=== PATIENT | male | born 1955 | race Caucasian/White ===

== ENCOUNTER 2023-10-13 20:56 | Emergency (ER) | payer OTHER, SELFPAY ==
[2023-10-13 21:06] VITALS: BP 158/94
[2023-10-13 21:29] LABS: % Basophils 0.2 % (0-2); % Eosinophils 0.3 % (0-6); % Immature Granulocytes 0.4 % (0-0.5); % Lymphocytes 12.4 % (20.5-51.1); % Monocytes 5.6 % (1.7-9.3); % Neutrophils 81.1 % (42.2-75.2); Absolute Immature Granulocytes 0.1 10^3/uL (0-0.05); Absolute Lymphocytes 1.8 10^3/uL (1.2-3.4); Absolute Monocytes 0.8 10^3/uL (0.1-0.6); Absolute Neutrophils 11.7 10^3/uL (1.4-6.5); Hematocrit 40.2 % (39.0-52.0); Hemoglobin 13.8 g/dL (13.0-18.0); Mean Corp Hgb Conc. 34.3 g/dL (33.0-37.0); Mean Corpuscular Hgb 29.6 pg (27.0-31.0); Mean Corpuscular Volume 86.3 fL (80.0-94.0); Mean Platelet Volume 9.8 fL (7.4-10.4); Nucleated Red Blood Cells % 0 % (-); Platelet Count 342 10^3/uL (130-400); Red Blood Cell Count 4.66 10^6/uL (4.70-6.10); Red Cell Dist. Width 14.2 % (11.5-14.5); White Blood Cell Count 14.4 10^3/uL (4.8-10.8)
[2023-10-13 21:39] LABS: ALT (SGPT) 17 U/L (0-50); AST (SGOT) 22 U/L (17-59); Albumin 3.8 g/dl (3.5-5.0); Alkaline Phosphatase 81 U/L (38-126); Blood Urea Nitrogen 16 mg/dl (9-20); Calcium 9.7 mg/dl (8.4-10.2); Carbon Dioxide 26 mmol/L (22-30); Chloride 100 mmol/L (98-107); Glucose 129 mg/dl (70-99); Potassium 4.2 mmol/L (3.5-5.1); Sodium 137 mmol/L (135-145); Total Bilirubin 0.7 mg/dl (0.2-1.3); Total Protein 6.5 g/dl (6.3-8.2); eGFR > 60.00
[2023-10-13 21:44] VITALS: BP 124/82
[2023-10-13 21:49] LABS: Troponin I < 0.012 ng/ml
[2023-10-13 22:00] VITALS: BP 144/94
--- NOTE | 2023-10-13 22:24 | ED.GENMED ---
History of Present Illness
<STEPHEN Whitman - Last Filed: 10/14/23 06:15>
General
Chief Complaint: Chest Pain
Source: patient
Exam Limitations: none
Time Seen by Provider: 10/13/23 21:58
Nursing documentation reviewed up to this point in time: agreed with
Travel History
Have you had any contact with someone who has COVID-19?: No
Do you have any symptoms of coronavirus? Fever > 100 degrees, chills, cough, shortness of breath, sore throat, loss of taste or smell, muscle aches, or headache?: No
History of Present Illness
History of Present Illness:
This is a 68 YOM with PMHx of CAD, HTN, HLD, Diverticulitis, asthma presenting with dizziness x 1 wk and BUSCH x 1 wk that have been worsening, L arm pain since 1000 today, and L shoulder pain since 1900 today. Pt noted moderate/severe dizziness that
has been bothering him with positional changes. Pt denied feelings of near syncope or episodes of syncope. Pt noted moderate BUSCH while walking his dog this week and an episode today while brushing snow off his vehicle. The pt noted it took 30 mins
of rest to alleviate the SOB today. He took his BP with a home cuff and noted it to be 'high 100s over 110.' Pt denied any SOB at rest. Denied using albuterol inhaler for SOB. Then pt then took a nap and woke up with 3/10 aching L arm pain which
has bothered him intermittently today. Around 1900 today, pt began with 4/10 aching L shoulder pain radiating to L pectoralis area. Pt noted decreased oral intake x 3 weeks related to GI upset with 15 lbs weight loss and consistent loose
stools/diarrhea. Pt had abd CT completed last week via GI. Pt was called by GI and told he had generalized bowel inflammation and gallstones, following up with GI on 10/15/23. NKDA.
Past History
<STEPHEN Whitman - Last Filed: 10/14/23 06:15>
Past History
ED Past Medical History: HTN, Hypercholesterolemia, Other (Crohn's) and Other (Diverticulitis)
ED Past Surgical History: Appendectomy, Orthopedic (Neck surgery with fusion) and Other (hernia)
Social History
Tobacco: Non-smoker
Drug: Marijuana
Personal:
Living: with family
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
Review of Systems
<STEPHEN Whitman - Last Filed: 10/14/23 06:15>
Review of Systems
Allergies reviewed?: Yes
Other source history: family
All Other Systems: ROS reviewed and negative except as documented in HPI and ROS
Constitutional: Reports no symptoms
EENT: Reports no symptoms
Respiratory: Reports trouble breathing (BUSCH)
Cardiac: Reports chest pain (Radiating from L shoulder to L pectoralis area)
ABD/GI: Reports diarrhea
: Reports no symptoms
Musculoskeletal: Reports joint pain (L shoulder) and muscle pain (L forearm)
Skin: Reports no symptoms
Neurological: Reports dizzy
Hematologic/Lymphatic: Reports no symptoms
Psychiatric: Reports no symptoms
Phy Exam
<STEPHEN Whitman - Last Filed: 10/14/23 06:15>
General Physical Exam
General Presentation: well appearing
General age: appears stated age
General Skin: warm and dry
General Habitus: normal
General Mental: alert
General Hydration: appears well hydrated
ENT Exam
ENT Exam: EOMI and neck supple
Eye Exam
Eye Exam: PERRL and EOMI
Cardiovascular Exam
Cardiovascular Exam: regular rate/rhythm
Pulmonary Exam
Pulmonary Exam: lungs clear, no respiratory distress, no rales, chest non tender, no crackles, no rhonchi, no stridor, no wheezing and no cough
Gastrointestinal Exam
Gastrointestinal Exam: normal bowel sounds, soft, no pulsatile mass, non distended, cva tenderness, no masses and tender (generalized mild tenderness)
Neurological Exam
Neurological Exam: alert, oriented x3, no motor deficits, no sensory deficits and speech normal
Musculoskeletal Exam
Musculoskeletal Exam: full ROM (shoulders B/L) and neck pain (Hx of neck pain with cervical spine fusion)
Skin Exam
Skin Exam: normal color and warm/dry
Psychiatric Exam
Psychiatric Exam: normal mood/affect
Scores
<STEPHEN Whitman - Last Filed: 10/14/23 06:15>
Heart Score for Chest Pain Patients
STEMI patient?: No
History: Moderately Suspicious
ECG: Normal
Age: >/= 65 years
Risk Factors: >/= 3 Risk Factors or History of CAD
Troponin: </= Normal Limit
Heart Score for Chest Pain Patients: 5
Heart Score Risk: 20.3% MACE over next 6 weeks
Course
<Nani Jovel [facility] - Last Filed: 10/14/23 06:15>
Orders/Labs/Results
Orders:
Orders
10/13/23 20:59
EKG [Electrocardiogram (*1)] Urgent
Reason for Study: Chest Pain
EKG- Treatment ONCE
10/13/23 21:17
Complete Blood Count/With Diff Urgent
Comprehensive Metabolic Panel Urgent
NT-proBNP Urgent
Comment: ADDED
Troponin I Urgent
10/13/23 22:32
CR Chest - 2 Views Urgent
Comment:
Reason For Exam: chest pain
10/13/23 22:38
EKG- Treatment ONCE
10/13/23 22:50
Orthostatic VS- Treatment ONCE
10/13/23 22:55
Add On- LAB Urgent
Tests Added?: pro bnp
10/13/23 23:00
0.9% Sodium Chloride 1000 ml [Nss] 1,000 ml IV 500 mls/hr
10/14/23 00:28
Troponin I Urgent
10/14/23 00:30
0.9% Sodium Chloride 500 ml [Nss] 500 ml IV BOLUS
10/14/23 01:00
Electrocardiogram (*1) Urgent
Reason for Study: Chest Pain
10/14/23 01:13
Urinalysis Reflex To Culture Urgent
Date Specimen was Collected: 10/14/23
Time Specimen was Collected: 01:09
Abnormal Lab Results
10/13/23 10/14/23
21:17 01:13
WBC 14.4 H 10^3/uL
(4.8-10.8)
RBC 4.66 L 10^6/uL
(4.70-6.10)
Abs Immat Gran (auto) 0.1 H 10^3/uL
(0-0.05)
Absolute Neuts (auto) 11.7 H 10^3/uL
(1.4-6.5)
Absolute Monos (auto) 0.8 H 10^3/uL
(0.1-0.6)
Neutrophils % 81.1 H %
(42.2-75.2)
Lymphocytes % 12.4 L %
(20.5-51.1)
Glucose 129 H mg/dl
(70-99)
Urine Ketones 1+ A
(Negative)
10/13/23 21:17
10/13/23 21:17
Vital Signs
Initial and Last Documented VS:
Initial Vital Signs
Temp Pulse Resp BP Pulse Ox
98.6 F 94 18 158/94 99
10/13/23 21:06 10/13/23 21:06 10/13/23 21:06 10/13/23 21:06 10/13/23 21:06
Last Documented Vital Signs
Temp Pulse Resp BP Pulse Ox
98.6 F 67 15 119/79 99
10/13/23 21:06 10/14/23 02:15 10/14/23 02:15 10/14/23 02:00 10/14/23 02:15
<Tawanda Lemos, DO - Last Filed: 10/14/23 02:25>
Orders/Labs/Results
Orders:
Orders
10/13/23 20:59
EKG [Electrocardiogram (*1)] Urgent
Reason for Study: Chest Pain
EKG- Treatment ONCE
10/13/23 21:17
Complete Blood Count/With Diff Urgent
Comprehensive Metabolic Panel Urgent
NT-proBNP Urgent
Comment: ADDED
Troponin I Urgent
10/13/23 22:32
CR Chest - 2 Views Urgent
Comment:
Reason For Exam: chest pain
10/13/23 22:38
EKG- Treatment ONCE
10/13/23 22:50
Orthostatic VS- Treatment ONCE
10/13/23 22:55
Add On- LAB Urgent
Tests Added?: pro bnp
10/13/23 23:00
0.9% Sodium Chloride 1000 ml [Nss] 1,000 ml IV 500 mls/hr
10/14/23 00:28
Troponin I Urgent
10/14/23 00:30
0.9% Sodium Chloride 500 ml [Nss] 500 ml IV BOLUS
10/14/23 01:00
Electrocardiogram (*1) Urgent
Reason for Study: Chest Pain
10/14/23 01:13
Urinalysis Reflex To Culture Urgent
Date Specimen was Collected: 10/14/23
Time Specimen was Collected: 01:09
Abnormal Lab Results
10/13/23 10/14/23
21 01:13
WBC 14.4 H 10^3/uL
(4.8-10.8)
RBC 4.66 L 10^6/uL
(4.70-6.10)
Abs Immat Gran (auto) 0.1 H 10^3/uL
(0-0.05)
Absolute Neuts (auto) 11.7 H 10^3/uL
(1.4-6.5)
Absolute Monos (auto) 0.8 H 10^3/uL
(0.1-0.6)
Neutrophils % 81.1 H %
(42.2-75.2)
Lymphocytes % 12.4 L %
(20.5-51.1)
Glucose 129 H mg/dl
(70-99)
Urine Ketones 1+ A
(Negative)
10/13/23 21:17
10/13/23 21:17
Vital Signs
Initial and Last Documented VS:
Initial Vital Signs
Temp Pulse Resp BP Pulse Ox
98.6 F 94 18 158/94 99
10/13/23 21:06 10/13/23 21:06 10/13/23 21:06 10/13/23 21:06 10/13/23 21:06
Last Documented Vital Signs
Temp Pulse Resp BP Pulse Ox
98.6 F 67 15 119/79 99
10/13/23 21:06 10/14/23 02:15 10/14/23 02:15 10/14/23 02:00 10/14/23 02:15
Alexilt;STEPHEN Whitman - Last Filed: 10/14/23 06:15>
MDM/Problems Addressed
Differential Diagnosis Includes:
[place], PE, CHF, orthostatic HTN, dehydration, vertigo, MSK pain
MDM/Problems Addressed:
68 YOM with BUSCH and L shoulder/arm pain
Chronic conditions affecting care: HTN, CAD and Asthma
<Tawanda Lemos DO - Last Filed: 10/14/23 02:25>
MDM/Problems Addressed
Chronic conditions affecting care: HTN, CAD and Asthma
Acute Exacerbation and/or Progression of Chronic Illness: Asthma
<STEPHEN Whitman - Last Filed: 10/14/23 06:15>
*Radiology
Radiology exam reviewed: radiology read reviewed
*Pulse Oximetry
Patient hypoxic: no
*EKG
Interpreted by ED Provider?: Yes
EKG Intrepretation Date: 10/13/23
EKG Intrepretation Time: 22:45
Interpretation: abnormal
Comparison EKG: no changes
Heart Rate: 82
Rate: normal
Rhythm: sinus
[place]: left axis deviation
Interval: normal interval, normal QT interval and normal [place] interval
QRS Pattern: normal QRS
Ischemia: no ischemia
*Grounds Maintenance Manager Interpretation
Rate: normal
Interpretation: normal
Heart Rate: 94
Rhythm: sinus
*Critical Care Note
Total Time (30-74mins, 75-104mins- exclusive of procedures): Not Applicable
<Tawanda Lemos DO - Last Filed: 10/14/23 02:25>
*Pulse Oximetry
Patient hypoxic: no
ED Attending Note
<STEPHEN Whitman - Last Filed: 10/14/23 06:15>
-
Portions of this chart may have been created with voice recognition software.� Occasional wrong word or��sound alike� substitutions may have occurred due to the inherent limitations of voice recognition software.
<Tawanda Lemos DO - Last Filed: 10/14/23 02:25>
ED Attending Note
Patient seen and examined by attending physician: Yes
ED Attending Note:
Pleasant 68-year-old male presents with dyspnea on exertion and dizziness for the last week. Patient had left arm pain this morning. He states that that was intermittent throughout the day. This evening he developed left shoulder pain. Patient
reports dizziness when sitting or standing. He denies syncope or true lightheadedness. Patient concerned because his blood pressure was elevated this evening when he took it at home. Patient is under the care of GI for diverticulitis. He states
that for the last 3 weeks he has had decreased oral intake with weight loss. He had a CAT scan completed last week. He does have a follow-up with GI this week. Patient also has an appointment with Dr. Frye, cardiology, scheduled for Thursday.
Patient was seen in conjunction with the PA student. I have reviewed and agree with the history and treatment plan presented. On my independent physical exam, patient is awake, alert, and oriented x3, minimal acute distress. Heart is regular rate
and rhythm without murmurs rubs or gallops appreciated. Lungs are clear to auscultation bilaterally without wheezes rales or rhonchi. Abdomen is soft and nondistended. Skin is warm and dry. Moves all 4 extremities.
Discharge Plan
Departure
Patient Disposition: Home (Routine Discharge)
Date of Disposition: 10/14/23
Time of Disposition: 02:23
Patient with high blood pressure during this ER visit?: Yes
Condition: Good
Discharge Problem:
Chest pain
Instructions: Chest Pain PCP Follow Up, BLOOD PRESSURE
Prescriptions:
No Action
metoprolol succinate 50 MG tablet extended release 24 hr
50 mg PO QPM
omeprazole [Prilosec] 40 MG capsule,delayed release(DR/EC)
40 mg PO BID
aspirin 325 MG tablet
325 mg PO DAILY
alprazolam 0.25 MG tablet
0.0625 mg PO HSPRN PRN (Reason: insomnia)
Patient Comments:
pt says he takes 1/4 tablet
docosahexaenoic acid-epa 1 CAP capsule
2 cap PO DAILY
coenzyme Q10 [Co Q-10] 200 MG capsule
200 mg PO DAILY
Crestor
1 tab PO DAILY
prednisone 10 MG tablet
10 mg PO DAILY 11 Days 0RF
Rx Instructions:
take 50mg x 5 days, then 20mg x3 days, then 10mg x 3 days
albuterol sulfate [Proventil HFA] 90 MCG/PUFF HFA aerosol inhaler
2 puff inhalation Q4HPRN PRN (Reason: shortness of breath) Qty: 0 0RF
amoxicillin-pot clavulanate 1 TABLET tablet
1 tab PO Q12 Qty: 14 0RF
Referrals:
Khoi Frye MD [Active] - Keep scheduled appt
Activity Restrictions/Additional Instructions:
Please keep your appointment for cardiology on Thursday, gastroenterology on , and urology on Thursday. Return to the ER with any changing or worsening of symptoms.
It was a pleasure meeting you and taking part in your care. We hope for your continued healing and wellness.
Please read discharge instructions in their entirety. However, they are for general education and may not describe your exact diagnosis at discharge. Information on your ER visit and medical conditions were discussed with you along with appropriate
follow up information...
If indicated, please take your medications as instructed and indicated on discharge paperwork.
Please schedule a follow up appointment as directed. Call to schedule an appointment
Please return to the emergency department with ANY change in, persisting, or worsening of symptoms. If any of your symptoms do not improve, or persist, or become more severe within 6-12 hours, please return to the emergency department for further
care.
Please return to the emergency department if you develop a headache, neck pain/stiffness, fever greater than 100.4F, chest pain, shortness of breath, persistent nausea, vomiting, slurred speech, difficulty walking, numbness/tingling, weakness, signs
of infection or any other symptoms that are worrisome to you.
If you have any questions or concerns please do not hesitate to call the Hospital at or E-mail me directly at [email or web address]
Interventions
Interventions:
*Risk Screen - Suicide Last Done: 10/13/23 21:06
*General Assessment Last Done: 10/13/23 21:06
*Neglect/Abuse Screening Last Done: 10/13/23 21:06
ED- Fall Risk Assessment Last Done: 10/13/23 21:53
*ED COVID-19 Vaccine History Last Done: 10/13/23 21:53
*Nursing Disposition Last Done: 10/14/23 02:25
ED- Cardiac Assessment Last Done: 10/14/23 00:05
Discharge Date and Time
Discharge Date/Time: 10/14/23 02:25
[2023-10-14 00:01] LABS: NT-proBNP 99.7 pg/ml
[2023-10-14 00:06] VITALS: BP 128/76
[2023-10-14 00:07] VITALS: BP 128/76; BP 129/92; BP 136/93; PULSE 68; PULSE 79; PULSE 91
[2023-10-14 00:08] VITALS: BP 136/93
[2023-10-14] MEDS: NSS 1000 IV (00:25)
[2023-10-14 01:00] VITALS: BP 128/81
[2023-10-14 01:21] LABS: Urine Albumin Negative (Neg - Trace); Urine Bilirubin Negative (Negative); Urine Character Clear (Clear); Urine Color Yellow; Urine Glucose Negative (Negative); Urine Ketone 1+ (Negative); Urine Leukocyte Negative (Negative); Urine Nitrite Negative (Negative); Urine Occult Blood Negative (Negative); Urine Specific Gravity 1.015 (<1.030); Urine Urobilinogen Negative (Neg - 1+)
[2023-10-14 01:25] LABS: Troponin I < 0.012 ng/ml
[2023-10-14] MEDS: NSS 500 IV (01:57)
[2023-10-14 02:00] VITALS: BP 119/79
== END 2023-10-14 02:25 | disposition home or self-care (01) ==
LOC: EMR 20:56
PROVIDERS: Emergency Medicine; EMERGENCY PHYSICIAN Student in an Organized Health Care Education/Training Program; FAMILY PHYSICIAN Family Medicine
DX: R07.89 Other chest pain (principal); R06.09 Other forms of dyspnea; M25.512 Pain in left shoulder; M79.602 Pain in left arm; R42 Dizziness and giddiness; R19.7 Diarrhea, unspecified; M79.18 Myalgia, other site; K80.20 Calculus of gallbladder without cholecystitis without obstruction; I10 Essential (primary) hypertension; I25.10 Atherosclerotic heart disease of native coronary artery without angina pectoris; E78.00 Pure hypercholesterolemia, unspecified; K50.90 Crohn's disease, unspecified, without complications; K57.92 Diverticulitis of intestine, part unspecified, without perforation or abscess without bleeding; J45.909 Unspecified asthma, uncomplicated; I25.2 Old myocardial infarction; M43.22 Fusion of spine, cervical region; Z79.82 Long term (current) use of aspirin
CPT/HCPCS: 99284; 96360; 71046; 80053; 81003; 83880; 84484; 85025; 93005

== ENCOUNTER 2023-11-03 14:21 | Inpatient (IN) | payer OTHER, MEDICARE, SELFPAY ==
[2023-11-03] VITALS (11 sets, daily range): BP systolic 101–144; BP diastolic 67–93; BMI 22.1
[2023-11-03] MEDS: DILAUDID 1 MG IV ×2 (09:23→23:54)
[2023-11-03] MEDS: ZOFRAN 4 MG IV (09:23)
[2023-11-03] MEDS: NSS 1000 IV ×3 (09:24→16:58)
--- NOTE | 2023-11-03 09:30 | ED.GENMED ---
History of Present Illness
General
Chief Complaint: Abdominal Pain
Source: patient and spouse
Exam Limitations: none
Time Seen by Provider: 11/03/23 09:12
Nursing documentation reviewed up to this point in time: agreed with
Travel History
Have you had any contact with someone who has COVID-19?: No
Do you have any symptoms of coronavirus? Fever > 100 degrees, chills, cough, shortness of breath, sore throat, loss of taste or smell, muscle aches, or headache?: No
History of Present Illness
History of Present Illness:
68-year-old male with history of CAD, HTN, HLD, Crohn's, diverticulitis presents stating 8 days ago he had an outpatient CAT scan ordered 10/[address] Nichols at [place] due to abdominal pain that he has had off and on for past 'couple of
months.' He was then started on Augmentin 875 mg twice daily 8 days ago and has been taking it with worsening of symptoms. His pain has become significantly worse over the past couple of days and this morning it was 10/10, his took his
temperature on his forehead it was 105, she rechecked it and it was the same. Gave Tylenol and this a.m. his temperature was 102. Has taken nothing today for fever.
This a.m. his pain was 10/10, took a now it is 5/10. He took MiraLAX yesterday and had a couple small loose stools during the night but they were painful and he was doubled over. He had a small episode of diarrhea this morning. His hemorrhoids
are aggravated so he did note some blood in his stool 2 days ago but none since.
Denies n/v. Denies CP or SOB.
Past History
Past History
ED Past Medical History: HTN, Hypercholesterolemia, Other (Crohn's) and Other (Diverticulitis)
ED Past Surgical History: Appendectomy, Orthopedic (Neck surgery with fusion) and Other (hernia)
Social History
Tobacco: Non-smoker
Drug: Marijuana
Personal:
Living: with family
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
Review of Systems
Review of Systems
Allergies reviewed?: Yes
All Other Systems: ROS reviewed and negative except as documented in HPI and ROS
Constitutional: Reports fever
Respiratory: Denies trouble breathing
Cardiac: Denies chest pain
ABD/GI: Reports abdominal pain, diarrhea, constipated and bloody stools (noted blood in stool 2 days ago none since, hemorrhoids are aggravated); Denies nausea, vomiting or black stools
: Denies dysuria, flank pain, difficulty voiding or urgency
Musculoskeletal: Reports no symptoms
Skin: Reports no symptoms
Neurological: Reports no symptoms
Phy Exam
Physical Exam
Physical Exam:
GENERAL: No acute distress. A&Ox3.
CONSTITUTIONAL: Afebrile.
EYES: Clear, conjunctivae normal
Neck: Supple
ENMT: moist mucus membranes, Pharynx nl
RESPIRATORY: Regular respirations, nonlabored, lungs clear.
CARDIOVASCULAR: Regular rate and rhythm, no murmurs, no rubs.
GI: Soft, moderately tender all across abdomen below the umbilicus, normal BS
MUSCULOSKELETAL: Moves with ease. Well perfused.
SKIN: Warm, dry, pink
PSYCH: Normal mood and affect. Well kept, interactive and appropriate
NEUROLOGIC: Awake, alert and oriented. No focal neurological deficits
Course
Orders/Labs/Results
Orders:
Orders
11/03/23 08:52
Electrocardiogram (*1) Urgent
Reason for Study: Tachycardia
EKG- Treatment ONCE
11/03/23 09:18
Complete Blood Count/With Diff Urgent
Comprehensive Metabolic Panel Urgent
Lipase Urgent
11/03/23 09:22
HYDROmorphone [Dilaudid] 1 mg .ROUTE .STK-MED ONE
HYDROmorphone [Dilaudid] 1 mg IV NOW STA
Ondansetron Injectable [Zofran] 4 mg .ROUTE .STK-MED ONE
11/03/23 09:23
Ondansetron Injectable [Zofran] 4 mg IV NOW STA
11/03/23 09:24
0.9% Sodium Chloride 1000 ml [Nss] 1,000 ml IV BOLUS
11/03/23 09:29
CT Abd/Pel (IV only)-DH only Urgent
Comment:
Reason For Exam: worsening abd pain. Had CT 10/26 also
11/03/23 09:41
Piperacillin/Tazo 3.375 Gram [Zosyn] 3.375 gram in 50 ml IV NOW
11/03/23 09:42
0.9% Sodium Chloride 1000 ml [Nss] 1,800 ml IV NOW STA
11/03/23 09:55
Lactic Acid Q4H
Comment: CANCEL 2nd LACTIC ACID IF 1st LACTIC ACID IS LESS THAN 2
Blood Culture Q30M
ALEKSANDR Source: Blood/Venous
Specimen Description:
Blood Culture Q30M
ALEKSANDR Source: Blood/Venous
Specimen Description:
11/03/23 Lunch
NPO
Allow oral meds: Yes
Allow clear liquids: Sips of Clears
NPO with Ice Chips: Yes
11/03/23 10:44
0.9% Sodium Chloride 1000 ml [Nss] 1,000 ml IV BOLUS
11/03/23 11:15
HYDROmorphone [Dilaudid] 0.5 mg IV NOW STA
11/03/23 11:54
ColoRectal Surgery Consult Urgent
Consulting Provider: Joaquín Bell
Was physician already notified: Yes
Reason for consult: colon abscess, sigmoid diverticulitis
11/03/23 13:57
Admit/Transfer Patient As Directed
Co-Sign Provider:
Level of Care: Inpatient admission
Assign to:: Medical/Surgical
Physician / Group: Vaibhav
Diagnosis: Diverticular abscess
Reason for Hospitalization: Above
Expected length of stay greater than two midnights?: Yes
ELOS- Estimated Length of Stay in days: 2
I certify the patient meets the requirements for IP care: Yes
11/03/23 14:03
Code Status As Directed
Resuscitation Status: Full Code
11/03/23 15:56
0.9% Sodium Chloride 1000 ml [Nss] 1,000 ml IV 100 mls/hr
Acetaminophen [Tylenol] 500 mg PO TIDPRN PRN
Acetaminophen [Tylenol] 650 mg PO Q4HPRN PRN
Metoprolol Xl [Toprol Xl] 50 mg PO DAILY
Morphine Sulfate 2 mg IV Q4HPRN PRN
11/03/23 15:56
DX Deep Vein Thrombosis Video Routine
11/03/23 16:00
Piperacillin/Tazo 3.375 Gram [Zosyn] 3.375 gram in 50 ml IV Q6H
11/03/23 20:00
Heparin 5,000 units SC Q12
omeprazole 40 mg PO BID
11/03/23 22:00
Aspirin Low Dose EC [Aspir Low (Enteric Coated)] 81 mg PO HS
Rosuvastatin Calcium [Crestor] 20 mg PO HS
coQ10 (ubiquinol) 200 mg PO HS
11/04/23 06:00
BMP [Basic Metabolic Panel] IN AM
CBC/With Diff [Complete Blood Count/With Diff] IN AM
Abnormal Lab Results
11/03/23
09:18
WBC 30.6 H 10^3/uL
(4.8-10.8)
RDW 14.7 H %
(11.5-14.5)
Abs Immat Gran (auto) 0.3 H 10^3/uL
(0-0.05)
Absolute Neuts (auto) 27.0 H 10^3/uL
(1.4-6.5)
Absolute Lymphs (auto) 0.7 L 10^3/uL
(1.2-3.4)
Absolute Monos (auto) 2.6 H 10^3/uL
(0.1-0.6)
Immature Gran % 1.0 H %
(0-0.5)
Neutrophils % 88.1 H %
(42.2-75.2)
Lymphocytes % 2.2 L %
(20.5-51.1)
Sodium 133 L mmol/L
(135-145)
Glucose 142 H mg/dl
(70-99)
Total Bilirubin 1.8 H mg/dl
(0.2-1.3)
Lipase 12 L U/L
(23-300)
11/03/23 09:18
11/03/23 09:18
Vital Signs
Initial and Last Documented VS:
Initial Vital Signs
Temp Pulse Resp BP Pulse Ox
98.1 F 130 17 116/93 97
11/03/23 08:46 11/03/23 08:46 11/03/23 08:46 11/03/23 08:46 11/03/23 08:46
Last Documented Vital Signs
Temp Pulse Resp BP Pulse Ox
98.3 F 104 16 144/81 96
11/03/23 16:02 11/03/23 16:02 11/03/23 16:02 11/03/23 16:02 11/03/23 16:02
MDM/Problems Addressed
Differential Diagnosis Includes:
Diverticulitis, abscess, perforation
MDM/Problems Addressed:
68-year-old male with history of CAD, HTN, HLD, Crohn's, diverticulitis presents stating 8 days ago he had an outpatient CAT scan ordered 10/[address] Nichols at [facility] due to abdominal pain that he has had off and on for past 'couple of
months.' He was then started on Augmentin 875 mg twice daily 8 days ago and has been taking it with worsening of symptoms. His pain has become significantly worse over the past couple of days and this morning it was 10/10, his took his
temperature on his forehead it was 105, she rechecked it and it was the same. Gave Tylenol and this a.m. his temperature was 102. Has taken nothing today for fever.
This a.m. his pain was 10/10, took a now it is 5/10. He took MiraLAX yesterday and had a couple small loose stools during the night but they were painful and he was doubled over. He had a small episode of diarrhea this morning. His hemorrhoids
are aggravated so he did note some blood in his stool 2 days ago but none since.
Denies n/v. Denies CP or SOB.
Afebrile, NAD
Appears calm, NAD but is tachycardic, in pain
EKG: Sinus tachycardia
11/03/2023 0925 AM
WBC 30.6
Sepsis protocol initiated
VS HR 96 BP 120/80
Good pain relief after medication
11/03/2023 1045 AM
CMP with no clinically significant abnormality
Lipase 12
Lactic within normal limits
CT abdomen pelvis with IV only contrast: Radiology report read: IMPRESSION:
Worsening appearance of the sigmoid diverticulitis, with persistent bowel wall thickening and inflammatory stranding and with a developing 2.7 cm abscess adjacent to the sigmoid colon and urinary bladder. No free air.
Hospitalist notified of admission, colorectal consult in
*Critical Care Note
Total Time (30-74mins, 75-104mins- exclusive of procedures): Not Applicable
ED Attending Note
-
Portions of this chart may have been created with voice recognition software.� Occasional wrong word or��sound alike� substitutions may have occurred due to the inherent limitations of voice recognition software.
Discharge Plan
Departure
Patient Disposition: Admit
Date of Disposition: 11/03/23
Time of Disposition: 11:08
Presentation/result/management discussed w/ accepting MD/DO: Hospitalist
Patient with high blood pressure during this ER visit?: No
Condition: Fair
Discharge Problem:
Abscess of sigmoid colon due to diverticulitis
Interventions
Interventions:
*Risk Screen - Suicide Last Done: 11/03/23 09:19
*General Assessment Last Done: 11/03/23 08:51
*Neglect/Abuse Screening Last Done: 11/03/23 09:19
ED- Fall Risk Assessment Last Done: 11/03/23 15:52
*ED COVID-19 Vaccine History Last Done: 11/03/23 08:50
*Nursing Disposition Last Done: 11/03/23 15:52
[facility] Assessment Last Done: 11/03/23 09:19
Discharge Date and Time
Discharge Date/Time: 11/03/23 15:52
[2023-11-03 09:33] LABS: % Basophils 0.3 % (0-2); % Lymphocytes 2.2 % (20.5-51.1); % Monocytes 8.4 % (1.7-9.3); % Neutrophils 88.1 % (42.2-75.2); Absolute Basophils 0.1 10^3/uL (0-0.2); Absolute Immature Granulocytes 0.3 10^3/uL (0-0.05); Absolute Lymphocytes 0.7 10^3/uL (1.2-3.4); Absolute Monocytes 2.6 10^3/uL (0.1-0.6); Hematocrit 41.5 % (39.0-52.0); Hemoglobin 14.1 g/dL (13.0-18.0); Mean Corpuscular Hgb 29.3 pg (27.0-31.0); Mean Corpuscular Volume 86.3 fL (80.0-94.0); Mean Platelet Volume 10.2 fL (7.4-10.4); Nucleated Red Blood Cells % 0 % (-); Platelet Count 283 10^3/uL (130-400); Red Blood Cell Count 4.81 10^6/uL (4.70-6.10); Red Cell Dist. Width 14.7 % (11.5-14.5); White Blood Cell Count 30.6 10^3/uL (4.8-10.8)
[2023-11-03 09:45] LABS: ALT (SGPT) 13 U/L (0-50); AST (SGOT) 18 U/L (17-59); Albumin 4.1 g/dl (3.5-5.0); Alkaline Phosphatase 94 U/L (38-126); Blood Urea Nitrogen 12 mg/dl (9-20); Calcium 9.3 mg/dl (8.4-10.2); Carbon Dioxide 22 mmol/L (22-30); Chloride 102 mmol/L (98-107); Glucose 142 mg/dl (70-99); Lipase 12 U/L (23-300); Potassium 3.8 mmol/L (3.5-5.1); Sodium 133 mmol/L (135-145); Total Bilirubin 1.8 mg/dl (0.2-1.3); Total Protein 6.8 g/dl (6.3-8.2); eGFR > 60.00
[2023-11-03 10:15] LABS: Lactic Acid 1.5 mmol/L (0.7-2.0)
[2023-11-03] MEDS: ZOSYN 50 IV ×3 (10:28→23:54)
[2023-11-03] MEDS: DILAUDID 0.5 MG IV ×2 (11:17→19:47)
--- NOTE | 2023-11-03 12:30 | CON.CRS ---
Addendum entered and electronically signed by Joaquín Bell MD 11/03/23 17:35:
I saw and examined the patient.
The PA's note was reviewed and I agree with the note.
Comment:
Patient seen earlier in the ER.
History, vitals, labs, imaging reviewed. Patient seen and examined.
68-year-old male with a strong family history of Crohn's but no yves rosalie history of Crohn's himself with sigmoid diverticulitis complicated by a 2.7 cm abscess between the sigmoid and the bladder. Has associated leukocytosis of 30,000 and
borderline tachycardia. Per patient report he had a temperature of 105? At home. He is afebrile in the ER. On exam he is moderately tender in both lower quadrants. Upper quadrants less tender. Interestingly it sounds like he failed outpatient
Augmentin and had a prior CT which showed diverticulitis without abscess last week. His last colonoscopy was by Dr. Purcell on 10/16/2022 confirming diverticulosis of the sigmoid, descending, and transverse colon as well as a small benign polyp in
the distal sigmoid colon. Random biopsies of colon showed no evidence for microscopic colitis or inflammation. In regards to prior attacks of diverticulitis, the patient vaguely relates that he has had multiple attacks in the distant past. I
discussed the situation with the patient and his family at the bedside. I do not believe the abscess will be approachable via IR guidance. Will get their opinion however. In the meantime agree with admission for IV fluids, diet restriction, and
IV antibiotics. I discussed options of surgery which would likely include a colostomy versus maximum medical measures. The patient currently opts for medical measures. I told him surgery would be necessary if he decompensates. He understands
this. All questions answered.
Thanks.
Original Note:
Consultation
-
Date/Time Consultation Requested: 11/03/2023, 1154
Date/Time Consultation Performed: 11/03/2023, 1300
Requesting Provider: LISA Lucero
Performing Provider: Joaquín Bell MD
Reason for Consultation: Sigmoid diverticulitis
Medical History
-
Chief Complaint: abdominal pain
History of Present Illness:
68-year-old male with a strong family history of Crohn's presents to the emergency department complaining of abdominal pain. He had an outpatient CT ordered by his primary care physician due to abdominal pain for the past several months. The CT
showed a sigmoid segment of moderate acute diverticulitis with no perforation or abscess. Also noted was diffuse pancreatic parenchymal atrophy. In the mid pancreatic body there is an ovoid homogeneous soft tissue component measuring 1.6 cm which
may represent a residual island of pancreatic tissue but the possibility of pancreatic mass/neoplasm cannot entirely be excluded. He had multiple attacks of diverticulitis in the past, the last attack was several years ago.
He was started on Augmentin twice a day and has been taking it for the past 8 days. Despite this his symptoms have been worsening to the point where his abdominal pain has been a 10 out of 10. His temperature at home from a thermometer was 105.0
and he took Tylenol. His temperature was 102.0 after this. This morning his pain was a 10 out of 10. He had a small episode of diarrhea in the morning. He noted blood in his stool 2 days ago which he attributes to hemorrhoids. His bowel
movements are usually soft and in the morning.
He underwent a colonoscopy by Dr. Purcell on 10/16/2022 which revealed diverticulosis in the sigmoid colon, the descending colon, and in the transverse colon. There was one 5 mm polyp in the distal sigmoid colon.
CT of the abdomen and pelvis today shows worsening appearance of sigmoid diverticulitis with persistent bowel wall thickening and inflammatory stranding with developing 2.7 cm abscess adjacent to the sigmoid colon and urinary bladder. No free air.
We have been consulted for further surgical opinion.
Past Medical History
Past Medical History: HTN, Hypercholesterolemia and Other (Crohn's disease, diverticulosis)
Past Surgical History: Appendectomy, Hernia Repair and Orthopedic (History of cervical fusion)
Social History
Tobacco: Non-Smoker
Drug: Marijuana
Personal:
Living: With Family
Family History
Family History: Reviewed & Not Pertinent
Allergies / Home Medications
Allergy/AdvReac Type Severity Reaction Status Date / Time
NKA - No Known Allergies Allergy - Uncoded 06/29/21 23:53
Medication Instructions Recorded Confirmed Type
Fish Oil 1 cap PO DAILY 11/03/23 11/03/23 History
acetaminophen 500 mg tablet 1,000 mg PO TIDPRN PRN severe 11/03/23 11/03/23 History
(Tylenol Extra Strength) pain/fever
acetaminophen 500 mg tablet 500 mg PO TIDPRN PRN mild 11/03/23 11/03/23 History
(Tylenol Extra Strength) pain/fever
amoxicillin 875 mg-potassium 1 tab PO Q12H 11/03/23 11/03/23 History
clavulanate 125 mg tablet
aspirin 81 mg tablet,delayed 81 mg PO HS 11/03/23 11/03/23 History
release
coQ10 (ubiquinol) 200 mg capsule 200 mg PO HS 11/03/23 11/03/23 History
dicyclomine 20 mg tablet 20 mg PO TID PRN stomach discomfort 11/03/23 11/03/23 History
gqwzbbfd-uhjvgx-ceosg extract 5 6 cap PO DAILY 11/03/23 11/03/23 History
mg-6 mg-150 mg capsule (Fruit and
Vegetable Daily)
metoprolol succinate 50 mg 50 mg PO DAILY 11/03/23 11/03/23 History
tablet,extended release 24 hr
omeprazole 40 mg capsule,delayed 40 mg PO BID 11/03/23 11/03/23 History
release
polyethylene glycol 3350 17 gram 17 g PO HS 11/03/23 11/03/23 History
oral powder packet (Miralax)
rosuvastatin 20 mg tablet 20 mg PO HS 11/03/23 11/03/23 History
Review of Systems
-
History Source: Patient
All other systems: Negative unless noted
Abdomen/GI: Abdominal Pain, Diarrhea, Constipated and Bloody Stools
A 10 point review of systems was completed, and was negative except as per HPI.
Physical Exam
Vital Signs
Temp 98.1 F 11/03/23 08:46
Pulse 98 11/03/23 10:00
Resp Rate 21 11/03/23 10:00
Blood pressure 125/78 11/03/23 10:00
SaO2 95 11/03/23 10:00
11/02/23 11/03/23 11/04/23
06:59 06:59 06:59
Actual Weight 61 kg
Lab Results / Allergies
11/03/23 09:18
11/03/23 09:18
WBC 30.6 10^3/uL (4.8-10.8) H 11/03/23 09:18
Hgb 14.1 g/dL (13.0-18.0) 11/03/23 09:18
Hct 41.5 % (39.0-52.0) 11/03/23 09:18
Plt Count 283 10^3/uL (130-400) 11/03/23 09:18
Abs Immat Gran (auto) 0.3 10^3/uL (0-0.05) H 11/03/23 09:18
Neutrophils % 88.1 % (42.2-75.2) H 11/03/23 09:18
Allergy/AdvReac Type Severity Reaction Status Date / Time
NKA - No Known Allergies Allergy - Uncoded 06/29/21 23:53
Physical Exam
General: Well Developed and Well Nourished
GI: Soft and Tender (moderate, suprapubic)
Skin: Warm and Dry
Neuro: AO x 3
Psych: Calm
Data Reviewed
-
CT Scan: Image Personally Visualized and interpreted, Report Reviewed by me and Discussed with Patient
Labs: Labs Reviewed by me, Discussed with Physician and Discussed with Patient
Old Records: Reviewed
Assessment / Plan
-
Assessment: 68-year-old male with a history of Crohn's and recent CT with finding of sigmoid diverticulitis started on an outpatient course of antibiotics, now presents with abdominal pain and diarrhea with loose bloody stools with a WBC of 30.[address] of the abdomen and pelvis showing worsening sigmoid diverticulitis with a 2.7 cm abscess adjacent to the sigmoid and urinary bladder
Plan:
No surgery at this time. Discussed with patient that if he were to worsen he might require a colectomy with colostomy creation. For now he will remain n.p.o. and continue antibiotics. Trend WBC. IR has been consulted to assess if the abscess is
drainable.
--- NOTE | 2023-11-03 14:50 | HPS.HSE ---
Family Physician
-
Family Physician: Bucky Nichols
Chief Complaint
-
Abdominal pain and fever.
History of Present Illness
Patient is a 68-year-old male with history of coronary artery disease and hypertension, Crohn's disease currently not on any treatment, diverticulitis who presents to the emergency room with worsening abdominal pain and fever. Patient developed
abdominal pain mostly in the left lower quadrant weeks ago when he underwent evaluation with CT scan of the abdomen pelvis ordered by primary physician. Findings were consistent with sigmoid diverticulitis, 1 patient was initiated on Augmentin
therapy about 8 days prior to current visit. Being compliant with diabetic administration patient developed worsening of abdominal pain intensity 10 out of 10-day of presentation as well as fever reported at 105 at home.
Upon presentation to the emergency room patient is afebrile hemodynamically stable.
Repeated CT scan of the abdomen and pelvis today in the emergency room showed worsening of appearance of his sigmoid diverticulitis with persistent bowel wall thickening and inflammatory stranding with developing 2.7 cm abscess adjacent to the
sigmoid colon and urinary bladder. No free air.
Medical History
Past Medical History
Past Medical History: Reports CAD, HTN and Other (Chron's disease by history)
Past Surgical History: Reports Appendectomy, Orthopedic and Other (Hernia repair)
Social History
Tobacco: Non-smoker
Alcohol: Occasional
Drug: Marijuana
Personal:
Living: With Family
Employment: Employed
Family History
Family History: Not pertinent
Allergies / Home Medications
Allergies reflects when Allergies were last updated in [employer].
Home Medications with original date entered in [employer]
Allergy/Medication List:
Allergies
Allergy/AdvReac Type Severity Reaction Status Date / Time
NKA - No Known Allergies Allergy - Uncoded 06/29/21 23:53
Home Medications
Fish Oil 1 cap PO DAILY 11/03/23
acetaminophen 500 mg tablet (Tylenol Extra Strength) 1,000 mg PO TIDPRN PRN severe pain/fever 11/03/23
acetaminophen 500 mg tablet (Tylenol Extra Strength) 500 mg PO TIDPRN PRN mild pain/fever 11/03/23
amoxicillin 875 mg-potassium clavulanate 125 mg tablet 1 tab PO Q12H 11/03/23
aspirin 81 mg tablet,delayed release 81 mg PO HS 11/03/23
coQ10 (ubiquinol) 200 mg capsule 200 mg PO HS 11/03/23
dicyclomine 20 mg tablet 20 mg PO TID PRN stomach discomfort 11/03/23
ujtngfuy-wengor-qufac extract 5 mg-6 mg-150 mg capsule (Fruit and Vegetable Daily) 6 cap PO DAILY 11/03/23
metoprolol succinate 50 mg tablet,extended release 24 hr 50 mg PO DAILY 11/03/23
omeprazole 40 mg capsule,delayed release 40 mg PO BID 11/03/23
polyethylene glycol 3350 17 gram oral powder packet (Miralax) 17 g PO HS 11/03/23
rosuvastatin 20 mg tablet 20 mg PO HS 11/03/23
Review of Systems
-
A 12 point ROS was completed and negative except as noted: Yes
Respiratory: Reports No Symptoms
Cardiac: Reports No Symptoms
Abdomen/GI: Reports See HPI
: Reports No Symptoms
Physical Exam
Vital Signs
Vital Signs
Temp Pulse Resp BP Pulse Ox
99 F 104 20 129/75 96
11/03/23 13:45 11/03/23 14:30 11/03/23 14:30 11/03/23 14:00 11/03/23 14:30
Physical Exam
General: Well Developed, Well Nourished and No Apparent Distress
HEENT: NormoCephalic, Moist mucous membranes and Atraumatic
Respiratory: Clear
Cardiac: S1/S2 and Regular Rhythm; No Murmur or Rub
GI: Soft, Non Distended, Normal Bowel Sounds and Tender (Diffuse abdominal tenderness mostly in the left lower quadrant); No Organomegaly
Rectal: Deferred by Provider
Musculoskeletal: No Clubbing, No Cyanosis and No Edema
Skin: No Rash
Neuro: Awake, Alert, Oriented, AO x 3 and Nonfocal/grossly intact
Laboratory Results
-
11/03/23 09:18
11/03/23 09:18
Laboratory Results
Lactic Acid Cancelled 11/03/23 13:45
Total Bilirubin 1.8 mg/dl (0.2-1.3) H 11/03/23 09:18
AST 18 U/L (17-59) 11/03/23 09:18
ALT 13 U/L (0-50) 11/03/23 09:18
Alkaline Phosphatase 94 U/L (38-126) 11/03/23 09:18
Lipase 12 U/L (23-300) L 11/03/23 09:18
Impression/Plan
-
IMPRESSION:
Acute sigmoid diverticulitis with abscess.
Persistent loose stools.
Conditions prior to admission:
Nonobstructive CAD.
Essential hypertension
PLAN:
Acute sigmoid diverticulitis with abscess.
No evidence of sepsis on admission.
Presented with fever and elevated white count.
CT scan consistent with acute sigmoid diverticulitis and new 2.7 cm abscess
Discussed with colorectal surgery and interventional radiology
Collection is too small for percutaneous drain.
Initiated IV antibiotics: Zosyn.
Bowel rest/sips of clears
IV fluids
Follow CBC.
Serial physical exams. Monitor closely with colorectal surgery on board.
May required surgical intervention if fails medical treatment.
Crohn's disease by history
Currently not on any medications
Most recent colonoscopy close 2 years ago with diverticulosis and polyp removed.
Reports chronic loose stools.
Will check for C. difficile and cultures.
Check stool calprotectin.
Nonobstructive CAD.
Echo 10/21
Normal left ventricular size, wall thickness and systolic function.
�LV ejection fraction is 55-60% �
�Can not exclude mid lateral hypokinesis
�Trace mitral regurgitation.
�Trace AR.
Continue aspirin, metoprolol, statin.
If surgical intervention required we will need cardiac preoperative clearance.
DVT prophylaxis heparin
Full code.
[2023-11-03] MEDS: MORPHINE SULFATE 2 MG IV (17:00)
[2023-11-03] MEDS: ASPIR LOW (ENTERIC COATED) 81 MG PO (21:37)
[2023-11-03] MEDS: CRESTOR 20 MG PO (21:37)
[2023-11-03] MEDS: HEPARIN 5000 UNITS SC (21:37)
[2023-11-03] MEDS: PROTONIX 40 MG PO (21:37)
[2023-11-04] MEDS: NSS 1000 IV ×3 (04:04→22:49)
[2023-11-04] MEDS: DILAUDID 0.5 MG IV ×3 (04:06→13:39)
[2023-11-04] MEDS: ZOSYN 50 IV ×3 (06:16→17:04)
[2023-11-04 06:30] LABS: % Basophils 0.2 % (0-2); % Immature Granulocytes 0.6 % (0-0.5); % Monocytes 7.3 % (1.7-9.3); % Neutrophils 87.9 % (42.2-75.2); Absolute Immature Granulocytes 0.1 10^3/uL (0-0.05); Absolute Lymphocytes 0.9 10^3/uL (1.2-3.4); Absolute Monocytes 1.7 10^3/uL (0.1-0.6); Absolute Neutrophils 20.6 10^3/uL (1.4-6.5); Hematocrit 41.3 % (39.0-52.0); Hemoglobin 13.5 g/dL (13.0-18.0); Mean Corp Hgb Conc. 32.7 g/dL (33.0-37.0); Mean Corpuscular Hgb 29.7 pg (27.0-31.0); Mean Corpuscular Volume 90.8 fL (80.0-94.0); Mean Platelet Volume 10.7 fL (7.4-10.4); Nucleated Red Blood Cells % 0 % (-); Platelet Count 251 10^3/uL (130-400); Red Blood Cell Count 4.55 10^6/uL (4.70-6.10); Red Cell Dist. Width 15.1 % (11.5-14.5); White Blood Cell Count 23.4 10^3/uL (4.8-10.8)
[2023-11-04 06:52] LABS: Blood Urea Nitrogen 12 mg/dl (9-20); Carbon Dioxide 25 mmol/L (22-30); Chloride 99 mmol/L (98-107); Estimated Creatinine Clearance 64 ml/min; Glucose 113 mg/dl (70-99); Potassium 3.8 mmol/L (3.5-5.1); Sodium 138 mmol/L (135-145); eGFR > 60.00
[2023-11-04 07:30] VITALS: BP 137/82
[2023-11-04] MEDS: PROTONIX 40 MG PO ×2 (08:11→22:35)
[2023-11-04] MEDS: TOPROL XL 50 MG PO (08:11)
[2023-11-04] MEDS: HEPARIN 5000 UNITS SC ×2 (08:11→22:36)
--- NOTE | 2023-11-04 10:34 | CM ---
Patient seen at bedside. Patient stated that he lives with his in a 2 story home with no DME, no O2. Patient PCP is Dr. Jones and he uses the [facility] on [address] Per patient he is for possible surgery. CM will continue to follow for discharge
planning needs.
Plan; home with ; watch for VN needs.
--- NOTE | 2023-11-04 11:00 | W.PN.CRS1 ---
Today's Communication / Plan
-
holding on OR
Remain n.p.o.
Trend WBC
Vancomycin for C. difficile
ID consult
Assessment/Plan
-
Assessment: 68-year-old male with a history of Crohn's and recent CT with finding of sigmoid diverticulitis started on an outpatient course of antibiotics, now presents with abdominal pain and diarrhea with loose bloody stools with a WBC of 30.[address] of the abdomen and pelvis showing worsening sigmoid diverticulitis with a 2.7 cm abscess adjacent to the sigmoid and urinary bladder
Plan:
1. No surgery at this time.� Discussed with patient that if he were to worsen he might require a colectomy with colostomy creation.�
2. Remain NPO.
3. C. difficile culture is positive. Started on vancomycin by hospitalist, ID has been consulted.
4. Continue to trend WBC, down to 23.4 from 30.6 yesterday. Still remains tachycardic. Afebrile.
5. IR is unable to place a drain in the abscess due to its size and location near the bladder.
6. Someone from the team will check back this afternoon to reexamine the patient.
7. Discussed plan via phone with his son and patient in the room.
Subjective Data
Subjective Data
Date of Service: November 04, 2023
Patient states he feels about the same. He states that every time he received Dilaudid IV medication that he had an episode of diarrhea. He states that he was a 10 out of 10 yesterday and now feels a 5 out of 10 if he does not move. He denies
nausea or vomiting.
Objective Data
-
Vital Signs
Temp Pulse Resp BP Pulse Ox
98.6 F 112 16 136/81 96
11/04/23 07:30 11/04/23 08:11 11/04/23 07:30 11/04/23 08:11 11/04/23 07:30
Intake & Output
11/03/23 11/04/23 11/05/23
06:59 06:59 06:59
Intake Total 720 / 720
Balance 720 / 720
Intake:
Oral fluids 720 / 720
Other:
Number of approximated MODERATE 2
amounts of urine
Lab Results
11/04/23 05:47
11/04/23 05:47
Physical Exam
-
General: No Acute Distress and AOx3
Abdomen: Soft, Non Distended and Tender (Diffuse suprapubic, moderate, unchanged per patient)
Skin: Warm and Dry
[2023-11-04] MEDS: FIRVANQ 125 MG PO ×2 (11:27→17:04)
--- NOTE | 2023-11-04 14:18 | W.PN.HOSP.TC ---
Addendum entered and electronically signed by Joe Epsosito MD 11/04/23 16:57:
Patient seen and examined
Discussed with resident
Descending colon abscess.
C. difficile positive.
? Diverticular abscess versus C. difficile with colon microperforation.
Abdominal exam with significant tenderness although without peritoneal symptoms
Afebrile with now trending down white count.
Continue Zosyn
Initiated on oral vancomycin
Close monitoring with serial abdominal examination
Follow CBC.
Original Note:
Today's Communication/Plan
-
.
Assessment / Plan
Assessment / Plan
Impression:
Acute sigmoid diverticulitis with abscess
Diarrhea
Nonobstructive CAD
Essential hypertension
Plan:
#Acute sigmoid diverticulitis
CT abdomen on 11/03/2023 report: Worsening appearance of the sigmoid diverticulitis, with persistent bowel wall thickening and inflammatory stranding and with a developing 2.7 cm abscess adjacent to the sigmoid colon and urinary bladder. No free air.
WBC count trending down from 30.6-23.4 today.
Afebrile, normotensive
Patient was started on Augmentin 9 days ago when he was diagnosed with diverticulitis from an outpatient CAT scan ordered by his PCP
As per IR�collection is too small for percutaneous drain and close proximity to the bladder
Continue IV Zosyn, day 2
Bowel rest/N.p.o./sips of clears
IV fluids
Trend WBC
If condition worsens, may need an operative management with colectomy, colostomy creation
# Diarrhea
History of Crohn's, not on any medications
Colonoscopy 2 years ago with diverticulosis and polyps removed
C. difficile positive
Started on vancomycin, day 1
Fecal calprotectin pending
Stool Salmonella/Shigella culture pending
Campylobacter culture pending
Shiga toxin pending
# Nonobstructive CAD.
Echo 10/21 report: Normal left ventricular size, wall thickness and systolic function.
�LV ejection fraction is 55-60% �
�Can not exclude mid lateral hypokinesis
�Trace mitral regurgitation.
�Trace AR.
Continue aspirin, metoprolol, statin.
Cardiac preoperative clearance, in case if plan for surgery
#DVT prophylaxis
heparin
Anticipated Discharge: > 48 hours
Subjective/Interval History
-
Date of Service: November 04, 2023
Patient mentioned his pain has not improved since yesterday. He is having episodes of diarrhea today, no blood in the stools.
No nausea/vomiting.
Objective Data
-
Labs:
Laboratory Results
11/04/23
05:47
WBC 23.4 H
Hgb 13.5
Hct 41.3
Plt Count 251
Sodium 138
Potassium 3.8
Chloride 99
Carbon Dioxide 25
BUN 12
Creatinine 1.0
Glucose 113 H
Calcium 9.0
Vital Signs:
Vital Signs
Temp Pulse Resp BP Pulse Ox
98.6 F 112 16 136/81 96
11/04/23 07:30 11/04/23 08:11 11/04/23 07:30 11/04/23 08:11 11/04/23 07:30
I&O
11/03/23 11/04/23 11/05/23
06:59 06:59 06:59
Intake Total 720 / 720
Balance 720 / 720
Review of Systems
-
All other systems: Reviewed and negative (As per history)
Physical Exam
-
General: No Apparent Distress
HEENT: Normocephalic and Atraumatic
Respiratory: Clear to Auscultation
Cardiac: Regular Rhythm and S1/S2
GI: Soft, Nondistended and Tender
Musculoskeletal: No Clubbing, No Cyanosis and No Edema
Skin: Warm and Dry
Neuro: Awake, Alert, Oriented and AO x 3
Psych: Calm
--- NOTE | 2023-11-04 14:49 | CON.ID ---
Consultation
-
Date/Time Consultation Requested: 11/04/23 9:38
Date/Time Consultation Performed: 11/04/23 14:49
Requesting Provider: Dr Esposito
Performing Provider: Dr العراقي
Reason for Consultation: diverticular abscess h/o c diff
Chief Complaint / Past History
Chief Complaint
Abdominal pain and fever.
History of Present Illness
Mr Boone is a 68 year old male with history of Crohns disease not on treatment, diverticulitis who presented here today for abdominal pain and fever. Pain present for several weeks, had outpatient CT scan with PCP and found to have sigmoid
diverticulitis - started augmentin which he took, then on the day of presentation reports pain became much more severe 07/07 and he developed fever to 105 at home.
Since arrival here patient has been afebrile, bp stable, wbc initially 30 now 23, L shift is noted, cr 1.0, CT 11/03 worsening diverticulitis - 2.7 cm abscess adjacent to colon and urinary bladder - no free air. No UA thus far. stool calprotectin
sent. Stool found to be antigen and toxin both positive. Has been started on zosyn and oral vancomycin. blood cultures are no growth at 24 hours. qtc 470. Seen by CT surgery - medical management planned for now with serial evaluations. ID is
consulted for assistance with management.
Past History
Additional Past Medical History:
CAD, HTN and Other (Chron's disease by history)
Additional Past Surgical History:
�Appendectomy, Orthopedic and Other (Hernia repair)
Allergy History:
NKA - No Known Allergies Allergy (Uncoded 06/29/21 23:53)
-
Medications Reviewed: Yes
Social History
Tobacco: Non-Smoker
Alcohol: Occasional
Drug: Marijuana
Family History
Family History: Not Pertinent
Review of Systems
Review of Systems
General: Negative Fever
All systems: All other systems were reviewed and were negative
Vital Signs
Temp Pulse Resp BP Pulse Ox
98.6 F 112 16 136/81 96
11/04/23 07:30 11/04/23 08:11 11/04/23 07:30 11/04/23 08:11 11/04/23 07:30
Physical Exam
Physical Exam
Constitutional: No Acute Distress and Chronically Ill
Cardiovascular: Regular Rate and S1/S2; Negative Murmur or Rub
Pulmonary: Clear and Symmetric; Negative Wheezes, Rales or Rhonchi
Gastrointestinal: Soft, Tender (with deep palpation, no tenderness with mild/moderate touch), Non Distended and Normal Bowel Sounds
Skin: Warm and Dry; Negative Rash or Jaundice
Lab / Diagnostic Study Results
11/04/23 05:47
11/04/23 05:47
Abs Immat Gran (auto) 0.1 10^3/uL (0-0.05) H 11/04/23 05:47
Absolute Neuts (auto) 20.6 10^3/uL (1.4-6.5) H 11/04/23 05:47
Absolute Lymphs (auto) 0.9 10^3/uL (1.2-3.4) L 11/04/23 05:47
Absolute Monos (auto) 1.7 10^3/uL (0.1-0.6) H 11/04/23 05:47
Absolute Basos (auto) 0.0 10^3/uL (0-0.2) 11/04/23 05:47
Immature Gran % 0.6 % (0-0.5) H 11/04/23 05:47
Neutrophils % 87.9 % (42.2-75.2) H 11/04/23 05:47
Lymphocytes % 4.0 % (20.5-51.1) L 11/04/23 05:47
Monocytes % 7.3 % (1.7-9.3) 11/04/23 05:47
Eosinophils % 0.0 % (0-6) 11/04/23 05:47
Basophils % 0.2 % (0-2) 11/04/23 05:47
Lactic Acid Cancelled 11/03/23 13:45
Microbiology Results
Micro:
11/03/23 09:55 Blood Culture - Preliminary
Blood/Venous No Growth in 24 hours- Final report to follow
11/03/23 09:55 Blood Culture - Preliminary
Blood/Venous No Growth in 24 hours- Final report to follow
11/04/23 00:04 Stool Leukocytes - Final
Feces/Stool
11/04/23 00:00 C. difficile GDH Antigen & Toxins - Final
Feces/Stool Toxigenic C.difficile Positive
11/04/23 00:00 Salmonella/Shigella Culture - Pending
Feces/Stool Campylobacter Culture - Pending
Shiga Toxin Test - Pending
Assessment / Plan
C difficile
Probable Abdominal perforation with 2.7 cm abscess
Reported Crohn's disease
Leukocytosis
- blood cultures x2 no growth to date
- seems to be stable and improving with current management, fine to continue medical therapy if continues to improve
- calprotectin sent
- agree with zosyn
- agree with oral vancomycin
- follow clinically
[2023-11-04 16:00] VITALS: BP 138/79
[2023-11-04] MEDS: DILAUDID 1 MG IV ×2 (17:04→22:44)
[2023-11-04] MEDS: ASPIR LOW (ENTERIC COATED) 81 MG PO (22:35)
[2023-11-04] MEDS: CRESTOR 20 MG PO (22:42)
[2023-11-04 23:32] VITALS: BP 144/80
[2023-11-05] MEDS: FIRVANQ 125 MG PO ×4 (00:47→17:24)
[2023-11-05] MEDS: ZOSYN 50 IV ×2 (00:48→06:38)
[2023-11-05] MEDS: DILAUDID 0.5 MG IV (06:35)
[2023-11-05] MEDS: FLUSH (NSS) 1 FLUSH IV (06:37)
[2023-11-05 06:38] LABS: % Basophils 0.2 % (0-2); % Eosinophils 0.2 % (0-6); % Immature Granulocytes 0.4 % (0-0.5); % Lymphocytes 7.6 % (20.5-51.1); % Monocytes 10.3 % (1.7-9.3); % Neutrophils 81.3 % (42.2-75.2); Absolute Immature Granulocytes 0.1 10^3/uL (0-0.05); Absolute Lymphocytes 0.9 10^3/uL (1.2-3.4); Absolute Monocytes 1.2 10^3/uL (0.1-0.6); Absolute Neutrophils 9.8 10^3/uL (1.4-6.5); Hematocrit 35.3 % (39.0-52.0); Hemoglobin 11.6 g/dL (13.0-18.0); Mean Corp Hgb Conc. 32.9 g/dL (33.0-37.0); Mean Corpuscular Hgb 29.4 pg (27.0-31.0); Mean Corpuscular Volume 89.4 fL (80.0-94.0); Mean Platelet Volume 10.3 fL (7.4-10.4); Nucleated Red Blood Cells % 0 % (-); Platelet Count 190 10^3/uL (130-400); Red Blood Cell Count 3.95 10^6/uL (4.70-6.10); Red Cell Dist. Width 14.6 % (11.5-14.5); White Blood Cell Count 12.1 10^3/uL (4.8-10.8)
[2023-11-05 07:19] LABS: Blood Urea Nitrogen 11 mg/dl (9-20); Calcium 8.5 mg/dl (8.4-10.2); Carbon Dioxide 25 mmol/L (22-30); Chloride 101 mmol/L (98-107); Estimated Creatinine Clearance 91 ml/min; Glucose 92 mg/dl (70-99); Potassium 3.3 mmol/L (3.5-5.1); Sodium 136 mmol/L (135-145); eGFR > 60.00
[2023-11-05 07:30] VITALS: BP 136/74
[2023-11-05] MEDS: HEPARIN 5000 UNITS SC ×2 (07:50→20:20)
[2023-11-05] MEDS: PROTONIX 40 MG PO ×2 (07:50→20:20)
[2023-11-05] MEDS: TOPROL XL 50 MG PO (07:50)
[2023-11-05 08:38] LABS: Urine Albumin Trace (Neg - Trace); Urine Bilirubin Negative (Negative); Urine Character Clear (Clear); Urine Color Yellow; Urine Glucose Negative (Negative); Urine Ketone 3+ (Negative); Urine Leukocyte Negative (Negative); Urine Nitrite Negative (Negative); Urine Occult Blood 2+ (Negative); Urine Specific Gravity 1.025 (<1.030); Urine Urobilinogen Negative (Neg - 1+)
[2023-11-05 09:13] LABS: Urine Hyaline Cast 0-2 /LPF (0-2); Urine Red Blood Cell 0-2 /HPF (0-2)
--- NOTE | 2023-11-05 09:50 | W.PN.ID1 ---
Date of Service
Date of Service: November 05, 2023
Today's Communication
cipro/metro/oral vanc
qtc in the am
anemia per IM service
Assessment / Plan
C difficile
Diverticulitis with secondary perforation
Probable Abdominal perforation with 2.7 cm abscess
Reported Crohn's disease - two negative colon biopsies 10/20 and 03/14 on file
Leukocytosis
- blood cultures x2 no growth to date
- seems to be stable and improving with current management, fine to continue medical therapy if continues to improve. Emphasized that this situation is typically a 'marathon' not a sprint. Cannot predict if medical therapy will be effective on its
own but worth a try in my opinion
- calprotectin sent - pending
- routine stool culture low yield within the [place] for nontravelers/non-expats
- switch to cipro/metro and follow clinically - 2 week total course
- reassess CBC and QTc in the AM
- disulfram rxn reviewed with patient - not an issue
- agree with oral vancomycin - will continue at QID dosing while on systemic antibiotics and likely for 5 days afterwards
- follow clinically
anemia
- management per IM service
Chief Complaint
-: Other (intraabdominal abscess)
Subjective / Review of Systems
afebrile
bp stable
leukocyotsis nearly resolved
hgb 2 point decline
L shift nearly resolved
cr further improved
stool calprotectin pending
collection was assessed by IR by report ' too small for percutaneous drain and close proximity to the bladder'
ua negative
reviewed with patient and his by phone
Vital Signs / Physical Exam
Vital Signs
Vital Signs
Temp Pulse Resp BP Pulse Ox
98.0 F 89 16 136/79 98
11/05/23 07:30 11/05/23 07:50 11/05/23 07:30 11/05/23 07:50 11/05/23 07:30
Physical Exam
Constitutional: No Acute Distress
Cardiovascular: Regular Rate and S1/S2; Negative Murmur or Rub
Pulmonary: Clear and Symmetric; Negative Wheezes or Rales
Gastrointestinal: Soft, Tender (tender with moderate touch in the LLQ), Non Distended and Normal Bowel Sounds
Skin: Warm and Dry; Negative Rash or Jaundice
Objective Data
Lab Data
Lab Results
11/05/23 06:22
11/05/23 06:22
Estimated Creat Clear 91 ml/min 11/05/23 06:22
Lactic Acid Cancelled 11/03/23 13:45
Total Bilirubin 1.8 mg/dl (0.2-1.3) H 11/03/23 09:18
AST 18 U/L (17-59) 11/03/23 09:18
ALT 13 U/L (0-50) 11/03/23 09:18
Alkaline Phosphatase 94 U/L (38-126) 11/03/23 09:18
Most recent labs reviewed.
Micro Results:
11/04/23 00:00 Salmonella/Shigella Culture - Pending
Feces/Stool Campylobacter Culture - Pending
Shiga Toxin Test - Final
No E. coli Shiga Toxin 1 or 2 detected.
11/03/23 09:55 Blood Culture - Preliminary
Blood/Venous No Growth in 24 hours- Final report to follow
11/03/23 09:55 Blood Culture - Preliminary
Blood/Venous No Growth in 24 hours- Final report to follow
11/04/23 00:04 Stool Leukocytes - Final
Feces/Stool
11/04/23 00:00 C. difficile GDH Antigen & Toxins - Final
Feces/Stool Toxigenic C.difficile Positive
[2023-11-05] MEDS: NSS 1000 IV (10:36)
[2023-11-05] MEDS: DILAUDID 1 MG IV ×4 (10:37→22:40)
--- NOTE | 2023-11-05 11:00 | W.PN.CRS1 ---
Today's Communication / Plan
-
Remain n.p.o. another day
Continue antibiotics
Assessment/Plan
-
Plan:
1. No surgery at this time.� Discussed with patient that if he were to worsen he might require a colectomy with colostomy creation.�
2.� Remain NPO for another day. Possible clears tomorrow if continues to improve.
3.� Antibiotics per infectious disease.
4.� Continue to trend WBC, down to 12.1 today. No longer tachycardic and remains afebrile. Trend.
5.� IR is unable to place a drain in the abscess due to its size and location near the bladder.
6.� Discussed plan with patient, present in the room, and son via phone.
Subjective Data
Subjective Data
Date of Service: November 05, 2023
The patient states he still has some loose stools. He has flatus. Overall his pain is better.
Objective Data
-
Vital Signs
Temp Pulse Resp BP Pulse Ox
98.0 F 89 16 136/79 98
11/05/23 07:30 11/05/23 07:50 11/05/23 07:30 11/05/23 07:50 11/05/23 07:30
Intake & Output
11/04/23 11/05/23 11/06/23
06:59 06:59 06:59
Intake Total 720 / 720 2500 / 2500
Output Total 6 / 6
Balance 720 / 720 2494 / 2494
Intake:
Oral fluids 720 / 720
IV fluids (Total) 2300 / 2300
IV piggybacks 200 / 200
Output:
Liquid stool amount / 6
Rectum 6 / 6
Other:
Number of approximated MODERATE 2 1
amounts of urine
Number of unmeasured liquid
stools
Rectum 6
Lab Results
11/05/23 06:22
11/05/23 06:22
Physical Exam
-
General: No Acute Distress and AOx3
Abdomen: Soft, Non Distended and Tender (Left lower quadrant, improving)
Skin: Warm and Dry
[2023-11-05] MEDS: KCL 40 MEQ PO (11:33)
[2023-11-05] MEDS: CIPRO 500 MG PO ×2 (11:33→22:40)
--- NOTE | 2023-11-05 11:50 | CM ---
Patient seen at bedside with also present. Per patient he is hoping for a hot shower and the water is only lukewarm, nursing aware. Patient states he is feeling better. Patient plan is to go home with no needs. CM will continue to follow for
discharge planning needs.
Plan; home with no needs anticipated
[2023-11-05 15:30] VITALS: BP 128/76
--- NOTE | 2023-11-05 15:54 | W.PN.HOSP.TC ---
Today's Communication/Plan
-
Transition to oral antibiotic regimen with Cipro/Flagyl/vancomycin.
With addition of quinolone follow ECG/QTc.
N.p.o. given the significant abdominal tenderness.
Monitor closely with serial exams.
Follow CBC.
Change IV fluids to D5 with potassium.
Follow BMP
Assessment / Plan
Assessment / Plan
Impression:
Acute sigmoid diverticulitis with abscess
Diarrhea
Nonobstructive CAD
Essential hypertension
Plan:
#Acute sigmoid diverticulitis
CT abdomen on 11/03/2023 report: Worsening appearance of the sigmoid diverticulitis, with persistent bowel wall thickening and inflammatory stranding and with a developing 2.7 cm abscess adjacent to the sigmoid colon and urinary bladder. No free air.
WBC count trending down from 30.6-23.4 today.
Afebrile, normotensive
Patient was started on Augmentin 9 days ago when he was diagnosed with diverticulitis from an outpatient CAT scan ordered by his PCP
As per IR�collection is too small for percutaneous drain and close proximity to the bladder
Continue IV Zosyn, day 2
Bowel rest/N.p.o./sips of clears
IV fluids
Trend WBC
If condition worsens, may need an operative management with colectomy, colostomy creation
# Diarrhea
History of Crohn's, not on any medications
Colonoscopy 2 years ago with diverticulosis and polyps removed
C. difficile positive
Fecal calprotectin pending
# Nonobstructive CAD.
Echo 10/21 report: Normal left ventricular size, wall thickness and systolic function.
�LV ejection fraction is 55-60% �
�Can not exclude mid lateral hypokinesis
�Trace mitral regurgitation.
�Trace AR.
Continue aspirin, metoprolol, statin.
Cardiac preoperative clearance, in case if plan for surgery
#DVT prophylaxis
heparin
Anticipated Discharge: > 48 hours
Subjective/Interval History
-
Date of Service: November 05, 2023
Objective Data
-
Labs:
Laboratory Results
11/05/23
06:22
WBC 12.1 H
Hgb 11.6 L
Hct 35.3 L
Plt Count 190 D
Sodium 136
Potassium 3.3 L
Chloride 101
Carbon Dioxide 25
BUN 11
Creatinine 0.7
Glucose 92
Calcium 8.5
Vital Signs:
Vital Signs
Temp Pulse Resp BP Pulse Ox
98.0 F 89 16 136/79 98
11/05/23 07:30 11/05/23 07:50 11/05/23 07:30 11/05/23 07:50 11/05/23 07:30
I&O
11/04/23 11/05/23 11/06/23
06:59 06:59 06:59
Intake Total 720 / 720 2500 / 2500
Output Total 6
Balance 720 / 720 2494 / 2494
Physical Exam
-
General: Well Developed and No Apparent Distress
HEENT: Normocephalic, Atraumatic and Moist Mucous Membranes
Respiratory: Clear to Auscultation
Cardiac: Regular Rhythm and S1/S2; Negative Murmur, Rub or Gallop
GI: Soft, Nondistended, Normal Bowel Sounds and Tender (Left lower quadrant tenderness without rebound.); Negative Organomegaly
Rectal: Deferred by Provider
Musculoskeletal: No Clubbing, No Cyanosis and No Edema
Skin: Negative Rash
Neuro: Nonfocal/Grossly Intact
[2023-11-05] MEDS: FLAGYL 500 MG PO (16:09)
[2023-11-05] MEDS: D5/0.45%NSS with KCL 20 MEQ 1000 IV (16:09)
[2023-11-05 20:11] LABS: Hepatitis C Antibody Negative (Negative)
[2023-11-05] MEDS: CRESTOR 20 MG PO (22:40)
[2023-11-05] MEDS: ASPIR LOW (ENTERIC COATED) 81 MG PO (22:40)
[2023-11-05 23:45] VITALS: BP 137/81
[2023-11-06] MEDS: FLAGYL 500 MG PO ×4 (00:02→23:04)
[2023-11-06] MEDS: FIRVANQ 125 MG PO ×5 (00:02→23:03)
[2023-11-06] MEDS: D5/0.45%NSS with KCL 20 MEQ 1000 IV ×2 (02:28→13:23)
[2023-11-06] MEDS: DILAUDID 1 MG IV ×2 (03:40→08:45)
[2023-11-06 06:12] LABS: % Basophils 0.2 % (0-2); % Eosinophils 0.4 % (0-6); % Immature Granulocytes 0.4 % (0-0.5); % Monocytes 10.4 % (1.7-9.3); % Neutrophils 77.6 % (42.2-75.2); Absolute Neutrophils 7.2 10^3/uL (1.4-6.5); Hematocrit 31.7 % (39.0-52.0); Hemoglobin 10.6 g/dL (13.0-18.0); Mean Corp Hgb Conc. 33.4 g/dL (33.0-37.0); Mean Corpuscular Hgb 29.4 pg (27.0-31.0); Mean Corpuscular Volume 88.1 fL (80.0-94.0); Mean Platelet Volume 10.4 fL (7.4-10.4); Nucleated Red Blood Cells % 0 % (-); Platelet Count 194 10^3/uL (130-400); Red Cell Dist. Width 14.2 % (11.5-14.5); White Blood Cell Count 9.3 10^3/uL (4.8-10.8)
[2023-11-06 06:37] LABS: Blood Urea Nitrogen 5 mg/dl (9-20); Carbon Dioxide 28 mmol/L (22-30); Chloride 103 mmol/L (98-107); Estimated Creatinine Clearance 91 ml/min; Glucose 116 mg/dl (70-99); Potassium 3.1 mmol/L (3.5-5.1); Sodium 133 mmol/L (135-145); eGFR > 60.00
[2023-11-06 07:00] VITALS: BP 130/64
[2023-11-06] MEDS: TOPROL XL 50 MG PO (08:35)
[2023-11-06] MEDS: PROTONIX 40 MG PO ×2 (08:35→20:55)
[2023-11-06] MEDS: CIPRO 500 MG PO ×2 (08:35→20:55)
[2023-11-06] MEDS: HEPARIN 5000 UNITS SC ×2 (08:36→20:55)
--- NOTE | 2023-11-06 09:39 | W.PN.ID1 ---
Date of Service
Date of Service: November 06, 2023
Today's Communication
- continue cipro/metro and follow clinically - 2 week total course through 11/16
- agree with oral vancomycin - will continue at QID dosing while on systemic antibiotics and likely for 5 days afterwards - through 11/21
- after oral vancomycin then patient can start a polymicrobial probiotic x 2 weeks
Assessment / Plan
C difficile
Diverticulitis with secondary perforation
Probable Abdominal perforation with 2.7 cm abscess
Reported Crohn's disease - two negative colon biopsies 10/20 and 03/14 on file
Leukocytosis
- blood cultures x2 no growth to date
- seems to be stable and improving with current management, fine to continue medical therapy if continues to improve. Emphasized that this situation is typically a 'marathon' not a sprint. Cannot predict if medical therapy will be effective on its
own but worth a try in my opinion
- routine stool culture low yield within the [place] for nontravelers/non-expats - no growth to date
- continue cipro/metro and follow clinically - 2 week total course through 11/16
- await am EKG
- disulfram rxn reviewed with patient - not an issue
- agree with oral vancomycin - will continue at QID dosing while on systemic antibiotics and likely for 5 days afterwards - through 11/21
- after oral vancomycin then patient can start a polymicrobial probiotic x 2 weeks
- follow up with colorectal, follow up with ID in 3-4 weeks
Chief Complaint
-: Other (intraabdominal abscess)
Subjective / Review of Systems
afebrile
bp stable
without leukocytosis today, no left shift
cr 0.7
stool culture in progress
still with stools too numerous to count
abdominal tenderness now mild
Vital Signs / Physical Exam
Vital Signs
Vital Signs
Temp Pulse Resp BP Pulse Ox
98.0 F 70 16 130/64 98
11/06/23 07:00 11/06/23 08:35 11/06/23 07:00 11/06/23 08:35 11/06/23 07:00
Physical Exam
Constitutional: No Acute Distress
Cardiovascular: Regular Rate and S1/S2; Negative Murmur or Rub
Pulmonary: Clear and Symmetric; Negative Wheezes or Rales
Gastrointestinal: Soft, Tender (mild), Non Distended and Other (hyperactive BS)
Skin: Warm and Dry; Negative Rash or Jaundice
Objective Data
Lab Data
Lab Results
11/06/23 05:33
11/06/23 05:33
Estimated Creat Clear 91 ml/min 11/06/23 05:33
Lactic Acid Cancelled 11/03/23 13:45
Total Bilirubin 1.8 mg/dl (0.2-1.3) H 11/03/23 09:18
AST 18 U/L (17-59) 11/03/23 09:18
ALT 13 U/L (0-50) 11/03/23 09:18
Alkaline Phosphatase 94 U/L (38-126) 11/03/23 09:18
Most recent labs reviewed.
Micro Results:
11/04/23 00:00 Salmonella/Shigella Culture - Preliminary
Feces/Stool Culture in Progress
Campylobacter Culture - Preliminary
Culture in Progress
Shiga Toxin Test - Final
No E. coli Shiga Toxin 1 or 2 detected.
11/03/23 09:55 Blood Culture - Preliminary
Blood/Venous No Growth in 48 hours- Final report to follow
11/03/23 09:55 Blood Culture - Preliminary
Blood/Venous No Growth in 48 hours- Final report to follow
11/04/23 00:04 Stool Leukocytes - Final
Feces/Stool
11/04/23 00:00 C. difficile GDH Antigen & Toxins - Final
Feces/Stool Toxigenic C.difficile Positive
--- NOTE | 2023-11-06 10:07 | W.PN.CRS1 ---
Addendum entered and electronically signed by Joaquín Bell MD 11/06/23 14:28:
I saw and examined the patient.
The PA's note was reviewed and I agree with the note.
Comment:
6 seen with PA in AM.
Still loose stools. Less abdominal pain.
Vitals reasonable. No tachycardia. Afebrile. White count normal at 9.3.
Abdomen mildly distended. Mild suprapubic tenderness. Much improved from before.
Trial clears.
Continue antibiotics.
Eventual follow-up with me in the office as an outpatient.
Original Note:
Today's Communication / Plan
-
clears
Assessment/Plan
-
62-year-old male with PMH of CAD, HTN and family history of Crohn's who presents with acute abdominal pain, CT showing sigmoid diverticulitis associated with 2.7 cm abscess; on IV antibiotics, IR unable to drain abscess
Plan:
1. No surgery at this time.� Discussed with patient that if he were to worsen he might require a colectomy with colostomy creation.�
2.� Advance to a clear liquid diet today.
3.� Antibiotics per infectious disease.
4.� Continue to trend WBC, down to 9.3 today.� No longer tachycardic and remains afebrile.� Trend.
5.� IR is unable to place a drain in the abscess due to its size and location near the bladder.
6.� Discussed plan with patient, present in the room, and son via phone.
7. Eventual follow up in the office with Dr. Bell post d/c to discuss elective robotic sigmoidectomy.
Subjective Data
Subjective Data
Date of Service: November 06, 2023
Patient states he is feeling overall better. He still has loose stools. His pain is improving. He denies nausea or vomiting.
Objective Data
-
Vital Signs
Temp Pulse Resp BP Pulse Ox
98.0 F 70 16 130/64 98
11/06/23 07:00 11/06/23 08:35 11/06/23 07:00 11/06/23 08:35 11/06/23 07:00
Intake & Output
11/05/23 11/06/23 11/07/23
06:59 06:59 06:59
Intake Total 2500 / 2500 1300 / 1300
Output Total
Balance 2494 / 2494 1290 / 1290
Intake:
Oral fluids 0 / 0
IV fluids (Total) 2300 / 2300 1200 / 1200
IV piggybacks 200 / 200 100 / 100
Output:
Liquid stool amount
Rectum
Other:
Number of approximated MODERATE 1 10
amounts of urine
How many times incontinent 4
MODERATE amount urine
Number of unmeasured liquid
stools
Rectum 6 10
Lab Results
11/06/23 05:33
11/06/23 05:33
Physical Exam
-
General: No Acute Distress and AOx3
Abdomen: Soft, Non Distended and Tender (LLQ- mild (improving))
Skin: Warm and Dry
--- NOTE | 2023-11-06 11:21 | PN.CDI ---
CDI
- -
CDI:
Physician Documentation Request
Admit Date: 11/03/23 14:21
Dear Doctor Vaibhav,
Patient admitted with diverticulitis.
11/05 Potassium level: 3.3
11/05 Potassium chloride 40 meq PO administered
11/05 Hospitalist PN: 'Change IV fluids to D5 with potassium.'
11/06 Potassium level: 3.1
Based on the above, could you clarify in the progress notes, the appropriate diagnosis, if significant, that supports the above abnormalities and additional evaluation, monitoring and/or treatment rendered:
Hypokalemia
Abnormal lab value insignificant
Other
Use of terms such as suspected, likely, concern for, or probable (associated with a specific diagnosis that is being evaluated, monitored, or treated as if it exists) are acceptable and can be coded in the inpatient setting, when documented at the
time of discharge.
Thank you,
Umm Ayala RN, BSN
CDI Specialist
Available via [place] text
Please use your independent medical judgment in providing your response.
--- NOTE | 2023-11-06 14:21 | W.PN.HOSP.TC ---
Addendum entered and electronically signed by Joe Esposito MD 11/12/23 18:22:
Hypokalemia being repleted.
Original Note:
Today's Communication/Plan
-
Clear liquid diet
Wean off IV narcotics
Continue oral antibiotic
Assessment / Plan
Assessment / Plan
Impression:
Acute sigmoid diverticulitis with abscess
Diarrhea
Nonobstructive CAD
Essential hypertension
Plan:
#Acute sigmoid diverticulitis
CT abdomen on 11/03/2023 report: Worsening appearance of the sigmoid diverticulitis, with persistent bowel wall thickening and inflammatory stranding and with a developing 2.7 cm abscess adjacent to the sigmoid colon and urinary bladder. No free air.
WBC count trending down from 30.6-23.4 today.
Afebrile, normotensive
Patient was started on Augmentin 9 days ago when he was diagnosed with diverticulitis from an outpatient CAT scan ordered by his PCP
As per IR�collection is too small for percutaneous drain and close proximity to the bladder
Initially on exertion, antibiotics transition to oral regimen with Cipro/metronidazole/oral vancomycin
Pain/left lower quadrant tenderness improved
Clear liquid diet
Wean off IV hydromorphone. Continue Tylenol/oxycodone.
# Diarrhea
History of Crohn's, not on any medications
Colonoscopy 2 years ago with diverticulosis and polyps removed
C. difficile positive
Fecal calprotectin pending
# Nonobstructive CAD.
Echo 10/21 report: Normal left ventricular size, wall thickness and systolic function.
�LV ejection fraction is 55-60% �
�Can not exclude mid lateral hypokinesis
�Trace mitral regurgitation.
�Trace AR.
Continue aspirin, metoprolol, statin.
Cardiac preoperative clearance, in case if plan for surgery
#DVT prophylaxis
heparin
Anticipated Discharge: 24 - 48 hours
Subjective/Interval History
-
Date of Service: November 06, 2023
Objective Data
-
Labs:
Laboratory Results
11/06/23
05:33
WBC 9.3
Hgb 10.6 L
Hct 31.7 L
Plt Count 194
Sodium 133 L
Potassium 3.1 L
Chloride 103
Carbon Dioxide 28
BUN 5 L
Creatinine 0.7
Glucose 116 H
Calcium 8.0 L
Vital Signs:
Vital Signs
Temp Pulse Resp BP Pulse Ox
98.0 F 70 16 130/64 98
11/06/23 07:00 11/06/23 08:35 11/06/23 07:00 11/06/23 08:35 11/06/23 07:00
I&O
11/05/23 11/06/23 11/07/23
06:59 06:59 06:59
Intake Total 2500 / 2500 1300 / 1300
Output Total
Balance 2494 / 2494 1290 / 1290
Physical Exam
-
General: Well Developed and No Apparent Distress
HEENT: Normocephalic, Atraumatic and Moist Mucous Membranes
Respiratory: Clear to Auscultation
Cardiac: Regular Rhythm and S1/S2; Negative Murmur, Rub or Gallop
GI: Soft, Nondistended, Normal Bowel Sounds and Tender (Mild/improved tenderness to the left lower quadrant.); Negative Organomegaly
Rectal: Deferred by Provider
Musculoskeletal: No Clubbing, No Cyanosis and No Edema
Skin: Negative Rash
Neuro: Nonfocal/Grossly Intact
--- NOTE | 2023-11-06 14:56 | W.PN.HOSP.TC ---
Today's Communication/Plan
-
.
Assessment / Plan
Assessment / Plan
Impression:
Acute sigmoid diverticulitis with abscess
Diarrhea
Nonobstructive CAD
Essential hypertension
Plan:
#Acute sigmoid diverticulitis
CT abdomen on 11/03/2023 report: Worsening appearance of the sigmoid diverticulitis, with persistent bowel wall thickening and inflammatory stranding and with a developing 2.7 cm abscess adjacent to the sigmoid colon and urinary bladder. No free air.
WBC count trending down from 30.6 to 9.3 today.
Afebrile, normotensive
Patient was started on Augmentin when he was diagnosed with diverticulitis from an outpatient CAT scan ordered by his PCP
As per IR�collection is too small for percutaneous drain and close proximity to the bladder
Antibiotics switched to oral regimen with Cipro/metronidazole/oral vancomycin
Clear liquid diet
Wean off IV hydromorphone.
Continue Tylenol/oxycodone.
# Diarrhea
History of Crohn's, not on any medications
Colonoscopy 2 years ago with diverticulosis and polyps removed
C. difficile positive
Continue oral vancomycin
Fecal calprotectin pending
Stool leukocytes, Salmonella/Shigella/Campylobacter/Shiga toxin all negative
# Nonobstructive CAD.
Echo 10/21 report: Normal left ventricular size, wall thickness and systolic function.
�LV ejection fraction is 55-60% �
�Can not exclude mid lateral hypokinesis
�Trace mitral regurgitation.
�Trace AR.
Continue aspirin, metoprolol, statin.
Cardiac preoperative clearance, in case if plan for surgery
#DVT prophylaxis
heparin
Anticipated Discharge: 24 - 48 hours
Subjective/Interval History
-
Date of Service: November 06, 2023
Patient reports improvement in abdominal pain. No nausea/vomiting. Has ongoing diarrhea, but the number of episodes have reduced than before.
No fever/chills.
Objective Data
-
Labs:
Laboratory Results
11/06/23
05:33
WBC 9.3
Hgb 10.6 L
Hct 31.7 L
Plt Count 194
Sodium 133 L
Potassium 3.1 L
Chloride 103
Carbon Dioxide 28
BUN 5 L
Creatinine 0.7
Glucose 116 H
Calcium 8.0 L
Vital Signs:
Vital Signs
Temp Pulse Resp BP Pulse Ox
98.0 F 70 16 130/64 98
11/06/23 07:00 11/06/23 08:35 11/06/23 07:00 11/06/23 08:35 11/06/23 07:00
I&O
11/05/23 11/06/23 11/07/23
06:59 06:59 06:59
Intake Total 2500 / 2500 1300 / 1300
Output Total
Balance 2494 / 2494 1290 / 1290
Review of Systems
-
All other systems: Reviewed and negative (As per history)
Physical Exam
-
General: Well Developed, Well Nourished and No Apparent Distress
HEENT: Normocephalic and Atraumatic
Respiratory: Clear to Auscultation
Cardiac: Regular Rhythm and S1/S2
GI: Soft, Nondistended, Normal Bowel Sounds and Tender
Musculoskeletal: No Clubbing, No Cyanosis and No Edema
Skin: Warm and Dry
Neuro: Awake, Alert, Oriented and AO x 3
Psych: Calm
[2023-11-06 15:15] VITALS: BP 133/66
[2023-11-06 15:38] VITALS: BMI 22.1
[2023-11-06] MEDS: ASPIR LOW (ENTERIC COATED) 81 MG PO (20:55)
[2023-11-06] MEDS: CRESTOR 20 MG PO (20:57)
[2023-11-06 23:00] VITALS: BP 142/74
[2023-11-06] MEDS: KCL 40 MEQ PO (23:04)
[2023-11-06] MEDS: D5/0.45%NSS with KCL 20 MEQ IV (23:10)
[2023-11-07 02:30] LABS: Calprotectin, Fecal 865 ug/g (<=49)
[2023-11-07] MEDS: FIRVANQ 125 MG PO ×4 (05:33→23:00)
[2023-11-07 07:00] VITALS: BP 131/79
[2023-11-07 07:48] LABS: Blood Urea Nitrogen < 2 mg/dl (9-20); Calcium 8.8 mg/dl (8.4-10.2); Carbon Dioxide 30 mmol/L (22-30); Chloride 105 mmol/L (98-107); Estimated Creatinine Clearance 80 ml/min; Glucose 125 mg/dl (70-99); Potassium 4.1 mmol/L (3.5-5.1); Sodium 138 mmol/L (135-145); eGFR > 60.00
[2023-11-07] MEDS: CIPRO 500 MG PO ×2 (08:08→19:53)
[2023-11-07] MEDS: FLAGYL 500 MG PO ×3 (08:08→23:00)
[2023-11-07] MEDS: PROTONIX 40 MG PO ×2 (08:08→19:52)
[2023-11-07] MEDS: HEPARIN 5000 UNITS SC ×2 (08:08→19:52)
[2023-11-07] MEDS: TOPROL XL 50 MG PO (08:08)
--- NOTE | 2023-11-07 09:03 | W.PN.HOSP.TC ---
Today's Communication/Plan
-
Continue to advance diet today
Monitor electrolytes with continued diarrhea
Reviewed antibiotic plan as per ID
Presumptive discharge in a.m.
Assessment / Plan
Assessment / Plan
Impression:
Acute sigmoid diverticulitis with abscess
Diarrhea
Nonobstructive CAD
Essential hypertension
Plan:
#Acute sigmoid diverticulitis
CT abdomen on 11/03/2023 report: Worsening appearance of the sigmoid diverticulitis, with persistent bowel wall thickening and inflammatory stranding and with a developing 2.7 cm abscess adjacent to the sigmoid colon and urinary bladder. No free air.
WBC count trending down from 30.6 to 9.3
Afebrile, normotensive
Patient was started on Augmentin when he was diagnosed with diverticulitis from an outpatient CAT scan ordered by his PCP
As per IR�collection is too small for percutaneous drain and close proximity to the bladder
Antibiotics switched to oral regimen with Cipro/metronidazole through November 16/oral vancomycin to
Clear liquid diet advance to full liquids today
Wean off IV hydromorphone.
Continue Tylenol/oxycodone.
# Diarrhea
History of Crohn's, not on any medications
Colonoscopy 2 years ago with diverticulosis and polyps removed
C. difficile positive
Continue oral vancomycin till 01/20
Fecal calprotectin pending
Stool leukocytes, Salmonella/Shigella/Campylobacter/Shiga toxin all negative
# Nonobstructive CAD.
Echo 10/21 report: Normal left ventricular size, wall thickness and systolic function.
�LV ejection fraction is 55-60% �
�Can not exclude mid lateral hypokinesis
�Trace mitral regurgitation.
�Trace AR.
Continue aspirin, metoprolol, statin.
Cardiac preoperative clearance, in case if plan for surgery
#DVT prophylaxis
heparin
Anticipated Discharge: Within 24 hours
Subjective/Interval History
-
Date of Service: November 07, 2023
Patient here with several day and already several this morning denies much abdominal pain anymore
Objective Data
-
Labs:
Laboratory Results
11/07/23
06:52
Sodium 138
Potassium 4.1 D
Chloride 105
Carbon Dioxide 30
BUN < 2 L
Creatinine 0.8
Glucose 125 H
Calcium 8.8
Vital Signs:
Vital Signs
Temp Pulse Resp BP Pulse Ox
97.8 F 68 16 142/74 100
11/06/23 23:00 11/06/23 23:00 11/06/23 23:00 11/06/23 23:00 11/06/23 23:00
I&O
11/06/23 11/07/23 11/08/23
06:59 06:59 06:59
Intake Total 1300 / 1300 840 / 840
Output Total
Balance 1290 / 1290 840 / 840
Review of Systems
-
History Source: Patient
Constitutional: Reports Weakness
EENT: Reports No Symptoms Reported
Respiratory: Reports No Symptoms
Cardiac: Reports No Symptoms
Abdomen/GI: Reports Diarrhea
Physical Exam
-
General: Well Developed
HEENT: Normocephalic
Respiratory: Clear to Auscultation
Cardiac: Regular Rhythm
GI: Soft, Nondistended and Tender
Genito-urinary: No Costovertebral Tender
Psych: Calm
Data Reviewed
-
Total Time Spent with Patient (in minutes): 56
Labs: Labs Reviewed by me (Chemistry stable)
--- NOTE | 2023-11-07 11:33 | CM ---
Patient seen at bedside, per physician plan to advance diet and pending patient tolerance possible for discharge. Patient plan is home with family and no needs anticipated for [facility] at this time. CM will continue to follow for discharge planning needs.
Plan; home with no needs.
--- NOTE | 2023-11-07 11:48 | W.PN.CRS1 ---
Addendum entered and electronically signed by James Banegas MD 11/07/23 12:02:
I saw and examined the patient.
The Vehicle Maintenance Supervisor's note was reviewed and I agree with the note.
Comment: Improving. Exam with mild ttp to BLQ. PLan to ADAT and cont abx as per ID recs. No plans for surgical intervention this admission, pls call with ?s
Original Note:
Today's Communication / Plan
-
Advance diet
Assessment/Plan
-
62-year-old male with PMH of CAD, HTN and family history of Crohn's who presents with acute abdominal pain, CT showing sigmoid diverticulitis associated with 2.7 cm abscess; on IV antibiotics, IR unable to drain abscess due to its size and location
near the bladder.
+C-diff this admission, ID following
AFVSS
Tolerating FLD
WBC returned to normal on 11/06
Plan:
--No surgery at this time
--Advanced to LRD today
--Antibiotics per infectious disease.
--Trend labs/vitals
--Eventual follow up in the office with Dr. Bell post d/c to discuss elective robotic sigmoidectomy.
--Progressing well, may be ready for d/c tomorrow if continues to improve
Subjective Data
Subjective Data
Date of Service: November 07, 2023
Patient seen and examined at bedside with Dr. Banegas. OOB ambulating. Denies n/v. Still with loose BM's. Some residual pain but notes it is '100% better'
Objective Data
-
Vital Signs
Temp Pulse Resp BP Pulse Ox
98.1 F 76 18 131/79 98
11/07/23 07:00 11/07/23 07:00 11/07/23 07:00 11/07/23 07:00 11/07/23 07:00
Intake & Output
11/06/23 11/07/23 11/08/23
06:59 06:59 06:59
Intake Total 1300 / 1300 840 / 840
Output Total
Balance 1290 / 1290 840 / 840
Intake:
Oral fluids 0 / 0 840 / 840
IV fluids (Total) 1200 / 1200
IV piggybacks 100 / 100
Output:
Liquid stool amount
Rectum 10
Other:
Number of approximated MODERATE 10
amounts of urine
Number of approximated LARGE 2
amounts of urine
How many times incontinent 4
MODERATE amount urine
Number of unmeasured liquid
stools
Rectum 10 10
Lab Results
11/06/23 05:33
11/07/23 06:52
Physical Exam
-
General: No Acute Distress and AOx3
Abdomen: Soft, Non Distended and Tender (LLQ- mild (improving), RLQ very minimal)
Skin: Warm and Dry
[2023-11-07 15:00] VITALS: BP 146/75
--- NOTE | 2023-11-07 16:14 | W.PN.ID1 ---
Date of Service
Date of Service: November 07, 2023
Today's Communication
- continue cipro/metro and follow clinically - 2 week total course through 11/16
- qtc acceptable
- disulfram rxn reviewed with patient - not an issue
- agree with oral vancomycin - will continue at QID dosing while on systemic antibiotics and likely for 5 days afterwards - through 11/21
- after oral vancomycin then patient can start a polymicrobial probiotic x 2 weeks
- follow up with colorectal, follow up with ID in 3-4 weeks
Assessment / Plan
C difficile
Diverticulitis with secondary perforation
Probable Abdominal perforation with 2.7 cm abscess
Reported Crohn's disease - two negative colon biopsies 10/20 and 03/14 on file
Leukocytosis
- blood cultures x2 no growth to date
- seems to be stable and improving with current management, fine to continue medical therapy if continues to improve. Emphasized that this situation is typically a 'marathon' not a sprint. Cannot predict if medical therapy will be effective on its
own but worth a try in my opinion
- routine stool culture negative
- continue cipro/metro and follow clinically - 2 week total course through 11/16
- qtc acceptable
- disulfram rxn reviewed with patient - not an issue
- agree with oral vancomycin - will continue at QID dosing while on systemic antibiotics and likely for 5 days afterwards - through 11/21
- after oral vancomycin then patient can start a polymicrobial probiotic x 2 weeks
- follow up with colorectal, follow up with ID in 3-4 weeks
Chief Complaint
-: Other (intraabdominal abscess)
Subjective / Review of Systems
afebrile
bp stable
patient reports stools not yet formed but abdominal pain resolved
tolerating current therapies
Vital Signs / Physical Exam
Vital Signs
Vital Signs
Temp Pulse Resp BP Pulse Ox
98.1 F 76 18 131/79 98
11/07/23 07:00 11/07/23 07:00 11/07/23 07:00 11/07/23 07:00 11/07/23 07:00
Physical Exam
Constitutional: No Acute Distress
Cardiovascular: Regular Rate and S1/S2; Negative Murmur or Rub
Pulmonary: Clear and Symmetric; Negative Wheezes or Rales
Gastrointestinal: Soft, Non Tender, Non Distended and Normal Bowel Sounds
Skin: Warm and Dry; Negative Rash or Jaundice
Objective Data
Lab Data
Lab Results
11/06/23 05:33
11/07/23 06:52
Estimated Creat Clear 80 ml/min 11/07/23 06:52
Lactic Acid Cancelled 11/03/23 13:45
Total Bilirubin 1.8 mg/dl (0.2-1.3) H 11/03/23 09:18
AST 18 U/L (17-59) 11/03/23 09:18
ALT 13 U/L (0-50) 11/03/23 09:18
Alkaline Phosphatase 94 U/L (38-126) 11/03/23 09:18
Most recent labs reviewed.
Micro Results:
11/03/23 09:55 Blood Culture - Preliminary
Blood/Venous No Growth in 4 days- Final report to follow
11/03/23 09:55 Blood Culture - Preliminary
Blood/Venous No Growth in 4 days- Final report to follow
11/04/23 00:00 Salmonella/Shigella Culture - Final
Feces/Stool No Salmonella, Shigella, Aeromonas or Plesiomonas species
isolated.
Campylobacter Culture - Final
No Campylobacter species isolated.
Shiga Toxin Test - Final
No E. coli Shiga Toxin 1 or 2 detected.
11/04/23 00:04 Stool Leukocytes - Final
Feces/Stool
11/04/23 00:00 C. difficile GDH Antigen & Toxins - Final
Feces/Stool Toxigenic C.difficile Positive
[2023-11-07 23:00] VITALS: BP 137/81
[2023-11-07] MEDS: ASPIR LOW (ENTERIC COATED) 81 MG PO (23:00)
[2023-11-07] MEDS: CRESTOR 20 MG PO (23:02)
[2023-11-07] MEDS: TYLENOL 650 MG PO (23:58)
[2023-11-08] MEDS: FIRVANQ 125 MG PO ×2 (05:53→11:00)
[2023-11-08 06:26] LABS: Hematocrit 33.7 % (39.0-52.0); Hemoglobin 11.5 g/dL (13.0-18.0); Mean Corp Hgb Conc. 34.1 g/dL (33.0-37.0); Mean Corpuscular Hgb 29.5 pg (27.0-31.0); Mean Corpuscular Volume 86.4 fL (80.0-94.0); Mean Platelet Volume 10.4 fL (7.4-10.4); Platelet Count 232 10^3/uL (130-400); Red Cell Dist. Width 14.1 % (11.5-14.5); White Blood Cell Count 7.4 10^3/uL (4.8-10.8)
[2023-11-08 06:39] LABS: Blood Urea Nitrogen 5 mg/dl (9-20); Calcium 8.7 mg/dl (8.4-10.2); Carbon Dioxide 30 mmol/L (22-30); Chloride 101 mmol/L (98-107); Estimated Creatinine Clearance 80 ml/min; Glucose 109 mg/dl (70-99); Potassium 3.2 mmol/L (3.5-5.1); Sodium 138 mmol/L (135-145); eGFR > 60.00
[2023-11-08 07:00] VITALS: BP 141/77
[2023-11-08] MEDS: CIPRO 500 MG PO (08:36)
[2023-11-08] MEDS: FLAGYL 500 MG PO (08:36)
[2023-11-08] MEDS: PROTONIX 40 MG PO (08:36)
[2023-11-08] MEDS: TOPROL XL 50 MG PO (08:37)
[2023-11-08] MEDS: HEPARIN 5000 UNITS SC (08:39)
--- NOTE | 2023-11-08 08:59 | W.DS.TRANS ---
DC Summary - [place]
-
Discharge Instructions:
Discharge Diagnosis/Procedures Diverticulitis with secondary perforation
C. difficile
Probable abdominal perforation with 2.7 cm
abscess
History of Crohn's disease
Nonobstructive coronary artery disease by
history
Diet Low Residue
Activity As tolerated
Driving Restrictions As prior to admission
Instructions:
Stand-Alone Forms:
Changes to Home Medications: Yes
Discharge Medications:
DC Medications w/original date entered in [email or web address]
Fish Oil 1 cap PO DAILY Supplement 11/03/23
acetaminophen 500 mg tablet (Tylenol Extra Strength) 1,000 mg PO TIDPRN PRN severe pain/fever 11/03/23
acetaminophen 500 mg tablet (Tylenol Extra Strength) 500 mg PO TIDPRN PRN mild pain/fever 11/03/23
aspirin 81 mg tablet,delayed release 81 mg PO HS Blood Clot Prevention/Tx 11/03/23
coQ10 (ubiquinol) 200 mg capsule 200 mg PO HS Supplement 11/03/23
dicyclomine 20 mg tablet 20 mg PO TID PRN stomach discomfort 11/03/23
totubimi-dvncnw-pavcd extract 5 mg-6 mg-150 mg capsule (Fruit and Vegetable Daily) 6 cap PO DAILY Supplement 11/03/23
metoprolol succinate 50 mg tablet,extended release 24 hr 50 mg PO DAILY Blood Pressure 11/03/23
omeprazole 40 mg capsule,delayed release 40 mg PO BID Gastrointestinal Issue 11/03/23
polyethylene glycol 3350 17 gram oral powder packet (Miralax) 17 g PO HS Constipation 11/03/23
rosuvastatin 20 mg tablet 20 mg PO HS High Cholesterol 11/03/23
ciprofloxacin HCl 500 mg tablet 500 mg PO BID #16 tabs 11/08/23
metronidazole 500 mg tablet 500 mg PO Q8 #21 tabs 11/08/23
oxycodone 5 mg tablet 5 mg PO Q4HPRN PRN severe pain #20 tabs 11/08/23
vancomycin 125 mg capsule 125 mg PO QID Infection #64 caps 11/08/23
Home Medication Changes
ciprofloxacin HCl 500 mg tablet 500 mg PO BID #16 tabs 11/08/23
metronidazole 500 mg tablet 500 mg PO Q8 #21 tabs 11/08/23
oxycodone 5 mg tablet 5 mg PO Q4HPRN PRN severe pain #20 tabs 11/08/23
vancomycin 125 mg capsule 125 mg PO QID Infection #64 caps 11/08/23
Pending Results: No
Total time spent discharging patient (in min): 38
[2023-11-08] MEDS: KCL 20 MEQ PO (09:28)
--- NOTE | 2023-11-08 10:05 | CM ---
Patient seen at bedside. IMM completed and signed form placed on chart. Patient states that he has no needs at home and that he does not need a ride home. CM will continue to follow for discharge planning needs.
Plan; home with no needs anticipated
--- NOTE | 2023-11-08 13:11 | W.DCSUMMARY ---
Discharge Summary
Discharge Data
Date of Admission: 11/03/23
Date of Discharge: 11/08/23
Total time spent discharging patient (in min): 45
-
Pending Results: No
Hospital Course
68-year-old male with a known history of Crohn's disease currently not on treatment also history of coronary artery disease and hypertension presented to the emergency room with worsening abdominal pain and fever with CT imaging of the abdomen
showing worsening appearance of a sigmoid diverticulitis had previously been prescribed with persistent bowel wall thickening and inflammatory stranding with developing 2.7 cm abscess adjacent to the sigmoid colon and urinary bladder there was no
free air at the time of presentation. He was admitted to the medical floor and he was placed on wide spectrum antibiotic coverage and he was consulted with the colorectal service. Empiric antibiotic coverage included Zosyn and he was initiated on
oral vancomycin given tested positive for toxin C. difficile he never presented with any significant peritoneal signs. No indication for surgical intervention patient was seen by the infectious disease service with agreement with the continuation
of need for p.o. vancomycin along with changed to ciprofloxacin twice a day and metronidazole 3 times a day through a period of time date of November 16 his diet was advanced to low residue day prior to his discharge he started developing formed
stools although still having some crampy abdominal discomfort electrolyte deficits were replaced he also knows to continue taking oral vancomycin for 5 days post stopping his systemic antibiotics till 22 November and then thereafter take probiotic
will have further follow-up with the colorectal service and with the ID service in 3-4 with
Discharge Plan
-
Patient Disposition: Home (Routine Discharge)
Discharge Diagnosis/Procedures: Diverticulitis with secondary perforation
C. difficile
Probable abdominal perforation with 2.7 cm abscess
History of Crohn's disease
Nonobstructive coronary artery disease by history
Diet: Low Residue
Activity: As tolerated
Driving Restrictions: As prior to admission
Referrals:
Joaquín Bell MD [Active] - in three to four weeks
Bucky Nichols DO [Family Provider] -
Aurora العراقي MD [Active] - in two to four weeks
Prescriptions:
New
vancomycin 125 mg capsule
125 mg PO QID Qty: 64 0RF
metronidazole 500 mg Tablet
500 mg PO Q8 Qty: 21 0RF
ciprofloxacin HCl 500 mg Tablet
500 mg PO BID Qty: 16 0RF
oxycodone 5 mg Tablet
5 mg PO Q4HPRN PRN (Reason: severe pain) Qty: 20 0RF
Continued
polyethylene glycol 3350 [Miralax] 17 gram Powder In Packet
17 g PO HS
metoprolol succinate 50 mg Tablet Extended Release 24 Hr
50 mg PO DAILY
omeprazole 40 mg Capsule,Delayed Release(Dr/Ec)
40 mg PO BID
aspirin 81 mg Tablet,Delayed Release (Dr/Ec)
81 mg PO HS
acetaminophen [Tylenol Extra Strength] 500 mg Tablet
500 mg PO TIDPRN PRN (Reason: mild pain/fever)
acetaminophen [Tylenol Extra Strength] 500 mg Tablet
1,000 mg PO TIDPRN PRN (Reason: severe pain/fever)
dicyclomine 20 mg Tablet
20 mg PO TID PRN (Reason: stomach discomfort)
rosuvastatin 20 mg Tablet
20 mg PO HS
Fruit and Vegetable Daily 5-6-150 mg Capsule
6 cap PO DAILY
coQ10 (ubiquinol) 200 mg Capsule
200 mg PO HS
Fish Oil
1 cap PO DAILY
Discontinued
amoxicillin-pot clavulanate 875-125 mg Tablet
1 tab PO Q12H
Patient Comments:
11/03/2023, pt. filled this med. on 10/29/2023 and is instructed to take one tablet Q12H for 14 days. Pt. started this antibiotic late afternoon (10/29/2023).
Discharge Orders:
Discharge Patient (As Directed); Ordered 11/08/23
Ordered By: Ubaldo Ware
Discharge Date and Time
Discharge Date/Time: 11/08/23 11:50
== END 2023-11-08 11:50 | disposition home or self-care (01) | DRG 378 ==
LOC: 3 WEST ACU 14:21
PROVIDERS: Nurse Practitioner Gerontology; Registered Nurse; ADMITTING PHYSICIAN Internal Medicine; ATTENDING PHYSICIAN Internal Medicine; CONSULT PHYSICIAN Student in an Organized Health Care Education/Training Program; CONSULT PHYSICIAN Surgery; EMERGENCY PHYSICIAN Emergency Medicine; FAMILY PHYSICIAN Family Medicine
DX: K57.21 Diverticulitis of large intestine with perforation and abscess with bleeding (principal); K50.911 Crohn's disease, unspecified, with rectal bleeding; I25.10 Atherosclerotic heart disease of native coronary artery without angina pectoris; I10 Essential (primary) hypertension; D64.9 Anemia, unspecified; E87.6 Hypokalemia
CPT/HCPCS: 74177; 80048; 80053; 81003; 81015; 83605; 83690; 83993; 85025; 85027; 86803; 87040; 87045; 87046; 87324; 87427; 87449; 89055; 93005; 96361; 96365; 96375; 96376; 99285; Q9967

== ENCOUNTER 2023-11-19 18:07 | Inpatient (IN) | payer OTHER, SELFPAY ==
[2023-11-19] VITALS (9 sets, daily range): BP systolic 112–142; BP diastolic 74–85; BMI 21.4
--- NOTE | 2023-11-19 13:14 | ED.GENMED ---
History of Present Illness
General
Chief Complaint: Bowel Problem
Time Seen by Provider: 11/19/23 12:57
Travel History
Have you had any contact with someone who has COVID-19?: No
Do you have any symptoms of coronavirus? Fever > 100 degrees, chills, cough, shortness of breath, sore throat, loss of taste or smell, muscle aches, or headache?: No
History of Present Illness
History of Present Illness:
68-year-old male presents emergency department for evaluation of increasing left lower quadrant abdominal pain and fever to 100 Fahrenheit this morning. Patient was admitted earlier this month for a exacerbation of diverticulitis with sigmoid
abscess, was treated with ciprofloxacin metronidazole, also was noted to be positive for C. difficile during that time, still taking oral vancomycin for another 2 days. Symptoms are comparable to his recent admission. No vomiting or bowel movement
changes.
Past History
Past History
ED Past Medical History: HTN, Hypercholesterolemia, Other (Crohn's) and Other (Diverticulitis)
ED Past Surgical History: Appendectomy, Orthopedic (Neck surgery with fusion) and Other (hernia)
Social History
Tobacco: Non-smoker
Drug: Marijuana
Personal:
Living: with family
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
Review of Systems
Review of Systems
Allergies reviewed?: Yes
All Other Systems: ROS reviewed and negative except as documented in HPI and ROS
Phy Exam
Physical Exam
Physical Exam:
GEN: Well appearing, NAD, WDWN
Eyes: PERRLA, EOMs intact, no scleral icterus
HENT: NCAT, oral mucosa moist
Lungs: CTAB, no wheezes, rales, rhonchi, normal chest wall excursion
Cardiac: RRR, no M/R/G, no peripheral edema. Radial pulses 2+ bilat
Abdomen: Soft, significant tenderness to the suprapubic and left lower quadrant, no rigidity or peritoneal signs
Neuro: AO x 3, no focal deficits to BUE/BLE, normal sensation throughout
MSK: No gross deformity or ecchymosis. No edema. No digital clubbing
Skin: No rashes, petechiae. Normal color, no pallor or jaundice.
Psych: Calm, cooperative, proper hygiene
Course
Orders/Labs/Results
Orders:
Orders
11/19/23 13:12
CT Abd/pel W Iv And Oral Contr Urgent
Comment:
Reason For Exam: LLQ pain
0.9% Sodium Chloride 1000 ml [Nss] 1,000 ml IV BOLUS
Iohexol [Omnipaque] See Protocol PO NOW STA
11/19/23 13:14
Morphine Sulfate 4 mg IV NOW STA
11/19/23 13:17
Complete Blood Count/With Diff Urgent
Comprehensive Metabolic Panel Urgent
11/19/23 13:20
HYDROmorphone [Dilaudid] 0.5 mg IV NOW STA
11/19/23 17:05
Zosyn 3.375 grams IVPB NOW Piperacillin/Tazo 3.375 Gram [Zosyn] 3.375 gram in 50 ml IV NOW
Abnormal Lab Results
11/19/23
13:17
WBC 11.1 H 10^3/uL
(4.8-10.8)
RBC 4.24 L 10^6/uL
(4.70-6.10)
Hgb 12.5 L g/dL
(13.0-18.0)
Hct 37.3 L %
(39.0-52.0)
RDW 15.7 H %
(11.5-14.5)
Absolute Neuts (auto) 9.5 H 10^3/uL
(1.4-6.5)
Absolute Lymphs (auto) 0.6 L 10^3/uL
(1.2-3.4)
Absolute Monos (auto) 0.9 H 10^3/uL
(0.1-0.6)
Neutrophils % 85.5 H %
(42.2-75.2)
Lymphocytes % 5.6 L %
(20.5-51.1)
Sodium 134 L mmol/L
(135-145)
BUN 7 L mg/dl
(9-20)
Glucose 150 H mg/dl
(70-99)
Total Protein 6.1 L g/dl
(6.3-8.2)
11/19/23 13:17
11/19/23 13:17
Vital Signs
Initial and Last Documented VS:
Initial Vital Signs
Temp Pulse Resp BP Pulse Ox
99.4 F 103 16 125/85 98
11/19/23 12:52 11/19/23 12:52 11/19/23 12:52 11/19/23 12:52 11/19/23 12:52
Last Documented Vital Signs
Temp Pulse Resp BP Pulse Ox
99.4 F 95 16 142/78 97
11/19/23 12:52 11/19/23 16:38 11/19/23 12:52 11/19/23 16:38 11/19/23 16:38
MDM/Problems Addressed
MDM/Problems Addressed:
Imaging reveals unfortunately an enlarged abscess compared to prior imaging. His symptoms are congruent with worsening disease. Will switch his antibiotic therapy to IV Zosyn, continue p.o. vancomycin, will admit to the hospitalist service for
colorectal consultation and further management
*Critical Care Note
Total Time (30-74mins, 75-104mins- exclusive of procedures): Not Applicable
ED Attending Note
-
Portions of this chart may have been created with voice recognition software.� Occasional wrong word or��sound alike� substitutions may have occurred due to the inherent limitations of voice recognition software.
Discharge Plan
Departure
Patient Disposition: Admit
Date of Disposition: 11/19/23
Time of Disposition: 17:07
Admit to: Med/Surg
Presentation/result/management discussed w/ accepting /: Hospitalist
Discharge Problem:
Diverticulitis of large intestine with abscess
Prescriptions:
No Action
polyethylene glycol 3350 [Miralax] 17 gram Powder In Packet
17 g PO HS
metoprolol succinate 50 mg Tablet Extended Release 24 Hr
50 mg PO DAILY
omeprazole 40 mg Capsule,Delayed Release(Dr/Ec)
40 mg PO BID
aspirin 81 mg Tablet,Delayed Release (Dr/Ec)
81 mg PO HS
acetaminophen [Tylenol Extra Strength] 500 mg Tablet
500 mg PO TIDPRN PRN (Reason: mild pain/fever)
acetaminophen [Tylenol Extra Strength] 500 mg Tablet
1,000 mg PO TIDPRN PRN (Reason: severe pain/fever)
dicyclomine 20 mg Tablet
20 mg PO TID PRN (Reason: stomach discomfort)
rosuvastatin 20 mg Tablet
20 mg PO HS
Fruit and Vegetable Daily 5-6-150 mg Capsule
6 cap PO DAILY
coQ10 (ubiquinol) 200 mg Capsule
200 mg PO HS
Fish Oil
1 cap PO DAILY
vancomycin 125 mg capsule
125 mg PO QID Qty: 64 0RF
metronidazole 500 mg Tablet
500 mg PO Q8 Qty: 21 0RF
ciprofloxacin HCl 500 mg Tablet
500 mg PO BID Qty: 16 0RF
oxycodone 5 mg Tablet
5 mg PO Q4HPRN PRN (Reason: severe pain) Qty: 20 0RF
Referrals:
Bucky Nichols DO [Family Provider] -
Interventions
Interventions:
*Risk Screen - Suicide Last Done: 11/19/23 12:52
*General Assessment Last Done: 11/19/23 12:52
*Neglect/Abuse Screening Last Done: 11/19/23 12:52
*ED COVID-19 Vaccine History Last Done: 11/19/23 12:52
[facility] Assessment Last Done: 11/19/23 13:05
[2023-11-19 13:30] LABS: % Basophils 0.3 % (0-2); % Eosinophils 0.2 % (0-6); % Immature Granulocytes 0.3 % (0-0.5); % Lymphocytes 5.6 % (20.5-51.1); % Monocytes 8.1 % (1.7-9.3); % Neutrophils 85.5 % (42.2-75.2); Absolute Lymphocytes 0.6 10^3/uL (1.2-3.4); Absolute Monocytes 0.9 10^3/uL (0.1-0.6); Absolute Neutrophils 9.5 10^3/uL (1.4-6.5); Hematocrit 37.3 % (39.0-52.0); Hemoglobin 12.5 g/dL (13.0-18.0); Mean Corp Hgb Conc. 33.5 g/dL (33.0-37.0); Mean Corpuscular Hgb 29.5 pg (27.0-31.0); Mean Platelet Volume 9.9 fL (7.4-10.4); Nucleated Red Blood Cells % 0 % (-); Platelet Count 334 10^3/uL (130-400); Red Blood Cell Count 4.24 10^6/uL (4.70-6.10); Red Cell Dist. Width 15.7 % (11.5-14.5); White Blood Cell Count 11.1 10^3/uL (4.8-10.8)
[2023-11-19] MEDS: NSS 1000 IV ×2 (13:31→20:15)
[2023-11-19] MEDS: DILAUDID 0.5 MG IV ×4 (13:32→23:41)
[2023-11-19] MEDS: OMNIPAQUE 50 ML PO (13:32)
[2023-11-19 13:43] LABS: ALT (SGPT) 11 U/L (0-50); AST (SGOT) 20 U/L (17-59); Albumin 3.5 g/dl (3.5-5.0); Alkaline Phosphatase 44 U/L (38-126); Blood Urea Nitrogen 7 mg/dl (9-20); Calcium 9.1 mg/dl (8.4-10.2); Carbon Dioxide 26 mmol/L (22-30); Chloride 99 mmol/L (98-107); Glucose 150 mg/dl (70-99); Potassium 4.2 mmol/L (3.5-5.1); Sodium 134 mmol/L (135-145); Total Bilirubin 1.2 mg/dl (0.2-1.3); Total Protein 6.1 g/dl (6.3-8.2); eGFR > 60.00
[2023-11-19] MEDS: ZOSYN 50 IV ×2 (17:21→23:41)
--- NOTE | 2023-11-19 17:40 | HPS.HSE ---
Family Physician
-
Family Physician: Bucky Nichols
Chief Complaint
-
abdominal pain, fever
History of Present Illness
68-year-old male past medical history of Crohn's disease, diverticulitis, coronary artery disease, hypertension, hypercholesteremia, presenting with increasing left lower quadrant abdominal pain radiating across the belly and fever of 100 degrees
since yesterday. He also had a large diarrhea episode today that was watery worsening compared to previously. Denies any nausea or vomiting.
Patient was recently admitted from 11/03 to 11/08 for sigmoid diverticulitis associated with abscess patient to sigmoid colon and urinary bladder. He was treated with IV antibiotics. He was also having diarrhea and found to be positive for C.
difficile and treated with oral vancomycin. Upon discharge his abdominal pain had improved and diarrhea had improved to only few times per day.
Medical History
Past Medical History
Past Medical History: Reports Other (Crohn's disease, diverticulitis, coronary artery disease, hypertension, hypercholesteremia)
Past Surgical History: Reports Other (Appendectomy, Orthopedic (Neck surgery with fusion) and Other (hernia))
Social History
Tobacco: Non-smoker
Alcohol: None
Drug: None
Family History
Family History: Not pertinent
Allergies / Home Medications
Allergies reflects when Allergies were last updated in [facility].
Home Medications with original date entered in [facility]
Allergy/Medication List:
Allergies
Allergy/AdvReac Type Severity Reaction Status Date / Time
No Known Allergies Allergy Verified 11/19/23 12:54
Home Medications
acetaminophen 500 mg tablet (Tylenol Extra Strength) 1,000 mg PO TIDPRN PRN severe pain/fever 11/03/23
aspirin 81 mg tablet,delayed release 81 mg PO HS Blood Clot Prevention/Tx 11/03/23
coQ10 (ubiquinol) 200 mg capsule 200 mg PO HS Supplement 11/03/23
dicyclomine 20 mg tablet 20 mg PO TID PRN stomach discomfort 11/03/23
gkqhlkts-ibavjr-zcurj extract 5 mg-6 mg-150 mg capsule (Fruit and Vegetable Daily) 6 cap PO DAILY Supplement 11/03/23
metoprolol succinate 50 mg tablet,extended release 24 hr 50 mg PO DAILY Blood Pressure 11/03/23
omega 5-dvf-hak-fish oil 1,000 mg (120 mg-180 mg) capsule (Fish Oil) 1 cap PO DAILY Supplement ##0 11/03/23
omeprazole 40 mg capsule,delayed release 40 mg PO BID Gastrointestinal Issue 11/03/23
rosuvastatin 20 mg tablet 20 mg PO HS High Cholesterol 11/03/23
oxycodone 5 mg tablet 5 mg PO Q4HPRN PRN severe pain #20 tabs 11/08/23
vancomycin 125 mg capsule 125 mg PO QID Infection #64 caps 11/08/23
Review of Systems
-
History Source: Patient
A 12 point ROS was completed and negative except as noted: Yes
Constitutional: Reports No Symptoms
EENT: Reports No Symptoms
Respiratory: Reports No Symptoms
Cardiac: Reports No Symptoms
Abdomen/GI: Reports See HPI
: Reports No Symptoms
Musculoskeletal: Reports No Symptoms
Skin: Reports No Symptoms
Neurological: Reports No Symptoms
Endocrine: Reports No Symptoms
Hematologic/Lymphatic: Reports No Symptoms
Psych: Reports No Symptoms
Physical Exam
Vital Signs
Vital Signs
Temp Pulse Resp BP Pulse Ox
99.4 F 95 16 112/77 94
11/19/23 12:52 11/19/23 16:38 11/19/23 12:52 11/19/23 17:00 11/19/23 17:15
Physical Exam
General: Well Developed, Well Nourished and No Apparent Distress
HEENT: NormoCephalic, Moist mucous membranes and Atraumatic
Respiratory: Clear
Cardiac: S1/S2 and Regular Rhythm; No Murmur or Rub
GI: Soft, Non Distended, Normal Bowel Sounds and Tender (tender accorss belly ); No Organomegaly
Rectal: Deferred by Provider
Musculoskeletal: No Clubbing, No Cyanosis and No Edema
Skin: No Rash
Neuro: Nonfocal/grossly intact
Laboratory Results
-
11/19/23 13:17
11/19/23 13:17
Laboratory Results
Total Bilirubin 1.2 mg/dl (0.2-1.3) 11/19/23 13:17
AST 20 U/L (17-59) 11/19/23 13:17
ALT 11 U/L (0-50) 11/19/23 13:17
Alkaline Phosphatase 44 U/L (38-126) 11/19/23 13:17
Data Reviewed
-
Lab Data: Labs Reviewed by me
Old Records: Reviewed
Impression/Plan
-
IMPRESSION:
PLAN:
# Persistent sigmoid diverticulitis with enlarging associated abscess
-As per CT scan, abscess adjacent to sigmoid colon and bladder
-N.p.o.
-Check blood cultures
-IV fluids
-Zosyn
-Colorectal surgery consulted
-Dilaudid for pain
-Continue dicyclomine
# C. difficile infection currently on treatment
-Worsening diarrhea
-Currently on p.o. vancomycin to be continued until 11/21 as per ID
-ID consulted
History of Crohn's disease
-Not on treatment
Coronary artery disease
-Continue aspirin, metoprolol
Essential hypertension
Hypercholesterolemia
-Continue statin
GERD
-Continue omeprazole
Full code
DVT prophylaxis�heparin
NPO
[2023-11-19] MEDS: FIRVANQ 125 MG PO ×2 (18:21→23:57)
--- NOTE | 2023-11-19 20:00 | PTCARENOTE ---
Pt arrived to room 421-01 during change of shift. Pt AAOx3, VSS. Pt c/o 03/07 abdominal pain. Pt oriented to room, call norris placed within reach.
[2023-11-19] MEDS: HEPARIN 5000 UNITS SC (21:20)
[2023-11-19] MEDS: CRESTOR 20 MG PO (21:21)
[2023-11-19] MEDS: ASPIR LOW (ENTERIC COATED) 81 MG PO (21:21)
[2023-11-19] MEDS: PROTONIX 40 MG PO (21:21)
[2023-11-20] MEDS: DILAUDID 0.5 MG IV ×5 (04:51→21:28)
[2023-11-20] MEDS: FIRVANQ 125 MG PO ×3 (05:09→17:12)
[2023-11-20] MEDS: NSS 1000 IV ×2 (05:09→17:00)
[2023-11-20] MEDS: ZOSYN 50 IV ×2 (05:09→11:36)
[2023-11-20 08:13] LABS: % Basophils 0.4 % (0-2); % Eosinophils 0.6 % (0-6); % Immature Granulocytes 0.4 % (0-0.5); % Lymphocytes 11.4 % (20.5-51.1); % Neutrophils 73.2 % (42.2-75.2); Absolute Eosinophils 0.1 10^3/uL (0-0.7); Absolute Monocytes 1.2 10^3/uL (0.1-0.6); Absolute Neutrophils 6.1 10^3/uL (1.4-6.5); Hematocrit 34.5 % (39.0-52.0); Hemoglobin 11.4 g/dL (13.0-18.0); Mean Corpuscular Hgb 29.2 pg (27.0-31.0); Mean Corpuscular Volume 88.5 fL (80.0-94.0); Nucleated Red Blood Cells % 0 % (-); Platelet Count 284 10^3/uL (130-400); Red Cell Dist. Width 15.9 % (11.5-14.5); White Blood Cell Count 8.4 10^3/uL (4.8-10.8)
[2023-11-20 08:24] VITALS: BP 124/78
[2023-11-20 08:55] LABS: ALT (SGPT) < 10 U/L (0-50); AST (SGOT) 20 U/L (17-59); Albumin 3.2 g/dl (3.5-5.0); Alkaline Phosphatase 61 U/L (38-126); Blood Urea Nitrogen 6 mg/dl (9-20); Calcium 8.4 mg/dl (8.4-10.2); Carbon Dioxide 27 mmol/L (22-30); Chloride 100 mmol/L (98-107); Estimated Creatinine Clearance 69 ml/min; Glucose 98 mg/dl (70-99); Potassium 4.2 mmol/L (3.5-5.1); Sodium 131 mmol/L (135-145); Total Bilirubin 1.4 mg/dl (0.2-1.3); Total Protein 5.7 g/dl (6.3-8.2); eGFR > 60.00
[2023-11-20] MEDS: PROTONIX 40 MG PO ×2 (09:05→20:30)
[2023-11-20] MEDS: TOPROL XL 50 MG PO (09:05)
[2023-11-20] MEDS: HEPARIN 5000 UNITS SC ×2 (09:05→20:30)
--- NOTE | 2023-11-20 10:31 | W.PN.HOSP.TC ---
Today's Communication/Plan
-
Continue present course of Zosyn
Await input from colorectal surgery but appears to be looking at a eventual hemicolectomy/position of abscess not amenable to drainage?
Await ID input in regards to C. difficile prophylaxis
Keep n.p.o. for now
Monitor electrolytes and CBC
Assessment / Plan
Assessment / Plan
68-year-old male past medical history of Crohn's disease, diverticulitis, coronary artery disease, hypertension, hypercholesteremia,� presenting with increasing left lower quadrant abdominal pain radiating across the belly and fever of 100 degrees
since yesterday.� He also had a large diarrhea episode today that was watery worsening compared to previously.� Denies any nausea or vomiting.
Patient was recently admitted from 11/03 to 11/08 for sigmoid diverticulitis associated with abscess patient to sigmoid colon and urinary bladder.� He was treated with IV antibiotics.� He was also having diarrhea and found to be positive for C.
difficile and treated with oral vancomycin.� Upon discharge his abdominal pain had improved and diarrhea had improved to only few times per day.
Redeveloped diarrhea here after being placed back on antibiotics last night
# Persistent sigmoid diverticulitis with enlarging associated abscess
-As per CT scan, abscess adjacent to sigmoid colon and bladder
-N.p.o.
-Check blood cultures
-IV fluids
-Zosyn
-Colorectal surgery consulted
-Dilaudid for pain
-Continue dicyclomine
# C. difficile infection currently on treatment
-Diarrhea had been fairly stable during course of antibiotics(ciprofloxacin and metronidazole) that he finished at home but redeveloped overnight
-Currently on p.o. vancomycin to be continued until 11/21 as per ID
-Leukocytosis seems to be responding
-ID consulted
History of Crohn's disease
-Not on treatment
Coronary artery disease
-Continue aspirin, metoprolol
Essential hypertension
Hypercholesterolemia
-Continue statin
GERD
-Continue omeprazole
Full code
DVT prophylaxis�heparin
NPO
Anticipated Discharge: 24 - 48 hours
Subjective/Interval History
-
Date of Service: November 20, 2023
Did okay overnight but did develop diarrhea that had been rather quiescent when he was home he relates the abdominal pain more on the right side than he did on its prior presentation. He started feeling better since he finished his course of
antibiotics that was prescribed. Patient stayed on his vancomycin p.o.
Objective Data
-
Labs:
Laboratory Results
11/20/23
07:07
WBC 8.4
Hgb 11.4 L
Hct 34.5 L
Plt Count 284
Sodium 131 L
Potassium 4.2
Chloride 100
Carbon Dioxide 27
BUN 6 L
Creatinine 0.9
Glucose 98
Calcium 8.4
Total Bilirubin 1.4 H
AST 20
ALT < 10
Alkaline Phosphatase 61
Vital Signs:
Vital Signs
Temp Pulse Resp BP Pulse Ox
97.7 F 82 16 124/78 97
11/20/23 08:24 11/20/23 08:24 11/20/23 08:24 11/20/23 08:24 11/20/23 08:24
Review of Systems
-
History Source: Patient
Constitutional: Reports Fatigue and Weakness
EENT: Reports No Symptoms Reported
Respiratory: Reports No Symptoms
Abdomen/GI: Reports Abdominal Pain (Seems to be more localized to the right than the left) and Diarrhea
Physical Exam
-
General: Well Developed
HEENT: Normocephalic
Respiratory: Clear to Auscultation
Cardiac: Regular Rhythm
GI: Soft and Nontender
Genito-urinary: No Costovertebral Tender
Musculoskeletal: No Clubbing
Skin: Warm
Neuro: Awake, Alert and Oriented
Psych: Calm
Data Reviewed
-
Total Time Spent with Patient (in minutes): 56
CT Scan: Report Reviewed by me (a collection with fluid and air and an enhancing wall compatible with an abscess. This abscess is slightly larger than on examination of November 03, 2023. No evidence for communication of the bladder.)
--- NOTE | 2023-11-20 13:11 | CON.CRS ---
Consultation
-
Date/Time Consultation Requested: 11/19/2023, 22:41
Date/Time Consultation Performed: 11/20/2023, 08:45
Requesting Provider: Roxanne Yen MD
Performing Provider: Tawanda Elliott MD
Reason for Consultation: diverticulitis
Medical History
-
Chief Complaint: Abdominal pain
History of Present Illness:
68-year-old male with a history of recent hospitalization due to diverticulitis and C. difficile, presents to the ER yesterday complaining of worsening abdominal pain. The patient had been recently admitted from 11/03/2023 to 11/08/2023 due to sigmoid
diverticulitis with an associated abscess that was not drainable by IR and due to the above and was discharged on Cipro and metronidazole and oral Vanco per ID. The patient states he had been feeling well at home up until his antibiotics were
completed. Over the last 2 days of no antibiotics he had increasing abdominal pain. His thought he looked pale. The pain he describes as a cramping feeling. He also had 1 bout of diarrhea the other day which increased to 3 or 4 times
overnight and now is up to 10 times per night since yesterday. CT of the abdomen pelvis showed diverticulitis in the sigmoid colon and central pelvis. Inferior to the sigmoid colon at the superior margin of the bladder there is a collection of
fluid and air and an enhancing wall compatible with an abscess that was slightly larger than previous on November 03, 2023. There is no evidence of communication to the bladder. On admission his WBC was 11.1 down to 8.4 today. His vital signs have
been normal. We have been consulted for further surgical opinion.
Past Medical History
Past Medical History: CAD, HTN and Other (Crohn's disease, diverticulitis, coronary artery disease, hypertension, hypercholesteremia, diverticulosis)
Past Surgical History: Appendectomy, Orthopedic (cervical fusion)) and Other (hernia)
Social History
Tobacco: Non-Smoker
Alcohol: None
Drug: Marijuana
Family History
Family History: Reviewed & Not Pertinent
Allergies / Home Medications
Allergy/AdvReac Type Severity Reaction Status Date / Time
No Known Allergies Allergy Verified 11/19/23 12:54
Medication Instructions Recorded Confirmed Type
acetaminophen 500 mg tablet 1,000 mg PO TIDPRN PRN severe 11/03/23 11/19/23 History
(Tylenol Extra Strength) pain/fever
aspirin 81 mg tablet,delayed 81 mg PO HS Blood Clot 11/03/23 11/19/23 History
release Prevention/Tx
coQ10 (ubiquinol) 200 mg capsule 200 mg PO HS Supplement 11/03/23 11/19/23 History
dicyclomine 20 mg tablet 20 mg PO TID PRN stomach discomfort 11/03/23 11/19/23 History
vitbxmbo-spuzbz-hymdj extract 5 6 cap PO DAILY Supplement 11/03/23 11/19/23 History
mg-6 mg-150 mg capsule (Fruit and
Vegetable Daily)
metoprolol succinate 50 mg 50 mg PO DAILY Blood Pressure 11/03/23 11/19/23 History
tablet,extended release 24 hr
omega 0-ctj-fgf-fish oil 1,000 mg 1 cap PO DAILY Supplement ##0 11/03/23 11/19/23 History
(120 mg-180 mg) capsule (Fish Oil)
omeprazole 40 mg capsule,delayed 40 mg PO BID Gastrointestinal Issue 11/03/23 11/19/23 History
release
rosuvastatin 20 mg tablet 20 mg PO HS High Cholesterol 11/03/23 11/19/23 History
oxycodone 5 mg tablet 5 mg PO Q4HPRN PRN severe pain #20 11/08/23 11/19/23 Rx
tabs
vancomycin 125 mg capsule 125 mg PO QID Infection #64 caps 11/08/23 11/19/23 Rx
Review of Systems
-
History Source: Patient
Abdomen/GI: Abdominal Pain and Diarrhea
A 10 point review of systems was completed, and was negative except as per HPI.
Physical Exam
Vital Signs
Temp 97.7 F 11/20/23 08:24
Pulse 82 11/20/23 08:24
Resp Rate 16 11/20/23 08:24
Blood pressure 124/78 11/20/23 08:24
SaO2 97 11/20/23 08:24
11/19/23 11/20/23 11/21/23
06:59 06:59 06:59
Actual Weight 60.044 kg
Body Mass Index (BMI) 21.4
Lab Results / Allergies
11/20/23 07:07
11/20/23 07:07
WBC 8.4 10^3/uL (4.8-10.8) 11/20/23 07:07
Hgb 11.4 g/dL (13.0-18.0) L 11/20/23 07:07
Hct 34.5 % (39.0-52.0) L 11/20/23 07:07
Plt Count 284 10^3/uL (130-400) 11/20/23 07:07
Abs Immat Gran (auto) 0.0 10^3/uL (0-0.05) 11/20/23 07:07
Neutrophils % 73.2 % (42.2-75.2) 11/20/23 07:07
Allergy/AdvReac Type Severity Reaction Status Date / Time
No Known Allergies Allergy Verified 11/19/23 12:54
Physical Exam
General: Well Developed and Well Nourished
GI: Soft and Tender (Mild LLQ/RLQ)
Neuro: AO x 3
Psych: Calm
Data Reviewed
-
CT Scan: Image Personally Visualized and interpreted, Report Reviewed by me, Discussed with Patient and Discussed with Family
Labs: Labs Reviewed by me and Discussed with Physician
Assessment / Plan
-
Assessment: 68-year-old male with a recent hospitalization of sigmoid diverticulitis and C. difficile discharged on antibiotics, presents to the ER with worsening abdominal cramping and diarrhea and found to have sigmoid diverticulitis with an
increased size of his known abscess
Plan: CT scan reviewed with patient and his family. His recent cramping is likely due to C. difficile. Recommend continue n.p.o. status. Blood cultures are pending. Continue IV fluids and antibiotics. ID consult. There is no surgery indicated
at this time. Goal is to get through this course of diverticulitis and can have surgery on an elective basis. Discussed plan with patient, , and son via phone. Will follow.
--- NOTE | 2023-11-20 14:28 | CON.ID ---
Consultation
-
Date/Time Consultation Requested: 11/19/23 22:31
Date/Time Consultation Performed: 11/20/23 14:28
Requesting Provider: Dr Yen
Performing Provider: Dr العراقي
Reason for Consultation: c diff
Chief Complaint / Past History
Chief Complaint
abdominal pain, fever
History of Present Illness
Mr Boone is a 68 year old male with history of reported crohns disease, diverticulitis who presented here yesterday for LL quadrant abdominal pain, elevated T to 100 decreass, diarrhea without nausea or vomiting. Of note with recent admission
11/03-11/08 for diverticulitis with colovesicle fistula course was complicated by C diff. He was treated with oral vancomycin, cipro/metro. Completed cipro/metro 11/16, was still on oral vancomycin outpatinet
Since arrival this visit he has been afebrile, bp stable, wbc intially 11.1 now resolved, L shift on arrival now resolved, hgb 11.4, plt 284, cr 0.9, t bili 1.4, ast 20, alt <10, alk phos 61, no UA done yet, 11/04/23 calprotectin 865, ct a/p with iv
and oral contrast: diverticulitis - abscess slightly larger than 11/03/23 - no evidence of fistula to bladder at this time, �'On today's exam, this abscess measures 2.8 cm transverse by 3.1 cm AP by 2.3 cm' avn L femoral head noted, currently on zosyn
and oral vancomycin ID is consulted for assistance with management.
Past History
Additional Past Medical History:
Crohn's disease, diverticulitis, coronary artery disease, hypertension, hypercholesteremia
Additional Past Surgical History:
Appendectomy, Orthopedic (Neck surgery with fusion) and Other (hernia)
Allergy History:
No Known Allergies Allergy (Verified 11/19/23 12:54)
Medications Reviewed: Yes
Social History
Tobacco: Non-Smoker
Alcohol: None
Drug: None
Family History
Family History: Not Pertinent
Review of Systems
Review of Systems
General: Fever and Chills
All systems: All other systems were reviewed and were negative
Vital Signs
Temp Pulse Resp BP Pulse Ox
97.7 F 82 16 124/78 97
11/20/23 08:24 11/20/23 08:24 11/20/23 08:24 11/20/23 08:24 11/20/23 08:24
Physical Exam
Physical Exam
Constitutional: No Acute Distress
Cardiovascular: Regular Rate and S1/S2; Negative Murmur or Rub
Pulmonary: Clear and Symmetric; Negative Wheezes, Rales or Rhonchi
Gastrointestinal: Soft, Non Tender (with moderate pressure - tender earlier today), Non Distended and Normal Bowel Sounds
Skin: Warm and Dry; Negative Rash or Jaundice
Lab / Diagnostic Study Results
11/20/23 07:07
11/20/23 07:07
Abs Immat Gran (auto) 0.0 10^3/uL (0-0.05) 11/20/23 07:07
Absolute Neuts (auto) 6.1 10^3/uL (1.4-6.5) 11/20/23 07:07
Absolute Lymphs (auto) 1.0 10^3/uL (1.2-3.4) L 11/20/23 07:07
Absolute Monos (auto) 1.2 10^3/uL (0.1-0.6) H 11/20/23 07:07
Absolute Basos (auto) 0.0 10^3/uL (0-0.2) 11/20/23 07:07
Immature Gran % 0.4 % (0-0.5) 11/20/23 07:07
Neutrophils % 73.2 % (42.2-75.2) 11/20/23 07:07
Lymphocytes % 11.4 % (20.5-51.1) L 11/20/23 07:07
Monocytes % 14.0 % (1.7-9.3) H 11/20/23 07:07
Eosinophils % 0.6 % (0-6) 11/20/23 07:07
Basophils % 0.4 % (0-2) 11/20/23 07:07
Microbiology Results
Micro:
11/19/23 20:00 Blood Culture - Pending
Blood/Venous
11/19/23 19:25 Blood Culture - Pending
Blood/Venous
Assessment / Plan
Diverticulitis with secondary perforation
Probable Abdominal perforation with abscess - slightly increased
C difficile
Reported Crohn's disease
Leukocytosis
- note elevated calprotectin - however this test is not specific and can be elevated in GI infection
- blood cultures x2 no growth to date
- will plan a course of IV/oral antibiotics outpatient - switch to ceftriaxone/metro and follow clinically
- agree with oral vancomycin at QID dosing - duration pending course
- agree with colorectal consult - will follow up note
--- NOTE | 2023-11-20 14:42 | CM ---
Patient seen bedside.
Dx diverticulitisl
IA completed.
patient lives with spouse in a 2 story home.
Independent prior to admission without assistive devices.
No hx VN.
Patient stated he may require home IV anbx.
Options reviewed, [facility] chosen. ID consult (P).
PCP: Dr Nichols
pharmacy: [facility]
Plan: home with possible infusion.
[2023-11-20 16:00] VITALS: BP 136/82
[2023-11-20] MEDS: ROCEPHIN 2000 MG IV (17:12)
[2023-11-20] MEDS: FLAGYL 500 MG PO (17:12)
[2023-11-20] MEDS: STERILE WATER FOR INJECTION 20 ML IV (17:12)
[2023-11-20 17:33] VITALS: BMI 21.4
[2023-11-20 18:13] LABS: Urine Albumin Negative (Neg - Trace); Urine Bilirubin Negative (Negative); Urine Character Clear (Clear); Urine Color Yellow; Urine Glucose Negative (Negative); Urine Ketone Trace (Negative); Urine Leukocyte Negative (Negative); Urine Nitrite Negative (Negative); Urine Occult Blood Negative (Negative); Urine Urobilinogen Negative (Neg - 1+)
[2023-11-20] MEDS: ASPIR LOW (ENTERIC COATED) 81 MG PO (21:28)
[2023-11-20] MEDS: CRESTOR 20 MG PO (21:28)
[2023-11-20 23:00] VITALS: BP 137/80
[2023-11-21] MEDS: FLAGYL 500 MG PO ×2 (00:22→10:02)
[2023-11-21] MEDS: FIRVANQ 125 MG PO ×4 (00:22→17:58)
[2023-11-21] MEDS: DILAUDID 0.5 MG IV ×6 (01:41→22:04)
[2023-11-21] MEDS: NSS 1000 IV ×2 (03:17→13:04)
[2023-11-21 07:30] LABS: Hematocrit 36.6 % (39.0-52.0); Hemoglobin 12.2 g/dL (13.0-18.0); Mean Corp Hgb Conc. 33.3 g/dL (33.0-37.0); Mean Corpuscular Hgb 29.7 pg (27.0-31.0); Mean Corpuscular Volume 89.1 fL (80.0-94.0); Mean Platelet Volume 10.2 fL (7.4-10.4); Platelet Count 273 10^3/uL (130-400); Red Blood Cell Count 4.11 10^6/uL (4.70-6.10); Red Cell Dist. Width 15.6 % (11.5-14.5); White Blood Cell Count 6.4 10^3/uL (4.8-10.8)
[2023-11-21 07:48] LABS: Blood Urea Nitrogen 6 mg/dl (9-20); Calcium 8.6 mg/dl (8.4-10.2); Carbon Dioxide 27 mmol/L (22-30); Chloride 100 mmol/L (98-107); Estimated Creatinine Clearance 77 ml/min; Glucose 84 mg/dl (70-99); Potassium 4.3 mmol/L (3.5-5.1); Sodium 133 mmol/L (135-145); eGFR > 60.00
[2023-11-21 08:00] VITALS: BP 122/79
[2023-11-21] MEDS: TOPROL XL 50 MG PO (10:02)
[2023-11-21] MEDS: PROTONIX 40 MG PO ×2 (10:02→20:59)
[2023-11-21] MEDS: BENTYL 20 MG PO ×2 (10:02→17:58)
[2023-11-21] MEDS: HEPARIN 5000 UNITS SC ×2 (10:03→20:58)
--- NOTE | 2023-11-21 10:16 | W.PN.HOSP.TC ---
Today's Communication/Plan
-
Continue present course as outlined by ID with ceftriaxone/metronidazole
P.o. vancomycin every 6 hours
Will defer it initiating diet and advancement to colorectal
Continue pain management
Continue present IV fluids
Continue to monitor chemistries and CBC
Assessment / Plan
Assessment / Plan
68-year-old male past medical history of Crohn's disease, diverticulitis, coronary artery disease, hypertension, hypercholesteremia,� presenting with increasing left lower quadrant abdominal pain radiating across the belly and fever of 100 degrees
since yesterday.� He also had a large diarrhea episode today that was watery worsening compared to previously.� Denies any nausea or vomiting.
Patient was recently admitted from 11/03 to 11/08 for sigmoid diverticulitis associated with abscess patient to sigmoid colon and urinary bladder.� He was treated with IV antibiotics.� He was also having diarrhea and found to be positive for C.
difficile and treated with oral vancomycin.� Upon discharge his abdominal pain had improved and diarrhea had improved to only few times per day.
Redeveloped diarrhea here after being placed back on antibiotics last night
# Persistent sigmoid diverticulitis with enlarging associated abscess
-As per CT scan, abscess adjacent to sigmoid colon and bladder
-N.p.o.
-Check blood cultures
-IV fluids
-ID changed antibiotic to ceftriaxone/metronidazole
-Colorectal surgery consulted
-Dilaudid for pain
-Continue dicyclomine
# C. difficile infection currently on treatment
-Diarrhea had been fairly stable during course of antibiotics(ciprofloxacin and metronidazole) that he finished at home but redeveloped overnight
-Currently on p.o. vancomycin to be continued until 11/21 as per ID
-Leukocytosis seems to be responding
-ID consulted
History of Crohn's disease
-Not on treatment
Coronary artery disease
-Continue aspirin, metoprolol
Essential hypertension
Hypercholesterolemia
-Continue statin
GERD
-Continue omeprazole
Full code
DVT prophylaxis�heparin
NPO
Anticipated Discharge: 24 - 48 hours
Subjective/Interval History
-
Date of Service: November 21, 2023
Still in some degree of discomfort especially on the right side no emesis some diarrhea
Objective Data
-
Labs:
Laboratory Results
11/21/23
06:00
WBC 6.4
Hgb 12.2 L
Hct 36.6 L
Plt Count 273
Sodium 133 L
Potassium 4.3
Chloride 100
Carbon Dioxide 27
BUN 6 L
Creatinine 0.8
Glucose 84
Calcium 8.6
Vital Signs:
Vital Signs
Temp Pulse Resp BP Pulse Ox
97.7 F 82 18 122/79 97
11/21/23 08:00 11/21/23 08:00 11/21/23 08:00 11/21/23 08:00 11/21/23 08:00
I&O
11/20/23 11/21/23 11/22/23
06:59 06:59 06:59
Intake Total 1250 / 1250
Balance 1250 / 1250
Review of Systems
-
History Source: Patient
All other systems: Reviewed and negative
Constitutional: Reports No Symptoms
EENT: Reports No Symptoms Reported
Respiratory: Reports No Symptoms
Cardiac: Reports No Symptoms
Abdomen/GI: Reports Abdominal Pain and Diarrhea
Physical Exam
-
General: Well Developed
HEENT: Normocephalic
GI: Soft and Tender
Neuro: Awake, Alert, Oriented and AO x 3
Psych: Anxious
Data Reviewed
-
Total Time Spent with Patient (in minutes): 56
Labs: Labs Reviewed by me (White count has normalized since admission hemoglobin stable 12.2/30 and improved to 133 rest of BMP within normal limits)
--- NOTE | 2023-11-21 11:13 | W.PN.ID1 ---
Date of Service
Date of Service: November 21, 2023
Today's Communication
- markedly more tender - switched to ertapenem
Assessment / Plan
Diverticulitis with secondary perforation
Probable Abdominal perforation with abscess - slightly increased
C difficile
Reported Crohn's disease
Leukocytosis
- blood cultures x2 no growth to date
- markedly more tender - switched to ertapenem
- agree with oral vancomycin at QID dosing - duration pending course
- if remains stable, could begin arrangements for outpatient IV thursday
- eventual resection/washout may be indicated
Chief Complaint
-: Other (diverticulitis, abscess)
Subjective / Review of Systems
remains afebrile
bp stable
without leukocytosis
cr stable
blood cultures no growth to date
increased cramping overnight
tolerating current therapies
Vital Signs / Physical Exam
Vital Signs
Vital Signs
Temp Pulse Resp BP Pulse Ox
97.7 F 82 18 122/79 97
11/21/23 08:00 11/21/23 08:00 11/21/23 08:00 11/21/23 08:00 11/21/23 08:00
Physical Exam
Constitutional: No Acute Distress
Cardiovascular: Regular Rate and S1/S2; Negative Murmur or Rub
Pulmonary: Clear and Symmetric; Negative Wheezes or Rales
Gastrointestinal: Soft, Tender (with light touch), Non Distended and Normal Bowel Sounds
Skin: Warm and Dry; Negative Rash or Jaundice
Objective Data
Lab Data
Lab Results
11/21/23 06:00
11/21/23 06:00
Estimated Creat Clear 77 ml/min 11/21/23 06:00
Total Bilirubin 1.4 mg/dl (0.2-1.3) H 11/20/23 07:07
AST 20 U/L (17-59) 11/20/23 07:07
ALT < 10 U/L (0-50) 11/20/23 07:07
Alkaline Phosphatase 61 U/L (38-126) 11/20/23 07:07
Most recent labs reviewed.
Micro Results:
11/19/23 20:00 Blood Culture - Preliminary
Blood/Venous No Growth in 24 hours- Final report to follow
11/19/23 19:25 Blood Culture - Preliminary
Blood/Venous No Growth in 24 hours- Final report to follow
[2023-11-21] MEDS: INVANZ 60 MG IV (13:01)
--- NOTE | 2023-11-21 13:27 | W.PN.CRS1 ---
Addendum entered and electronically signed by Joaquín Bell MD 11/21/23 13:45:
I saw and examined the patient.
The [employer]'s note was reviewed and I agree with the note.
Comment:
Seen earlier with [employer].
Still with some abdominal cramping and diarrhea.
Vitals fine. WBC normal.
Abdomen with mild lower abdominal tenderness.
Antibiotics per ID.
Trial clears.
Original Note:
Today's Communication / Plan
-
Clear liquid diet
Assessment/Plan
-
68-year-old male with PMH of CAD, HTN, HLD, recent admission for diverticulitis with abscess and C. difficile, discharged on 11/08, presents again to the hospital for low-grade fever, crampy abdominal pain and worsening diarrhea. Leukocytosis on
presentation. CT�persistent acute diverticulitis associated with abscess, slight increase of abscess to 3.1 cm from 2.8 cm. Location of abscess not amenable to IR drainage.
No further leukocytosis
AFVSS
Exam somewhat improved
Diarrhea present
� Continue to follow non-operatively for improvement with bowel rest/antibiotics/supportive care
- Will start clear liquids
� Continue pain control with Tylenol/Toradol, IV for breakthrough
� Continue abx/po vanc as per ID
- Ok for dvt ppx
� Appreciate hospitalist
Subjective Data
Subjective Data
Date of Service: November 21, 2023
Patient seen and examined at bedside with Dr. Bell. Denies n/v. Passing loose stools every time he voids but not large volumes. Cramping pain present but mildly improving.
Objective Data
-
Vital Signs
Temp Pulse Resp BP Pulse Ox
97.7 F 82 18 122/79 97
11/21/23 08:00 11/21/23 08:00 11/21/23 08:00 11/21/23 08:00 11/21/23 08:00
Intake & Output
11/20/23 11/21/23 11/22/23
06:59 06:59 06:59
Intake Total 1250 / 1250
Balance 1250 / 1250
Intake:
IV fluids (Total) 1200 / 1200
IV piggybacks 50 / 50
Other:
Number of approximated MODERATE 3 1
amounts of urine
Number of unmeasured liquid
stools
Rectum 9
Lab Results
11/21/23 06:00
11/21/23 06:00
Physical Exam
-
General: No Acute Distress and AOx3
Abdomen: Soft, Non Distended and Tender (LLQ- minimal, RLQ very minimal)
Skin: Warm and Dry
[2023-11-21 15:00] VITALS: BP 153/89
[2023-11-21] MEDS: CRESTOR 20 MG PO (20:59)
[2023-11-21] MEDS: ASPIR LOW (ENTERIC COATED) 81 MG PO (20:59)
[2023-11-21 23:00] VITALS: BP 140/73
[2023-11-22] MEDS: FIRVANQ 125 MG PO ×5 (00:45→23:14)
[2023-11-22] MEDS: NSS 1000 IV (00:45)
[2023-11-22] MEDS: DILAUDID 0.5 MG IV ×2 (06:18→22:50)
[2023-11-22 07:00] VITALS: BP 138/78
[2023-11-22] MEDS: HEPARIN 5000 UNITS SC ×2 (08:50→20:36)
[2023-11-22] MEDS: TOPROL XL 50 MG PO (08:50)
[2023-11-22] MEDS: PROTONIX 40 MG PO ×2 (08:50→20:38)
--- NOTE | 2023-11-22 10:40 | W.PN.HOSP.TC ---
Addendum entered and electronically signed by Ubaldo Ware MD 11/30/23 13:11:
Hyponatremia lab value clinical insignificant
Original Note:
Today's Communication/Plan
-
Advance diet as tolerated as per CRS
Will reduce IV fluids
Recheck chemistries and CBC in a.m.
Plan will be for eventual PICC line for long-term antibiotic coverage at home as bridge to eventual elective hemicolectomy by CRS
Assessment / Plan
Assessment / Plan
68-year-old male past medical history of Crohn's disease, diverticulitis, coronary artery disease, hypertension, hypercholesteremia,� presenting with increasing left lower quadrant abdominal pain radiating across the belly and fever of 100 degrees
since yesterday.� He also had a large diarrhea episode today that was watery worsening compared to previously.� Denies any nausea or vomiting.
Patient was recently admitted from 11/03 to 11/08 for sigmoid diverticulitis associated with abscess patient to sigmoid colon and urinary bladder.� He was treated with IV antibiotics.� He was also having diarrhea and found to be positive for C.
difficile and treated with oral vancomycin.� Upon discharge his abdominal pain had improved and diarrhea had improved to only few times per day.
Redeveloped diarrhea here after being placed back on antibiotics last night
# Persistent sigmoid diverticulitis with enlarging associated abscess
-As per CT scan, abscess adjacent to sigmoid colon and bladder
-N.p.o.>> transition to clear liquids yesterday advance diet as tolerated as per CRS
-Check blood cultures no growth to date
-IV fluids can be reduced
-ID changed antibiotic to ceftriaxone/metronidazole
-Colorectal surgery consulted
-Dilaudid for pain/patient aware trying to reduce dosing and frequency
-Continue dicyclomine
# C. difficile infection currently on treatment
-Diarrhea had been fairly stable during course of antibiotics(ciprofloxacin and metronidazole) that he finished at home but redeveloped overnight
-Currently on p.o. vancomycin to be continued until 11/21 as per ID
-Leukocytosis seems to be responding
-ID consulted
History of Crohn's disease
-Not on treatment
Coronary artery disease
-Continue aspirin, metoprolol
Essential hypertension
Hypercholesterolemia
-Continue statin
GERD
-Continue omeprazole
Full code
DVT prophylaxis�heparin
NPO
Anticipated Discharge: 24 - 48 hours
Subjective/Interval History
-
Date of Service: November 22, 2023
Seems to have tolerated clear liquids fine/no further diarrhea and having some small pellet sized soft formed stool less abdominal pain
Objective Data
-
Vital Signs:
Vital Signs
Temp Pulse Resp BP Pulse Ox
97.6 F 66 18 140/73 100
11/22/23 07:00 11/22/23 08:50 11/22/23 07:00 11/22/23 08:50 11/22/23 07:00
I&O
11/21/23 11/22/23 11/23/23
06:59 06:59 06:59
Intake Total 1250 / 1250 1919
Balance 1250 / 1250 1919
Review of Systems
-
All other systems: Not reviewed unless documented
Constitutional: Reports No Symptoms
EENT: Reports No Symptoms Reported
Respiratory: Reports No Symptoms
Cardiac: Reports No Symptoms
Abdomen/GI: Reports Abdominal Pain (Improved)
Physical Exam
-
General: Well Developed
HEENT: Normocephalic
Respiratory: Clear to Auscultation
Cardiac: Regular Rhythm
GI: Soft and Tender (Abdomen remains soft less tender especially on right side)
Musculoskeletal: No Edema
Skin: Warm
Neuro: Awake
Data Reviewed
-
Total Time Spent with Patient (in minutes): 45
Labs: Labs Reviewed by me
--- NOTE | 2023-11-22 11:09 | W.PN.CRS1 ---
Addendum entered and electronically signed by Tawanda Elliott MD 11/22/23 18:37:
I saw and examined the patient.
The GLUE REEL OPERATOR's note was reviewed and I agree with the note.
Comment:
68-year-old male with PMH of CAD, HTN, HLD, recent admission for diverticulitis with abscess and C. difficile, discharged on 11/08, presents again to the hospital for low-grade fever, crampy abdominal pain and worsening diarrhea, up to 10 episodes a
day; WBC 11.1, CT�persistent acute diverticulitis associated with abscess, slight increase of abscess to 3.1 cm from 2.8 cm; improving with nonoperative management
AFVSS, abdomen S/ND/minimally to mildly tender in bilateral lower quadrants, no R/G
�Okay for low residue, but instructed patient to go slow
� Continue pain control with Tylenol/Toradol, IV for breakthrough
� Continue IV ertapenem and p.o. vanc, discussed with Dr. العراقي, will repeat C. difficile testing
�Likely will require outpatient IV antibiotics for prolonged course as abscess did not respond with initial course
- Ok for dvt ppx
� Appreciate hospitalist
Original Note:
Today's Communication / Plan
-
Advance diet
Assessment/Plan
-
68-year-old male with PMH of CAD, HTN, HLD, recent admission for diverticulitis with abscess and C. difficile, discharged on 11/08, presents again to the hospital for low-grade fever, crampy abdominal pain and worsening diarrhea. Leukocytosis on
presentation. CT�persistent acute diverticulitis associated with abscess, slight increase of abscess to 3.1 cm from 2.8 cm. Location of abscess not amenable to IR drainage.
No further leukocytosis
AFVSS
Exam continues to improve
Diarrhea improved
� Continue to follow non-operatively for improvement with bowel rest/antibiotics/supportive care
- Advance to LRD
� Continue pain control with Tylenol/Toradol, IV narcotic for breakthrough
� Continue abx/po vanc as per ID
- Ok for dvt ppx
� Appreciate hospitalist
Subjective Data
Subjective Data
Date of Service: November 22, 2023
Patient seen and examined at bedside. Denies n/v. Tolerating clears. Pain continues to improve. Has passed some formed, hard pieces of stool. Passing flatus.
Objective Data
-
Vital Signs
Temp Pulse Resp BP Pulse Ox
97.6 F 66 18 140/73 100
11/22/23 07:00 11/22/23 08:50 11/22/23 07:00 11/22/23 08:50 11/22/23 07:00
Intake & Output
11/21/23 11/22/23 11/23/23
06:59 06:59 06:59
Intake Total 1250 / 1250 0 / 1920
Balance 1250 / 1250 1919 / 1920
Intake:
Oral fluids 660 / 660
IV fluids (Total) 1200 / 1200 1200 / 1200
IV piggybacks 50 / 50 60 / 60
Other:
Number of approximated MODERATE 1 3
amounts of urine
Number of unmeasured liquid
stools
Rectum 3
Lab Results
11/21/23 06:00
11/21/23 06:00
Physical Exam
-
General: No Acute Distress and AOx3
HEENT: Grossly Normal
Abdomen: Soft, Non Distended and Tender (mild to the RLQ toward midline)
Skin: Warm and Dry
[2023-11-22] MEDS: INVANZ 60 MG IV (12:02)
--- NOTE | 2023-11-22 13:28 | VATNOTE ---
Upon routine assessment, redness and tenderness noted to R arm IV site. New IV establish and old IV removed. Heat applied.
[2023-11-22 15:34] VITALS: BP 147/81
--- NOTE | 2023-11-22 16:16 | W.PN.UPDATE ---
Update Note
Progress Note Update
Showering during rounds
Chart reviewed - plan unchanged
Diverticulitis with secondary perforation
Probable Abdominal perforation with abscess - slightly increased
C difficile
Reported Crohn's disease
Leukocytosis
- will recheck stool for c diff - would help with determining duration of antibiotics
- blood cultures x2 no growth to date
- c/w ertapenem
- agree with oral vancomycin at QID dosing - duration pending course
- if remains stable, could begin arrangements for outpatient IV thursday
- eventual resection/washout may be indicated
[2023-11-22] MEDS: ASPIR LOW (ENTERIC COATED) 81 MG PO (22:46)
[2023-11-22] MEDS: CRESTOR 20 MG PO (22:46)
[2023-11-22 23:05] VITALS: BP 133/81
[2023-11-23] MEDS: DILAUDID 0.5 MG IV ×2 (03:42→22:47)
[2023-11-23] MEDS: BENTYL 20 MG PO ×2 (03:43→22:47)
[2023-11-23] MEDS: FIRVANQ 125 MG PO ×4 (06:11→22:47)
[2023-11-23 07:00] VITALS: BP 131/80
[2023-11-23 08:33] LABS: Blood Urea Nitrogen 6 mg/dl (9-20); Carbon Dioxide 30 mmol/L (22-30); Chloride 98 mmol/L (98-107); Estimated Creatinine Clearance 88 ml/min; Glucose 107 mg/dl (70-99); Potassium 3.9 mmol/L (3.5-5.1); Sodium 135 mmol/L (135-145); eGFR > 60.00
[2023-11-23] MEDS: PROTONIX 40 MG PO ×2 (08:36→20:04)
[2023-11-23] MEDS: TOPROL XL 50 MG PO (08:36)
[2023-11-23] MEDS: HEPARIN 5000 UNITS SC ×2 (08:37→20:03)
--- NOTE | 2023-11-23 08:46 | PN.CDI ---
CDI
- -
CDI:
Physician Documentation Request
Admit Date: 11/19/23 18:07
Dear Doctor Chaz,
Patient admitted with diverticulitis.
Laboratory Tests
11/19/23 11/20/23 11/21/23
13:17 07:07 06:00
Sodium 134 L 131 L 133 L
Based on the above, could you clarify in the progress notes, the appropriate diagnosis, if significant, that supports the above abnormalities and additional evaluation, monitoring and/or treatment rendered:
Hyponatremia
Abnormal lab value insignificant
Other
Use of terms such as suspected, likely, concern for, or probable (associated with a specific diagnosis that is being evaluated, monitored, or treated as if it exists) are acceptable and can be coded in the inpatient setting, when documented at the
time of discharge.
Thank you,
Umm Ayala RN, BSN
CDI Specialist
Available via [place] text
Please use your independent medical judgment in providing your response.
--- NOTE | 2023-11-23 08:49 | W.PN.HOSP.TC ---
Today's Communication/Plan
-
Continue IV and oral antibiotics. Discharge planning once cleared by ID.
Assessment / Plan
Assessment / Plan
Physical exam:
General: Well Developed, Well Nourished and No Apparent Distress
HEENT: Normocephalic, Atraumatic and Moist Mucous Membranes
Respiratory: Clear to Auscultation; Negative Wheezes, Rales or Rhonchi
Cardiac: Regular Rhythm and S1/S2
GI: Soft, Nontender and Nondistended
Musculoskeletal: No Clubbing, No Cyanosis and No Edema
Neuro: Awake, Alert and Oriented
Psych: Calm
A/P:
# Persistent sigmoid diverticulitis with enlarging associated abscess
-As per CT scan, abscess adjacent to sigmoid colon and bladder
-On LRD as per CRS
-Check blood cultures no growth to date
-IV fluids can be reduced
-ID changed antibiotic to ertapenem. PICC placement today.
-Colorectal surgery consulted
-Dilaudid for pain/patient aware trying to reduce dosing and frequency
-Continue dicyclomine
# C. difficile infection currently on treatment
-Diarrhea had been fairly stable during course of antibiotics(ciprofloxacin and metronidazole) that he finished at home but redeveloped overnight
-Currently on p.o. vancomycin to be continued until 11/21 as per ID
-Leukocytosis seems to be responding still having significant diarrhea. Nevertheless, C Diff antigen and toxins are negative today.
-ID consulted--> plan is discharge patient once cleared by ID.
History of Crohn's disease
-Not on treatment
Coronary artery disease
-Continue aspirin, metoprolol
Essential hypertension
Hypercholesterolemia
-Continue statin
GERD
-Continue omeprazole
Full code
DVT prophylaxis�heparin
NPO
Anticipated Discharge: 24 - 48 hours
Subjective/Interval History
-
Date of Service: November 23, 2023
Still having significant diarrhea. He went to the bathroom 10 times last evening and today he is going to the bathroom at least 8 times. No nausea or vomiting. Afebrile
Objective Data
-
Labs:
Laboratory Results
11/23/23
07:44
Sodium 135
Potassium 3.9
Chloride 98
Carbon Dioxide 30
BUN 6 L
Creatinine 0.7
Glucose 107 H
Calcium 9.0
Vital Signs:
Vital Signs
Temp Pulse Resp BP Pulse Ox
98.4 F 63 18 131/80 97
11/23/23 07:00 11/23/23 07:00 11/23/23 07:00 11/23/23 07:00 11/23/23 07:00
I&O
11/22/23 11/23/23 11/24/23
06:59 06:59 06:59
Intake Total 1919 1440 / 1440
Output Total
Balance 1919 1430 / 1430
Review of Systems
-
All other systems: Reviewed and negative
--- NOTE | 2023-11-23 11:09 | W.PN.CRS1 ---
Addendum entered and electronically signed by Joaquín Bell MD 11/23/23 17:30:
I saw and examined the patient.
The PA's note was reviewed and I agree with the note.
Comment:
Patient seen in a.m. with PA.
Occasional cramps and still some diarrhea. On low residue diet. Tolerating it.
Vitals reasonable.
Abdomen with mild right lower quadrant tenderness.
Continue antibiotics per ID and low residue diet.
Later in the day I was asked by ID whether I was okay with low-dose Imodium for the diarrhea as the C. difficile ultimately came back positive. I related that I was okay with this.
Original Note:
Today's Communication / Plan
-
continue abx
continue low residue
no surgical intervention at this time
Assessment/Plan
-
68-year-old male with PMH of CAD, HTN, HLD, recent admission for diverticulitis with abscess and C. difficile, discharged on 11/08, presents again to the hospital for low-grade fever, crampy abdominal pain and worsening diarrhea. Leukocytosis on
presentation. CT�persistent acute diverticulitis associated with abscess, slight increase of abscess to 3.1 cm from 2.8 cm. Location of abscess not amenable to IR drainage.
AFVSS
Exam continues to improve
� Continue to follow non-operatively for improvement with bowel rest/antibiotics/supportive care
-� Continue LRD
� Continue pain control with Tylenol/Toradol, IV narcotic for breakthrough
� Continue abx/po vanc as per ID
- Ok for dvt ppx
� C.diff culture pending
Subjective Data
Subjective Data
Date of Service: November 23, 2023
Patient states he did not have a good night. He still has crampy abdominal pain and diarrhea.
Objective Data
-
Vital Signs
Temp Pulse Resp BP Pulse Ox
98.4 F 63 18 131/80 97
11/23/23 07:00 11/23/23 07:00 11/23/23 07:00 11/23/23 07:00 11/23/23 07:00
Intake & Output
11/22/23 11/23/23 11/24/23
06:59 06:59 06:59
Intake Total 1919 1440 / 1440
Output Total
Balance 1919 1430 / 1430
Intake:
Oral fluids 660 / 660 1440 / 1440
IV fluids (Total) 1200 / 1200
IV piggybacks 60 / 60
Output:
Liquid stool amount 10
Rectum 10 / 10
Other:
Number of approximated SMALL 10
amounts of urine
Number of approximated MODERATE 3 4
amounts of urine
Number of unmeasured liquid
stools
Rectum 3
Lab Results
11/21/23 06:00
11/23/23 07:44
Physical Exam
-
General: No Acute Distress and AOx3
Abdomen: Soft, Non Distended and Tender (Mild to the right lower quadrant towards midline)
Skin: Warm
[2023-11-23] MEDS: INVANZ 60 MG IV (12:18)
--- NOTE | 2023-11-23 13:17 | CM ---
Addendum entered by Kirstie Mack 11/23/23 15:55:
Referral sent to [facility], await costs.
Original Note:
Per patient plan is home with IV anbx.
Chart reviewed.
[employer] primary, medicare secondary
Options reviewed with patient, [facility] chosen.
Will fax script when available.
PICC line in.
[employer] vitamin manager called to offer assistance with d/c planning, Melinda [phone].
--- NOTE | 2023-11-23 14:32 | PTCARENOTE ---
Patient with Right arm PICC line, xray done. On low residue diet, did say he has some mild abdominal cramping after meals. A--
[2023-11-23 15:00] VITALS: BP 131/85
--- NOTE | 2023-11-23 16:36 | W.PN.ID1 ---
Date of Service
Date of Service: November 23, 2023
Today's Communication
- C diff negative - likely still colonized, unlikely to be driving clinical symptoms at this time
- blood cultures x2 no growth to date
- c/w ertapenem through 12/03 - two week course
- agree with oral vancomycin at QID dosing
continue QID trhough 12/10 then
TID x1 week then
BID x1 week then
Qday x1 week then
Stop oral vancomycin - start polymicrobial probiotic (such a hansel)
- PICC in place
- follow up with colorectal surgery
Assessment / Plan
Diverticulitis with secondary perforation
Probable Abdominal perforation with abscess - slightly increased
C difficile
Reported Crohn's disease
Leukocytosis
- C diff negative - likely still colonized, unlikely to be driving clinical symptoms at this time
- blood cultures x2 no growth to date
- c/w ertapenem through 12/03 - two week course
- agree with oral vancomycin at QID dosing
continue QID trhough 12/10 then
TID x1 week then
BID x1 week then
Qday x1 week then
Stop oral vancomycin - start polymicrobial probiotic (such a hansel)
- PICC in place
- follow up with colorectal surgery
Chief Complaint
-: Other (diverticulitis, abscess)
Subjective / Review of Systems
afebrile
bp stable
cr stable
c diff negative at this time
less tender
blood cultures remain no growth
Vital Signs / Physical Exam
Vital Signs
Vital Signs
Temp Pulse Resp BP Pulse Ox
98.0 F 78 18 131/85 97
11/23/23 15:00 11/23/23 15:00 11/23/23 15:00 11/23/23 15:00 11/23/23 15:00
Physical Exam
Constitutional: No Acute Distress
Cardiovascular: Regular Rate and S1/S2; Negative Murmur or Rub
Pulmonary: Clear and Symmetric; Negative Wheezes or Rales
Gastrointestinal: Soft, Tender (mildly tender with moderate pressure in the LLQ - overall improved), Non Distended and Normal Bowel Sounds
Skin: Warm and Dry; Negative Rash or Jaundice
Objective Data
Lab Data
Lab Results
11/21/23 06:00
11/23/23 07:44
Estimated Creat Clear 88 ml/min 11/23/23 07:44
Total Bilirubin 1.4 mg/dl (0.2-1.3) H 11/20/23 07:07
AST 20 U/L (17-59) 11/20/23 07:07
ALT < 10 U/L (0-50) 11/20/23 07:07
Alkaline Phosphatase 61 U/L (38-126) 11/20/23 07:07
Most recent labs reviewed.
Micro Results:
11/22/23 22:37 C. difficile GDH Antigen & Toxins - Final
Feces/Stool Negative for toxigenic C.difficile
11/19/23 20:00 Blood Culture - Preliminary
Blood/Venous No Growth in 72 hours- Final report to follow
11/19/23 19:25 Blood Culture - Preliminary
Blood/Venous No Growth in 72 hours- Final report to follow
[2023-11-23] MEDS: ASPIR LOW (ENTERIC COATED) 81 MG PO (22:47)
[2023-11-23] MEDS: CRESTOR 20 MG PO (22:47)
[2023-11-23 23:00] VITALS: BP 130/76
[2023-11-23 23:44] VITALS: BP 130/76
[2023-11-24 05:31] LABS: % Basophils 0.4 % (0-2); % Eosinophils 1.5 % (0-6); % Immature Granulocytes 0.2 % (0-0.5); % Lymphocytes 33.7 % (20.5-51.1); % Monocytes 8.5 % (1.7-9.3); % Neutrophils 55.7 % (42.2-75.2); Absolute Eosinophils 0.1 10^3/uL (0-0.7); Absolute Lymphocytes 1.7 10^3/uL (1.2-3.4); Absolute Monocytes 0.4 10^3/uL (0.1-0.6); Absolute Neutrophils 2.9 10^3/uL (1.4-6.5); Hemoglobin 12.1 g/dL (13.0-18.0); Mean Corp Hgb Conc. 32.7 g/dL (33.0-37.0); Mean Corpuscular Hgb 29.1 pg (27.0-31.0); Mean Corpuscular Volume 88.9 fL (80.0-94.0); Mean Platelet Volume 9.9 fL (7.4-10.4); Nucleated Red Blood Cells % 0 % (-); Platelet Count 276 10^3/uL (130-400); Red Blood Cell Count 4.16 10^6/uL (4.70-6.10); Red Cell Dist. Width 14.8 % (11.5-14.5); White Blood Cell Count 5.2 10^3/uL (4.8-10.8)
[2023-11-24] MEDS: FIRVANQ 125 MG PO ×3 (05:35→17:35)
[2023-11-24 05:51] LABS: Blood Urea Nitrogen 7 mg/dl (9-20); Carbon Dioxide 29 mmol/L (22-30); Chloride 99 mmol/L (98-107); Estimated Creatinine Clearance 88 ml/min; Glucose 103 mg/dl (70-99); Potassium 3.9 mmol/L (3.5-5.1); Sodium 136 mmol/L (135-145); eGFR > 60.00
[2023-11-24 07:00] VITALS: BP 138/62
--- NOTE | 2023-11-24 08:23 | W.PN.HOSP.TC ---
Today's Communication/Plan
-
Continue current management. Pain control. Discharge planning in progress
Assessment / Plan
Assessment / Plan
Physical exam:
General: Well Developed, Well Nourished and No Apparent Distress
HEENT: Normocephalic, Atraumatic and Moist Mucous Membranes
Respiratory: Clear to Auscultation; Negative Wheezes, Rales or Rhonchi
Cardiac: Regular Rhythm and S1/S2
GI: Soft, BS present, Tender and Nondistended
Musculoskeletal: No Clubbing, No Cyanosis and No Edema
Neuro: Awake, Alert and Oriented
Psych: Calm
A/P:
# Persistent sigmoid diverticulitis with enlarging associated abscess
-As per CT scan, abscess adjacent to sigmoid colon and bladder
-On LRD as per CRS
-Check blood cultures no growth to date
-IV fluids can be reduced
-ID changed antibiotic to ertapenem. Status post PICC placement yesterday.
-Colorectal surgery consulted
-Dilaudid for pain/patient aware trying to reduce dosing and frequency
-Continue dicyclomine and added simethicone by surgery
-We discussed about discharge disposition today but patient is not comfortable going home today, so we will await for ID recommendations and reevaluate clinically over the next 24 hours.
# C. difficile infection currently on treatment
-Diarrhea had been fairly stable during course of antibiotics(ciprofloxacin and metronidazole) that he finished at home but redeveloped overnight
-Currently on p.o. vancomycin to be continued until 12/03 as per ID
-Leukocytosis seems to be responding still having significant diarrhea. Nevertheless, C Diff antigen and toxins are negative today.
-ID consulted--> plan is discharge patient once cleared by ID.
History of Crohn's disease
-Not on treatment
Coronary artery disease
-Continue aspirin, metoprolol
Essential hypertension
Hypercholesterolemia
-Continue statin
GERD
-Continue omeprazole
Full code
DVT prophylaxis�heparin
NPO
Anticipated Discharge: Within 24 hours
Subjective/Interval History
-
Date of Service: November 24, 2023
Patient complains of abdominal pain on and off. He states his pain is similar to what he came in and he is concerned when he goes home if his pain continues. No nausea or vomiting. Diarrhea improving today
Objective Data
-
Labs:
Laboratory Results
11/24/23
05:04
WBC 5.2
Hgb 12.1 L
Hct 37.0 L
Plt Count 276
Sodium 136
Potassium 3.9
Chloride 99
Carbon Dioxide 29
BUN 7 L
Creatinine 0.7
Glucose 103 H
Calcium 9.0
Vital Signs:
Vital Signs
Temp Pulse Resp BP Pulse Ox
97.9 F 75 16 130/76 98
11/23/23 23:00 11/23/23 23:00 11/23/23 23:00 11/23/23 23:00 11/23/23 23:00
I&O
11/23/23 11/24/23 11/25/23
06:59 06:59 06:59
Intake Total 1440 / 1440 840 / 840
Output Total
Balance 1430 / 1430 840 / 840
[2023-11-24] MEDS: DILAUDID 0.5 MG IV ×4 (09:04→22:35)
[2023-11-24] MEDS: PROTONIX 40 MG PO ×2 (09:04→19:56)
[2023-11-24] MEDS: HEPARIN 5000 UNITS SC ×2 (09:04→19:56)
[2023-11-24] MEDS: TOPROL XL 50 MG PO (09:05)
[2023-11-24] MEDS: IMODIUM 2 MG PO (09:35)
--- NOTE | 2023-11-24 10:08 | PTCARENOTE ---
Patient c/o abdominal pain this am, requested and received dilaudid as ordered. Hospitalist is aware. Appetite fair, has had some loose stools after meals. Received Immodium as ordered this am. Call norris in reach.
[2023-11-24] MEDS: INVANZ 60 MG IV (11:13)
--- NOTE | 2023-11-24 11:20 | W.PN.CRS1 ---
Today's Communication / Plan
-
abx per ID
continue diet
watch clinically
Assessment/Plan
-
68-year-old male with PMH of CAD, HTN, HLD, recent admission for diverticulitis with abscess and C. difficile, discharged on 11/08, presents again to the hospital for low-grade fever, crampy abdominal pain and worsening diarrhea. Leukocytosis on
presentation. CT�persistent acute diverticulitis associated with abscess, slight increase of abscess to 3.1 cm from 2.8 cm. Location of abscess not amenable to IR drainage.
AFVSS
Exam continues to improve
� Continue to follow non-operatively for improvement with bowel rest/antibiotics/supportive care
-� Continue LRD
� Continue pain control with Tylenol/Toradol, IV narcotic for breakthrough
� Continue abx/po vanc as per ID. Plan is for Invanz two week course.
- Add simethicone for gas pain.
Subjective Data
Subjective Data
Date of Service: November 24, 2023
Patient state he is crampy after he eats dinner. He still has diarrhea. He believes food it making it worse. He has no nausea or vomiting. He has flatus. Overall he is better but still has some cramps.
Objective Data
-
Vital Signs
Temp Pulse Resp BP Pulse Ox
97.4 F 78 18 138/62 98
11/24/23 07:00 11/24/23 07:00 11/24/23 07:00 11/24/23 07:00 11/24/23 07:00
Intake & Output
11/23/23 11/24/23 11/25/23
06:59 06:59 06:59
Intake Total 1440 / 1440 840 / 840
Output Total
Balance 1430 / 1430 840 / 840
Intake:
Oral fluids 1440 / 1440 840 / 840
Output:
Liquid stool amount
Rectum
Other:
Number of approximated SMALL 10
amounts of urine
Number of approximated MODERATE 4 3
amounts of urine
Lab Results
11/24/23 05:04
11/24/23 05:04
Physical Exam
-
General: No Acute Distress
Abdomen: Soft, Non Distended and Tender (mild suprapubic)
Skin: Warm and Dry
--- NOTE | 2023-11-24 12:59 | CM ---
Addendum entered by Kirstie Mack 11/24/23 15:25:
Please update [facility] re d/c date.
Original Note:
IV antibiotics continued.
[facility] following.
Sweta to be out to do teaching this afternoon.
Per patient probable d/c home tomorrow.
Plan:home with IV anbx when stable and supplies delivered.
--- NOTE | 2023-11-24 13:32 | W.PN.ID1 ---
Date of Service
Date of Service: November 24, 2023
Today's Communication
Would observe overnight given increased abdominal tenderness
Assessment / Plan
Diverticulitis with secondary perforation
Probable Abdominal perforation with abscess - slightly increased
C difficile
Reported Crohn's disease
Leukocytosis
- C diff negative - likely still colonized, unlikely to be driving clinical symptoms at this time
- blood cultures x2 no growth to date
- c/w ertapenem through 12/03 - two week course
- agree with oral vancomycin at QID dosing
continue QID trhough 12/10 then
TID x1 week then
BID x1 week then
Qday x1 week then
Stop oral vancomycin - start polymicrobial probiotic (such a hansel)
- judicious dose of Imodium (disucssed with colorectal 11/23)
- PICC in place
- follow up with colorectal surgery
Would observe overnight given increased abdominal tenderness
Chief Complaint
-: Other (diverticulitis, abscess)
Subjective / Review of Systems
afebrile
bp stable
without leukocytosis
cr stable
blood cultures no growth to date
increased abdominal tenderness - began before Imodium
Vital Signs / Physical Exam
Vital Signs
Vital Signs
Temp Pulse Resp BP Pulse Ox
97.4 F 78 18 138/62 98
11/24/23 07:00 11/24/23 07:00 11/24/23 07:00 11/24/23 07:00 11/24/23 07:00
Physical Exam
Constitutional: No Acute Distress
Cardiovascular: Regular Rate and S1/S2; Negative Murmur or Rub
Pulmonary: Clear and Symmetric; Negative Wheezes or Rales
Gastrointestinal: Soft, Tender (increased today), Non Distended and Normal Bowel Sounds
Skin: Warm and Dry; Negative Rash or Jaundice
Objective Data
Lab Data
Lab Results
11/24/23 05:04
11/24/23 05:04
Estimated Creat Clear 88 ml/min 11/24/23 05:04
Total Bilirubin 1.4 mg/dl (0.2-1.3) H 11/20/23 07:07
AST 20 U/L (17-59) 11/20/23 07:07
ALT < 10 U/L (0-50) 11/20/23 07:07
Alkaline Phosphatase 61 U/L (38-126) 11/20/23 07:07
Most recent labs reviewed.
Micro Results:
11/19/23 20:00 Blood Culture - Preliminary
Blood/Venous No Growth in 4 days- Final report to follow
11/19/23 19:25 Blood Culture - Preliminary
Blood/Venous No Growth in 4 days- Final report to follow
11/22/23 22:37 C. difficile [facility]DH Antigen & Toxins - Final
Feces/Stool Negative for toxigenic C.difficile
[2023-11-24] MEDS: ASPIR LOW (ENTERIC COATED) 81 MG PO (19:57)
[2023-11-24] MEDS: CRESTOR 20 MG PO (19:57)
[2023-11-24 23:09] VITALS: BP 140/85
[2023-11-25] MEDS: FIRVANQ 125 MG PO ×4 (01:43→17:18)
[2023-11-25 03:30] VITALS: BP 119/71
[2023-11-25 04:45] LABS: % Basophils 0.3 % (0-2); % Eosinophils 1.8 % (0-6); % Immature Granulocytes 0.4 % (0-0.5); % Lymphocytes 27.6 % (20.5-51.1); % Monocytes 8.1 % (1.7-9.3); % Neutrophils 61.8 % (42.2-75.2); Absolute Eosinophils 0.1 10^3/uL (0-0.7); Absolute Lymphocytes 1.9 10^3/uL (1.2-3.4); Absolute Monocytes 0.6 10^3/uL (0.1-0.6); Absolute Neutrophils 4.2 10^3/uL (1.4-6.5); Hematocrit 35.1 % (39.0-52.0); Mean Corp Hgb Conc. 34.2 g/dL (33.0-37.0); Mean Corpuscular Hgb 29.6 pg (27.0-31.0); Mean Corpuscular Volume 86.7 fL (80.0-94.0); Mean Platelet Volume 9.8 fL (7.4-10.4); Nucleated Red Blood Cells % 0 % (-); Platelet Count 273 10^3/uL (130-400); Red Blood Cell Count 4.05 10^6/uL (4.70-6.10); Red Cell Dist. Width 14.7 % (11.5-14.5); White Blood Cell Count 6.8 10^3/uL (4.8-10.8)
[2023-11-25 05:18] LABS: Blood Urea Nitrogen 8 mg/dl (9-20); Calcium 9.1 mg/dl (8.4-10.2); Carbon Dioxide 31 mmol/L (22-30); Chloride 98 mmol/L (98-107); Estimated Creatinine Clearance 88 ml/min; Glucose 98 mg/dl (70-99); Potassium 3.8 mmol/L (3.5-5.1); Sodium 137 mmol/L (135-145); eGFR > 60.00
[2023-11-25] MEDS: DILAUDID 0.5 MG IV ×4 (05:30→22:04)
[2023-11-25 07:30] VITALS: BP 125/81
--- NOTE | 2023-11-25 08:06 | W.PN.HOSP.TC ---
Today's Communication/Plan
-
Plan for CT of the abdomen today.
Assessment / Plan
Assessment / Plan
Physical exam:
General: Well Developed, Well Nourished and No Apparent Distress
HEENT: Normocephalic, Atraumatic and Moist Mucous Membranes
Respiratory: Clear to Auscultation; Negative Wheezes, Rales or Rhonchi
Cardiac: Regular Rhythm and S1/S2
GI: Soft, BS present, Tender and Nondistended
Musculoskeletal: No Clubbing, No Cyanosis and No Edema
Neuro: Awake, Alert and Oriented
Psych: Calm
A/P:
# Persistent sigmoid diverticulitis with enlarging associated abscess
-As per CT scan, abscess adjacent to sigmoid colon and bladder
-On LRD as per CRS
-Check blood cultures no growth to date
-IV fluids can be reduced
-ID changed antibiotic to ertapenem. Status post PICC placement 11/23.
-Colorectal surgery consulted
-Dilaudid for pain/patient aware trying to reduce dosing and frequency
-Continue dicyclomine and added simethicone by surgery
-Surgery evaluated patient and plan to repeat CT of the abdomen and pelvis today and if abnormal might require surgery sooner than later versus continue current mgmt.
# C. difficile infection currently on treatment
-Diarrhea had been fairly stable during course of antibiotics(ciprofloxacin and metronidazole) that he finished at home but redeveloped overnight
-Currently on p.o. vancomycin to be continued until 12/03 as per ID
-Leukocytosis seems to be responding still having significant diarrhea. Nevertheless, C Diff antigen and toxins are negative today.
-ID consulted--> plan is discharge patient once cleared by ID.
History of Crohn's disease
-Not on treatment
Coronary artery disease
-Continue aspirin, metoprolol
Essential hypertension
Hypercholesterolemia
-Continue statin
GERD
-Continue omeprazole
Full code
DVT prophylaxis�heparin
Total time spent on today's encounter was 52 minutes which included time spent in counseling the patient/family regarding diagnosis and treatment plan as listed above, goals of care, and symptom management. Case was discussed with nursing staff,
specialists, and care coordinators/case management. All labs and imaging personally reviewed by me. Remainder the time spent in detailed review of previous records, lab data, imaging, and other medical provider documentation.
Anticipated Discharge: 24 - 48 hours
Subjective/Interval History
-
Date of Service: November 25, 2023
Patient continues to have abdominal pain. Diarrhea up and down. Afebrile
Objective Data
-
Labs:
Laboratory Results
11/25/23
04:20
WBC 6.8
Hgb 12.0 L
Hct 35.1 L
Plt Count 273
Sodium 137
Potassium 3.8
Chloride 98
Carbon Dioxide 31 H
BUN 8 L
Creatinine 0.7
Glucose 98
Calcium 9.1
Vital Signs:
Vital Signs
Temp Pulse Resp BP Pulse Ox
97.8 F 74 18 140/85 99
11/24/23 23:09 11/24/23 23:09 11/24/23 23:09 11/24/23 23:09 11/24/23 23:09
I&O
11/24/23 11/25/23 11/26/23
06:59 06:59 06:59
Intake Total 840 / 840 480 / 480
Balance 840 / 840 480 / 480
[2023-11-25] MEDS: TOPROL XL 50 MG PO (08:34)
[2023-11-25] MEDS: PROTONIX 40 MG PO ×2 (08:34→20:13)
[2023-11-25] MEDS: HEPARIN 5000 UNITS SC ×2 (08:36→20:14)
[2023-11-25] MEDS: MYLICON 80 MG PO (08:53)
[2023-11-25] MEDS: OMNIPAQUE 50 ML PO (09:59)
[2023-11-25] MEDS: INVANZ 60 MG IV (11:16)
--- NOTE | 2023-11-25 12:16 | W.PN.CRS1 ---
Today's Communication / Plan
-
CT abdomen and pelvis
Assessment/Plan
-
68-year-old male with PMH of CAD, HTN, HLD, recent admission for diverticulitis with abscess and C. difficile, discharged on 11/08, presents again to the hospital for low-grade fever, crampy abdominal pain and worsening diarrhea. Leukocytosis on
presentation. CT�persistent acute diverticulitis associated with abscess, slight increase of abscess to 3.1 cm from 2.8 cm. Location of abscess not amenable to IR drainage.
Plan:
1. Given ongoing cramping and abdominal pain, will order a CT abdomen and pelvis today.
2. Continue antibiotics per ID.
3. Simethicone for gas pain.
4. Plans to follow after CT completed.
Subjective Data
Subjective Data
Date of Service: November 25, 2023
Patient states he had a 'terrible' night. He describes abdominal cramping. He has had many loose stools. He feels like he is overall not improved much.
Objective Data
-
Vital Signs
Temp Pulse Resp BP Pulse Ox
97.4 F 60 18 125/81 99
11/25/23 07:30 11/25/23 07:30 11/25/23 07:30 11/25/23 07:30 11/25/23 07:30
Intake & Output
11/24/23 11/25/23 11/26/23
06:59 06:59 06:59
Intake Total 840 / 840 480 / 480
Balance 840 / 840 480 / 480
Intake:
Oral fluids 840 / 840 480 / 480
Other:
Number of approximated MODERATE 3 2
amounts of urine
Lab Results
11/25/23 04:20
11/25/23 04:20
Physical Exam
-
General: No Acute Distress and AOx3
Abdomen: Soft, Non Distended and Tender (Mild suprapubic)
--- NOTE | 2023-11-25 13:56 | W.PN.ID1 ---
Date of Service
Date of Service: November 25, 2023
Today's Communication
- c/w ertapenem
- add fluconazole 800 mg PO today, then 400 mg moving forward
- son (DVM) requesting NSAIDs, no objection from my perspective - added prn ibuprogen
Assessment / Plan
Diverticulitis with secondary perforation
Probable Abdominal perforation with abscess - slightly increased
C difficile
Reported Crohn's disease
Leukocytosis
- C diff negative - likely still colonized, unlikely to be driving clinical symptoms at this time
- blood cultures x2 no growth to date
- c/w ertapenem
- add fluconazole 800 mg PO today, then 400 mg moving forward
- agree with oral vancomycin at QID
- judicious dose of Imodium (discussed with colorectal 11/23)
- son (DVM) requesting NSAIDs, no objection from my perspective - added prn ibuprogen
- PICC in place
- follow clinically
Not yet stable for discharge
Chief Complaint
-: Other (diverticulitis, abscess)
Subjective / Review of Systems
afebrile
bp stable
increased abdominal pain - CT with persistent diverticulitis, no new abscess, no progression
without leukocytosis
cr stable
no imodium yet thus far today
hyperactive BS - he will request imodium
Vital Signs / Physical Exam
Vital Signs
Vital Signs
Temp Pulse Resp BP Pulse Ox
97.4 F 60 18 125/81 99
11/25/23 07:30 11/25/23 07:30 11/25/23 07:30 11/25/23 07:30 11/25/23 07:30
Physical Exam
Constitutional: No Acute Distress
Cardiovascular: Regular Rate and S1/S2; Negative Murmur or Rub
Pulmonary: Clear and Symmetric; Negative Wheezes or Rales
Gastrointestinal: Soft, Tender (with mild touch), Non Distended and Other (hyperactive bowel sounds)
Extremities: Other (mild tenting)
Skin: Warm and Dry; Negative Rash or Jaundice
Objective Data
Lab Data
Lab Results
11/25/23 04:20
11/25/23 04:20
Estimated Creat Clear 88 ml/min 11/25/23 04:20
Total Bilirubin 1.4 mg/dl (0.2-1.3) H 11/20/23 07:07
AST 20 U/L (17-59) 11/20/23 07:07
ALT < 10 U/L (0-50) 11/20/23 07:07
Alkaline Phosphatase 61 U/L (38-126) 11/20/23 07:07
Most recent labs reviewed.
Micro Results:
11/19/23 20:00 Blood Culture - Final
Blood/Venous No Growth - Final Report
11/19/23 19:25 Blood Culture - Final
Blood/Venous No Growth - Final Report
11/22/23 22:37 C. difficile GDH Antigen & Toxins - Final
Feces/Stool Negative for toxigenic C.difficile
[2023-11-25 15:32] LABS: Erythrocyte Sed Rate 21 mm/hour (0-20)
[2023-11-25] MEDS: DIFLUCAN 800 MG PO (15:44)
[2023-11-25] MEDS: IMODIUM 2 MG PO (15:45)
--- NOTE | 2023-11-25 19:37 | W.PN.UPDATE ---
Update Note
Progress Note Update
I reviewed the current findings of the CT scan from today. I personally reviewed the images and there is persistent inflammation of the sigmoid colon consistent with diverticulitis. The degree of inflammation may be slightly worse than prior and
it is certainly not better. There continues to be a 2 cm abscess that is not accessible percutaneously. The abscess is contiguous with the bladder but there is no evidence of a fistula. I reviewed the findings with the patient and his son, a
manager agency in [place], I discussed the treatment options again in detail. The patient states he does not feel well and would like to consider surgery but wants to think about it overnight. His son asked about nonsteroidal anti-inflammatories and
explained that the central processes is the abscess which is causing the inflammation and he also asked about steroids which I feel are contraindicated. I reviewed the different surgical options again including drainage alone, resection with end
colostomy, resection with an anastomosis with or without a diverting ileostomy. I suspect it will be very difficult to get a drain in the abscess due to the surrounding bowel. The anastomotic leak rate is higher with an anastomosis performed in
this setting. Without surgery there is a risk of persistent infection with worsening malnutrition, and possibly a colovesical fistula. I tentatively add him onto the OR schedule for tomorrow and make him n.p.o. All questions answered.
[2023-11-25] MEDS: ASPIR LOW (ENTERIC COATED) 81 MG PO (22:03)
[2023-11-25] MEDS: CRESTOR 20 MG PO (22:04)
[2023-11-25 23:00] VITALS: BP 139/79
[2023-11-25 23:32] VITALS: BP 139/79
[2023-11-26] VITALS (10 sets, daily range): BP systolic 35–151; BP diastolic 78–91
[2023-11-26] MEDS: FIRVANQ 125 MG PO ×3 (00:11→23:06)
[2023-11-26] MEDS: DILAUDID 0.5 MG IV ×4 (02:04→23:06)
[2023-11-26 06:11] LABS: % Basophils 0.3 % (0-2); % Eosinophils 1.9 % (0-6); % Immature Granulocytes 0.3 % (0-0.5); % Lymphocytes 28.4 % (20.5-51.1); % Monocytes 9.8 % (1.7-9.3); % Neutrophils 59.3 % (42.2-75.2); Absolute Eosinophils 0.1 10^3/uL (0-0.7); Absolute Lymphocytes 1.8 10^3/uL (1.2-3.4); Absolute Monocytes 0.6 10^3/uL (0.1-0.6); Absolute Neutrophils 3.8 10^3/uL (1.4-6.5); Hematocrit 36.2 % (39.0-52.0); Hemoglobin 12.1 g/dL (13.0-18.0); Mean Corp Hgb Conc. 33.4 g/dL (33.0-37.0); Mean Corpuscular Hgb 29.4 pg (27.0-31.0); Mean Corpuscular Volume 88.1 fL (80.0-94.0); Mean Platelet Volume 9.9 fL (7.4-10.4); Nucleated Red Blood Cells % 0 % (-); Platelet Count 271 10^3/uL (130-400); Red Blood Cell Count 4.11 10^6/uL (4.70-6.10); Red Cell Dist. Width 14.6 % (11.5-14.5); White Blood Cell Count 6.3 10^3/uL (4.8-10.8)
[2023-11-26 06:35] LABS: Blood Urea Nitrogen 6 mg/dl (9-20); Calcium 9.2 mg/dl (8.4-10.2); Carbon Dioxide 30 mmol/L (22-30); Chloride 99 mmol/L (98-107); Estimated Creatinine Clearance 77 ml/min; Glucose 98 mg/dl (70-99); Potassium 3.7 mmol/L (3.5-5.1); Sodium 136 mmol/L (135-145); eGFR > 60.00
--- NOTE | 2023-11-26 07:47 | W.PN.HOSP.TC ---
Today's Communication/Plan
-
Continue IV antibiotics. Plan for colorectal surgery today.
Assessment / Plan
Assessment / Plan
Physical exam:
General: Acutely ill
HEENT: Normocephalic, Atraumatic and Moist Mucous Membranes
Respiratory: Clear to Auscultation; Negative Wheezes, Rales or Rhonchi
Cardiac: Regular Rhythm and S1/S2
GI: Soft, BS present, Tender and Nondistended
Musculoskeletal: No Clubbing, No Cyanosis and No Edema
Neuro: Awake, Alert and Oriented
Psych: Calm
A/P:
# Persistent sigmoid diverticulitis with enlarging associated abscess
-Keep n.p.o.
-Antibiotics, IV fluids, pain control.
-Repeated CT of the abdomen shows persistent diverticulitis and persistent abscess and apparently progression on 11/25. Colorectal surgery discussed with patient findings on CT scan and recommending surgery (patient decided to do surgery).
-Cardiology consulted for preop evaluation
-Discussed with colorectal surgery today on and plan for surgery later this afternoon
# C. difficile infection currently on treatment
-Currently C. difficile is not so active and with negative test of the toxin most likely colonization and symptoms related to diverticulitis.
-Continue oral vancomycin or per ID recommendation
-ID on consult
History of Crohn's disease
-Not on treatment
Coronary artery disease
-Continue aspirin, metoprolol
-Cardiology preop evaluation
Essential hypertension
Hypercholesterolemia
-Continue statin
GERD
-Continue omeprazole
Full code
DVT prophylaxis�heparin
Total time spent on today's encounter was 52 minutes which included time spent in counseling the patient/family regarding diagnosis and treatment plan as listed above, goals of care, and symptom management. Case was discussed with nursing staff,
specialists, and care coordinators/case management. All labs and imaging personally reviewed by me. Remainder the time spent in detailed review of previous records, lab data, imaging, and other medical provider documentation.
Anticipated Discharge: > 48 hours
Subjective/Interval History
-
Date of Service: November 26, 2023
Patient still continues to have abdominal pain and diarrhea. No chest pain or shortness of breath.
Objective Data
-
Labs:
Laboratory Results
11/26/23
05:43
WBC 6.3
Hgb 12.1 L
Hct 36.2 L
Plt Count 271
Sodium 136
Potassium 3.7
Chloride 99
Carbon Dioxide 30
BUN 6 L
Creatinine 0.8
Glucose 98
Calcium 9.2
Vital Signs:
Vital Signs
Temp Pulse Resp BP Pulse Ox
98.0 F 71 14 139/79 98
11/25/23 23:00 11/25/23 23:00 11/25/23 23:00 11/25/23 23:00 11/25/23 23:00
I&O
11/25/23 11/26/23 11/27/23
06:59 06:59 06:59
Intake Total 480 / 480 880 / 880
Balance 480 / 480 880 / 880
[2023-11-26] MEDS: DIFLUCAN 400 MG PO (08:31)
[2023-11-26] MEDS: TOPROL XL 50 MG PO (08:31)
[2023-11-26] MEDS: PROTONIX 40 MG PO ×2 (08:32→20:10)
[2023-11-26] MEDS: HEPARIN SC (10:43)
--- NOTE | 2023-11-26 10:44 | CON.CAR ---
Consultation
Consultation Request
Date/Time Consultation Requested: Nov 26, 2023 10 am
Date/Time Consultation Performed: Nov 26, 2023 1045
Requesting Provider: hospitalist
Performing Provider: kiesha michael
Reason for Consultation: preop risk assessment
Medical History
-
Chief Complaint: abdominal pain
History of Present Illness:
68-year-old male with past medical history of CAD, hypertension, hyperlipidemia, and Crohn's disease who is here for abdominal pain and fever. He was found to have diverticulitis and associated abscess. He is accompanied in his room by his
and brother. He was found to have diverticulitis with associated abscess that is unable to be percutaneously drained. He continues to have ongoing pain and imaging has not shown any interval improvement, and possibly worsened inflammation, and CRS
would like to operate. We have been asked to see for perioperative risk assessment. He was initially admitted on Nov 19, 2023, however, interval studies have shown that he continues to have inflammation and CRS is now needing to operate. He
currently has no symptoms of ischemia, HF, or arrhythmia. He has had some decreased exercise tolerance over the last few months, however, he says this is due to being ill since July. He otherwise tells me he is able to do at least 4 METs
without ischemic symptoms. His most recent echo is below. I discussed with him and his family that he has a moderate risk candidate for this upcoming colorectal surgery, however, given his lack of symptoms and need for surgery he needs no further
testing.
TTE: �CONCLUSIONS
�Normal left ventricular size, wall thickness and systolic function.
�LV ejection fraction is 55-60% �
�Can not exclude mid lateral hypokinesis
�Trace mitral regurgitation.
�Trace AR
Past Medical History
Past Medical History: Other ( CAD, hypertension, hyperlipidemia, and Crohn's disease)
Past Surgical History: Appendectomy, Orthopedic and Other (hernia )
Social History
Tobacco: Non-Smoker
Alcohol: None
Drug: None
Personal:
Living: With Family
Family History
Family History: Reviewed & Not Pertinent
Allergies / Home Medications
Allergy/AdvReac Type Severity Reaction Status Date / Time
No Known Allergies Allergy Verified 11/19/23 12:54
Medication Instructions Recorded Confirmed Type
acetaminophen 500 mg tablet 1,000 mg PO TIDPRN PRN severe 11/03/23 11/19/23 History
(Tylenol Extra Strength) pain/fever
aspirin 81 mg tablet,delayed 81 mg PO HS Blood Clot 11/03/23 11/19/23 History
release Prevention/Tx
coQ10 (ubiquinol) 200 mg capsule 200 mg PO HS Supplement 11/03/23 11/19/23 History
dicyclomine 20 mg tablet 20 mg PO TID PRN stomach discomfort 11/03/23 11/19/23 History
cbdoanjt-vuqner-qreql extract 5 6 cap PO DAILY Supplement 11/03/23 11/19/23 History
mg-6 mg-150 mg capsule (Fruit and
Vegetable Daily)
metoprolol succinate 50 mg 50 mg PO DAILY Blood Pressure 11/03/23 11/19/23 History
tablet,extended release 24 hr
omega 7-zfp-iva-fish oil 1,000 mg 1 cap PO DAILY Supplement ##0 11/03/23 11/19/23 History
(120 mg-180 mg) capsule (Fish Oil)
omeprazole 40 mg capsule,delayed 40 mg PO BID Gastrointestinal Issue 11/03/23 11/19/23 History
release
rosuvastatin 20 mg tablet 20 mg PO HS High Cholesterol 11/03/23 11/19/23 History
oxycodone 5 mg tablet 5 mg PO Q4HPRN PRN severe pain #20 11/08/23 11/19/23 Rx
tabs
vancomycin 125 mg capsule 125 mg PO QID Infection #64 caps 11/08/23 11/19/23 Rx
Review of Systems
-
All other systems: Negative unless noted
Physical Exam
Vital Signs
Temp Pulse Resp BP Pulse Ox
97.5 F 71 18 139/79 96
11/26/23 07:30 11/26/23 08:31 11/26/23 07:30 11/26/23 08:31 11/26/23 07:30
Lab Results
11/26/23 05:43
11/26/23 05:43
Physical Exam
General: No Apparent Distress
HEENT: Normocephalic
Respiratory: Clear and Non Labored Respirations
Cardiac: S1/S2 and Regular Rhythm
GI: Soft
Musculoskeletal: No Cyanosis and No Edema
Skin: Warm and Dry
Neuro: AO x 3
Psych: Calm
Impression / Plan
-
68-year-old male with past medical history of CAD, hypertension, hyperlipidemia, and Crohn's disease who is here for abdominal pain and fever. He was found to have diverticulitis and associated abscess. We are asked to see for perioperative risk
assessment. He is likely a moderate risk candidate for this upcoming procedure, however, given no symptoms and need for surgery he needs no further testing prior.
Perioperative risk assessment
-He has no significant symptoms of ischemia, heart failure, or arrhythmia. According to the NSQIP risk calculator he is at ~1% risk of cardiac complication and approximately 15 to 20% risk of any other complication. He needs no further testing
prior to his surgery. He is likely a moderate risk candidate for this upcoming procedure, however, given no symptoms and need for surgery he needs no further testing prior.
We will sign off, please call back with questions/concerns.
Data Reviewed
-
EKG: Tracing Personally Visualized and interpreted
Medical Tests (Nuc Med, Echo etc): Report Reviewed by me, Discussed with Patient and Discussed with Family
Labs: Labs Reviewed by me
[2023-11-26] MEDS: INVANZ 60 MG IV (10:49)
--- NOTE | 2023-11-26 11:07 | W.PN.CRS1 ---
Today's Communication / Plan
-
OR this afternoon
Assessment/Plan
-
68-year-old male with PMH of CAD, HTN, HLD, recent admission for diverticulitis with abscess and C. difficile, discharged on 11/08, presents again to the hospital for low-grade fever, crampy abdominal pain and worsening diarrhea. Leukocytosis on
presentation. CT�persistent acute diverticulitis associated with abscess, slight increase of abscess to 3.1 cm from 2.8 cm. Location of abscess not amenable to IR drainage.
Plan:
Given CT scan yesterday and not improving exam, will plan for the OR this afternoon for colectomy with possible colostomy creation. Discussed at bedside with and patient at length. We will have wound nurse jin him for possible stoma.
Discussed with hospitalist. Appreciate cardiac consult. Hold the Invanz at noon dose and send back to OR to give perioperatively. Discussed with nursing. Remain NPO.
Subjective Data
Subjective Data
Date of Service: November 26, 2023
Patient states he had a bad night due to anxiety. No appetite. He had diarrhea and still feels tender on exam. He has abdominal pain but it is not worse. He still has cramping.
Objective Data
-
Vital Signs
Temp Pulse Resp BP Pulse Ox
97.5 F 71 18 139/79 96
11/26/23 07:30 11/26/23 08:31 11/26/23 07:30 11/26/23 08:31 11/26/23 07:30
Intake & Output
11/25/23 11/26/23 11/27/23
06:59 06:59 06:59
Intake Total 480 / 480 880 / 880
Balance 480 / 480 880 / 880
Intake:
Oral fluids 480 / 480 880 / 880
Other:
Number of approximated MODERATE 2 2
amounts of urine
Lab Results
11/26/23 05:43
11/26/23 05:43
Physical Exam
-
General: No Acute Distress and AOx3
Abdomen: Soft, Non Distended and Tender (Suprapubic)
Skin: Warm and Dry
--- NOTE | 2023-11-26 11:13 | WOUNDNOTE ---
[facility] RN note: Patient stoma marked bilaterally as requested by leia Robles. Stoma marked over the rectus muscle avoiding skin creases. RUQ stoma jin 6.6cm to R of midline and 3.4cm above umbilical line; LLQ stoma jin 6.1cm to L of
midline and 1.7cm distal to umbilical line; LUQ marked as '1st Choice' 5.5cm to L of midline and 4.4cm above the umbilical line. RLQ not marked d/t surgical scar/crease. Patient stoma marked in lying, sitting and standing positions. Patient lives
with his who works during the day. Instructed patient surgeon makes the final decision with stoma placement. Updated CECY Robles via tiger text. Patient's sacral and heel skin intact.
[2023-11-26] MEDS: NORMOSOL-R 1000 IV ×2 (11:32→20:11)
--- NOTE | 2023-11-26 11:37 | CM ---
Patient seen bedside.
Patient for OR today.
CM will follow post op for d/c plan.
[facility] updated.
Plan: TBD post op
[2023-11-26 11:53] LABS: INR 1.05; PT 13.8 Sec (11.4-14.6)
[2023-11-26 11:54] LABS: APTT 29.9 Sec (23.4-35.0)
[2023-11-26] MEDS: FIRVANQ PO ×2 (12:26→20:22)
--- NOTE | 2023-11-26 13:06 | W.PN.ID1 ---
Date of Service
Date of Service: November 26, 2023
Today's Communication
- c/w ertapenem, fluconazole
- qtc acceptable
Assessment / Plan
Diverticulitis with secondary perforation
Probable Abdominal perforation with abscess - slightly increased
C difficile
Reported Crohn's disease
Leukocytosis
- C diff negative - likely still colonized, unlikely to be driving clinical symptoms at this time
- blood cultures x2 no growth to date
- c/w ertapenem, fluconazole
- qtc acceptable
- agree with oral vancomycin at QID
- PICC in place - remove before dc
- will follow up post op note
- follow clinically; will have outpatient follow up with me as well when the time comes
Chief Complaint
-: Other (diverticulitis, abscess)
Subjective / Review of Systems
afebrile
bp stable
no leukocytosis or L shift
cr stable
QTc remains acceptable
still with abdominal pain - for the OR
Vital Signs / Physical Exam
Vital Signs
Vital Signs
Temp Pulse Resp BP Pulse Ox
97.5 F 71 18 139/79 96
11/26/23 07:30 11/26/23 08:31 11/26/23 07:30 11/26/23 08:31 11/26/23 07:30
Physical Exam
Constitutional: No Acute Distress
Cardiovascular: Regular Rate and S1/S2; Negative Murmur or Rub
Pulmonary: Clear and Symmetric; Negative Wheezes or Rales
Gastrointestinal: Soft, Tender, Non Distended and Other (hyperactive bowel sounds)
Skin: Warm and Dry; Negative Rash or Jaundice
Objective Data
Lab Data
Lab Results
11/26/23 05:43
11/26/23 05:43
ESR 21 mm/hour (0-20) H 11/25/23 14:52
PT 13.8 Sec (11.4-14.6) 11/26/23 11:28
INR 1.05 11/26/23 11:28
APTT 29.9 Sec (23.4-35.0) 11/26/23 11:28
Estimated Creat Clear 77 ml/min 11/26/23 05:43
Total Bilirubin 1.4 mg/dl (0.2-1.3) H 11/20/23 07:07
AST 20 U/L (17-59) 11/20/23 07:07
ALT < 10 U/L (0-50) 11/20/23 07:07
Alkaline Phosphatase 61 U/L (38-126) 11/20/23 07:07
C-Reactive Protein 12.40 mg/L (0.0-10.00) H 11/25/23 14:51
Most recent labs reviewed.
Micro Results:
11/19/23 20:00 Blood Culture - Final
Blood/Venous No Growth - Final Report
11/19/23 19:25 Blood Culture - Final
Blood/Venous No Growth - Final Report
11/22/23 22:37 C. difficile GDH Antigen & Toxins - Final
Feces/Stool Negative for toxigenic C.difficile
--- NOTE | 2023-11-26 18:13 | W.IMMPOSTOP ---
Addendum entered and electronically signed by Joaquín Bell MD 11/26/23 18:30:
Updated patient's , Arleen, in waiting area.
Original Note:
Surgical Immed Post Op Note
-
Primary Surgeon: Alden Bell MD
Assisting Surgeon: CHANTELLE Henderson
Pre-op Diagnosis: sigmoid diverticulitis
Post-op Diagnosis: same
Procedure Performed: 1) sigmoidectomy 2) flexible sigmoidoscopy
Anesthesia Type: general plus local
Specimen / Cultures: sigmoid colon
Estimated Blood Loss: 50 cc
Complications: no immediate
Operative Findings: inflamed midsigmoid colon densely adherent to bladder; abscess not obvious
#19 Raheel in pelvis.
Leon in bladder.
Will send to med surg.
[2023-11-26] MEDS: DILAUDID 0.25 MG IV ×2 (18:51→19:17)
[2023-11-26] MEDS: TORADOL 15 MG IV (20:08)
[2023-11-26] MEDS: TYLENOL 650 MG PO ×2 (20:08→23:22)
--- NOTE | 2023-11-26 20:30 | PTCARENOTE ---
Received patient from PACU. AAOx3, stable vitals. c/o moderate pain at the surgical site. Abdominal Dressing Aquacel CDI, right VANESSA drain draining serosang drainage. POC reviewed with patient and family.
[2023-11-26] MEDS: CRESTOR 20 MG PO (21:03)
[2023-11-26] MEDS: ASPIR LOW (ENTERIC COATED) 81 MG PO (21:03)
[2023-11-27] MEDS: TORADOL 15 MG IV ×4 (02:55→21:05)
[2023-11-27] MEDS: TYLENOL 650 MG PO ×6 (02:59→23:29)
[2023-11-27 03:52] VITALS: BP 138/83
[2023-11-27] MEDS: FIRVANQ 125 MG PO ×4 (06:02→23:29)
[2023-11-27] MEDS: DILAUDID 0.5 MG IV ×4 (06:03→23:30)
[2023-11-27 06:43] LABS: % Basophils 0.2 % (0-2); % Immature Granulocytes 1.7 % (0-0.5); % Lymphocytes 9.6 % (20.5-51.1); % Monocytes 2.9 % (1.7-9.3); % Neutrophils 85.6 % (42.2-75.2); Absolute Immature Granulocytes 0.1 10^3/uL (0-0.05); Absolute Lymphocytes 0.6 10^3/uL (1.2-3.4); Absolute Monocytes 0.2 10^3/uL (0.1-0.6); Absolute Neutrophils 5.1 10^3/uL (1.4-6.5); Hematocrit 36.6 % (39.0-52.0); Hemoglobin 12.5 g/dL (13.0-18.0); Mean Corp Hgb Conc. 34.2 g/dL (33.0-37.0); Mean Corpuscular Hgb 29.4 pg (27.0-31.0); Mean Corpuscular Volume 86.1 fL (80.0-94.0); Mean Platelet Volume 9.7 fL (7.4-10.4); Nucleated Red Blood Cells % 0 % (-); Platelet Count 296 10^3/uL (130-400); Red Blood Cell Count 4.25 10^6/uL (4.70-6.10); Red Cell Dist. Width 14.4 % (11.5-14.5); White Blood Cell Count 5.9 10^3/uL (4.8-10.8)
[2023-11-27 07:17] VITALS: BMI 20.7
[2023-11-27 07:28] LABS: Blood Urea Nitrogen 11 mg/dl (9-20); Calcium 8.9 mg/dl (8.4-10.2); Carbon Dioxide 30 mmol/L (22-30); Chloride 96 mmol/L (98-107); Estimated Creatinine Clearance 85 ml/min; Glucose 138 mg/dl (70-99); Magnesium 2.2 mg/dl (1.6-2.3); Potassium 4.4 mmol/L (3.5-5.1); Sodium 133 mmol/L (135-145); eGFR > 60.00
[2023-11-27] MEDS: PROTONIX 40 MG PO ×2 (07:41→21:04)
[2023-11-27] MEDS: DIFLUCAN 400 MG PO (07:42)
[2023-11-27] MEDS: TOPROL XL 50 MG PO (07:45)
--- NOTE | 2023-11-27 08:07 | W.PN.HOSP.TC ---
Today's Communication/Plan
-
IV fluids, pain control, postop care.
Assessment / Plan
Assessment / Plan
Physical exam:
General: Acutely ill
HEENT: Normocephalic, Atraumatic and Moist Mucous Membranes
Respiratory: Clear to Auscultation; Negative Wheezes, Rales or Rhonchi
Cardiac: Regular Rhythm and S1/S2
GI: Soft, BS present, Tender and Nondistended
Musculoskeletal: No Clubbing, No Cyanosis and No Edema
Neuro: Awake, Alert and Oriented
Psych: Calm
A/P:
# Persistent sigmoid diverticulitis with enlarging associated abscess
-Postop sigmoidectomy on
-Continue n.p.o., IV fluids, IV antibiotic
-Await for return of bowel function.
-VANESSA drain until discharge, Leon catheter until tomorrow. OR pathology pending.
-Defer nutrition if TPN needed to surgery.
-Updated at bedside
Prior to today:
-Keep n.p.o.
-Antibiotics, IV fluids, pain control.
-Repeated CT of the abdomen shows persistent diverticulitis and persistent abscess and apparently progression on 11/25. Colorectal surgery discussed with patient findings on CT scan and recommending surgery (patient decided to do surgery).
-Cardiology consulted for preop evaluation
-Discussed with colorectal surgery today on and plan for surgery today on
# C. difficile infection currently on treatment
-Currently C. difficile is not so active and with negative test of the toxin most likely colonization and symptoms related to diverticulitis.
-Continue oral vancomycin per ID recommendation
-ID on consult
History of Crohn's disease
-Not on treatment
Coronary artery disease
-Continue aspirin, metoprolol
-Cardiology preop evaluation appreciated
Essential hypertension
Hypercholesterolemia
-Continue statin
GERD
-Continue omeprazole
Full code
DVT prophylaxis�heparin okay to restart by CRS
Total time spent on today's encounter was 52 minutes which included time spent in counseling the patient/family regarding diagnosis and treatment plan as listed above, goals of care, and symptom management. Case was discussed with nursing staff,
specialists, and care coordinators/case management. All labs and imaging personally reviewed by me. Remainder the time spent in detailed review of previous records, lab data, imaging, and other medical provider documentation.
Anticipated Discharge: > 48 hours
Subjective/Interval History
-
Date of Service: November 27, 2023
Patient complains of abdominal discomfort postop, denies nausea or vomiting. No bowel movement.
Objective Data
-
Labs:
Laboratory Results
11/27/23
06:20
WBC 5.9
Hgb 12.5 L
Hct 36.6 L
Plt Count 296
Sodium 133 L
Potassium 4.4
Chloride 96 L
Carbon Dioxide 30
BUN 11
Creatinine 0.7
Glucose 138 H
Calcium 8.9
Vital Signs:
Vital Signs
Temp Pulse Resp BP Pulse Ox
97.6 F 72 14 144/81 95
11/27/23 03:52 11/27/23 07:45 11/27/23 03:52 11/27/23 07:45 11/27/23 03:52
I&O
11/26/23 11/27/23 11/28/23
06:59 06:59 06:59
Intake Total 880 / 880 960 / 960
Output Total 835 / 835
Balance 880 / 880 125 / 125
Review of Systems
-
All other systems: Reviewed and negative
[2023-11-27] MEDS: NORMOSOL-R 1000 IV ×2 (09:30→23:30)
--- NOTE | 2023-11-27 09:39 | W.PN.ID1 ---
Date of Service
Date of Service: November 27, 2023
Today's Communication
- c/w ertapenem, fluconazole x 5 days from the OR through thursday
- qtc acceptable
- continue with oral vancomycin QID x 14 days beyond the broad spectrum therapy 12/13
Assessment / Plan
Diverticulitis with secondary perforation
Probable Abdominal perforation with abscess - slightly increased
C difficile
Reported Crohn's disease
Leukocytosis
- C diff negative - likely still colonized, unlikely to be driving clinical symptoms at this time
- blood cultures x2 no growth to date
- c/w ertapenem, fluconazole x 5 days from the OR through thursday
- qtc acceptable
- continue with oral vancomycin QID x 14 days beyond the broad spectrum therapy 12/13
- PICC in place - remove before dc
- follow clinically; follow up with me the week after next
Chief Complaint
-: Other (diverticulitis, abscess)
Subjective / Review of Systems
afebrile
bp stable
without leukocytosis
cr stable
OR summary note reviewed
extended discussion with patient and
Vital Signs / Physical Exam
Vital Signs
Vital Signs
Temp Pulse Resp BP Pulse Ox
97.6 F 72 14 144/81 95
11/27/23 03:52 11/27/23 07:45 11/27/23 03:52 11/27/23 07:45 11/27/23 03:52
Physical Exam
Constitutional: No Acute Distress
Cardiovascular: Regular Rate and S1/S2; Negative Murmur or Rub
Pulmonary: Clear and Symmetric; Negative Wheezes or Rales
Gastrointestinal: Soft, Non Tender, Non Distended and Normal Bowel Sounds
Skin: Warm and Dry; Negative Rash or Jaundice
Wound: Other (post op dressing minimal strike through, abd lead oxide mill tender)
Objective Data
Lab Data
Lab Results
11/27/23 06:20
11/27/23 06:20
ESR 21 mm/hour (0-20) H 11/25/23 14:52
PT 13.8 Sec (11.4-14.6) 11/26/23 11:28
INR 1.05 11/26/23 11:28
APTT 29.9 Sec (23.4-35.0) 11/26/23 11:28
Estimated Creat Clear 85 ml/min 11/27/23 06:20
Total Bilirubin 1.4 mg/dl (0.2-1.3) H 11/20/23 07:07
AST 20 U/L (17-59) 11/20/23 07:07
ALT < 10 U/L (0-50) 11/20/23 07:07
Alkaline Phosphatase 61 U/L (38-126) 11/20/23 07:07
C-Reactive Protein 12.40 mg/L (0.0-10.00) H 11/25/23 14:51
Most recent labs reviewed.
Micro Results:
11/19/23 20:00 Blood Culture - Final
Blood/Venous No Growth - Final Report
11/19/23 19:25 Blood Culture - Final
Blood/Venous No Growth - Final Report
11/22/23 22:37 C. difficile [facility] Antigen & Toxins - Final
Feces/Stool Negative for toxigenic C.difficile
--- NOTE | 2023-11-27 09:51 | W.PN.CRS1 ---
Addendum entered and electronically signed by Joaquín Bell MD 11/27/23 16:58:
I saw and examined the patient.
The PA's note was reviewed and I agree with the note.
Comment:
Seen in a.m. with PA.
Admits to incisional tenderness. Denies nausea.
Vitals and blood work reasonable.
Abdominal dressing dry. VANESSA with serosanguineous output.
Out of bed.
Resume subcu heparin for DVT prophylaxis.
Sips and chips okay for now. He may develop an ileus.
Original Note:
Today's Communication / Plan
-
N.p.o.
Restart heparin subcu
Out of bed
Assessment/Plan
-
POD# 1) sigmoidectomy 2) flexible sigmoidoscopy
1. Vitals normal. WBC 5.9. Labs normal.
2. Remain n.p.o. given his bowel was a little edematous and surgery. Await bowel function. Will consider TPN if he does not have bowel function next week given his lack of nutrition prior to surgery.
3. Out of bed with physical therapy.
4. Continue VANESSA drain until discharge.
5. Continue Leon until a.m.
6. Okay to restart heparin subcu DVT prophylaxis. Teds and SCDs in place.
7. OR pathology pending.
8. Pain control: Tylenol and Toradol standing, Dilaudid IV as needed.
9. Antibiotics per infectious disease: Diflucan, vancomycin p.o., Invanz IV.
10. Discussed plan with patient and at bedside.
Subjective Data
Procedure
11/26/2023- 1) sigmoidectomy 2) flexible sigmoidoscopy
Subjective Data
Date of Service: November 27, 2023
Patient states he is in a lot of pain. He denies nausea or vomiting. He has not had bowel function yet.
Objective Data
-
Vital Signs
Temp Pulse Resp BP Pulse Ox
97.6 F 72 14 144/81 95
11/27/23 03:52 11/27/23 07:45 11/27/23 03:52 11/27/23 07:45 11/27/23 09:41
Intake & Output
11/26/23 11/27/23 11/28/23
06:59 06:59 06:59
Intake Total 880 / 880 960 / 960
Output Total 835 / 835
Balance 880 / 880 125 / 125
Intake:
Oral fluids 880 / 880 0 / 0
IV fluids (Total) 960 / 960
Output:
Drain Output (Total) 135 / 135
Right Roger-Rey 135 / 135
Urine, Leon 700 / 700
Other:
Number of approximated MODERATE 2
amounts of urine
Lab Results
11/27/23 06:20
11/27/23 06:20
Physical Exam
-
General: No Acute Distress and AOx3
Abdomen: Soft, Non Distended and Non Tender
Skin: Warm and Dry
Wound: Dressing in Place
[2023-11-27 11:20] VITALS: BP 143/81
--- NOTE | 2023-11-27 11:32 | CM ---
Reviewed the chart notes. The patient is s/p sigmoidectomy. Per notes, if bowel function does not improve will need to be started on TPN. VANESSA drain in place. CM continues to be available to patient/family and is monitoring medical plan for needs
at discharge.
Plan: Discharge plans will depend on the patient's progress.
[2023-11-27] MEDS: INVANZ 60 MG IV (11:33)
[2023-11-27 15:45] VITALS: BP 128/65
[2023-11-27] MEDS: COMPAZINE 10 MG IV (18:47)
[2023-11-27 19:15] VITALS: BP 150/82
[2023-11-27] MEDS: HEPARIN 5000 UNITS SC (21:04)
[2023-11-27] MEDS: ASPIR LOW (ENTERIC COATED) 81 MG PO (21:05)
[2023-11-27] MEDS: CRESTOR 20 MG PO (21:05)
[2023-11-27 23:30] VITALS: BP 131/71
[2023-11-28] MEDS: TYLENOL 650 MG PO ×6 (03:07→23:47)
[2023-11-28] MEDS: TORADOL 15 MG IV ×4 (03:07→19:48)
[2023-11-28] MEDS: DILAUDID 0.5 MG IV ×5 (03:43→21:22)
[2023-11-28] MEDS: FIRVANQ 125 MG PO ×4 (06:04→23:48)
[2023-11-28 07:28] VITALS: BP 129/78
[2023-11-28 07:55] LABS: % Basophils 0.1 % (0-2); % Eosinophils 0.1 % (0-6); % Immature Granulocytes 0.6 % (0-0.5); % Lymphocytes 10.9 % (20.5-51.1); % Monocytes 6.8 % (1.7-9.3); % Neutrophils 81.5 % (42.2-75.2); Absolute Immature Granulocytes 0.1 10^3/uL (0-0.05); Absolute Monocytes 0.6 10^3/uL (0.1-0.6); Absolute Neutrophils 7.1 10^3/uL (1.4-6.5); Hematocrit 32.8 % (39.0-52.0); Mean Corp Hgb Conc. 33.5 g/dL (33.0-37.0); Mean Corpuscular Hgb 29.5 pg (27.0-31.0); Mean Corpuscular Volume 87.9 fL (80.0-94.0); Nucleated Red Blood Cells % 0 % (-); Platelet Count 278 10^3/uL (130-400); Red Blood Cell Count 3.73 10^6/uL (4.70-6.10); Red Cell Dist. Width 14.6 % (11.5-14.5); White Blood Cell Count 8.7 10^3/uL (4.8-10.8)
[2023-11-28] MEDS: PROTONIX 40 MG PO ×2 (08:22→19:47)
[2023-11-28] MEDS: HEPARIN 5000 UNITS SC ×2 (08:22→19:48)
[2023-11-28] MEDS: TOPROL XL 50 MG PO (08:22)
[2023-11-28 09:21] LABS: Blood Urea Nitrogen 17 mg/dl (9-20); Calcium 8.6 mg/dl (8.4-10.2); Carbon Dioxide 28 mmol/L (22-30); Chloride 102 mmol/L (98-107); Estimated Creatinine Clearance 75 ml/min; Glucose 97 mg/dl (70-99); Potassium 4.4 mmol/L (3.5-5.1); Sodium 133 mmol/L (135-145); eGFR > 60.00
--- NOTE | 2023-11-28 10:01 | W.PN.HOSP.TC ---
Today's Communication/Plan
-
IV fluids, IV antibiotics. Start clear liquid diet today
Assessment / Plan
Assessment / Plan
Physical exam:
General: Acutely ill
HEENT: Normocephalic, Atraumatic and Moist Mucous Membranes
Respiratory: Clear to Auscultation; Negative Wheezes, Rales or Rhonchi
Cardiac: Regular Rhythm and S1/S2
GI: Soft, BS present, Tender and Nondistended. Drain in place. Postop findings
Musculoskeletal: No Clubbing, No Cyanosis and No Edema
Neuro: Awake, Alert and Oriented
Psych: Calm
A/P:
# Persistent sigmoid diverticulitis with enlarging associated abscess/ Postop sigmoidectomy on :
-Start clear liquid diet today by CRS
-IV fluids. Later if tolerating oral intake
-Continue VANESSA drain
-Continue Ativan
-Remove Leon catheter
-Pain control
-Continue antibiotics per ID
-Continue postop care
# C. difficile infection currently on treatment:
-Currently C. difficile is not so active and with negative test of the toxin most likely colonization and symptoms related to diverticulitis.
-Continue oral vancomycin per ID recommendation
-ID on consult
Hyponatremia:
-Continue to monitor
Anemia:
-Small drift down but stable
-Hemoglobin 11 today
History of Crohn's disease
-Not on treatment
Coronary artery disease
-Continue aspirin, metoprolol
-Cardiology preop evaluation appreciated
Essential hypertension
Hypercholesterolemia
-Continue statin
GERD
-Continue omeprazole
Full code
DVT prophylaxis�heparin okay to restart by CRS
Anticipated Discharge: > 48 hours
Subjective/Interval History
-
Date of Service: November 28, 2023
Patient abdominal discomfort improved. No nausea or vomiting.
Objective Data
-
Labs:
Laboratory Results
11/28/23
07:45
WBC 8.7
Hgb 11.0 L
Hct 32.8 L
Plt Count 278
Sodium 133 L
Potassium 4.4
Chloride 102
Carbon Dioxide 28
BUN 17
Creatinine 0.8
Glucose 97
Calcium 8.6
Vital Signs:
Vital Signs
Temp Pulse Resp BP Pulse Ox
97.5 F 78 18 129/78 100
11/28/23 07:28 11/28/23 07:28 11/28/23 07:28 11/28/23 07:28 11/28/23 07:28
I&O
11/27/23 11/28/23 11/29/23
06:59 06:59 06:59
Intake Total 960 / 960 1835 / 1835
Output Total 835 / 835 2465 / 2465
Balance 125 / 125 -630 / -630
Review of Systems
-
All other systems: Reviewed and negative
[2023-11-28] MEDS: DIFLUCAN 400 MG PO (10:28)
--- NOTE | 2023-11-28 10:55 | W.PN.CRS1 ---
Today's Communication / Plan
-
Start clear liquids
Increase activity
Assessment/Plan
-
68 yo male with a h/o diverticulitis with abscess and C. difficile, discharged on 11/08 and presented again to the hospital for low-grade fever, crampy abdominal pain and worsening diarrhea. Leukocytosis on presentation. CT�persistent acute
diverticulitis associated with abscess, slight increase of abscess to 3.1 cm from 2.8 cm, location of abscess not amenable to IR drainage; due to persistent pain, repeat CT on 11/25 showing stable abscess with possibly worse inflammation in sigmoid.
Taken to the OR for management.
POD# 2) sigmoidectomy 2) flexible sigmoidoscopy
AFVSS
Labs stable post op
Bowel edema noted intraop; however, bowel function starting to return
1. Start clear liquid diet, IVF until good PO intake
2. Follow labs
3. Out of bed/PT following
4. Continue VANESSA drain until discharge.
5. Remove abrams for voiding trial
6. Heparin SQ/SCD's for VTE ppx
7. OR pathology pending.
8. Pain control: Tylenol and Toradol standing, Dilaudid IV as needed.
9. Antibiotics per infectious disease
Subjective Data
Procedure
11/26/2023- 1) sigmoidectomy 2) flexible sigmoidoscopy
Subjective Data
Date of Service: November 28, 2023
Patient seen and examined at bedside. Notes some tenderness on exam to abdomen. Intermittent cramping sensation. Passed flatus with a small loose stool this am. Denies n/v. Would like to try liquids.
Objective Data
-
Vital Signs
Temp Pulse Resp BP Pulse Ox
97.5 F 78 18 129/78 100
11/28/23 07:28 11/28/23 07:28 11/28/23 07:28 11/28/23 07:28 11/28/23 07:28
Intake & Output
11/27/23 11/28/23 11/29/23
06:59 06:59 06:59
Intake Total 960 / 960 1835 / 1835
Output Total 835 / 835 2465 / 2465
Balance 125 / 125 -630 / -630
Intake:
Oral fluids 0 / 0
IV fluids (Total) 960 / 960 1775 / 1775
IV piggybacks 60 / 60
Output:
Drain Output (Total) 135 / 135 40 / 40
Right Roger-Rey 135 / 135 40 / 40
Urine, Abrams 700 / 700 2425 / 2425
Lab Results
11/28/23 07:45
11/28/23 07:45
Physical Exam
-
General: No Acute Distress and AOx3
Abdomen: Soft, Non Distended and Non Tender
Skin: Warm and Dry
Wound: Dressing in Place and Other (VANESSA with SSF)
[2023-11-28] MEDS: INVANZ 60 MG IV (12:42)
[2023-11-28] MEDS: NORMOSOL-R 1000 IV (12:42)
[2023-11-28] MEDS: MYLICON 80 MG PO (15:55)
[2023-11-28 16:41] VITALS: BP 129/76
--- NOTE | 2023-11-28 18:30 | PTCARENOTE ---
PT RIGHT ARM PHLEBITIS AT PREVIOUS IV SITE APPEARS RESOLVED, NO TENDERNESS, REDNESS, PATIENT DENIES PAIN. PT RESTING, CALL MARTINEZ IN REACH
[2023-11-28] MEDS: ASPIR LOW (ENTERIC COATED) 81 MG PO (19:47)
[2023-11-28] MEDS: CRESTOR 20 MG PO (19:47)
[2023-11-28 23:40] VITALS: BP 154/78
[2023-11-29] MEDS: NORMOSOL-R 1000 IV (00:05)
[2023-11-29] MEDS: TORADOL 15 MG IV ×4 (01:33→19:55)
[2023-11-29] MEDS: DILAUDID 0.5 MG IV ×5 (01:34→20:05)
[2023-11-29] MEDS: TYLENOL PO (04:31)
[2023-11-29 05:32] LABS: % Basophils 0.1 % (0-2); % Immature Granulocytes 0.5 % (0-0.5); % Lymphocytes 21.5 % (20.5-51.1); % Neutrophils 68.9 % (42.2-75.2); Absolute Lymphocytes 1.6 10^3/uL (1.2-3.4); Absolute Monocytes 0.7 10^3/uL (0.1-0.6); Absolute Neutrophils 5.1 10^3/uL (1.4-6.5); Hemoglobin 10.9 g/dL (13.0-18.0); Mean Corp Hgb Conc. 34.1 g/dL (33.0-37.0); Mean Corpuscular Volume 88.2 fL (80.0-94.0); Mean Platelet Volume 10.3 fL (7.4-10.4); Nucleated Red Blood Cells % 0 % (-); Platelet Count 262 10^3/uL (130-400); Red Blood Cell Count 3.63 10^6/uL (4.70-6.10); Red Cell Dist. Width 14.6 % (11.5-14.5); White Blood Cell Count 7.4 10^3/uL (4.8-10.8)
[2023-11-29 05:38] VITALS: BMI 20.5
[2023-11-29] MEDS: FIRVANQ 125 MG PO ×3 (05:44→17:35)
[2023-11-29 05:52] LABS: Blood Urea Nitrogen 14 mg/dl (9-20); Calcium 8.5 mg/dl (8.4-10.2); Carbon Dioxide 30 mmol/L (22-30); Chloride 99 mmol/L (98-107); Estimated Creatinine Clearance 85 ml/min; Glucose 90 mg/dl (70-99); Sodium 135 mmol/L (135-145); eGFR > 60.00
[2023-11-29 07:00] VITALS: BP 134/73
[2023-11-29] MEDS: TYLENOL 650 MG PO ×4 (08:09→19:54)
[2023-11-29] MEDS: PROTONIX 40 MG PO ×2 (08:09→19:54)
[2023-11-29] MEDS: DIFLUCAN 400 MG PO (08:09)
[2023-11-29] MEDS: TOPROL XL 50 MG PO (08:09)
[2023-11-29] MEDS: HEPARIN 5000 UNITS SC ×2 (08:09→19:55)
--- NOTE | 2023-11-29 08:24 | W.PN.HOSP.TC ---
Today's Communication/Plan
-
Clear liquid diet. Antibiotics. Pain control.
Assessment / Plan
Assessment / Plan
Physical exam:
General: Acutely ill
HEENT: Normocephalic, Atraumatic and Moist Mucous Membranes
Respiratory: Clear to Auscultation; Negative Wheezes, Rales or Rhonchi
Cardiac: Regular Rhythm and S1/S2
GI: Soft, BS present, Tender and Nondistended. Drain in place. Postop findings
Musculoskeletal: No Clubbing, No Cyanosis and No Edema
Neuro: Awake, Alert and Oriented
Psych: Calm
A/P:
# Persistent sigmoid diverticulitis with enlarging associated abscess/ Postop sigmoidectomy on :
-Cont clear liquid diet today by CRS
-Stop IV fluids today but can renew if needed
-Continue VANESSA drain
-Pain control
-Continue antibiotics per ID
-Continue postop care
-Increase activity as tolerated
# C. difficile infection currently on treatment:
-Currently C. difficile is not so active and with negative test of the toxin most likely colonization and symptoms related to diverticulitis.
-Continue oral vancomycin per ID recommendation
-ID on consult
Hyponatremia:
-Continue to monitor
Anemia:
-Small drift down but stable
-Hemoglobin 10.9 today
History of Crohn's disease
-Not on treatment
Coronary artery disease
-Continue aspirin, metoprolol
-Cardiology preop evaluation appreciated
Essential hypertension
Hypercholesterolemia
-Continue statin
GERD
-Continue omeprazole
Full code
DVT prophylaxis�heparin okay to restart by CRS
Anticipated Discharge: 24 - 48 hours
Subjective/Interval History
-
Date of Service: November 29, 2023
Patient tells me pain is better although still sensitive, denies nausea or vomiting. He is passing gas and having bowel movement but very little per patient report.
Objective Data
-
Labs:
Laboratory Results
11/29/23
04:55
WBC 7.4
Hgb 10.9 L
Hct 32.0 L
Plt Count 262
Sodium 135
Potassium 4.0
Chloride 99
Carbon Dioxide 30
BUN 14
Creatinine 0.7
Glucose 90
Calcium 8.5
Vital Signs:
Vital Signs
Temp Pulse Resp BP Pulse Ox
98.3 F 64 14 134/73 98
11/29/23 07:00 11/29/23 07:00 11/29/23 07:00 11/29/23 07:00 11/29/23 07:00
I&O
11/28/23 11/29/23 11/30/23
06:59 06:59 06:59
Intake Total 1835 / 1835 1920 / 1920
Output Total 2465 / 2465 450 / 450
Balance -630 / -630 1470 / 1470
--- NOTE | 2023-11-29 08:52 | W.PN.GS2 ---
Today's Communication / Plan
-
Clear liquids
Out of bed and ambulate.
Continue antibiotics per ID.
Assessment / Plan
-
68-year-old male postoperative day 3 status post open sigmoidectomy with colorectal anastomosis for diverticulitis in the setting of an active C. difficile infection.
Passing flatus but still distended on exam concerning for ileus.
Will keep on clear liquids.
Follow labs.
Out of bed and ambulate PT following.
VANESSA to bulb suction.
Pain control.
Antibiotics per ID.
Time Spent
Total Time Spent with Patient (in minutes): 20
Subjective Data
-
Date of Service: November 29, 2023
Interval Events:
No acute events overnight. Slept well. Pain Controlled. Denies Nausea/Vomiting, +bowel function. Tolerating diet.
Objective Data
-
Intake and Output
11/28/23 11/29/23 11/30/23
06:59 06:59 06:59
Intake Total 1835 / 1835 1920 / 1920
Output Total 2465 / 2465 450 / 450
Balance -630 / -630 1470 / 1470
Intake:
Oral fluids 960 / 960
IV fluids (Total) 1775 / 1775 960 / 960
IV piggybacks 60 / 60
Output:
Drain Output (Total) 40 / 40 50 / 50
Right Roger-Rey 40 / 40 50 / 50
Urine, Leon 2425 / 2425
Urine, Voided 400 / 400
Other:
Number of approximated MODERATE 4
amounts of urine
Vital Signs
Temp Pulse Resp BP Pulse Ox
98.3 F 64 14 134/73 98
11/29/23 07:00 11/29/23 07:00 11/29/23 07:00 11/29/23 07:00 11/29/23 07:00
Lab Results
11/29/23 04:55
11/29/23 04:55
Calcium 8.5 mg/dl (8.4-10.2) 11/29/23 04:55
Magnesium 2.2 mg/dl (1.6-2.3) 11/27/23 06:20
Total Bilirubin 1.4 mg/dl (0.2-1.3) H 11/20/23 07:07
AST 20 U/L (17-59) 11/20/23 07:07
ALT < 10 U/L (0-50) 11/20/23 07:07
Alkaline Phosphatase 61 U/L (38-126) 11/20/23 07:07
Total Protein 5.7 g/dl (6.3-8.2) L 11/20/23 07:07
Albumin 3.2 g/dl (3.5-5.0) L 11/20/23 07:07
Physical Exam
-
GENERAL/NEURO: Awake, Alert, no distress
CHEST: Unlabored breathing on RA
ABDOMEN: Soft, distended, somewhat diffusely tender, incision clean dry and intact with manas in place. VANESSA is serous sang
[2023-11-29] MEDS: INVANZ 60 MG IV (11:13)
[2023-11-29 15:00] VITALS: BP 132/82
--- NOTE | 2023-11-29 20:46 | PTCARENOTE ---
Patient rate's 8/10 abdominal pain. Administered ordered Tylenol/ Toradol IV as per order. Patient is insisting to have Dilaudid IV at this time. Administered IV Dilaudid as per patient request. + BS/ abdomen slightly distended/ no nausea.
Encouraged patient to do more ambulation/ plan of weaning off from opioids. Patient verbalized understanding of POC. will continue to monitor.
[2023-11-29] MEDS: ASPIR LOW (ENTERIC COATED) 81 MG PO (21:41)
[2023-11-29] MEDS: CRESTOR 20 MG PO (21:41)
[2023-11-29 23:41] VITALS: BP 141/78
[2023-11-30] MEDS: FIRVANQ 125 MG PO ×5 (00:15→22:59)
[2023-11-30] MEDS: TYLENOL 650 MG PO ×6 (00:15→23:00)
[2023-11-30] MEDS: DILAUDID 0.5 MG IV ×5 (00:21→20:34)
[2023-11-30] MEDS: TORADOL 15 MG IV ×4 (01:01→20:29)
[2023-11-30] MEDS: TYLENOL PO (05:06)
[2023-11-30 06:16] VITALS: BMI 20.2
[2023-11-30 06:21] LABS: Hematocrit 37.9 % (39.0-52.0); Hemoglobin 12.6 g/dL (13.0-18.0); Mean Corp Hgb Conc. 33.2 g/dL (33.0-37.0); Mean Corpuscular Hgb 29.2 pg (27.0-31.0); Mean Corpuscular Volume 87.7 fL (80.0-94.0); Mean Platelet Volume 9.8 fL (7.4-10.4); Platelet Count 307 10^3/uL (130-400); Red Blood Cell Count 4.32 10^6/uL (4.70-6.10); White Blood Cell Count 8.5 10^3/uL (4.8-10.8)
[2023-11-30 06:42] LABS: Blood Urea Nitrogen 11 mg/dl (9-20); Calcium 8.9 mg/dl (8.4-10.2); Carbon Dioxide 30 mmol/L (22-30); Chloride 101 mmol/L (98-107); Estimated Creatinine Clearance 65 ml/min; Glucose 103 mg/dl (70-99); Magnesium 1.9 mg/dl (1.6-2.3); Phosphorus 4.9 mg/dl (2.5-4.5); Potassium 3.7 mmol/L (3.5-5.1); Sodium 134 mmol/L (135-145); eGFR > 60.00
[2023-11-30 06:48] LABS: Prealbumin (Transthyretin) 29.4 mg/dl (17.6-36.0)
--- NOTE | 2023-11-30 07:15 | W.PN.HOSP.TC ---
Addendum entered and electronically signed by Roderick Chaney MD 11/30/23 15:40:
Severe protein calorie malnutrition.
Original Note:
Today's Communication/Plan
-
Cont CLD. Cont antibiotics. Pain control
Assessment / Plan
Assessment / Plan
Physical exam:
General: Acutely ill
HEENT: Normocephalic, Atraumatic and Moist Mucous Membranes
Respiratory: Clear to Auscultation; Negative Wheezes, Rales or Rhonchi
Cardiac: Regular Rhythm and S1/S2
GI: Soft, BS present, Mild Tender and Mild Distended. Drain in place. Postop findings
Musculoskeletal: No Clubbing, No Cyanosis and No Edema
Neuro: Awake, Alert and Oriented, no neuro-deficits
Psych: Calm
A/P:
# Persistent sigmoid diverticulitis with enlarging associated abscess/ Postop sigmoidectomy on :
-Cont clear liquid diet today by CRS (no advancing diet yet) and they are considering TPN if unable to advance diet over the next 24-48 hrs.
-Off IV fluids
-Continue VANESSA drain
-Pain control
-Continue antibiotics per ID--> discussed with ID today and they will reevaluate need for antibiotics-->f/u their recommendations.
-Continue postop care
-Increase activity as tolerated-->PT on board.
-updated RN
# C. difficile infection currently on treatment:
-Currently C. difficile is not so active and with negative test of the toxin most likely colonization and symptoms related to diverticulitis.
-Continue oral vancomycin per ID recommendation
-ID on consult
Hyponatremia:
-Continue to monitor
Anemia:
-Stable
-Hemoglobin 12.6 today
History of Crohn's disease
-Not on treatment
Coronary artery disease
-Continue aspirin, metoprolol
-Cardiology preop evaluation appreciated
Essential hypertension
-BP stable
Hypercholesterolemia
-Continue statin
GERD
-Continue omeprazole
Code status
Full code
DVT prophylaxis
heparin
Anticipated Discharge: 24 - 48 hours
Subjective/Interval History
-
Date of Service: November 30, 2023
He still has some abdominal discomfort on and off. He had bowel movement last evening. No nausea or vomiting. He is tolerating diet well. No chest pain or shortness of breath
Objective Data
-
Labs:
Laboratory Results
11/30/23
06:09
WBC 8.5
Hgb 12.6 L
Hct 37.9 L
Plt Count 307
Sodium 134 L
Potassium 3.7
Chloride 101
Carbon Dioxide 30
BUN 11
Creatinine 0.9
Glucose 103 H
Calcium 8.9
Vital Signs:
Vital Signs
Temp Pulse Resp BP Pulse Ox
98.5 F 59 14 141/78 97
11/29/23 23:41 11/29/23 23:41 11/29/23 23:41 11/29/23 23:41 11/29/23 23:41
I&O
11/29/23 11/30/23 12/01/23
06:59 06:59 06:59
Intake Total 1920 / 1920 480 / 480
Output Total 450 / 450 1290 / 1290
Balance 1470 / 1470 -810 / -810
Review of Systems
-
All other systems: Reviewed and negative
[2023-11-30] MEDS: PROTONIX 40 MG PO ×2 (07:41→20:29)
[2023-11-30] MEDS: TOPROL XL 50 MG PO (07:41)
[2023-11-30] MEDS: DIFLUCAN 400 MG PO (07:41)
[2023-11-30] MEDS: HEPARIN 5000 UNITS SC ×2 (07:42→20:30)
[2023-11-30 08:00] VITALS: BP 151/83
--- NOTE | 2023-11-30 08:54 | W.PN.CRS1 ---
Today's Communication / Plan
-
Will continue on clear liquids until passing more flatus.
Continue OOB
Continue SCD's, ambulation and heparin for DVT prophylaxis.
Abx as per ID.
Path pending.
Consider TPN if no diet advancement tomorrow.
Assessment/Plan
-
POD#4 s/p open sigmoid colectomy for diverticulitis
No postoperative concerns. AVSS, WBC normal and Hgb stable.
Subjective Data
Procedure
11/26/2023- 1) sigmoidectomy 2) flexible sigmoidoscopy
Subjective Data
Date of Service: November 30, 2023
Still complaining of abdominal pain which sounds more incisional as it hurts when he moves and coughs. He is passing some liquid stool with blood and very little flatus. He is on clear liquids and denies nausea but he has no appetite.
Objective Data
-
Vital Signs
Temp Pulse Resp BP Pulse Ox
97.4 F 69 16 151/83 97
11/30/23 08:00 11/30/23 08:00 11/30/23 08:00 11/30/23 08:00 11/30/23 08:00
Intake & Output
11/29/23 11/30/23 12/01/23
06:59 06:59 06:59
Intake Total 1920 / 1920 480 / 480
Output Total 450 / 450 1290 / 1290 80 / 80
Balance 1470 / 1470 -810 / -810 -80 / -80
Intake:
Oral fluids 960 / 960 480 / 480
IV fluids (Total) 960 / 960
Output:
Drain Output (Total) 50 / 50 60 / 60 80 / 80
Right Roger-Rey 50 / 50 60 / 60 80 / 80
Gastrointestinal tube output ( 280 / 280
Total)
Jejunostomy 280 / 280
Urine, Voided 400 / 400 950 / 950
Other:
Number of approximated MODERATE 4
amounts of urine
Lab Results
11/30/23 06:09
11/30/23 06:09
Physical Exam
-
General: No Acute Distress
Abdomen: Soft, Distended (Mild), Tender (Incisional) and Other (No tympany in the drain output is serosanguineous)
Extremities: No Calf Tenderness
Wound: Dressing in Place
[2023-11-30] MEDS: INVANZ 60 MG IV (12:06)
--- NOTE | 2023-11-30 13:06 | CM ---
POD#4 s/p open sigmoid colectomy for diverticulitis. Clear liquids. Consider TPN if no a diet advancement by 12/01/23. IV/AB and Dilaudid. Discharge plan of care: TBD. ? if will need IV/AB at home. PT recommends outpatient PT.
[2023-11-30 15:00] VITALS: BP 133/60
--- NOTE | 2023-11-30 15:10 | PN.CDI ---
CDI
- -
CDI:
Physician Documentation Request
Admit Date: 11/19/23 18:07
Dear Doctor Shiv,
Patient admitted for sigmoid diverticulitis.
11/26 Glass [employer] Machine Operator Assistant Assessment: 'Due to weight loss as noted and poor PO intakes reported (<75% estimated energy requirements for > 1 month), pt meeting criteria for severe protein- calorie malnutrition ( ASPEN/AND guidelines, chronic illness).'
Based on the information, which of the following most accurately represents the patient's nutritional status?
Severe Protein Calorie Malnutrition
Other
[place] Criteria ([facility] Hospitalist 2017)
2 or more criteria must be present for either
non severe or severe malnutrition
Note that the criteria differs related to the
presence of an acute or chronic illness
Acute Illness Chronic Illness
Energy Intake Non Severe: <75% for >7 days Non Severe: <75% for >1 month
Severe: <50% for >5 days Severe: <75% for >1 month
Weight Loss Non Severe: 1-2% over 1 week Non Severe: 5% over 1 month
5% over 1 month 7.5% over 3 months
7.5% over 3 months 10% over 6 months
1 year N/A 20% over 1 year
Severe: >2% over 1 week Severe: >5% over 1 month
>5% over 1 month >7.5% over 3 months
>7.5% over 3 months >10% over 6 months
1 year N/A >20% over 1 year
Body Fat Non Severe: Mild Decrease Non Severe: Mild Loss
Severe: Moderate Decrease Severe: Severe Loss
Muscle Mass Non Severe: Mild Decrease Non Severe: Mild Loss
Severe: Moderate Decrease Severe: Severe Loss
Fluid Accumulation Non Severe: Mild Accumulation Non Severe: Mild Accumulation
Severe: Moderate to severe Severe: Moderate to severe
accumulation accumulation
Reduced Mower Sharpener Strength Non Severe: N/A Non Severe: N/A
Severe: Measurably reduced Severe: Measurably reduced
Use of terms such as suspected, likely, concern for, or probable (associated with a specific diagnosis that is being evaluated, monitored, or treated as if it exists) are acceptable and can be coded in the inpatient setting, when documented at the
time of discharge.
Thank you,
Umm Ayala RN, BSN
CDI Specialist
Available via [place] text
Please use your independent medical judgment in providing your response.
--- NOTE | 2023-11-30 16:22 | W.PN.ID1 ---
Date of Service
Date of Service: November 30, 2023
Today's Communication
- c/w ertapenem, fluconazole x 5 days from the OR through thursday - discussed this am with hospitalist
- continue oral vancomycin QID x 14 days beyond the broad spectrum therapy - through 12/13
remove PICC before dc unless needed for TPN, in that case would turn over PICC management to ordering MD
Assessment / Plan
Diverticulitis with secondary perforation S/p open sigmoidectomy with colorectal anastomosis
C difficile
Reported Crohn's disease
Leukocytosis
- c/w ertapenem, fluconazole x 5 days from the OR (through thursday) - discussed this am with hospitalist
- continue with oral vancomycin QID x 14 days beyond the broad spectrum therapy - through 12/13
- remove PICC before dc unless needed for TPN, in that case would turn over PICC management to ordering MD
- follow clinically; follow up with me the week after next
Chief Complaint
-: Other (diverticulitis, abscess)
Subjective / Review of Systems
afebrile
bp stable
without leukocytosis
cr stable
path pending
no flatus today
Vital Signs / Physical Exam
Vital Signs
Vital Signs
Temp Pulse Resp BP Pulse Ox
97.5 F 68 16 133/60 100
11/30/23 15:00 11/30/23 15:00 11/30/23 15:00 11/30/23 15:00 11/30/23 15:00
Physical Exam
Constitutional: No Acute Distress
Cardiovascular: Regular Rate and S1/S2; Negative Murmur or Rub
Pulmonary: Clear and Symmetric; Negative Wheezes or Rales
Gastrointestinal: Soft, Tender, Non Distended and Normal Bowel Sounds
Skin: Warm and Dry; Negative Rash or Jaundice
Wound: Other (dressing minimal strike through)
Objective Data
Lab Data
Lab Results
11/30/23 06:09
11/30/23 06:09
ESR 21 mm/hour (0-20) H 11/25/23 14:52
PT 13.8 Sec (11.4-14.6) 11/26/23 11:28
INR 1.05 11/26/23 11:28
APTT 29.9 Sec (23.4-35.0) 11/26/23 11:28
Estimated Creat Clear 65 ml/min 11/30/23 06:09
Total Bilirubin 1.4 mg/dl (0.2-1.3) H 11/20/23 07:07
AST 20 U/L (17-59) 11/20/23 07:07
ALT < 10 U/L (0-50) 11/20/23 07:07
Alkaline Phosphatase 61 U/L (38-126) 11/20/23 07:07
C-Reactive Protein 12.40 mg/L (0.0-10.00) H 11/25/23 14:51
Most recent labs reviewed.
Micro Results:
11/19/23 20:00 Blood Culture - Final
Blood/Venous No Growth - Final Report
11/19/23 19:25 Blood Culture - Final
Blood/Venous No Growth - Final Report
11/22/23 22:37 C. difficile GDH Antigen & Toxins - Final
Feces/Stool Negative for toxigenic C.difficile
[2023-11-30] MEDS: ASPIR LOW (ENTERIC COATED) 81 MG PO (22:56)
[2023-11-30] MEDS: CRESTOR 20 MG PO (22:56)
[2023-11-30 23:05] VITALS: BP 140/80
[2023-12-01] MEDS: DILAUDID 0.5 MG IV ×4 (01:22→20:39)
[2023-12-01] MEDS: TORADOL 15 MG IV ×3 (01:22→13:29)
[2023-12-01] MEDS: TYLENOL PO (05:18)
[2023-12-01] MEDS: FIRVANQ 125 MG PO ×4 (05:37→23:18)
[2023-12-01 05:40] LABS: Hematocrit 35.6 % (39.0-52.0); Hemoglobin 12.1 g/dL (13.0-18.0); Mean Corpuscular Hgb 29.4 pg (27.0-31.0); Mean Corpuscular Volume 86.4 fL (80.0-94.0); Mean Platelet Volume 9.8 fL (7.4-10.4); Platelet Count 277 10^3/uL (130-400); Red Blood Cell Count 4.12 10^6/uL (4.70-6.10); Red Cell Dist. Width 14.8 % (11.5-14.5); White Blood Cell Count 7.5 10^3/uL (4.8-10.8)
[2023-12-01 06:01] LABS: Blood Urea Nitrogen 10 mg/dl (9-20); Calcium 8.9 mg/dl (8.4-10.2); Carbon Dioxide 31 mmol/L (22-30); Chloride 99 mmol/L (98-107); Estimated Creatinine Clearance 72 ml/min; Glucose 104 mg/dl (70-99); Potassium 3.9 mmol/L (3.5-5.1); Sodium 134 mmol/L (135-145); eGFR > 60.00
[2023-12-01 07:29] VITALS: BP 132/76
--- NOTE | 2023-12-01 07:45 | W.PN.HOSP.TC ---
Today's Communication/Plan
-
Advance to full liquid diet today. Pain control. Increase activity.
Assessment / Plan
Assessment / Plan
Physical exam:
General: No acute distress
HEENT: Normocephalic, Atraumatic and Moist Mucous Membranes
Respiratory: Clear to Auscultation; Negative Wheezes, Rales or Rhonchi
Cardiac: Regular Rhythm and S1/S2
GI: Soft, BS present, Mild Tender and Mild Distended. Drain in place. Postop findings
Musculoskeletal: No Clubbing, No Cyanosis and No Edema
Neuro: Awake, Alert and Oriented, no neuro-deficits
Psych: Calm
A/P:
# Persistent sigmoid diverticulitis with enlarging associated abscess:
-S/P sigmoidectomy on
-Advance to full liquid diet today per CRS
-Off IV fluids
-Continue VANESSA drain
-Pain control--> on oral acetaminophen and IV ketorolac and IV narcotics as needed. May consider oral meds over the next 24 hours.
-Continue antibiotics per ID--> discussed with ID yesterday--> cont Ertepenem and fluconazole through today and cont oral vanco as established.
-Continue postop care
-Increase activity as tolerated-->PT on board.
-Remove PICC line
-Updated RN today at bedside
# C. difficile infection currently on treatment:
-Currently C. difficile is not so active and with negative test of the toxin most likely colonization and symptoms related to diverticulitis.
-Continue oral vancomycin per ID recommendation--> vanco orally QID for 14 days.
-ID on consult
Hyponatremia:
-Na 134 today
-Continue to monitor
Anemia:
-Stable
-Hemoglobin 12.1 today
History of Crohn's disease
-Not on treatment
Coronary artery disease
-Continue antiplatelet, beta-keshav, statin
-Cardiology preop evaluation appreciated
Essential hypertension
-BP stable
-On metoprolol succinate 50 mg p.o. daily
Hypercholesterolemia
-Continue statin, rosuvastatin 20 mg p.o. nightly
GERD
-Continue omeprazole
Code status
Full code
DVT prophylaxis
heparin
Anticipated Discharge: 24 - 48 hours
Subjective/Interval History
-
Date of Service: December 01, 2023
Patient still having intermittent abdominal pain but no nausea or vomiting and he still having good bowel movements. Remains afebrile. No chest pain or shortness of breath. He is tolerating diet well.
Objective Data
-
Labs:
Laboratory Results
12/01/23
05:24
WBC 7.5
Hgb 12.1 L
Hct 35.6 L
Plt Count 277
Sodium 134 L
Potassium 3.9
Chloride 99
Carbon Dioxide 31 H
BUN 10
Creatinine 0.8
Glucose 104 H
Calcium 8.9
Vital Signs:
Vital Signs
Temp Pulse Resp BP Pulse Ox
97.5 F 65 16 132/76 97
12/01/23 07:29 12/01/23 07:29 12/01/23 07:29 12/01/23 07:29 12/01/23 07:29
I&O
11/30/23 12/01/23 12/02/23
06:59 06:59 06:59
Intake Total 480 / 480 480 / 480
Output Total 1290 / 1290 360 / 360
Balance -810 / -810 120 / 120
[2023-12-01] MEDS: TYLENOL 650 MG PO ×5 (08:56→23:18)
[2023-12-01] MEDS: HEPARIN 5000 UNITS SC ×2 (08:57→20:38)
[2023-12-01] MEDS: PROTONIX 40 MG PO ×2 (08:57→20:38)
[2023-12-01] MEDS: TOPROL XL 50 MG PO (08:57)
[2023-12-01] MEDS: DIFLUCAN 400 MG PO (08:57)
[2023-12-01] MEDS: FLUSH (NSS) 2 FLUSH IV ×3 (09:02→13:30)
--- NOTE | 2023-12-01 09:40 | W.PN.CRS1 ---
Today's Communication / Plan
-
Fulls.
Assessment/Plan
-
POD 5.
1. Tolerating clears with bowel function. No nausea. Advance to fulls.
2. Vitals and blood work reasonable.
3. Antibiotics per ID.
Subjective Data
Procedure
11/26/2023- 1) sigmoidectomy 2) flexible sigmoidoscopy
Subjective Data
Date of Service: December 01, 2023
Tolerating clears. No nausea. Less discomfort. Some bowel function.
Objective Data
-
Vital Signs
Temp Pulse Resp BP Pulse Ox
97.5 F 65 16 132/76 97
12/01/23 07:29 12/01/23 07:29 12/01/23 07:29 12/01/23 07:29 12/01/23 07:29
Intake & Output
11/30/23 12/01/23 12/02/23
06:59 06:59 06:59
Intake Total 480 / 480 480 / 480
Output Total 1290 / 1290 360 / 360
Balance -810 / -810 120 / 120
Intake:
Oral fluids 480 / 480 480 / 480
Output:
Drain Output (Total) 60 / 60 360 / 360
Right Roger-Rey 60 / 60 360 / 360
Gastrointestinal tube output ( 280 / 280
Total)
Jejunostomy 280 / 280
Urine, Voided 950 / 950
Other:
Number of approximated MODERATE 2
amounts of urine
Number of approximated LARGE 2
amounts of urine
Lab Results
12/01/23 05:24
12/01/23 05:24
Physical Exam
-
General: No Acute Distress
Chest: Clear
Cardiovascular: Regular Rate & Rhythm
Abdomen: Soft, Distended (Mild) and Tender (Minimal)
Extremities: No Calf Tenderness
Incision: Clear, Dry, Intact (Dressings) and No Skin Erythema
--- NOTE | 2023-12-01 11:00 | W.PN.ID1 ---
Date of Service
Date of Service: December 01, 2023
Today's Communication
- final day of ertapenem, fluconazole
- continue with oral vancomycin QID x 14 days beyond the broad spectrum therapy - through 12/13
- remove PICC before dc
Assessment / Plan
Diverticulitis with secondary perforation S/p open sigmoidectomy with colorectal anastomosis
C difficile
Reported Crohn's disease
Leukocytosis
- final day of ertapenem, fluconazole
- continue with oral vancomycin QID x 14 days beyond the broad spectrum therapy - through 12/13
- probiotics after vancomycin for several weeks
- remove PICC before dc
- follow clinically; follow up with me the week after next
Chief Complaint
-: Other (diverticulitis, abscess)
Subjective / Review of Systems
afebrile
bp stable
without leukocytosis
cr stable
diet being advanced
path pending
Vital Signs / Physical Exam
Vital Signs
Vital Signs
Temp Pulse Resp BP Pulse Ox
97.5 F 65 16 132/76 97
12/01/23 07:29 12/01/23 07:29 12/01/23 07:29 12/01/23 07:29 12/01/23 08:54
Physical Exam
Constitutional: No Acute Distress
Cardiovascular: Regular Rate and S1/S2; Negative Murmur or Rub
Pulmonary: Clear and Symmetric; Negative Wheezes or Rales
Gastrointestinal: Soft, Tender (with moderate pressure), Non Distended and Normal Bowel Sounds
Skin: Warm and Dry; Negative Rash or Jaundice
Objective Data
Lab Data
Lab Results
12/01/23 05:24
12/01/23 05:24
ESR 21 mm/hour (0-20) H 11/25/23 14:52
PT 13.8 Sec (11.4-14.6) 11/26/23 11:28
INR 1.05 11/26/23 11:28
APTT 29.9 Sec (23.4-35.0) 11/26/23 11:28
Estimated Creat Clear 72 ml/min 12/01/23 05:24
Total Bilirubin 1.4 mg/dl (0.2-1.3) H 11/20/23 07:07
AST 20 U/L (17-59) 11/20/23 07:07
ALT < 10 U/L (0-50) 11/20/23 07:07
Alkaline Phosphatase 61 U/L (38-126) 11/20/23 07:07
C-Reactive Protein 12.40 mg/L (0.0-10.00) H 11/25/23 14:51
Most recent labs reviewed.
Micro Results:
11/19/23 20:00 Blood Culture - Final
Blood/Venous No Growth - Final Report
11/19/23 19:25 Blood Culture - Final
Blood/Venous No Growth - Final Report
11/22/23 22:37 C. difficile GDH Antigen & Toxins - Final
Feces/Stool Negative for toxigenic C.difficile
[2023-12-01] MEDS: INVANZ 60 MG IV (11:09)
[2023-12-01 14:30] VITALS: BP 130/78
--- NOTE | 2023-12-01 14:34 | CM ---
Last day for IV antibiotics, will begin PO. Poor nutritional status. May need TPN. Will continue to follow medical and diet progression to determine discharge plan of care.
[2023-12-01] MEDS: CRESTOR 20 MG PO (20:38)
[2023-12-01] MEDS: ASPIR LOW (ENTERIC COATED) 81 MG PO (20:38)
[2023-12-01] MEDS: MYLICON 80 MG PO (20:43)
[2023-12-01 23:20] VITALS: BP 123/76
[2023-12-02] MEDS: DILAUDID 0.5 MG IV ×4 (01:00→20:58)
[2023-12-02] MEDS: TYLENOL PO ×2 (04:34→08:00)
[2023-12-02 05:09] LABS: % Basophils 0.2 % (0-2); % Eosinophils 3.4 % (0-6); % Immature Granulocytes 0.5 % (0-0.5); % Lymphocytes 21.2 % (20.5-51.1); % Monocytes 7.6 % (1.7-9.3); % Neutrophils 67.1 % (42.2-75.2); Absolute Eosinophils 0.4 10^3/uL (0-0.7); Absolute Immature Granulocytes 0.1 10^3/uL (0-0.05); Absolute Lymphocytes 2.4 10^3/uL (1.2-3.4); Absolute Monocytes 0.9 10^3/uL (0.1-0.6); Absolute Neutrophils 7.6 10^3/uL (1.4-6.5); Hematocrit 35.5 % (39.0-52.0); Mean Corp Hgb Conc. 33.8 g/dL (33.0-37.0); Mean Corpuscular Hgb 29.4 pg (27.0-31.0); Mean Platelet Volume 10.1 fL (7.4-10.4); Nucleated Red Blood Cells % 0 % (-); Platelet Count 304 10^3/uL (130-400); Red Blood Cell Count 4.08 10^6/uL (4.70-6.10); Red Cell Dist. Width 14.8 % (11.5-14.5); White Blood Cell Count 11.3 10^3/uL (4.8-10.8)
[2023-12-02 05:54] LABS: Blood Urea Nitrogen 10 mg/dl (9-20); Calcium 8.9 mg/dl (8.4-10.2); Carbon Dioxide 29 mmol/L (22-30); Chloride 99 mmol/L (98-107); Estimated Creatinine Clearance 64 ml/min; Glucose 106 mg/dl (70-99); Sodium 132 mmol/L (135-145); eGFR > 60.00
[2023-12-02] MEDS: FIRVANQ 125 MG PO ×4 (06:28→23:43)
--- NOTE | 2023-12-02 06:54 | W.PN.CRS1 ---
Today's Communication / Plan
-
CT scan of the abd/pelvis with oral, IV and rectal contrast.
NPO for now.
Further management to follow.
Assessment/Plan
-
POD#6 s/p open sigmoid colectomy for diverticulitis.
More pain and tenderness on exam AVSS, WBC slightly elevated at 11.3.
Subjective Data
Procedure
11/26/2023- 1) sigmoidectomy 2) flexible sigmoidoscopy
Subjective Data
Date of Service: December 02, 2023
Complaining of more abdominal cramping overnight and asking for Dilaudid OTC. No nausea/vomiting, no appetite but tolerating fulls. No bowel movement since yesterday and passing very little flatus.
Objective Data
-
Vital Signs
Temp Pulse Resp BP Pulse Ox
97 F 74 17 123/76 97
12/01/23 23:20 12/01/23 23:20 12/01/23 23:20 12/01/23 23:20 12/01/23 23:20
Intake & Output
11/30/23 12/01/23 12/02/23
06:59 06:59 06:59
Intake Total 480 / 480 480 / 480 240 / 240
Output Total 1290 / 1290 360 / 360 70 / 70
Balance -810 / -810 120 / 120 170 / 170
Intake:
Oral fluids 480 / 480 480 / 480 240 / 240
Output:
Drain Output (Total) 60 / 60 360 / 360 70 / 70
Right Roger-Rey 60 / 60 360 / 360 70 / 70
Gastrointestinal tube output ( 280 / 280
Total)
Jejunostomy 280 / 280
Urine, Voided 950 / 950
Other:
Number of approximated MODERATE 2 1
amounts of urine
Number of approximated LARGE 2
amounts of urine
Lab Results
12/02/23 04:25
12/02/23 04:25
Physical Exam
-
General: No Acute Distress
Abdomen: Soft, Non Distended and Tender (diffuse, R>L. VANESSA output serosanguineous)
Extremities: No Calf Tenderness
[2023-12-02 07:30] VITALS: BP 133/87
[2023-12-02] MEDS: OMNIPAQUE 50 ML PO (07:44)
--- NOTE | 2023-12-02 10:42 | W.PN.HOSP.TC ---
Today's Communication/Plan
-
CT abd/pelvis
IVF
pain control
CRS recs
Assessment / Plan
Assessment / Plan
Physical exam:
General: No acute distress
HEENT: Normocephalic, Atraumatic and Moist Mucous Membranes
Respiratory: Clear to Auscultation; Negative Wheezes, Rales or Rhonchi
Cardiac: Regular Rhythm and S1/S2
GI: Soft, BS present, Mild Tender and Mild Distended. Drain in place. Postop findings
Musculoskeletal: No Clubbing, No Cyanosis and No Edema
Neuro: Awake, Alert and Oriented, no neuro-deficits
Psych: Calm
A/P:
# Persistent sigmoid diverticulitis with enlarging associated abscess:
-S/P sigmoidectomy on
-Back to NPO and CT abd/pelvis with contrast pending for today.
-Bump in wbc noted.
-Continue VANESSA drain
-Pain control--> on oral acetaminophen and IV ketorolac and IV narcotics as needed.
-Continue antibiotics per ID s/p Ertepenem and fluconazole. and cont oral vanco as established.
-Continue postop care
-Increase activity as tolerated-->PT on board.
-IVF as NPO
-CRS recs
# C. difficile infection currently on treatment:
-Currently C. difficile is not so active and with negative test of the toxin most likely colonization and symptoms related to diverticulitis.
-Continue oral vancomycin per ID recommendation--> vanco orally QID for 14 days.
-ID on consult
Hyponatremia:
-Na 132 today
-Continue to monitor
Anemia:
-Stable
-monitor. transfuse prn <7 or acute bleeding
History of Crohn's disease
-Not on treatment
Coronary artery disease
-Continue antiplatelet, beta-keshav, statin
-Cardiology preop evaluation appreciated
Essential hypertension
-BP stable
-On metoprolol succinate 50 mg p.o. daily
Hypercholesterolemia
-Continue statin, rosuvastatin 20 mg p.o. nightly
GERD
-Continue omeprazole
Code status
Full code
DVT prophylaxis
heparin
Anticipated Discharge: > 48 hours
Subjective/Interval History
-
Date of Service: December 02, 2023
states of abd discomfort
no nausea or vomiting
drinking po contrast
Objective Data
-
Labs:
Laboratory Results
12/02/23
04:25
WBC 11.3 H
Hgb 12.0 L
Hct 35.5 L
Plt Count 304
Sodium 132 L
Potassium 4.0
Chloride 99
Carbon Dioxide 29
BUN 10
Creatinine 0.9
Glucose 106 H
Calcium 8.9
Vital Signs:
Vital Signs
Temp Pulse Resp BP Pulse Ox
97.7 F 79 18 133/87 97
12/02/23 07:30 12/02/23 07:30 12/02/23 07:30 12/02/23 07:30 12/02/23 07:30
I&O
12/01/23 12/02/23 12/03/23
06:59 06:59 06:59
Intake Total 480 / 480 240 / 240
Output Total 360 / 360 70 / 70 80 / 80
Balance 120 / 120 170 / 170 -80 / -80
Data Reviewed
-
Total Time Spent with Patient (in minutes): 55
[2023-12-02] MEDS: TYLENOL 650 MG PO ×4 (12:20→23:43)
[2023-12-02] MEDS: HEPARIN 5000 UNITS SC ×2 (12:20→20:51)
[2023-12-02] MEDS: PROTONIX 40 MG PO ×2 (12:20→20:51)
[2023-12-02] MEDS: NORMOSOL-R 1000 IV ×2 (12:23→23:42)
[2023-12-02] MEDS: INVANZ 60 MG IV (12:24)
[2023-12-02 12:52] VITALS: BP 137/89
[2023-12-02] MEDS: TOPROL XL 50 MG PO (12:54)
--- NOTE | 2023-12-02 14:56 | W.PN.ID1 ---
Date of Service
Date of Service: December 02, 2023
Today's Communication
- CT today suggestive of partial SBO
- continue with oral vancomycin QID x 14 days beyond the broad spectrum therapy - through 12/13
- probiotics after vancomycin for several weeks
- remove PICC before dc
Assessment / Plan
Diverticulitis with secondary perforation S/p open sigmoidectomy with colorectal anastomosis
C difficile
Reported Crohn's disease
Leukocytosis
- CT today suggestive of partial SBO; currently npo
- continue with oral vancomycin QID x 14 days beyond the broad spectrum therapy - through 12/13
- probiotics after vancomycin for several weeks
- remove PICC before dc
- follow clinically; follow up with me the week after next
Chief Complaint
-: Other (diverticulitis, abscess)
Subjective / Review of Systems
afebrile
bp stable
mild leukocytosis today
cr stable
abdomen was more tender this am, CT possible partial sbo
Vital Signs / Physical Exam
Vital Signs
Vital Signs
Temp Pulse Resp BP Pulse Ox
97.7 F 98 18 137/89 97
12/02/23 07:30 12/02/23 12:54 12/02/23 07:30 12/02/23 12:54 12/02/23 07:30
Physical Exam
Constitutional: No Acute Distress
Cardiovascular: Regular Rate and S1/S2; Negative Murmur or Rub
Pulmonary: Clear and Symmetric; Negative Wheezes or Rales
Gastrointestinal: Soft, Tender, Non Distended, No Rebound and No Guarding
Skin: Warm and Dry; Negative Rash or Jaundice
Objective Data
Lab Data
Lab Results
12/02/23 04:25
12/02/23 04:25
ESR 21 mm/hour (0-20) H 11/25/23 14:52
PT 13.8 Sec (11.4-14.6) 11/26/23 11:28
INR 1.05 11/26/23 11:28
APTT 29.9 Sec (23.4-35.0) 11/26/23 11:28
Estimated Creat Clear 64 ml/min 12/02/23 04:25
Total Bilirubin 1.4 mg/dl (0.2-1.3) H 11/20/23 07:07
AST 20 U/L (17-59) 11/20/23 07:07
ALT < 10 U/L (0-50) 11/20/23 07:07
Alkaline Phosphatase 61 U/L (38-126) 11/20/23 07:07
C-Reactive Protein 12.40 mg/L (0.0-10.00) H 11/25/23 14:51
Most recent labs reviewed.
Micro Results:
11/19/23 20:00 Blood Culture - Final
Blood/Venous No Growth - Final Report
11/19/23 19:25 Blood Culture - Final
Blood/Venous No Growth - Final Report
11/22/23 22:37 C. difficile GDH Antigen & Toxins - Final
Feces/Stool Negative for toxigenic C.difficile
[2023-12-02 15:00] VITALS: BP 141/84
--- NOTE | 2023-12-02 15:52 | CM ---
CT ? SBO, Now on PO vanco. Therapy recommendation for outpatient PT. No other skilled services anticipated at the time of discharge. Will continue to follow and adjust plan if needed.
--- NOTE | 2023-12-02 20:33 | W.PN.UPDATE ---
Update Note
Progress Note Update
I came to the room after finishing in the operating room and discussed the results of the CT scan with the patient and his (and their son via telephone). I explained there is no discernible leak but there is some small bowel distention,
either, possible early small bowel obstruction or ileus. There are no concerning signs for ischemia and I recommend continued nonoperative management. We discussed the possibility of an NG tube to help decompress the bowel. He passed more flatus
today at the present time we will hold off but inserted if he does not progress or if he becomes worse. We also discussed TPN tomorrow depending upon his symptoms. All questions answered.
[2023-12-02] MEDS: MYLICON 80 MG PO (20:51)
[2023-12-02] MEDS: CRESTOR 20 MG PO (20:51)
[2023-12-02] MEDS: ASPIR LOW (ENTERIC COATED) 81 MG PO (20:51)
[2023-12-02 23:03] VITALS: BP 150/82
[2023-12-03] MEDS: FIRVANQ 125 MG PO ×4 (05:31→23:13)
[2023-12-03] MEDS: TYLENOL 650 MG PO ×6 (05:32→23:13)
[2023-12-03 06:00] VITALS: BMI 20.4
[2023-12-03 06:08] LABS: Hematocrit 36.6 % (39.0-52.0); Hemoglobin 12.4 g/dL (13.0-18.0); Mean Corp Hgb Conc. 33.9 g/dL (33.0-37.0); Mean Corpuscular Hgb 29.7 pg (27.0-31.0); Mean Corpuscular Volume 87.6 fL (80.0-94.0); Mean Platelet Volume 10.3 fL (7.4-10.4); Platelet Count 282 10^3/uL (130-400); Red Blood Cell Count 4.18 10^6/uL (4.70-6.10); Red Cell Dist. Width 14.9 % (11.5-14.5); White Blood Cell Count 7.3 10^3/uL (4.8-10.8)
[2023-12-03 06:44] LABS: Blood Urea Nitrogen 10 mg/dl (9-20); Calcium 9.2 mg/dl (8.4-10.2); Carbon Dioxide 29 mmol/L (22-30); Chloride 99 mmol/L (98-107); Estimated Creatinine Clearance 73 ml/min; Glucose 102 mg/dl (70-99); Potassium 4.3 mmol/L (3.5-5.1); Sodium 135 mmol/L (135-145); eGFR > 60.00
[2023-12-03 07:44] VITALS: BP 142/79
[2023-12-03] MEDS: HEPARIN 5000 UNITS SC ×2 (08:59→20:48)
[2023-12-03] MEDS: PROTONIX 40 MG PO ×2 (08:59→20:48)
[2023-12-03] MEDS: TOPROL XL 50 MG PO (09:00)
--- NOTE | 2023-12-03 09:01 | W.PN.CRS1 ---
Today's Communication / Plan
-
Will begin clear liquids.
Will also start TPN as he has not had significant calories for some time and I do not anticipate he will be eating well for at least a couple of days.
Assessment/Plan
-
POD#7 s/p open sigmoid colectomy for diverticulitis.
Abdominal symptoms and exam improved. AVSS, WBC normal.
Subjective Data
Procedure
11/26/2023- 1) sigmoidectomy 2) flexible sigmoidoscopy
Subjective Data
Date of Service: December 03, 2023
States he feels little better today. He passed more flatus. His abdominal pain has improved and he denies any nausea but he does not have an appetite.
Objective Data
-
Vital Signs
Temp Pulse Resp BP Pulse Ox
98.8 F 75 18 142/79 97
12/03/23 07:44 12/03/23 07:44 12/03/23 07:44 12/03/23 07:44 12/03/23 07:44
Intake & Output
12/02/23 12/03/23 12/04/23
06:59 06:59 06:59
Intake Total 240 / 240 480 / 480
Output Total 70 / 70 140 / 140
Balance 170 / 170 340 / 340
Intake:
Oral fluids 240 / 240 480 / 480
Output:
Drain Output (Total) 70 / 70 140 / 140
Right Roger-Rey 70 / 70 140 / 140
Other:
Number of approximated MODERATE 1 4
amounts of urine
Lab Results
12/03/23 05:28
12/03/23 05:28
Physical Exam
-
General: No Acute Distress
Abdomen: Soft, Non Distended and Tender (Much improved from yesterday and last night; still some incisional tenderness (as expected); no tympany)
Wound: Dressing in Place
--- NOTE | 2023-12-03 09:42 | CM ---
Reviewed the chart notes. S/p open sigmoid colectomy for diverticulitis. Diet advanced to clears and will start with TPN today. PT recommending outpatient PT. CM continues to be available to patient/family and is monitoring medical plan for
needs at discharge.
Plan: Discharge to home when medically stable. No needs anticipated.
--- NOTE | 2023-12-03 10:36 | W.PN.HOSP.TC ---
Today's Communication/Plan
-
clears
TPN
OOB
CRS recs
Assessment / Plan
Assessment / Plan
Physical exam:
General: No acute distress
HEENT: Normocephalic, Atraumatic and Moist Mucous Membranes
Respiratory: Clear to Auscultation; Negative Wheezes, Rales or Rhonchi
Cardiac: Regular Rhythm and S1/S2
GI: Soft, BS present, Mild Tender and Mild Distended. Drain in place. Postop findings
Musculoskeletal: No Clubbing, No Cyanosis and No Edema
Neuro: Awake, Alert and Oriented, no neuro-deficits
Psych: Calm
A/P:
# Persistent sigmoid diverticulitis with enlarging associated abscess:
#Partial SBO
-S/P sigmoidectomy on
-CT abd/pelvis noted with pSBO.
-Bump in wbc noted.
-Continue VANESSA drain
-Pain control
-Continue antibiotics per ID s/p Ertepenem and fluconazole. and cont oral vanco as established.
-Continue postop care
-Increase activity as tolerated-->PT on board.
-Plan to start clears and TPN. monitor electrolytes
-CRS recs
# C. difficile infection currently on treatment:
-Currently C. difficile is not so active and with negative test of the toxin most likely colonization and symptoms related to diverticulitis.
-Continue oral vancomycin per ID recommendation--> vanco orally QID for 14 days.
-ID on consult
Hyponatremia:
-resolved. Na 135.
-Continue to monitor
Anemia:
-Stable
-monitor. transfuse prn <7 or acute bleeding
History of Crohn's disease
-Not on treatment
Coronary artery disease
-Continue antiplatelet, beta-keshav, statin
-Cardiology preop evaluation appreciated
Essential hypertension
-BP stable
-On metoprolol succinate 50 mg p.o. daily
Hypercholesterolemia
-Continue statin, rosuvastatin 20 mg p.o. nightly
GERD
-Continue omeprazole
Code status
Full code
DVT prophylaxis
heparin
Anticipated Discharge: > 48 hours
Subjective/Interval History
-
Date of Service: December 03, 2023
states of abd discomfort
no nausea or vomiting
Objective Data
-
Labs:
Laboratory Results
12/03/23 12/03/23
05:28 09:52
WBC 7.3
Hgb 12.4 L
Hct 36.6 L
Plt Count 282
Sodium 135 Pending
Potassium 4.3 Pending
Chloride 99 Pending
Carbon Dioxide 29 Pending
BUN 10 Pending
Creatinine 0.8 Pending
Glucose 102 H Pending
Calcium 9.2 Pending
Total Bilirubin Pending
AST Pending
ALT Pending
Alkaline Phosphatase Pending
Vital Signs:
Vital Signs
Temp Pulse Resp BP Pulse Ox
98.8 F 75 18 142/79 97
12/03/23 07:44 12/03/23 07:44 12/03/23 07:44 12/03/23 07:44 12/03/23 07:44
I&O
12/02/23 12/03/23 12/04/23
06:59 06:59 06:59
Intake Total 240 / 240 480 / 480
Output Total 70 / 70 140 / 140
Balance 170 / 170 340 / 340
[2023-12-03 10:53] LABS: ALT (SGPT) < 10 U/L (0-50); AST (SGOT) 18 U/L (17-59); Albumin 2.9 g/dl (3.5-5.0); Alkaline Phosphatase 67 U/L (38-126); Blood Urea Nitrogen 9 mg/dl (9-20); Calcium 8.6 mg/dl (8.4-10.2); Carbon Dioxide 28 mmol/L (22-30); Chloride 103 mmol/L (98-107); Estimated Creatinine Clearance 65 ml/min; Glucose 96 mg/dl (70-99); Magnesium 1.8 mg/dl (1.6-2.3); Phosphorus 3.4 mg/dl (2.5-4.5); Potassium 4.3 mmol/L (3.5-5.1); Sodium 133 mmol/L (135-145); Total Bilirubin 1.2 mg/dl (0.2-1.3); Total Protein 5.2 g/dl (6.3-8.2); Triglycerides 138 mg/dl (10-149); eGFR > 60.00
[2023-12-03 12:01] VITALS: BP 136/91
--- NOTE | 2023-12-03 12:07 | PTOTSP ---
Pt is independent without AD. Acute care PT will sign off. Outpatient recommended for further strengthening.
[2023-12-03] MEDS: NORMOSOL-R 1000 IV (12:59)
[2023-12-03] MEDS: INVANZ 60 MG IV (13:55)
--- NOTE | 2023-12-03 14:56 | W.PN.ID1 ---
Date of Service
Date of Service: December 03, 2023
Today's Communication
- continue with oral vancomycin QID x 14 days beyond the broad spectrum therapy - through 12/13
- probiotics after vancomycin for several weeks
- PICC per colorectal surgery (needed for TPN)
Assessment / Plan
Diverticulitis with secondary perforation S/p open sigmoidectomy with colorectal anastomosis
C difficile
Reported Crohn's disease
Leukocytosis
- continue with oral vancomycin QID x 14 days beyond the broad spectrum therapy - through 12/13
- probiotics after vancomycin for several weeks
- PICC per colorectal surgery (needed for TPN)
- follow clinically; follow up with me the week after next
Chief Complaint
-: Other (diverticulitis, abscess)
Subjective / Review of Systems
afebrile
bp stable
without leukocytosis
cr stable
now on tpn
overall improved
Vital Signs / Physical Exam
Vital Signs
Vital Signs
Temp Pulse Resp BP Pulse Ox
98.8 F 75 18 142/79 97
12/03/23 07:44 12/03/23 07:44 12/03/23 07:44 12/03/23 07:44 12/03/23 08:57
Physical Exam
Constitutional: No Acute Distress and Chronically Ill
Cardiovascular: Regular Rate and S1/S2; Negative Murmur or Rub
Pulmonary: Clear and Symmetric; Negative Wheezes or Rales
Gastrointestinal: Soft, Non Tender, Non Distended and Normal Bowel Sounds
Skin: Warm and Dry; Negative Rash or Jaundice
Objective Data
Lab Data
Lab Results
12/03/23 05:28
12/03/23 09:52
ESR 21 mm/hour (0-20) H 11/25/23 14:52
PT 13.8 Sec (11.4-14.6) 11/26/23 11:28
INR 1.05 11/26/23 11:28
APTT 29.9 Sec (23.4-35.0) 11/26/23 11:28
Estimated Creat Clear 65 ml/min 12/03/23 09:52
Total Bilirubin 1.2 mg/dl (0.2-1.3) 12/03/23 09:52
AST 18 U/L (17-59) 12/03/23 09:52
ALT < 10 U/L (0-50) 12/03/23 09:52
Alkaline Phosphatase 67 U/L (38-126) 12/03/23 09:52
C-Reactive Protein 12.40 mg/L (0.0-10.00) H 11/25/23 14:51
Most recent labs reviewed.
Micro Results:
11/19/23 20:00 Blood Culture - Final
Blood/Venous No Growth - Final Report
11/19/23 19:25 Blood Culture - Final
Blood/Venous No Growth - Final Report
11/22/23 22:37 C. difficile GDH Antigen & Toxins - Final
Feces/Stool Negative for toxigenic C.difficile
[2023-12-03 15:52] VITALS: BP 124/82
[2023-12-03] MEDS: MYLICON 80 MG PO (20:48)
[2023-12-03] MEDS: ASPIR LOW (ENTERIC COATED) 81 MG PO (20:48)
[2023-12-03] MEDS: CRESTOR 20 MG PO (20:48)
[2023-12-03] MEDS: Parenteral Nutrition, Central 1730 IV (20:54)
[2023-12-03] MEDS: DILAUDID 0.5 MG IV (20:59)
[2023-12-03] MEDS: NORMOSOL-R IV (22:17)
[2023-12-03 23:10] VITALS: BP 138/80
[2023-12-04] MEDS: NORMOSOL-R IV (00:54)
[2023-12-04] MEDS: DILAUDID 0.5 MG IV ×2 (01:01→20:20)
[2023-12-04] MEDS: MYLICON 80 MG PO ×2 (01:04→20:20)
[2023-12-04] MEDS: TYLENOL PO (05:03)
[2023-12-04] MEDS: FIRVANQ 125 MG PO ×4 (05:33→23:34)
[2023-12-04 05:38] LABS: Glucose - Point of Care 133 mg/dl (70-99)
[2023-12-04 05:43] VITALS: BMI 20.4
[2023-12-04 06:40] LABS: Blood Urea Nitrogen 9 mg/dl (9-20); Calcium 8.5 mg/dl (8.4-10.2); Carbon Dioxide 28 mmol/L (22-30); Chloride 105 mmol/L (98-107); Estimated Creatinine Clearance 74 ml/min; Glucose 134 mg/dl (70-99); Potassium 3.9 mmol/L (3.5-5.1); Sodium 134 mmol/L (135-145); eGFR > 60.00
[2023-12-04 07:23] VITALS: BP 144/79
[2023-12-04] MEDS: TYLENOL 650 MG PO ×5 (09:32→23:34)
[2023-12-04] MEDS: PROTONIX 40 MG PO ×2 (09:36→20:20)
[2023-12-04] MEDS: HEPARIN 5000 UNITS SC ×2 (09:36→20:20)
[2023-12-04] MEDS: TOPROL XL 50 MG PO (09:36)
--- NOTE | 2023-12-04 09:56 | W.PN.HOSP.TC ---
Today's Communication/Plan
-
OOB
stop IVF
TPN
CRS recs
Is encouraged
Assessment / Plan
Assessment / Plan
Physical exam:
General: No acute distress
HEENT: Normocephalic, Atraumatic and Moist Mucous Membranes
Respiratory: Clear to Auscultation; Negative Wheezes, Rales or Rhonchi
Cardiac: Regular Rhythm and S1/S2
GI: Soft, BS present, Mild Tender and Mild Distended. Drain in place. Postop findings
Musculoskeletal: No Clubbing, No Cyanosis and No Edema
Neuro: Awake, Alert and Oriented, no neuro-deficits
Psych: Calm
A/P:
# Persistent sigmoid diverticulitis with enlarging associated abscess:
#Partial SBO resolving
-S/P sigmoidectomy on
-CT abd/pelvis noted with pSBO.
-WBC trended down.
-Continue VANESSA drain
-Pain control
-Continue antibiotics per ID s/p Ertepenem and fluconazole. and cont oral vanco as established.
-Continue postop care
-Off IVF.
-Increase activity as tolerated-->PT on board.
-Started on clears and TPN. monitor electrolytes
-CRS recs
# C. difficile infection currently on treatment:
-Currently C. difficile is not so active and with negative test of the toxin most likely colonization and symptoms related to diverticulitis.
-Continue oral vancomycin per ID recommendation--> vanco orally QID for 14 days.
-ID on consult
Hyponatremia:
-resolved. Na 135.
-Continue to monitor
Anemia:
-Stable
-monitor. transfuse prn <7 or acute bleeding
History of Crohn's disease
-Not on treatment
Coronary artery disease
-Continue antiplatelet, beta-keshav, statin
-Cardiology preop evaluation appreciated
Essential hypertension
-BP stable
-On metoprolol succinate 50 mg p.o. daily
Hypercholesterolemia
-Continue statin, rosuvastatin 20 mg p.o. nightly
GERD
-Continue omeprazole
Code status
Full code
DVT prophylaxis
heparin
Anticipated Discharge: > 48 hours
Subjective/Interval History
-
Date of Service: December 04, 2023
states ambulated in hallway yesterday
had bm yesterday
Objective Data
-
Labs:
Laboratory Results
12/04/23
05:37
Sodium 134 L
Potassium 3.9
Chloride 105
Carbon Dioxide 28
BUN 9
Creatinine 0.8
Glucose 134 H
Calcium 8.5
Vital Signs:
Vital Signs
Temp Pulse Resp BP Pulse Ox
97.7 F 58 20 144/79 97
12/04/23 07:23 12/04/23 07:23 12/04/23 07:23 12/04/23 07:23 12/04/23 07:23
I&O
12/03/23 12/04/23 12/05/23
06:59 06:59 06:59
Intake Total 480 / 480 1140 / 1140
Output Total 140 / 140 60 / 60
Balance 340 / 340 1080 / 1080
--- NOTE | 2023-12-04 10:43 | W.PN.CRS1 ---
Today's Communication / Plan
-
Continue current care.
Assessment/Plan
-
POD 8.
1. Tolerating clears. Having bowel function. No much appetite.
2. Vitals reasonable. Labs have been reasonable. TPN reordered.
3. given possible partial small bowel obstruction, will hold on advancing diet for now. Continuing current care. Hoping to start advancing diet early next week.
4. antibiotics per ID
Subjective Data
Procedure
11/26/2023- 1) sigmoidectomy 2) flexible sigmoidoscopy
Subjective Data
Date of Service: December 04, 2023
Admits to occasional abdominal cramping. Having soft BMs. Denies nausea vomiting. Tolerating clears.
Objective Data
-
Vital Signs
Temp Pulse Resp BP Pulse Ox
97.7 F 58 20 144/79 97
12/04/23 07:23 12/04/23 07:23 12/04/23 07:23 12/04/23 09:36 12/04/23 07:23
Intake & Output
12/03/23 12/04/23 12/05/23
06:59 06:59 06:59
Intake Total 480 / 480 1140 / 1140
Output Total 140 / 140 60 / 60
Balance 340 / 340 1080 / 1080
Intake:
Oral fluids 480 / 480 1080 / 1080
IV fluids (Total) 0 / 0
IV piggybacks 60 / 60
Output:
Drain Output (Total) 140 / 140 60 / 60
Right Roger-Rey 140 / 140 60 / 60
Other:
Number of approximated MODERATE 4 1
amounts of urine
Number of approximated LARGE 1
amounts of urine
Lab Results
12/03/23 05:28
12/04/23 05:37
Physical Exam
-
General: No Acute Distress
Chest: Clear
Cardiovascular: Regular Rate & Rhythm
Abdomen: Soft, Distended (Mild), Tender (Mild) and Other (VANESSA with serosanguineous output)
Extremities: No Calf Tenderness
--- NOTE | 2023-12-04 11:09 | W.PN.ID1 ---
Date of Service
Date of Service: December 04, 2023
Today's Communication
- continue with oral vancomycin QID x 14 days beyond the broad spectrum therapy - through 12/13
- probiotics after vancomycin for several weeks
Assessment / Plan
Diverticulitis with secondary perforation S/p open sigmoidectomy with colorectal anastomosis
C difficile
Reported Crohn's disease
Leukocytosis
- continue with oral vancomycin QID x 14 days beyond the broad spectrum therapy - through 12/13
- probiotics after vancomycin for several weeks
- PICC per colorectal surgery (needed for TPN)
- follow clinically; follow up with me the week after next
Chief Complaint
-: Other (diverticulitis, abscess)
Subjective / Review of Systems
afebrile
bp stable
cr stable
remains on tpn
brighter - more energetic
Vital Signs / Physical Exam
Vital Signs
Vital Signs
Temp Pulse Resp BP Pulse Ox
97.7 F 58 20 144/79 97
12/04/23 07:23 12/04/23 07:23 12/04/23 07:23 12/04/23 09:36 12/04/23 07:23
Physical Exam
Constitutional: No Acute Distress
Cardiovascular: Regular Rate and S1/S2; Negative Murmur or Rub
Pulmonary: Clear and Symmetric; Negative Wheezes or Rales
Gastrointestinal: Soft, Non Tender, Non Distended and Normal Bowel Sounds
Skin: Warm and Dry; Negative Rash or Jaundice
Lines: Other (drain - small amount of serosanguinous fluid)
Objective Data
Lab Data
Lab Results
12/03/23 05:28
12/04/23 05:37
ESR 21 mm/hour (0-20) H 11/25/23 14:52
PT 13.8 Sec (11.4-14.6) 11/26/23 11:28
INR 1.05 11/26/23 11:28
APTT 29.9 Sec (23.4-35.0) 11/26/23 11:28
Estimated Creat Clear 74 ml/min 12/04/23 05:37
Total Bilirubin 1.2 mg/dl (0.2-1.3) 12/03/23 09:52
AST 18 U/L (17-59) 12/03/23 09:52
ALT < 10 U/L (0-50) 12/03/23 09:52
Alkaline Phosphatase 67 U/L (38-126) 12/03/23 09:52
C-Reactive Protein 12.40 mg/L (0.0-10.00) H 11/25/23 14:51
Most recent labs reviewed.
Micro Results:
11/19/23 20:00 Blood Culture - Final
Blood/Venous No Growth - Final Report
11/19/23 19:25 Blood Culture - Final
Blood/Venous No Growth - Final Report
11/22/23 22:37 C. difficile GDH Antigen & Toxins - Final
Feces/Stool Negative for toxigenic C.difficile
[2023-12-04 12:13] LABS: Glucose - Point of Care 141 mg/dl (70-99)
[2023-12-04] MEDS: INVANZ 60 MG IV (13:30)
--- NOTE | 2023-12-04 14:02 | CM ---
Reviewed the chart notes. TPN continues with clear liquid diet. CM continues to be available to patient/family and is monitoring medical plan for needs at discharge.
Plan: Discharge to home when medically stable. No needs anticipated.
[2023-12-04 15:08] VITALS: BP 143/73
--- NOTE | 2023-12-04 20:50 | PTCARENOTE ---
Resumed care of pt laying in bed AAOx3. Pt reports 05/07 abd pain/ cramping. Medications administered as ordered, See NOV. Midline abd dressing intact with old drainage noted. Abd tender to palpation, round. Pt reports no BM today. Right VANESSA drain in
place. TPN infusing right Duall picc as ordered. NO other issues to report at this time. Will continue to monitor.
[2023-12-04] MEDS: Parenteral Nutrition, Central 1730 IV (21:18)
[2023-12-04] MEDS: CRESTOR 20 MG PO (21:20)
[2023-12-04] MEDS: ASPIR LOW (ENTERIC COATED) 81 MG PO (21:20)
[2023-12-04 23:00] VITALS: BP 121/72
[2023-12-05 00:05] LABS: Glucose - Point of Care 123 mg/dl (70-99)
[2023-12-05] MEDS: MYLICON 80 MG PO ×3 (03:02→14:00)
[2023-12-05] MEDS: TYLENOL 650 MG PO ×4 (03:03→20:52)
[2023-12-05] MEDS: DILAUDID 0.5 MG IV ×4 (03:03→20:55)
[2023-12-05] MEDS: FIRVANQ 125 MG PO ×3 (05:26→17:37)
[2023-12-05 05:46] VITALS: BMI 20.9
[2023-12-05 06:18] LABS: Glucose - Point of Care 135 mg/dl (70-99)
[2023-12-05] MEDS: PROTONIX 40 MG PO ×2 (07:39→20:52)
[2023-12-05] MEDS: HEPARIN 5000 UNITS SC ×2 (07:40→20:52)
[2023-12-05] MEDS: TYLENOL PO (07:40)
[2023-12-05 07:48] VITALS: BP 135/73
[2023-12-05 09:06] LABS: Blood Urea Nitrogen 15 mg/dl (9-20); Carbon Dioxide 28 mmol/L (22-30); Chloride 102 mmol/L (98-107); Estimated Creatinine Clearance 101 ml/min; Glucose 127 mg/dl (70-99); Sodium 135 mmol/L (135-145); eGFR > 60.00
[2023-12-05] MEDS: TOPROL XL 50 MG PO (09:27)
--- NOTE | 2023-12-05 10:58 | W.PN.CRS1 ---
Addendum entered and electronically signed by Garry Burroughs MD 12/05/23 11:42:
Patient seen and examined. Agree with assessment plan as documented below by CORPORATE COMMUNICATIONS SPECIALIST. Clinically stable. AVSS. No major changes from surgical perspective.
General:�NAD
Abdomen:�Soft, Distended (Mild to moderate), Tender (generalized) and Other (VANESSA with serosanguineous output)
POD #9�sigmoidectomy
AFVSS
Awaiting robust return of bowel function
-- Persistent distention but tolerating clears. Hold off on diet advancement until bowel function improves
-- Continue TPN, nutrition following
-- Antibiotics as per ID
-- OOB/Ambulate
Original Note:
Today's Communication / Plan
-
Continue CLD and TPN
Assessment/Plan
-
68 yo male with a h/o diverticulitis with abscess and C. difficile, discharged on 11/08 and presented again to the hospital on 11/19 d/t unresolved symptoms. CT on admit: persistent acute diverticulitis associated with abscess, slight increase of
abscess. Abscess increasing in size on CT 11/25. Taken to the OR for management for sigmoidectomy. Slow return of bowel function prompting CT on 12/01 with partial SBO noted likely d/t adhesions, no residual abscess/fluid collection.
POD #9 sigmoidectomy
AFVSS
Awaiting robust return of bowel function
-- Persistent distention but tolerating clears. Hold off on diet advancement until bowel function improves
-- Continue TPN, nutrition following
-- Antibiotics as per ID
-- OOB/Ambulate
Subjective Data
Procedure
11/26/2023- 1) sigmoidectomy 2) flexible sigmoidoscopy
Subjective Data
Date of Service: December 05, 2023
Patient seen and examined at bedside with Dr. Burroughs. Denies n/v. Tolerating clears but by the end of the day notes that his abdominal distention is a bit worse. Passing flatus but not much stool.
Objective Data
-
Vital Signs
Temp Pulse Resp BP Pulse Ox
97.9 F 60 14 135/73 97
12/05/23 07:48 12/05/23 07:48 12/05/23 07:48 12/05/23 07:48 12/05/23 07:48
Intake & Output
12/04/23 12/05/23 12/06/23
06:59 06:59 07:59
Intake Total 1140 / 1140 3243 / 3243
Output Total
Balance 1080 / 1080 3233 / 3233
Intake:
Oral fluids 1080 / 1080 1440 / 1440
IV fluids (Total) 0 / 0 25 / 25
IV piggybacks 50 / 50
TPN/PPN 1728 / 1728
Output:
Drain Output (Total)
Right Roger-Rey
Other:
Number of approximated MODERATE 1 1
amounts of urine
Number of approximated LARGE 1
amounts of urine
Lab Results
12/03/23 05:28
12/05/23 08:09
Physical Exam
-
General: No Acute Distress
Chest: Clear
Cardiovascular: Regular Rate & Rhythm
Abdomen: Soft, Distended (Mild to moderate), Tender (generalized) and Other (VANESSA with serosanguineous output)
Extremities: No Calf Tenderness
Incision: Clear, Dry, Intact
[2023-12-05 11:59] LABS: Glucose - Point of Care 107 mg/dl (70-99)
--- NOTE | 2023-12-05 12:54 | PTCARENOTE ---
pt remains uncomfortable currently requesting more Dilaudid, abdomen distended with decreased to no BS on R faint BS on L holding guarding R sided c/o of cramping. not passing gas. TT sent to RAILROAD DETECTIVE to update. poor PO intake, weak.
--- NOTE | 2023-12-05 13:58 | W.PN.HOSP.TC ---
Today's Communication/Plan
-
CW TPN -follow electrolytes
Diet per CRS
Assessment / Plan
Assessment / Plan
A/P:
# Persistent sigmoid diverticulitis with enlarging associated abscess:
#Partial SBO resolving
-S/P sigmoidectomy on
-CT abd/pelvis noted with pSBO.
-WBC trended down.
-Continue VANESSA drain
-Pain control
-Continue antibiotics per ID s/p Ertepenem and fluconazole. and cont oral vanco .
-Continue postop care.
-Off IVF.
-Increase activity as tolerated-->PT on board.
-Started on clears and TPN. monitor electrolytes
-CRS recs
# C. difficile infection currently on treatment:
-Currently C. difficile is not so active and with negative test of the toxin most likely colonization and symptoms related to diverticulitis.
-Continue oral vancomycin per ID recommendation--> vanco orally QID for 14 days.
Anemia:
-Stable
-monitor. transfuse prn <7 or acute bleeding
History of Crohn's disease
-Not on treatment
Coronary artery disease
-Continue antiplatelet, beta-keshav, statin
-Cardiology preop evaluation appreciated
Essential hypertension
-BP stable
-On metoprolol succinate 50 mg p.o. daily
Hypercholesterolemia
-Continue statin, rosuvastatin 20 mg p.o. nightly
GERD
-Continue omeprazole
Code status
Full code
DVT prophylaxis
heparin
Anticipated Discharge: > 48 hours
Subjective/Interval History
-
Date of Service: December 05, 2023
On clear liquids which he is tolerating without nausea but does have crampiness. Has not had a bowel movement yet.
No fever or chills.
Objective Data
-
Labs:
Laboratory Results
12/05/23
08:09
Sodium 135
Potassium 4.0
Chloride 102
Carbon Dioxide 28
BUN 15
Creatinine 0.6 L
Glucose 127 H
Calcium 9.0
Vital Signs:
Vital Signs
Temp Pulse Resp BP Pulse Ox
97.9 F 60 14 135/73 97
12/05/23 07:48 12/05/23 07:48 12/05/23 07:48 12/05/23 07:48 12/05/23 07:48
I&O
12/04/23 12/05/23 12/06/23
06:59 06:59 07:59
Intake Total 1140 / 1140 3243 / 3243
Output Total 60 / 60
Balance 1080 / 1080 3233 / 3233
Review of Systems
-
Respiratory: Denies Trouble Breathing
Cardiac: Denies Chest Pain
Neuro: Denies Dizzy
Physical Exam
-
General: No Apparent Distress
HEENT: Moist Mucous Membranes
Respiratory: Clear to Auscultation
Cardiac: Regular Rhythm and S1/S2
GI: Soft and Nondistended; Negative Normal Bowel Sounds (hyper in LLQ)
Neuro: AO x 3
Psych: Calm
Data Reviewed
-
Labs: Labs Reviewed by me
[2023-12-05 16:14] VITALS: BP 148/78
[2023-12-05] MEDS: ASPIR LOW (ENTERIC COATED) 81 MG PO (20:52)
[2023-12-05] MEDS: CRESTOR 20 MG PO (20:52)
[2023-12-05] MEDS: Parenteral Nutrition, Central 1730 IV (21:04)
[2023-12-05 21:50] VITALS: BP 135/78
[2023-12-06 00:12] LABS: Glucose - Point of Care 133 mg/dl (70-99)
[2023-12-06] MEDS: TYLENOL 650 MG PO ×6 (00:25→23:31)
[2023-12-06] MEDS: FIRVANQ 125 MG PO ×5 (00:25→23:31)
[2023-12-06] MEDS: TYLENOL PO (04:15)
[2023-12-06] MEDS: DILAUDID 0.5 MG IV ×4 (04:37→20:21)
[2023-12-06] MEDS: MYLICON 80 MG PO ×3 (04:38→16:32)
[2023-12-06 05:37] VITALS: BMI 20.3
[2023-12-06 06:16] LABS: Lactic Acid 0.8 mmol/L (0.7-2.0)
[2023-12-06 06:31] LABS: Blood Urea Nitrogen 14 mg/dl (9-20); Calcium 8.9 mg/dl (8.4-10.2); Carbon Dioxide 27 mmol/L (22-30); Chloride 104 mmol/L (98-107); Estimated Creatinine Clearance 84 ml/min; Glucose 122 mg/dl (70-99); Phosphorus 4.2 mg/dl (2.5-4.5); Potassium 4.2 mmol/L (3.5-5.1); Sodium 135 mmol/L (135-145); eGFR > 60.00
[2023-12-06 06:31] LABS: Glucose - Point of Care 119 mg/dl (70-99)
[2023-12-06 07:43] VITALS: BP 136/77
[2023-12-06] MEDS: HEPARIN 5000 UNITS SC ×2 (08:15→20:20)
[2023-12-06] MEDS: TOPROL XL 50 MG PO (08:17)
[2023-12-06] MEDS: PROTONIX 40 MG PO (08:17)
[2023-12-06 08:27] LABS: Hemoglobin 12.8 g/dL (13.0-18.0); Mean Corp Hgb Conc. 34.6 g/dL (33.0-37.0); Mean Corpuscular Volume 86.9 fL (80.0-94.0); Mean Platelet Volume 10.4 fL (7.4-10.4); Platelet Count 306 10^3/uL (130-400); Red Blood Cell Count 4.26 10^6/uL (4.70-6.10); Red Cell Dist. Width 15.3 % (11.5-14.5); White Blood Cell Count 8.8 10^3/uL (4.8-10.8)
--- NOTE | 2023-12-06 08:29 | PTCARENOTE ---
pt c/o of increased pain BS soft distended tender to the Right but today generalized throughout cramping, BS hypoactive R>L. states no N/V. is only burping no passing gas. increased use of Dilaudid.
--- NOTE | 2023-12-06 10:15 | W.PN.CRS1 ---
Addendum entered and electronically signed by Garry Burroughs MD 12/06/23 10:57:
Patient seen and examined with RELIABILITY SPECIALIST. Agree with assessment plan as documented below.
Issues with abdominal distention and discomfort yesterday, back down to NPO. Brief episode of nausea which self resolved, no episodes of emesis. No fevers. Reports a lower bilateral abdominal discomfort/pressure. No flatus or stools. No fevers.
Gen: NAD
Abd: soft, tender bl mid-lower abdomen, mild/moderate distension, tympanitic, non-peritoneal, VANESSA sersang, incisions c/d/i - no erythema, ecchymosis or drainage
POD #10�sigmoidectomy
AFVSS
Labs stable without leukocytosis
Awaiting return of bowel function
Poor PO tolerance.
F/u XR this am with contrast given on 12/01 now within the colon, some SB dilatation still present. Consider repeat CT to follow-up on pelvic air and r/o abscess.
-- NPO with sips of clears. Hold off on diet advancement until bowel function improves
-- Continue TPN, nutrition following
-- Antibiotics as per ID. Currently on oral Vanc only. Consider broadening to cover GN, however, normal WBC and no fevers
-- OOB/Ambulate
-- Trend labs
-- Hep sq for VTE ppx
-- Pepcid for GI ppx, d/c protonix given h/o c-diff
Original Note:
Today's Communication / Plan
-
NPO with sips of clears
Assessment/Plan
-
68 yo male with a h/o diverticulitis with abscess and C. difficile, discharged on 11/08 and presented again to the hospital on 11/19 d/t unresolved symptoms. CT on admit: persistent acute diverticulitis associated with abscess, slight increase of
abscess. Abscess increasing in size on CT 11/25. Taken to the OR for management for sigmoidectomy. Slow return of bowel function prompting CT on 12/01 with partial SBO noted likely d/t adhesions, no residual abscess/fluid collection.
POD #10 sigmoidectomy
AFVSS
Labs stable without leukocytosis
Awaiting return of bowel function
Poor PO tolerance. f/u XR this am with contrast given on 12/01 now within the colon, some SB dilatation still present
-- NPO with sips of clears. Hold off on diet advancement until bowel function improves
-- Continue TPN, nutrition following
-- Antibiotics as per ID. Currently on oral vanc only.
-- OOB/Ambulate
-- Trend labs
-- Hep sq for VTE ppx
-- Pepcid for GI ppx, d/c protonix given h/o c-diff
Subjective Data
Procedure
11/26/2023- 1) sigmoidectomy 2) flexible sigmoidoscopy
Subjective Data
Date of Service: December 06, 2023
Patient seen and examined at bedside with Dr. Burroughs. Son present via video call for exam/questions addressed. He had an episode overnight where he felt 'unwell' this passed. Denies n/v. Abdominal 'heaviness' and increased distention with clears
yesterday. Pain with movement, analgesics helping. No longer passing flatus/stools.
Objective Data
-
Vital Signs
Temp Pulse Resp BP Pulse Ox
97.8 F 70 15 136/77 97
12/06/23 07:43 12/06/23 07:43 12/06/23 07:43 12/06/23 08:17 12/06/23 07:43
Intake & Output
12/05/23 12/06/23 12/07/23
05:59 06:59 06:59
Intake Total
Output Total
Balance
Intake:
Oral fluids
IV fluids (Total)
IV piggybacks
TPN/PPN
Output:
Drain Output (Total)
Right Roger-Rey
Other:
Number of approximated MODERATE
amounts of urine
Lab Results
12/06/23 08:01
12/06/23 05:50
Physical Exam
-
General: No Acute Distress
Chest: Clear
Abdomen: Soft, Distended (moderate), Tender (generalized) and Other (VANESSA with serosanguineous output)
Extremities: No Calf Tenderness
Incision: Clear, Dry, Intact and Other (VANESSA with ssf)
[2023-12-06 12:06] LABS: Glucose - Point of Care 120 mg/dl (70-99)
--- NOTE | 2023-12-06 12:33 | W.PN.HOSP.TC ---
Today's Communication/Plan
-
Back to NPO
CW TPN
Assessment / Plan
Assessment / Plan
A/P:
# Persistent sigmoid diverticulitis with enlarging associated abscess:
-S/P sigmoidectomy on
-CT abd/pelvis post noted with pSBO.
-WBC trended down to normal. Patient not tolerating diet. Back to NPO.
-Continue VANESSA drain
-Pain control
-Continue antibiotics per ID s/p Ertepenem and fluconazole. and cont oral vanco .
-Continue postop care.
-Off IVF.
-Increase activity as tolerated-->PT on board.
-cw TPN. monitor electrolytes
-CRS following
# C. difficile infection currently on treatment:
-Currently C. difficile is not so active and with negative test of the toxin most likely colonization and symptoms related to diverticulitis.
-Continue oral vancomycin per ID recommendation--> vanco orally QID for 14 days.
Anemia:
-Stable
-monitor. transfuse prn <7 or acute bleeding
History of Crohn's disease
-Not on treatment
Coronary artery disease
-Continue antiplatelet, beta-keshav, statin
-Cardiology preop evaluation appreciated
Essential hypertension
-BP stable
-On metoprolol succinate 50 mg p.o. daily
Hypercholesterolemia
-Continue statin, rosuvastatin 20 mg p.o. nightly
GERD
-Continue omeprazole
Code status
Full code
DVT prophylaxis
heparin
Anticipated Discharge: > 48 hours
Subjective/Interval History
-
Date of Service: December 06, 2023
Patient not tolerating diet. He is back to NPO.
Objective Data
-
Labs:
Laboratory Results
12/06/23 12/06/23
05:50 08:01
WBC 8.8
Hgb 12.8 L
Hct 37.0 L
Plt Count 306
Sodium 135
Potassium 4.2
Chloride 104
Carbon Dioxide 27
BUN 14
Creatinine 0.7
Glucose 122 H
Calcium 8.9
Vital Signs:
Vital Signs
Temp Pulse Resp BP Pulse Ox
97.8 F 70 15 136/77 97
12/06/23 07:43 12/06/23 07:43 12/06/23 07:43 12/06/23 08:17 12/06/23 07:43
I&O
12/05/23 12/06/23 12/07/23
05:59 06:59 06:59
Intake Total
Output Total
Balance
Review of Systems
-
Constitutional: Denies Fever
EENT: Denies Sore Throat
Respiratory: Denies Cough or Trouble Breathing
Cardiac: Denies Chest Pain
Abdomen/GI: Reports Abdominal Pain and Nausea
Genitourinary: Denies Dysuria or Frequency
Neuro: Denies Dizzy or Headache
Physical Exam
-
General: No Apparent Distress
HEENT: Moist Mucous Membranes
Respiratory: Clear to Auscultation
Cardiac: Regular Rhythm and S1/S2
GI: Soft
Musculoskeletal: No Edema
Neuro: AO x 3
Psych: Calm
Data Reviewed
-
Labs: Labs Reviewed by me
[2023-12-06 15:43] VITALS: BP 137/77
[2023-12-06 18:07] LABS: Glucose - Point of Care 138 mg/dl (70-99)
[2023-12-06] MEDS: Parenteral Nutrition, Central 1730 IV (21:21)
[2023-12-06] MEDS: ASPIR LOW (ENTERIC COATED) 81 MG PO (21:25)
[2023-12-06] MEDS: CRESTOR 20 MG PO (21:25)
[2023-12-06 23:35] VITALS: BP 123/79
[2023-12-07] MEDS: DILAUDID 0.5 MG IV ×5 (01:36→20:19)
[2023-12-07] MEDS: TYLENOL 650 MG PO ×2 (04:57→09:35)
[2023-12-07] MEDS: FIRVANQ 125 MG PO ×2 (05:00→12:12)
[2023-12-07 05:35] LABS: Hemoglobin 12.1 g/dL (13.0-18.0); Mean Corp Hgb Conc. 33.6 g/dL (33.0-37.0); Mean Corpuscular Hgb 29.7 pg (27.0-31.0); Mean Corpuscular Volume 88.2 fL (80.0-94.0); Mean Platelet Volume 10.3 fL (7.4-10.4); Platelet Count 272 10^3/uL (130-400); Red Blood Cell Count 4.08 10^6/uL (4.70-6.10); Red Cell Dist. Width 15.3 % (11.5-14.5); White Blood Cell Count 7.2 10^3/uL (4.8-10.8)
--- NOTE | 2023-12-07 05:46 | PTCARENOTE ---
Pt with intermittent pain overnight, see MAR for pain medication administration. No BM overnight. Pt voiding without difficulty. TPN infusing via right picc. Right lower abd VANESSA in place, 15ml out overnight. Vital signs stable. Will continue to
monitor.
[2023-12-07 06:01] LABS: ALT (SGPT) < 10 U/L (0-50); AST (SGOT) 19 U/L (17-59); Albumin 3.1 g/dl (3.5-5.0); Alkaline Phosphatase 53 U/L (38-126); Blood Urea Nitrogen 19 mg/dl (9-20); Calcium 9.1 mg/dl (8.4-10.2); Carbon Dioxide 27 mmol/L (22-30); Chloride 103 mmol/L (98-107); Estimated Creatinine Clearance 84 ml/min; Glucose 110 mg/dl (70-99); Phosphorus 4.5 mg/dl (2.5-4.5); Potassium 4.2 mmol/L (3.5-5.1); Sodium 133 mmol/L (135-145); Total Bilirubin 0.9 mg/dl (0.2-1.3); Total Protein 5.6 g/dl (6.3-8.2); Triglycerides 107 mg/dl (10-149); eGFR > 60.00
[2023-12-07 07:00] VITALS: BP 112/75
[2023-12-07 07:49] LABS: Glucose - Point of Care 124 mg/dl (70-99)
--- NOTE | 2023-12-07 08:44 | W.PN.HOSP.TC ---
Today's Communication/Plan
-
Continue TPN. NG tube. Follow-up postop care.
Assessment / Plan
Assessment / Plan
Physical exam:
General: Well Developed, Well Nourished and No Apparent Distress
HEENT: Normocephalic, Atraumatic and Moist Mucous Membranes
Respiratory: Clear to Auscultation; Negative Wheezes, Rales or Rhonchi
Cardiac: Regular Rhythm and S1/S2
GI: Soft, Tender and distended, no bowel sounds heard, postop findings
Musculoskeletal: No Clubbing, No Cyanosis and No Edema
Neuro: Awake, Alert and Oriented
Psych: Anxious
A/P:
# Persistent sigmoid diverticulitis with enlarging associated abscess:
-S/P sigmoidectomy on
-CT abd/pelvis post noted with pSBO.
-WBC trended down to normal. Patient not tolerating diet. Back to NPO.
-Today NG tube placed by surgery.
-Continue VANESSA drain
-Pain control
-Continue antibiotics per ID s/p Ertepenem and fluconazole. and cont oral vanco .
-Continue postop care.
-Off IVF.
-Increase activity as tolerated-->PT on board.
-cw TPN. monitor electrolytes
-CRS following
-Discussed with daughter at bedside
# C. difficile infection currently on treatment:
-Currently C. difficile is not so active and with negative test of the toxin most likely colonization and symptoms related to diverticulitis.
-Continue oral vancomycin per ID recommendation--> vanco orally QID for 14 days.
Anemia:
-Stable
-monitor. transfuse prn <7 or acute bleeding
History of Crohn's disease
-Not on treatment
Coronary artery disease
-Continue antiplatelet, beta-keshav, statin
-Cardiology preop evaluation appreciated
Essential hypertension
-BP stable
-On metoprolol succinate 50 mg p.o. daily
Hypercholesterolemia
-Continue statin, rosuvastatin 20 mg p.o. nightly
GERD
-Continue omeprazole
Code status
Full code
DVT prophylaxis
heparin
Total time spent on today's encounter was 52 minutes which included time spent in counseling the patient/family regarding diagnosis and treatment plan as listed above, goals of care, and symptom management. Case was discussed with nursing staff,
specialists, and care coordinators/case management. All labs and imaging personally reviewed by me. Remainder the time spent in detailed review of previous records, lab data, imaging, and other medical provider documentation.
Anticipated Discharge: > 48 hours
Subjective/Interval History
-
Date of Service: December 07, 2023
Patient with some abdominal discomfort. He has not had a bowel movement. He has not passed any gases.
Objective Data
-
Labs:
Laboratory Results
12/07/23
05:18
WBC 7.2
Hgb 12.1 L
Hct 36.0 L
Plt Count 272
Sodium 133 L
Potassium 4.2
Chloride 103
Carbon Dioxide 27
BUN 19
Creatinine 0.7
Glucose 110 H
Calcium 9.1
Total Bilirubin 0.9
AST 19
ALT < 10
Alkaline Phosphatase 53
Vital Signs:
Vital Signs
Temp Pulse Resp BP Pulse Ox
97.6 F 90 14 112/75 98
12/07/23 07:00 12/07/23 07:00 12/07/23 07:00 12/07/23 07:00 12/07/23 07:00
I&O
12/06/23 12/07/23 12/08/23
06:59 06:59 06:59
Intake Total 1740 / 1740
Output Total 35 / 35
Balance 1705 / 1705
Review of Systems
-
All other systems: Reviewed and negative
[2023-12-07] MEDS: TOPROL XL 50 MG PO (09:35)
[2023-12-07] MEDS: PEPCID 40 MG PO (09:35)
[2023-12-07] MEDS: HEPARIN 5000 UNITS SC ×2 (09:36→20:20)
--- NOTE | 2023-12-07 09:49 | W.PN.CRS1 ---
Today's Communication / Plan
-
NGT
Assessment/Plan
-
68 yo male with a h/o diverticulitis with abscess and C. difficile, discharged on 11/08 and presented again to the hospital on 11/19 d/t unresolved symptoms. CT on admit: persistent acute diverticulitis associated with abscess, slight increase of
abscess.� Abscess increasing in size on CT 11/25. Taken to the OR for management for sigmoidectomy. Slow return of bowel function prompting CT on 12/01 with partial SBO noted likely d/t adhesions, no residual abscess/fluid collection.
POD #11�sigmoidectomy
1. Labs normal. Vitals normal.
2. Continue NPO and TPN given lack of bowel function.
3. NGT to be placed. Intranasal cocaine and hurricane spray ordered to help with insertion.
4. Antibiotics per ID - oral vancomycin.
5. OOB.
6. Continue CARRIE drain, will remove prior to d/c.
7. Continue heparin sq for DVT prophylaxis.
Subjective Data
Procedure
11/26/2023- 1) sigmoidectomy 2) flexible sigmoidoscopy
Subjective Data
Date of Service: December 07, 2023
Patient states he 'feels the same'. He denies nausea but still has no flatus or bowel movements. The last time he vomited was yesterday.
Objective Data
-
Vital Signs
Temp Pulse Resp BP Pulse Ox
97.6 F 90 14 112/75 98
12/07/23 07:00 12/07/23 07:00 12/07/23 07:00 12/07/23 07:00 12/07/23 07:00
Intake & Output
12/06/23 12/07/23 12/08/23
06:59 06:59 06:59
Intake Total 1740 / 1740
Output Total 35 / 35
Balance 1705 / 1705
Intake:
Oral fluids
TPN/PPN 1739 / 1739
Output:
Drain Output (Total)
Right Roger-Rey
Other:
Number of approximated MODERATE
amounts of urine
Lab Results
12/07/23 05:18
12/07/23 05:18
Physical Exam
-
General: No Acute Distress and AOx3
Abdomen: Soft, Non Distended, Tender (LLQ) and Other (carrie with serous output)
Skin: Warm and Dry
Incision: Clear, Dry, Intact
[2023-12-07] MEDS: MYLICON 80 MG PO (09:52)
--- NOTE | 2023-12-07 10:51 | W.PN.ID1 ---
Date of Service
Date of Service: December 07, 2023
Today's Communication
- while with NGT switched oral vanc to IV metronidazole, when NGT out will switch back; duration remains through 12/13
Assessment / Plan
Diverticulitis with secondary perforation S/p open sigmoidectomy with colorectal anastomosis
C difficile
Reported Crohn's disease
- currently NPO for NGT
- while with NGT switched oral vanc to IV metronidazole, when NGT out will switch back; duration remains through 12/13
- follow clinically; follow up with me next week
Chief Complaint
-: Other (diverticulitis, abscess)
Subjective / Review of Systems
afebrile
bp stable
without leukocytosis
cr stable
no flatus or bowel movements - for NGT today
remains on TPN
Vital Signs / Physical Exam
Vital Signs
Vital Signs
Temp Pulse Resp BP Pulse Ox
97.6 F 90 14 112/75 98
12/07/23 07:00 12/07/23 07:00 12/07/23 07:00 12/07/23 07:00 12/07/23 07:00
Physical Exam
Constitutional: No Acute Distress
Cardiovascular: Regular Rate and S1/S2; Negative Murmur or Rub
Pulmonary: Clear and Symmetric; Negative Wheezes or Rales
Gastrointestinal: Soft, Non Tender, Non Distended and Normal Bowel Sounds
Skin: Warm and Dry; Negative Rash or Jaundice
Wound: Other (surgical site no erythema, warmth, tenderness or drainage)
Lines: PICC
Objective Data
Lab Data
Lab Results
12/07/23 05:18
12/07/23 05:18
ESR 21 mm/hour (0-20) H 11/25/23 14:52
PT 13.8 Sec (11.4-14.6) 11/26/23 11:28
INR 1.05 11/26/23 11:28
APTT 29.9 Sec (23.4-35.0) 11/26/23 11:28
Estimated Creat Clear 84 ml/min 12/07/23 05:18
Lactic Acid 0.8 mmol/L (0.7-2.0) 12/06/23 05:50
Total Bilirubin 0.9 mg/dl (0.2-1.3) 12/07/23 05:18
AST 19 U/L (17-59) 12/07/23 05:18
ALT < 10 U/L (0-50) 12/07/23 05:18
Alkaline Phosphatase 53 U/L (38-126) 12/07/23 05:18
C-Reactive Protein 12.40 mg/L (0.0-10.00) H 11/25/23 14:51
Most recent labs reviewed.
Micro Results:
11/19/23 20:00 Blood Culture - Final
Blood/Venous No Growth - Final Report
11/19/23 19:25 Blood Culture - Final
Blood/Venous No Growth - Final Report
11/22/23 22:37 C. difficile GDH Antigen & Toxins - Final
Feces/Stool Negative for toxigenic C.difficile
[2023-12-07] MEDS: HURRICAINE SPRAY 1 APPLIC TOPICAL (11:49)
[2023-12-07] MEDS: COCAINE 4% TOPICAL SOLUTION 4 ML TOPICAL (11:50)
--- NOTE | 2023-12-07 11:50 | PTCARENOTE ---
18F [place] Sump NGT placed into left Nare w/o difficulty. NGT to low intermittent suction. Ngt immediately drained clear green fluid. Pt and Pt's daughter instructed on plan of care, and to report any problems or concerns to Nursing team. Call norris
is within reach.
--- NOTE | 2023-12-07 12:02 | CM ---
Reviewed the chart notes. Patient is now NPO with NGT to be placed. TPN continues. CM continues to be available to patient/family and is monitoring medical plan for needs at discharge.
Plan: Discharge to home when medically stable. No additional needs identified at this time. Patient is ambulatory.
[2023-12-07] MEDS: TYLENOL PO ×5 (12:12→23:35)
[2023-12-07 12:28] LABS: Glucose - Point of Care 144 mg/dl (70-99)
[2023-12-07 15:00] VITALS: BP 118/84
[2023-12-07] MEDS: FLAGYL 500 MG 100 IV ×2 (16:52→23:49)
[2023-12-07] MEDS: ZOFRAN 4 MG IV (16:53)
[2023-12-07 18:14] LABS: Glucose - Point of Care 104 mg/dl (70-99)
[2023-12-07] MEDS: CRESTOR PO (21:15)
[2023-12-07] MEDS: Parenteral Nutrition, Central 1730 IV (21:15)
[2023-12-07] MEDS: ASPIR LOW (ENTERIC COATED) PO (21:15)
[2023-12-07 22:54] VITALS: BP 120/76
[2023-12-08 00:37] LABS: Glucose - Point of Care 110 mg/dl (70-99)
[2023-12-08] MEDS: DILAUDID 0.5 MG IV ×5 (01:05→20:27)
[2023-12-08] MEDS: TYLENOL PO (03:56)
--- NOTE | 2023-12-08 07:48 | W.PN.HOSP.TC ---
Today's Communication/Plan
-
IV Flagyl. TPN. CT of the abdomen and pelvis today.
Assessment / Plan
Assessment / Plan
Physical exam:
General: Well Developed, Well Nourished and No Apparent Distress
HEENT: Normocephalic, Atraumatic and Moist Mucous Membranes
Respiratory: Clear to Auscultation; Negative Wheezes, Rales or Rhonchi
Cardiac: Regular Rhythm and S1/S2
GI: Soft, Tender and distended, no bowel sounds heard, postop findings
Musculoskeletal: No Clubbing, No Cyanosis and No Edema
Neuro: Awake, Alert and Oriented
Psych: Anxious
A/P:
# Persistent sigmoid diverticulitis with enlarging associated abscess:
-S/P sigmoidectomy on
-Plan to repeat CT of the abdomen with oral and IV contrast today on 12/07 by surgery.
-WBC trended down to normal. Patient not tolerating diet. Back to NPO.
-NG tube placed by surgery on 12/06.
-Continue VANESSA drain
-Pain control
-Continue antibiotics per ID on IV metronidazole and plan to switch to oral vancomycin if able to take oral after 12/13 (s/p Ertepenem and fluconazole).
-Continue postop care.
-Off IVF.
-Increase activity as tolerated-->PT on board.
-cw TPN. monitor electrolytes
-CRS following
-Discussed with daughter at bedside yesterday.
# C. difficile infection currently on treatment:
-Currently C. difficile is not so active and with negative test of the toxin most likely colonization and symptoms related to diverticulitis.
-On IV metronidazole and plan to switch to oral vancomycin if able to take oral after 12/13 (s/p Ertepenem and fluconazole)
Anemia:
-Stable
-monitor. transfuse prn <7 or acute bleeding
History of Crohn's disease
-Not on treatment
Coronary artery disease
-Continue antiplatelet, beta-keshav, statin
-Cardiology preop evaluation appreciated
Essential hypertension
-BP stable
-On metoprolol succinate 50 mg p.o. daily
Hypercholesterolemia
-Continue statin, rosuvastatin 20 mg p.o. nightly
GERD
-Continue omeprazole
Code status
Full code
DVT prophylaxis
heparin
Total time spent on today's encounter was 52 minutes which included time spent in counseling the patient/family regarding diagnosis and treatment plan as listed above, goals of care, and symptom management. Case was discussed with nursing staff,
specialists, and care coordinators/case management. All labs and imaging personally reviewed by me. Remainder the time spent in detailed review of previous records, lab data, imaging, and other medical provider documentation.
Anticipated Discharge: > 48 hours
Subjective/Interval History
-
Date of Service: December 08, 2023
Patient still having abdominal discomfort, no bowel movement, no gases.
Objective Data
-
Labs:
Laboratory Results
12/08/23
07:44
WBC Pending
Hgb Pending
Hct Pending
Plt Count Pending
Vital Signs:
Vital Signs
Temp Pulse Resp BP Pulse Ox
97.7 F 88 14 120/76 98
12/07/23 22:54 12/07/23 22:54 12/07/23 22:54 12/07/23 22:54 12/08/23 00:05
I&O
12/07/23 12/08/23 12/09/23
06:59 06:59 06:59
Intake Total 1740 / 1740 1947 / 1947
Output Total 35 / 35 1959 / 1959
Balance 1705 / 1705 -
Review of Systems
-
All other systems: Reviewed and negative
[2023-12-08 07:58] LABS: % Basophils 0.3 % (0-2); % Eosinophils 2.3 % (0-6); % Immature Granulocytes 0.4 % (0-0.5); % Monocytes 9.4 % (1.7-9.3); % Neutrophils 68.6 % (42.2-75.2); Absolute Eosinophils 0.2 10^3/uL (0-0.7); Absolute Lymphocytes 1.5 10^3/uL (1.2-3.4); Absolute Monocytes 0.7 10^3/uL (0.1-0.6); Absolute Neutrophils 5.3 10^3/uL (1.4-6.5); Hematocrit 37.2 % (39.0-52.0); Hemoglobin 12.6 g/dL (13.0-18.0); Mean Corp Hgb Conc. 33.9 g/dL (33.0-37.0); Mean Corpuscular Hgb 29.8 pg (27.0-31.0); Mean Corpuscular Volume 87.9 fL (80.0-94.0); Mean Platelet Volume 10.4 fL (7.4-10.4); Nucleated Red Blood Cells % 0 % (-); Platelet Count 277 10^3/uL (130-400); Red Blood Cell Count 4.23 10^6/uL (4.70-6.10); Red Cell Dist. Width 15.6 % (11.5-14.5); White Blood Cell Count 7.8 10^3/uL (4.8-10.8)
[2023-12-08 08:00] VITALS: BP 115/78
[2023-12-08] MEDS: FLAGYL 500 MG 100 IV ×3 (08:43→23:57)
[2023-12-08] MEDS: HEPARIN 5000 UNITS SC ×2 (08:44→20:54)
[2023-12-08] MEDS: NSS (PRESERVATIVE FREE) 10 ML IV (08:44)
[2023-12-08] MEDS: PROTONIX IV 40 MG IV (08:44)
[2023-12-08 09:29] LABS: Blood Urea Nitrogen 19 mg/dl (9-20); Calcium 9.3 mg/dl (8.4-10.2); Carbon Dioxide 29 mmol/L (22-30); Chloride 102 mmol/L (98-107); Estimated Creatinine Clearance 84 ml/min; Glucose 109 mg/dl (70-99); Potassium 4.4 mmol/L (3.5-5.1); Sodium 132 mmol/L (135-145); eGFR > 60.00
--- NOTE | 2023-12-08 09:41 | CM ---
Chart reviewed and patient with NGT, TPN, ABX, patient is currently ambulating 350 feet no dme, home when stable, will follow for discharge planning needs.
Plan; Home when stable.
[2023-12-08] MEDS: OMNIPAQUE 50 ML PO (10:01)
--- NOTE | 2023-12-08 10:27 | W.PN.CRS1 ---
Today's Communication / Plan
-
CTAP w/ PO and IV contrast to rule-out intraabdominal pathology
Assessment/Plan
-
68-year-old male with PMH of CAD, HTN, HLD, recent admission for diverticulitis with abscess and C. difficile, discharged on 11/08, presents again to the hospital for low-grade fever, crampy abdominal pain and worsening diarrhea. CT�persistent acute
diverticulitis associated with abscess, slight increase of abscess to 3.1 cm from 2.8 cm, location of abscess not amenable to IR drainage; due to persistent pain, repeat CT on 11/25 showing stable abscess with possibly worse inflammation in sigmoid,
repeat cdiff testing negative, but per ID likely remains colonized;
POD 12 open sigmoidectomy with anastomosis
AFVSS, abdominal exam slightly improved but no bowel function
WBC 7.8 from 7.2, NGT - 1.3L light bilious output
-Will order CTAP w/ PO and IV contrast
�N.p.o. with IVF
� Continue pain control with IV tylenol, IV narcotic for breakthrough
� Continue abx per ID, IV flagyl while NPO w/ NGT
�OOB/IS
� Continue DVT PPx
Subjective Data
Procedure
11/26/2023- 1) sigmoidectomy 2) flexible sigmoidoscopy
Subjective Data
Date of Service: December 08, 2023
No overnight events. NG tube placed last night with 1.3 L of light green output.
Pain controlled with IV Dilaudid.
Denies nausea/vomiting. Currently n.p.o.
-flatus -BMs +voiding
Pt is OOB.
Objective Data
-
Vital Signs
Temp Pulse Resp BP Pulse Ox
97.5 F 86 16 115/78 99
12/08/23 08:00 12/08/23 08:00 12/08/23 08:00 12/08/23 08:00 12/08/23 08:00
Intake & Output
12/07/23 12/08/23 12/09/23
06:59 06:59 06:59
Intake Total 1740 / 1740 1947
Output Total 35 / 35 1959 / 1959
Balance 1705 / 1705 -12
Intake:
Oral fluids 0 / 0
IV piggybacks 100 / 100
TPN/PPN 1740 / 1740 172 / 172
Amount instilled into GI Tube ( 120 / 120
Total)
[place] Sump 120 / 120
Output:
Drain Output (Total) 35
Right Roger-Rey 35
Gastrointestinal tube output ( 1350 / 1350
Total)
[place] Sump 1350 / 1350
Urine, Voided 600 / 600
Other:
Number of approximated MODERATE 2
amounts of urine
Lab Results
12/08/23 07:44
12/08/23 08:37
Physical Exam
-
General: No Acute Distress and AOx3
HEENT: Grossly Normal and Other (NGT-1.3 L light green output)
Abdomen: Soft, Distended (Mildly distended), Non Tender (Mildly tender), No Guarding and No Rebound
Skin: Warm and Dry
Wound: No Signs of Infection, No Skin Erythema and Other (Alea in place, open to air)
--- NOTE | 2023-12-08 11:22 | W.PN.ID1 ---
Addendum entered and electronically signed by Aurora العراقي MD 12/08/23 16:18:
CT report reviewed; colorectal discussed with patient
Original Note:
Date of Service
Date of Service: December 08, 2023
Today's Communication
- while with NGT switched oral vanc to IV metronidazole, when NGT out will switch back; duration remains through 12/13
Assessment / Plan
Diverticulitis with secondary perforation S/p open sigmoidectomy with colorectal anastomosis
C difficile
Reported Crohn's disease
- will follow up CT scan
- currently NPO for NGT
- while with NGT switched oral vanc to IV metronidazole, when NGT out will switch back; duration remains through 12/13
- follow clinically; follow up with me next week
Chief Complaint
-: Other (diverticulitis, abscess)
Subjective / Review of Systems
afebrile
bp stable
no leukocytosis or L shift, cr stable
for ct today
increased abdominal tenderness post contrast
Vital Signs / Physical Exam
Vital Signs
Vital Signs
Temp Pulse Resp BP Pulse Ox
97.5 F 86 16 115/78 99
12/08/23 08:00 12/08/23 08:00 12/08/23 08:00 12/08/23 08:00 12/08/23 08:00
Physical Exam
Constitutional: Non-toxic (but appears uncomfortable)
Cardiovascular: Regular Rate and S1/S2; Negative Murmur or Rub
Pulmonary: Clear and Symmetric; Negative Wheezes or Rales
Gastrointestinal: Soft, Tender (markedly tender with light touch), Distended and Normal Bowel Sounds
Skin: Warm and Dry; Negative Rash or Jaundice
Objective Data
Lab Data
Lab Results
12/08/23 07:44
12/08/23 08:37
ESR 21 mm/hour (0-20) H 11/25/23 14:52
PT 13.8 Sec (11.4-14.6) 11/26/23 11:28
INR 1.05 11/26/23 11:28
APTT 29.9 Sec (23.4-35.0) 11/26/23 11:28
Estimated Creat Clear 84 ml/min 12/08/23 08:37
Lactic Acid 0.8 mmol/L (0.7-2.0) 12/06/23 05:50
Total Bilirubin 0.9 mg/dl (0.2-1.3) 12/07/23 05:18
AST 19 U/L (17-59) 12/07/23 05:18
ALT < 10 U/L (0-50) 12/07/23 05:18
Alkaline Phosphatase 53 U/L (38-126) 12/07/23 05:18
C-Reactive Protein 12.40 mg/L (0.0-10.00) H 11/25/23 14:51
Most recent labs reviewed.
Micro Results:
11/19/23 20:00 Blood Culture - Final
Blood/Venous No Growth - Final Report
11/19/23 19:25 Blood Culture - Final
Blood/Venous No Growth - Final Report
11/22/23 22:37 C. difficile GDH Antigen & Toxins - Final
Feces/Stool Negative for toxigenic C.difficile
[2023-12-08 12:00] VITALS: BP 142/81
[2023-12-08] MEDS: ANESTHETIC LOZENGE 1 LOZENGE PO ×3 (12:31→20:27)
[2023-12-08 16:00] VITALS: BP 124/85
--- NOTE | 2023-12-08 16:02 | W.PN.UPDATE ---
Update Note
Progress Note Update
Today CT scan images and report reviewed. It was read as 'mild small bowel ileus, significantly improved but incompletely resolved compared with prior study '. The oral contrast goes through the entire GI tract with all the way in the rectum. The
previous flecks of air near the anastomosis are completely resolved and there is no extravasation of po contrast. There is no bowel wall thickening or inflammation noted. I called the patient in his room and discussed the results. He has been
tentatively on the OR schedule for tomorrow late morning/early afternoon for exploratory laparotomy. I told the patient I will keep him on the schedule through the morning and I will reassess him at the bedside in the morning and come to decision.
[2023-12-08 19:33] VITALS: BP 126/83
[2023-12-08] MEDS: Parenteral Nutrition, Central 1730 IV (20:38)
[2023-12-08 23:24] VITALS: BP 127/83
[2023-12-09] VITALS (13 sets, daily range): BP systolic 121–148; BP diastolic 60–89; BMI 20.3
[2023-12-09 00:14] LABS: Glucose - Point of Care 113 mg/dl (70-99)
[2023-12-09] MEDS: DILAUDID 0.5 MG IV ×3 (00:15→20:46)
[2023-12-09] MEDS: ANESTHETIC LOZENGE 1 LOZENGE PO ×3 (04:14→23:23)
[2023-12-09 05:09] LABS: % Basophils 0.5 % (0-2); % Eosinophils 1.7 % (0-6); % Immature Granulocytes 0.3 % (0-0.5); % Lymphocytes 18.5 % (20.5-51.1); % Monocytes 8.3 % (1.7-9.3); % Neutrophils 70.7 % (42.2-75.2); Absolute Eosinophils 0.2 10^3/uL (0-0.7); Absolute Lymphocytes 1.6 10^3/uL (1.2-3.4); Absolute Monocytes 0.7 10^3/uL (0.1-0.6); Absolute Neutrophils 6.1 10^3/uL (1.4-6.5); Hematocrit 37.8 % (39.0-52.0); Hemoglobin 12.8 g/dL (13.0-18.0); Mean Corp Hgb Conc. 33.9 g/dL (33.0-37.0); Mean Corpuscular Hgb 30.3 pg (27.0-31.0); Mean Corpuscular Volume 89.4 fL (80.0-94.0); Mean Platelet Volume 10.6 fL (7.4-10.4); Nucleated Red Blood Cells % 0 % (-); Platelet Count 253 10^3/uL (130-400); Red Blood Cell Count 4.23 10^6/uL (4.70-6.10); Red Cell Dist. Width 15.3 % (11.5-14.5); White Blood Cell Count 8.6 10^3/uL (4.8-10.8)
[2023-12-09 05:34] LABS: Glucose - Point of Care 131 mg/dl (70-99)
[2023-12-09 05:41] LABS: Blood Urea Nitrogen 19 mg/dl (9-20); Calcium 9.4 mg/dl (8.4-10.2); Carbon Dioxide 28 mmol/L (22-30); Chloride 101 mmol/L (98-107); Estimated Creatinine Clearance 84 ml/min; Glucose 124 mg/dl (70-99); Potassium 4.1 mmol/L (3.5-5.1); Sodium 133 mmol/L (135-145); eGFR > 60.00
[2023-12-09] MEDS: FLAGYL 500 MG 100 IV ×3 (08:41→23:14)
[2023-12-09] MEDS: PROTONIX IV 40 MG IV (08:41)
[2023-12-09] MEDS: NSS (PRESERVATIVE FREE) 10 ML IV (08:44)
[2023-12-09] MEDS: HEPARIN SC (09:13)
--- NOTE | 2023-12-09 09:28 | PTCARENOTE ---
Patient NGT fell out around 0845 while coughing. CECY Robles made aware and stated they would take care of it in the OR.
--- NOTE | 2023-12-09 09:59 | W.PN.CRS1 ---
Today's Communication / Plan
-
OR
Assessment/Plan
-
POD 13.
PSBO with abdominal tenderness. Despite CT showing some improvement, there is still SB distension and patient really not having bowel function and is tender. Discussed option (with patient, his , and their son) of OR today for ex lap, SIMÓN,
possible PSBR, possible stoma, possible negative ex lap. Risks and benefits discussed. Other option of continued medical measures reviewed. Patient opts for surgery which will start shortly.
Subjective Data
Procedure
11/26/2023- 1) sigmoidectomy 2) flexible sigmoidoscopy
Subjective Data
Date of Service: December 09, 2023
Complains of abdominal pain.
Denies flatus or BMs.
Objective Data
-
Vital Signs
Temp Pulse Resp BP Pulse Ox
97.8 F 93 1 148/82 97
12/09/23 07:55 12/09/23 07:55 12/09/23 07:55 12/09/23 07:55 12/09/23 07:55
Intake & Output
12/08/23 12/09/23 12/10/23
06:59 06:59 06:59
Intake Total 1947
Output Total 1959
Balance -12 / - - / -
Intake:
Oral fluids 0 / 0 0 / 0
IV piggybacks 100 / 100 300 / 300
TPN/PPN 1728 / 1728 1584 / 1584
Amount instilled into GI Tube ( 120 / 120 60 / 60
Total)
[place] Sump 120 / 120 60 / 60
Output:
Drain Output (Total) 5 / 5
Right Roger-Rey 5
Gastrointestinal tube output ( 1350 / 1350 280 / 280
Total)
[place] Sump 1350 / 1350 280 / 280
Urine, Voided 600 / 600 1750 / 1750
Other:
Number of approximated MODERATE 2
amounts of urine
Lab Results
12/09/23 05:00
12/09/23 05:00
Physical Exam
-
General: No Acute Distress
Chest: Clear
Cardiovascular: Regular Rate & Rhythm
Abdomen: Distended (mild) and Tender (L>R)
Incision: Clear, Dry, Intact and No Skin Erythema
--- NOTE | 2023-12-09 11:40 | W.IMMPOSTOP ---
Surgical Immed Post Op Note
-
Primary Surgeon: Alden Bell MD
Assisting Surgeon: GENARO Vasquez
Pre-op Diagnosis: PSBO
Post-op Diagnosis: ileus
Procedure Performed: exploratory laparotomy
Anesthesia Type: general plus local
Specimen / Cultures: none
Estimated Blood Loss: 5 cc
Complications: no immediate
Operative Findings: 1) no adhesions or obstruction 2) small bowel mildly dilated and viable 3) large bowel viable
Of note, VANESSA removed during case.
NGT confirmed to be in stomach.
Leon in bladder.
Back to med surg.
[2023-12-09] MEDS: ZOFRAN 4 MG IV ×2 (12:13→14:52)
--- NOTE | 2023-12-09 13:43 | W.PN.HOSP.TC ---
Today's Communication/Plan
-
Taken to the OR today. TPN, pain control.
Assessment / Plan
Assessment / Plan
Physical exam:
General: Acutely ill. Pale
HEENT: Normocephalic, Atraumatic and Moist Mucous Membranes
Respiratory: Clear to Auscultation; Negative Wheezes, Rales or Rhonchi
Cardiac: Regular Rhythm and S1/S2
GI: Soft, Tender and distended, no bowel sounds heard, postop findings
Musculoskeletal: No Clubbing, No Cyanosis and No Edema
Neuro: Awake, Alert and Oriented
Psych: Anxious and decreased mood.
A/P:
# Persistent sigmoid diverticulitis with enlarging associated abscess:
-S/P sigmoidectomy on and status post revision back to the OR today on 12/08
-Reviewed operative report
-Discussed with RN
-Discussed with family at bedside
-We discussed about having GI on board later down the road
-We also discussed about having psychiatry to see if not today probably tomorrow
-Son who is a blood tester brought up use of Reglan as a prokinetic--> we could use if surgery clears him for but after discussing side effect of potential dyskinesias rest of family is against use.
-WBC 8.6 today and hemoglobin 12.8 preop--> will request H&H postop
-Continue n.p.o., TPN, pain control.
Prior to today:
-Repeated CT of the abdomen with oral and IV contrast on 12/07 by surgery and not much new changes but surgery considering taking him back to OR.
-WBC trended down to normal. Patient not tolerating diet. Back to NPO.
-NG tube placed by surgery on 12/06.
-Continue VANESSA drain
-Pain control
-Continue antibiotics per ID on IV metronidazole and plan to switch to oral vancomycin if able to take oral through 12/13 (s/p Ertepenem and fluconazole).
-Continue postop care.
-Off IVF.
-Increase activity as tolerated-->PT on board.
-cw TPN. monitor electrolytes
-CRS following
-Discussed with daughter at bedside yesterday.
# C. difficile infection currently on treatment:
-Currently C. difficile is not so active and with negative test of the toxin most likely colonization and symptoms related to diverticulitis.
-On IV metronidazole and plan to switch to oral vancomycin if able to take oral through 12/13 (s/p Ertepenem and fluconazole)
Anemia:
-Stable
-monitor. transfuse prn <7 or acute bleeding
History of Crohn's disease
-Not on treatment
Coronary artery disease
-Continue antiplatelet, beta-keshav, statin
-Cardiology preop evaluation appreciated
Essential hypertension
-BP stable
-On metoprolol succinate 50 mg p.o. daily
Hypercholesterolemia
-Continue statin, rosuvastatin 20 mg p.o. nightly
GERD
-Continue omeprazole
Code status
Full code
DVT prophylaxis
heparin
Total time spent on today's encounter was 52 minutes which included time spent in counseling the patient/family regarding diagnosis and treatment plan as listed above, goals of care, and symptom management. Case was discussed with nursing staff,
specialists, and care coordinators/case management. All labs and imaging personally reviewed by me. Remainder the time spent in detailed review of previous records, lab data, imaging, and other medical provider documentation.
Anticipated Discharge: > 48 hours
Subjective/Interval History
-
Date of Service: December 09, 2023
Patient seen postop. Family reports is 'crying without known reason'. Postop pain. No bowel movement or gases.
Objective Data
-
Labs:
Laboratory Results
12/09/23
05:00
WBC 8.6
Hgb 12.8 L
Hct 37.8 L
Plt Count 253
Sodium 133 L
Potassium 4.1
Chloride 101
Carbon Dioxide 28
BUN 19
Creatinine 0.7
Glucose 124 H
Calcium 9.4
Vital Signs:
Vital Signs
Temp Pulse Resp BP Pulse Ox
98.1 F 92 17 133/83 96
12/09/23 13:06 12/09/23 13:06 12/09/23 13:06 12/09/23 13:06 12/09/23 13:06
I&O
12/08/23 12/09/23 12/10/23
06:59 06:59 06:59
Intake Total 1947 222 / 222
Output Total 1959 / 1959 60 / 60
Balance -12 / -12 -91 / -91 162 / 162
--- NOTE | 2023-12-09 13:59 | PTCARENOTE ---
Received patient from PACu around 1300 via bed in stable condition. TPN still infusing through right PICC. Patient placed back on tele in SR. Aquacell dressing to mid abdomen C/D/I. Patient drowsy but arousable. Family at bedside.
[2023-12-09 14:41] LABS: Hematocrit 35.5 % (39.0-52.0); Hemoglobin 12.3 g/dL (13.0-18.0)
[2023-12-09] MEDS: LIDOCAINE 4% PATCH 1 PATCH TOPICAL (14:52)
--- NOTE | 2023-12-09 15:44 | CON.MD ---
Consultation - Medical
-
patient seen chart reviewed. at bedside. this consult ordered as there is concern patient is clinically depressed. the patient is a 68 year old man who was admitted for diverticulitis with abscess. he has been here since the november 21 with
complications. abscess was treated but he failed to get well . he has had sigmoidectomy. today he had exploratory lap to see if there is something else that needs treatment. he has been noted to be often sad and tearful which i observed during my
time with him. he does not deny that he is depressed. he is also very frustrated with his continued medical illness. sleep has been often poor. he has not been taking much po given restrictions on his eating. he does enjoy talking about his
grandkids but that also makes him sad. i could not get him to expound upon what was going through his head. i.e. fears of , upsetting grandchildren who did come to visit him etc. he is not having suicidal thoughts. energy level
understandably is poor. he worries that he is 'losing muscle mass' he is a man who did a physical job and was always in good shape.
past psych hx denied
medical hx see above hld gerd crohns cad hx neck fusion htn
substance abuse none
fh denied
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
mse alert ox3 cooperative speech and thought process nl affect appropriate depressed often tearful denies si no psychosis intelligence average insight judgment ok
dx unspecified depression
recommendations while ongoing illness plays a part here, i did find mr madden to be depressed and that medication might be worth a try. when i began to explain interjected that he did not need medications. patient did not say anything on
this issue. i explained that antidepressants as a class are quite safe and they are not addictive or abused. we agreed that i would come by tomorrow and we would talk some more.
[2023-12-09] MEDS: OFIRMEV 100 IV (15:53)
--- NOTE | 2023-12-09 16:09 | W.PN.ID1 ---
Date of Service
Date of Service: December 09, 2023
Today's Communication
- while with NGT switched oral vanc to IV metronidazole, when NGT out will switch back; duration remains through 12/13 (from completion of antibiotics)
Assessment / Plan
Diverticulitis with secondary perforation S/p open sigmoidectomy with colorectal anastomosis
C difficile
Reported Crohn's disease
- while with NGT switched oral vanc to IV metronidazole, when NGT out will switch back; duration remains through 12/13 (from completion of antibiotics)
- follow clinically; follow up with me next week
Chief Complaint
-: Other (diverticulitis, abscess)
Subjective / Review of Systems
afebrile
bp stable
without leukocytosis
returned to the OR today - no evidence of ongoing infection
Vital Signs / Physical Exam
Vital Signs
Vital Signs
Temp Pulse Resp BP Pulse Ox
97.7 F 95 17 140/81 98
12/09/23 15:30 12/09/23 15:30 12/09/23 15:30 12/09/23 15:30 12/09/23 15:30
Objective Data
Lab Data
Lab Results
12/09/23 14:22
12/09/23 05:00
ESR 21 mm/hour (0-20) H 11/25/23 14:52
PT 13.8 Sec (11.4-14.6) 11/26/23 11:28
INR 1.05 11/26/23 11:28
APTT 29.9 Sec (23.4-35.0) 11/26/23 11:28
Estimated Creat Clear 84 ml/min 12/09/23 05:00
Lactic Acid 0.8 mmol/L (0.7-2.0) 12/06/23 05:50
Total Bilirubin 0.9 mg/dl (0.2-1.3) 12/07/23 05:18
AST 19 U/L (17-59) 12/07/23 05:18
ALT < 10 U/L (0-50) 12/07/23 05:18
Alkaline Phosphatase 53 U/L (38-126) 12/07/23 05:18
C-Reactive Protein 12.40 mg/L (0.0-10.00) H 11/25/23 14:51
Most recent labs reviewed.
Micro Results:
11/19/23 20:00 Blood Culture - Final
Blood/Venous No Growth - Final Report
11/19/23 19:25 Blood Culture - Final
Blood/Venous No Growth - Final Report
11/22/23 22:37 C. difficile [facility]DH Antigen & Toxins - Final
Feces/Stool Negative for toxigenic C.difficile
[2023-12-09 18:52] LABS: Glucose - Point of Care 159 mg/dl (70-99)
--- NOTE | 2023-12-09 20:19 | PTCARENOTE ---
Pt observed sleeping upon change of shift rounds. Reporting 10/10 pain and crying asking 'why did they take the pain meds away'. Explained how narcotics affect bowel function, pt continues to cry. LISA covering house contacted. Awaiting orders
at this time. Monitoring continues.
[2023-12-09] MEDS: HEPARIN 5000 UNITS SC (20:45)
[2023-12-09] MEDS: Parenteral Nutrition, Central 1730 IV (21:41)
--- NOTE | 2023-12-09 23:33 | PTCARENOTE ---
Pt verbalizes relief after receiving IV dilaudid (refer to MAR). Apologetic for earlier behavior. Emotional support provided. NGT to LIWS maintained. Pt appears to be comfortable at present. Monitoring continues.
[2023-12-09 23:34] LABS: Glucose - Point of Care 158 mg/dl (70-99)
[2023-12-10] MEDS: OFIRMEV 100 IV ×2 (00:46→10:03)
[2023-12-10 03:15] VITALS: BP 153/84
[2023-12-10] MEDS: ANESTHETIC LOZENGE 1 LOZENGE PO ×3 (04:56→15:33)
[2023-12-10] MEDS: DILAUDID 0.5 MG IV ×3 (05:19→21:28)
[2023-12-10 06:03] VITALS: BMI 20.6
[2023-12-10 06:21] LABS: Glucose - Point of Care 133 mg/dl (70-99)
[2023-12-10 07:43] VITALS: BP 127/81
[2023-12-10 07:56] LABS: % Basophils 0.1 % (0-2); % Immature Granulocytes 0.4 % (0-0.5); % Lymphocytes 5.3 % (20.5-51.1); % Monocytes 6.9 % (1.7-9.3); % Neutrophils 87.3 % (42.2-75.2); Absolute Lymphocytes 0.5 10^3/uL (1.2-3.4); Absolute Monocytes 0.6 10^3/uL (0.1-0.6); Absolute Neutrophils 8.2 10^3/uL (1.4-6.5); Hematocrit 35.4 % (39.0-52.0); Hemoglobin 12.1 g/dL (13.0-18.0); Mean Corp Hgb Conc. 34.2 g/dL (33.0-37.0); Mean Corpuscular Hgb 29.6 pg (27.0-31.0); Mean Corpuscular Volume 86.6 fL (80.0-94.0); Mean Platelet Volume 10.9 fL (7.4-10.4); Nucleated Red Blood Cells % 0 % (-); Platelet Count 245 10^3/uL (130-400); Red Blood Cell Count 4.09 10^6/uL (4.70-6.10); White Blood Cell Count 9.3 10^3/uL (4.8-10.8)
[2023-12-10 08:12] LABS: Blood Urea Nitrogen 17 mg/dl (9-20); Calcium 9.1 mg/dl (8.4-10.2); Carbon Dioxide 27 mmol/L (22-30); Chloride 103 mmol/L (98-107); Estimated Creatinine Clearance 99 ml/min; Glucose 141 mg/dl (70-99); Potassium 4.3 mmol/L (3.5-5.1); Sodium 133 mmol/L (135-145); eGFR > 60.00
[2023-12-10 08:15] LABS: Magnesium 2.1 mg/dl (1.6-2.3)
[2023-12-10] MEDS: FLAGYL 500 MG 100 IV ×2 (08:28→15:33)
[2023-12-10] MEDS: PROTONIX IV 40 MG IV (08:29)
[2023-12-10] MEDS: LIDOCAINE 4% PATCH 1 PATCH TOPICAL (08:29)
[2023-12-10] MEDS: HEPARIN 5000 UNITS SC ×2 (08:30→21:20)
[2023-12-10] MEDS: NSS (PRESERVATIVE FREE) 10 ML IV (08:30)
--- NOTE | 2023-12-10 08:33 | W.PN.HOSP.TC ---
Addendum entered and electronically signed by Roderick Chaney MD 12/10/23 15:22:
BP and HR elevated when tried to void-->given IV Lopressor x1 with improvement of VS. Parameters adjusted.
Original Note:
Today's Communication/Plan
-
Continue postop care.
Assessment / Plan
Assessment / Plan
Physical exam:
General: Acutely ill.
HEENT: Normocephalic, Atraumatic and Moist Mucous Membranes
Respiratory: Clear to Auscultation; Negative Wheezes, Rales or Rhonchi
Cardiac: Regular Rhythm and S1/S2
GI: Soft, Tender and non distended, no bowel sounds heard, postop findings
Musculoskeletal: No Clubbing, No Cyanosis and No Edema
Neuro: Awake, Alert and Oriented
Psych: Anxious and decreased mood.
A/P:
# Persistent sigmoid diverticulitis with enlarging associated abscess and postop SBO and now postop Ileus:
-S/P sigmoidectomy on and status post revision back to the OR on 12/08
-Reviewed both operative reports
-Son who is a tube builder brought up use of Reglan as a prokinetic--> we could use if surgery clears him for but after discussing side effect of potential dyskinesias rest of family is against use.
-Continue n.p.o., TPN, NG tube, pain control.
-Continue antibiotics per ID on IV metronidazole and plan to switch to oral vancomycin if able to take oral through 12/13 (s/p Ertepenem and fluconazole).
-Continue postop care.
-Off IVF.
-Increase activity as tolerated-->PT on board.
-Updated family at bedside today on 12/09
#Depression:
-Psychiatry consulted
-Discussed with psychiatry today on 12/09
-Patient was started on Remeron
# C. difficile infection currently on treatment:
-Currently C. difficile is not so active and with negative test of the toxin most likely colonization and symptoms related to diverticulitis.
-On IV metronidazole and plan to switch to oral vancomycin if able to take oral through 12/13 (s/p Ertepenem and fluconazole)
#Hyponatremia:
-Mild
-Cont to monitor
Anemia:
-Stable
-monitor. transfuse prn <7 or acute bleeding
History of Crohn's disease
-Not on treatment
Coronary artery disease
-Continue antiplatelet, beta-keshav, statin
-Cardiology preop evaluation appreciated
Essential hypertension
-BP stable
-On metoprolol succinate 50 mg p.o. daily
Hypercholesterolemia
-Continue statin, rosuvastatin 20 mg p.o. nightly
GERD
-Continue omeprazole
Code status
Full code
DVT prophylaxis
heparin
Anticipated Discharge: > 48 hours
Subjective/Interval History
-
Date of Service: December 10, 2023
Patient has not passed any gases, no bowel movement. Postop abdominal discomfort.
Objective Data
-
Labs:
Laboratory Results
12/10/23
07:44
WBC 9.3
Hgb 12.1 L
Hct 35.4 L
Plt Count 245
Sodium 133 L
Potassium 4.3
Chloride 103
Carbon Dioxide 27
BUN 17
Creatinine 0.6 L
Glucose 141 H
Calcium 9.1
Vital Signs:
Vital Signs
Temp Pulse Resp BP Pulse Ox
98.4 F 92 16 127/81 97
12/10/23 07:43 12/10/23 07:43 12/10/23 07:43 12/10/23 07:43 12/10/23 07:43
I&O
12/09/23 12/10/23 12/11/23
06:59 06:59 06:59
Intake Total 1943
Output Total 2034
Balance -91 / -91 186 / 186
--- NOTE | 2023-12-10 08:38 | W.PN.CRS1 ---
Today's Communication / Plan
-
tpn
d/c abrams
Assessment/Plan
-
68 yo male with a h/o diverticulitis with abscess and C. difficile, discharged on 11/08 and presented again to the hospital on 11/19 d/t unresolved symptoms. CT on admit: persistent acute diverticulitis associated with abscess, slight increase of
abscess.� Abscess increasing in size on CT 11/25. Taken to the OR for management for sigmoidectomy. Slow return of bowel function prompting CT on 12/01 with partial SBO noted likely d/t adhesions, no residual abscess/fluid collection.
POD #14�sigmoidectomy, POD#1 negative ex lap
1. Labs normal. Vitals normal.
2. Continue NPO and TPN given lack of bowel function.
3. D/C abrams.
4. Continue IV Protonix 40mg.
5. OOB.
6. Pain control: Dilaudid d/c'ed yesterday due to mental status concerns with family, currently on Ofirmev IV and lidocaine patches.
7. Continue heparin sq for DVT prophylaxis.
Subjective Data
Procedure
11/26/2023- 1) sigmoidectomy 2) flexible sigmoidoscopy
Subjective Data
Date of Service: December 10, 2023
Patient states he feels 'sore'. He has no nausea or vomiting. He is a little bloated this morning.
Objective Data
-
Vital Signs
Temp Pulse Resp BP Pulse Ox
98.4 F 92 16 127/81 97
12/10/23 07:43 12/10/23 07:43 12/10/23 07:43 12/10/23 07:43 12/10/23 07:43
Intake & Output
12/09/23 12/10/23 12/11/23
06:59 06:59 06:59
Intake Total 1943
Output Total 2034
Balance -91 / -91 186 / 186
Intake:
Oral fluids 0 / 0 720 / 720
IV fluids (Total) 222 / 222
NS 50 / 50
TPN 72 / 72
norm 100 / 100
IV piggybacks 300 / 300 200 / 200
TPN/PPN 1584 / 1584 864 / 864
Amount instilled into GI Tube ( 60 / 60 90 / 90
Total)
Higginson Sump 60 / 60 90 / 90
Output:
Drain Output (Total)
Right Roger-Rey
Gastrointestinal tube output ( 280 / 280 600 / 600
Total)
Higginson Sump 280 / 280 600 / 600
Urine, Abrams 1310 / 1310
Urine, Voided 1750 / 1750
Lab Results
12/10/23 07:44
12/10/23 07:44
Physical Exam
-
General: No Acute Distress and AOx3
Abdomen: Soft, Distended (mild) and Tender (mildly tender lower quadrant )
Skin: Warm and Dry
--- NOTE | 2023-12-10 10:25 | CM ---
Reviewed the chart notes. Patient continues with NPO status and TPN given lack of bowel function. Ambulating in hallway. CM continues to be available to patient/family and is monitoring medical plan for needs at discharge.
Plan: Discharge to home when medically stable. No anticipated needs identified at this time.
--- NOTE | 2023-12-10 10:32 | W.PN.UPDATE ---
Update Note
Progress Note Update
patient seen chart reviewed. discussed with nursing. the patient remains depressed often becoming tearful as we talk. he asked me if i could prescribe medication that would help w mood. yesterday when i suggested this intervened and said he did
not need medication but it appears he is of a different mind. we discussed the use of remeron 7.5 mg q hs to start. it is an orally dissolving tab so can be taken if npo. also ativan o.25 mg q 8h prn anxiety. side effects risks vs benefits
explained to him. we also discussed his frustration with his medical situation which seems to have endless complications. patient does seem to benefit from support. will continue to follow
[2023-12-10 11:29] VITALS: BP 132/99
[2023-12-10 12:08] LABS: Glucose - Point of Care 130 mg/dl (70-99)
[2023-12-10] MEDS: LOPRESSOR 5 MG IV (14:38)
--- NOTE | 2023-12-10 14:47 | PTCARENOTE ---
Around 1425, patient's tele monitor was reading HR 150-160. Upon assessment, patient was up trying to pee. Had patient sit down. Heart rate was still in the 150's. Returned patient to bed. HR came down to 110. BP at that time was 155/93. Lopressor 5
mg IV given as ordered prn for SBP >140. HR now 84. Dr. Chaney made aware. Will continue to monitor.
[2023-12-10 15:37] VITALS: BP 141/85
--- NOTE | 2023-12-10 17:12 | W.PN.ID1 ---
Date of Service
Date of Service: December 10, 2023
Today's Communication
while with NGT switched oral vanc to IV metronidazole, when NGT out will switch back; duration remains through 12/13 (from completion of antibiotics)
Assessment / Plan
Diverticulitis with secondary perforation S/p open sigmoidectomy with colorectal anastomosis
C difficile
Reported Crohn's disease
- while with NGT switched oral vanc to IV metronidazole, when NGT out will switch back; duration remains through 12/13 (from completion of antibiotics)
- follow clinically; follow up with me next week
Chief Complaint
-: Other (diverticulitis, abscess)
Subjective / Review of Systems
afebrile
bp stable
less pain, more alert
Vital Signs / Physical Exam
Vital Signs
Vital Signs
Temp Pulse Resp BP Pulse Ox
97.9 F 80 16 141/85 98
12/10/23 15:37 12/10/23 15:37 12/10/23 15:37 12/10/23 15:37 12/10/23 15:37
Physical Exam
Constitutional: No Acute Distress
Cardiovascular: Regular Rate and S1/S2; Negative Murmur or Rub
Pulmonary: Clear and Symmetric; Negative Wheezes or Rales
Gastrointestinal: Soft, Non Tender, Non Distended and Normal Bowel Sounds
Skin: Warm and Dry; Negative Rash or Jaundice
Wound: Other (dressing clean, dry, intact)
Lines: PICC
Objective Data
Lab Data
Lab Results
12/10/23 07:44
12/10/23 07:44
ESR 21 mm/hour (0-20) H 11/25/23 14:52
PT 13.8 Sec (11.4-14.6) 11/26/23 11:28
INR 1.05 11/26/23 11:28
APTT 29.9 Sec (23.4-35.0) 11/26/23 11:28
Estimated Creat Clear 99 ml/min 12/10/23 07:44
Lactic Acid 0.8 mmol/L (0.7-2.0) 12/06/23 05:50
Total Bilirubin 0.9 mg/dl (0.2-1.3) 12/07/23 05:18
AST 19 U/L (17-59) 12/07/23 05:18
ALT < 10 U/L (0-50) 12/07/23 05:18
Alkaline Phosphatase 53 U/L (38-126) 12/07/23 05:18
C-Reactive Protein 12.40 mg/L (0.0-10.00) H 11/25/23 14:51
Most recent labs reviewed.
Micro Results:
11/19/23 20:00 Blood Culture - Final
Blood/Venous No Growth - Final Report
11/19/23 19:25 Blood Culture - Final
Blood/Venous No Growth - Final Report
11/22/23 22:37 C. difficile [facility] Antigen & Toxins - Final
Feces/Stool Negative for toxigenic C.difficile
[2023-12-10 18:35] LABS: Glucose - Point of Care 129 mg/dl (70-99)
[2023-12-10 19:54] VITALS: BP 142/83
[2023-12-10] MEDS: Parenteral Nutrition, Central 1730 IV (21:11)
[2023-12-10] MEDS: REMERON ODT 7.5 MG PO (21:17)
[2023-12-10 23:53] VITALS: BP 142/88
[2023-12-11] VITALS (7 sets, daily range): BP systolic 122–141; BP diastolic 81–95; PULSE 116; O2SAT 97
[2023-12-11 00:17] LABS: Glucose - Point of Care 135 mg/dl (70-99)
[2023-12-11] MEDS: ZOFRAN 4 MG IV (00:53)
[2023-12-11] MEDS: LOPRESSOR 5 MG IV ×5 (00:54→23:46)
[2023-12-11] MEDS: FLAGYL 500 MG 100 IV ×4 (00:55→23:46)
[2023-12-11] MEDS: PEPCID 20 MG IV (03:26)
[2023-12-11] MEDS: NSS (PRESERVATIVE FREE) 8 ML IV (03:26)
[2023-12-11 04:48] LABS: % Basophils 0.2 % (0-2); % Immature Granulocytes 0.6 % (0-0.5); % Lymphocytes 11.5 % (20.5-51.1); % Monocytes 8.3 % (1.7-9.3); % Neutrophils 79.4 % (42.2-75.2); Absolute Immature Granulocytes 0.1 10^3/uL (0-0.05); Absolute Lymphocytes 1.5 10^3/uL (1.2-3.4); Absolute Monocytes 1.1 10^3/uL (0.1-0.6); Absolute Neutrophils 10.4 10^3/uL (1.4-6.5); Hematocrit 36.7 % (39.0-52.0); Hemoglobin 12.5 g/dL (13.0-18.0); Mean Corp Hgb Conc. 34.1 g/dL (33.0-37.0); Mean Corpuscular Volume 88.2 fL (80.0-94.0); Nucleated Red Blood Cells % 0 % (-); Platelet Count 251 10^3/uL (130-400); Red Blood Cell Count 4.16 10^6/uL (4.70-6.10); Red Cell Dist. Width 15.8 % (11.5-14.5); White Blood Cell Count 13.1 10^3/uL (4.8-10.8)
[2023-12-11 06:08] LABS: Glucose - Point of Care 127 mg/dl (70-99)
[2023-12-11] MEDS: PROTONIX IV 40 MG IV ×2 (07:54→19:49)
[2023-12-11] MEDS: HEPARIN 5000 UNITS SC ×2 (07:55→19:50)
[2023-12-11] MEDS: NSS (PRESERVATIVE FREE) 10 ML IV ×2 (07:55→19:49)
[2023-12-11] MEDS: LIDOCAINE 4% PATCH 1 PATCH TOPICAL (07:55)
--- NOTE | 2023-12-11 08:03 | W.PN.HOSP.TC ---
Today's Communication/Plan
-
Check blood cultures, chest x-ray, UA. IV Lopressor.
Assessment / Plan
Assessment / Plan
Physical exam:
General: Acutely ill.
HEENT: Normocephalic, Atraumatic and Moist Mucous Membranes
Respiratory: Clear to Auscultation; Negative Wheezes, Rales or Rhonchi
Cardiac: Regular Rhythm and S1/S2
GI: Soft, Tender and non distended, hypoactive bowel sounds heard, postop findings
Musculoskeletal: No Clubbing, No Cyanosis and No Edema
Neuro: Awake, Alert and Oriented
Psych: Anxious and decreased mood.
A/P:
# Persistent sigmoid diverticulitis with enlarging associated abscess and postop SBO and now postop Ileus:
-S/P sigmoidectomy on and status post revision back to the OR on 12/08
-Reviewed both operative reports
-Son who is a textile colorist dyer brought up use of Reglan as a prokinetic--> we could use if surgery clears him for but after discussing side effect of potential dyskinesias rest of family is against use.
-Continue n.p.o., TPN, NG tube, pain control.
-Continue antibiotics per ID on IV metronidazole and plan to switch to oral vancomycin if able to take oral through 12/13 (s/p Ertepenem and fluconazole).
-Continue postop care.
-Off IVF.
-Increase activity as tolerated-->PT on board.
-Updated family at bedside today on 12/10
#Leukocytosis
-Reactive versus infectious, likely reactive
-Obtain blood cultures today, chest x-ray PA and lateral, and urinalysis.
-Monitor trend WBC and temperature curve.
#Hypertension and tachycardia--> expected postop
-Initially Lopressor as needed due to expected postop recovery, but now the blood pressure and heart rate are coming up and he has required a few doses of IV Lopressor, will change to standing doses of Lopressor with hold parameters.
-Continue cardiac monitoring
#Depression:
-Psychiatry consulted
-Discussed with psychiatry on 12/09
-Patient was started on Remeron
# C. difficile infection currently on treatment:
-Currently C. difficile is not so active and with negative test of the toxin most likely colonization and symptoms related to diverticulitis.
-On IV metronidazole and plan to switch to oral vancomycin if able to take oral through 12/13 (s/p Ertepenem and fluconazole)
#Hyponatremia:
-Mild
-Cont to monitor
Anemia:
-Stable
-monitor. transfuse prn <7 or acute bleeding
History of Crohn's disease
-Not on treatment
Coronary artery disease
-Continue antiplatelet, beta-keshav, statin
-Cardiology preop evaluation appreciated
Essential hypertension
-BP stable
-On metoprolol succinate 50 mg p.o. daily
Hypercholesterolemia
-Continue statin, rosuvastatin 20 mg p.o. nightly
GERD
-Continue omeprazole
Code status
Full code
DVT prophylaxis
heparin
Total time spent on today's encounter was 52 minutes which included time spent in counseling the patient/family regarding diagnosis and treatment plan as listed above, goals of care, and symptom management. Case was discussed with nursing staff,
specialists, and care coordinators/case management. All labs and imaging personally reviewed by me. Remainder the time spent in detailed review of previous records, lab data, imaging, and other medical provider documentation.
Anticipated Discharge: > 48 hours
Subjective/Interval History
-
Date of Service: December 11, 2023
Patient with abdominal discomfort postop. He has some leukocytosis. He is afebrile. No gas or bowel movement.
Objective Data
-
Labs:
Laboratory Results
12/11/23
04:31
WBC 13.1 H
Hgb 12.5 L
Hct 36.7 L
Plt Count 251
Vital Signs:
Vital Signs
Temp Pulse Resp BP Pulse Ox
97.8 F 102 14 141/90 96
12/11/23 07:00 12/11/23 07:00 12/11/23 07:00 12/11/23 07:00 12/11/23 07:00
I&O
12/10/23 12/11/23 12/12/23
06:59 06:59 06:59
Intake Total 2095 / 2095 2618 / 2618
Output Total 1909 / 1909 2370 / 2370
Balance 186 / 186 248 / 248
Review of Systems
-
All other systems: Reviewed and negative
[2023-12-11] MEDS: DILAUDID 0.5 MG IV (08:13)
--- NOTE | 2023-12-11 10:14 | W.PN.CRS1 ---
Addendum entered and electronically signed by Joaquín Bell MD 12/11/23 16:12:
I saw and examined the patient.
The PA's note was reviewed and I agree with the note.
Comment:
Seen in a.m. with PA.
Complaining of incisional pain. Received a dose of Dilaudid earlier in the morning. Denies bowel function.
Afebrile, intermittent tachycardia. White count up to 13.1. Reason for mild leukocytosis unclear.
Plain films from today reviewed. No obvious pneumonia. Mild pneumoperitoneum which is typical for a postoperative patient. UA pending.
Continue n.p.o. and TPN. Await bowel function. May need to consider a motility agent. Emphasized holding narcotics in order to help induce bowel function.
Continue other measures.
Original Note:
Today's Communication / Plan
-
continue TPN
await bowel function
no narcotics
Assessment/Plan
-
68 yo male with a h/o diverticulitis with abscess and C. difficile, discharged on 11/08 and presented again to the hospital on 11/19 d/t unresolved symptoms. CT on admit: persistent acute diverticulitis associated with abscess, slight increase of
abscess.� Abscess increasing in size on CT 11/25. Taken to the OR for management for sigmoidectomy. Slow return of bowel function prompting CT on 12/01 with partial SBO noted likely d/t adhesions, no residual abscess/fluid collection.
POD #15�sigmoidectomy, POD#1 negative ex lap
1. WBC 13.1 - trend. Tachycardic yesterday which has resolved.
2. Continue NPO and TPN given lack of bowel function.
3. Voiding post abrams removal.
4. Continue IV Protonix 40mg.
5. OOB.
6. Pain control: Dilaudid d/c'ed due to mental status concerns with family, currently on Ofirmev IV and lidocaine patches. No narcotics.
7. Continue heparin sq for DVT prophylaxis.
Subjective Data
Procedure
11/26/2023- 1) sigmoidectomy 2) flexible sigmoidoscopy
Subjective Data
Date of Service: December 11, 2023
Patient states he still has LLQ pain but is feeling better. He has no bowel movements or flatus yet. He denies nausea or vomiting.
Objective Data
-
Vital Signs
Temp Pulse Resp BP Pulse Ox
97.8 F 99 14 141/90 96
12/11/23 07:00 12/11/23 08:13 12/11/23 07:00 12/11/23 08:13 12/11/23 07:00
Intake & Output
12/10/23 12/11/23 12/12/23
06:59 06:59 06:59
Intake Total 2096 / 2096 2618 / 2618
Output Total 1910 / 1910 2370 / 2370
Balance 186 / 186 248 / 248
Intake:
Oral fluids 720 / 720 240 / 240
IV fluids (Total) 222 / 222
NS 50 / 50
TPN 72 / 72
norm 100 / 100
IV piggybacks 200 / 200 500 / 500
TPN/PPN 864 / 864 1728 / 1728
Amount instilled into GI Tube ( 90 / 90 150 / 150
Total)
Lorain Sump 90 / 90 150 / 150
Output:
Gastrointestinal tube output ( 600 / 600 1060 / 1060
Total)
Lorain Sump 600 / 600 1060 / 1060
Urine, Abrams 1310 / 1310 200 / 200
Urine, Voided 1110 / 1110
Lab Results
12/11/23 04:31
12/10/23 07:44
Physical Exam
-
General: No Acute Distress and AOx3
Abdomen: Soft, Non Distended and Tender (LLQ/RLQ)
Skin: Warm and Dry
Wound: Dressing in Place
Incision: Clear, Dry, Intact
[2023-12-11 12:22] LABS: Glucose - Point of Care 129 mg/dl (70-99)
--- NOTE | 2023-12-11 12:23 | W.PN.UPDATE ---
Update Note
Progress Note Update
patient seen chart reviewed. spoke with nursing. family was visiting which seemed to lift mr justice's spirits. he did take remeron last night. he slept better. son expressed concern he was a bit sedated this am however he had also received
dilaudid last evening around hs and this am. at this point all opiates have been dc'ed in the hope of getting the bowel moving. will see how he does tonight w 7.5 mg remeron at hs. if still sedated in the am can cut back to 3.75. will see him in
the am.
[2023-12-11 12:52] LABS: Urine Albumin Negative (Neg - Trace); Urine Bilirubin Negative (Negative); Urine Character Clear (Clear); Urine Color Yellow; Urine Glucose Negative (Negative); Urine Ketone Negative (Negative); Urine Leukocyte Trace (Negative); Urine Nitrite Negative (Negative); Urine Occult Blood Negative (Negative); Urine Specific Gravity 1.025 (<1.030); Urine Urobilinogen Negative (Neg - 1+)
[2023-12-11] MEDS: OFIRMEV 100 IV ×3 (13:09→23:45)
[2023-12-11 13:32] LABS: Urine Red Blood Cell 0-2 /HPF (0-2); Urine Waxy Cast 0-2 /LPF; Urine White Cell 0-2 /HPF (0-5)
--- NOTE | 2023-12-11 15:46 | CM ---
TPN, await bowel function. Therapy recommendation for HH. Rec may change with medical progression. Will follow therapy and medical progression before sending referral.
[2023-12-11 17:13] LABS: ALT (SGPT) 11 U/L (0-50); AST (SGOT) 20 U/L (17-59); Albumin 3.4 g/dl (3.5-5.0); Alkaline Phosphatase 60 U/L (38-126); Blood Urea Nitrogen 30 mg/dl (9-20); Calcium 9.8 mg/dl (8.4-10.2); Carbon Dioxide 30 mmol/L (22-30); Chloride 99 mmol/L (98-107); Estimated Creatinine Clearance 72 ml/min; Glucose 124 mg/dl (70-99); Potassium 3.9 mmol/L (3.5-5.1); Sodium 137 mmol/L (135-145); Total Bilirubin 1.3 mg/dl (0.2-1.3); eGFR > 60.00
[2023-12-11 18:12] LABS: Glucose - Point of Care 126 mg/dl (70-99)
[2023-12-11] MEDS: Parenteral Nutrition, Central 1730 IV (20:50)
[2023-12-11] MEDS: REMERON ODT 7.5 MG PO (21:09)
[2023-12-11 23:54] LABS: Glucose - Point of Care 120 mg/dl (70-99)
[2023-12-12] VITALS (7 sets, daily range): BP systolic 114–144; BP diastolic 77–85; PULSE 122; O2SAT 97
[2023-12-12] MEDS: LOPRESSOR 5 MG IV ×4 (05:35→23:39)
[2023-12-12] MEDS: OFIRMEV 100 IV ×3 (05:36→19:22)
[2023-12-12 06:42] LABS: Glucose - Point of Care 129 mg/dl (70-99)
[2023-12-12 08:08] LABS: Hemoglobin 12.5 g/dL (13.0-18.0); Mean Corp Hgb Conc. 32.9 g/dL (33.0-37.0); Mean Corpuscular Hgb 29.5 pg (27.0-31.0); Mean Corpuscular Volume 89.6 fL (80.0-94.0); Mean Platelet Volume 11.1 fL (7.4-10.4); Platelet Count 235 10^3/uL (130-400); Red Blood Cell Count 4.24 10^6/uL (4.70-6.10); White Blood Cell Count 11.1 10^3/uL (4.8-10.8)
--- NOTE | 2023-12-12 08:41 | W.PN.HOSP.TC ---
Today's Communication/Plan
-
Continue TPN, NG tube, Antibiotics
Assessment / Plan
Assessment / Plan
Physical exam:
General: Acutely ill.
HEENT: Normocephalic, Atraumatic and Moist Mucous Membranes
Respiratory: Clear to Auscultation; Negative Wheezes, Rales or Rhonchi
Cardiac: Regular Rhythm and S1/S2
GI: Soft, Tender and non distended, hypoactive bowel sounds heard, postop findings
Musculoskeletal: No Clubbing, No Cyanosis and No Edema
Neuro: Awake, Alert and Oriented
Psych: Anxious and decreased mood.
A/P:
# Persistent sigmoid diverticulitis with enlarging associated abscess and postop SBO and now postop Ileus:
-S/P sigmoidectomy on and status post revision back to the OR on 12/08
-Reviewed both operative reports
-Son who is a containers sales representative brought up use of Reglan as a prokinetic--> we could use if surgery clears him for but after discussing side effect of potential dyskinesias rest of family is against use.
-Continue n.p.o., TPN, NG tube, pain control.
-Continue antibiotics per ID on IV metronidazole and plan to switch to oral vancomycin if able to take oral through 12/13 (s/p Ertepenem and fluconazole).
-Continue postop care.
-Off IVF.
-Increase activity as tolerated-->PT on board.
-Updated family at bedside today on 12/11
#Leukocytosis
-Reactive versus infectious, likely reactive. Trending down today
-Obtain blood cultures today, chest x-ray PA and lateral, and urinalysis.
-Monitor trend WBC and temperature curve.
#Hypertension and tachycardia--> expected postop
-Initially Lopressor as needed due to expected postop recovery, but now the blood pressure and heart rate are coming up and he has required a few doses of IV Lopressor, will change to standing doses of Lopressor with hold parameters.
-Continue cardiac monitoring
#Depression:
-Psychiatry consulted
-Discussed with psychiatry on 12/09
-Patient was started on Remeron
# C. difficile infection currently on treatment:
-Currently C. difficile is not so active and with negative test of the toxin most likely colonization and symptoms related to diverticulitis.
-On IV metronidazole and plan to switch to oral vancomycin if able to take oral through 12/13 (s/p Ertepenem and fluconazole)
#Hyponatremia:
-Mild
-Cont to monitor
Anemia:
-Stable
-monitor. transfuse prn <7 or acute bleeding
History of Crohn's disease
-Not on treatment
Coronary artery disease
-Continue antiplatelet, beta-keshav, statin
-Cardiology preop evaluation appreciated
Essential hypertension
-BP stable
-On metoprolol succinate 50 mg p.o. daily
Hypercholesterolemia
-Continue statin, rosuvastatin 20 mg p.o. nightly
GERD
-Continue omeprazole
Code status
Full code
DVT prophylaxis
heparin
Total time spent on today's encounter was 52 minutes which included time spent in counseling the patient/family regarding diagnosis and treatment plan as listed above, goals of care, and symptom management. Case was discussed with nursing staff,
specialists, and care coordinators/case management. All labs and imaging personally reviewed by me. Remainder the time spent in detailed review of previous records, lab data, imaging, and other medical provider documentation.
Anticipated Discharge: > 48 hours
Subjective/Interval History
-
Date of Service: December 12, 2023
Patient feels a lot better today. Alert. He was able to pass gases last evening. No bowel movement.
Objective Data
-
Labs:
Laboratory Results
12/12/23
07:48
WBC 11.1 H
Hgb 12.5 L
Hct 38.0 L
Plt Count 235
Vital Signs:
Vital Signs
Temp Pulse Resp BP Pulse Ox
97.8 F 87 17 144/84 100
12/12/23 07:49 12/12/23 07:49 12/12/23 07:49 12/12/23 07:49 12/12/23 07:49
I&O
12/11/23 12/12/23 12/13/23
06:59 06:59 06:59
Intake Total 2618 / 2618 2128 / 2128
Output Total 2370 / 2370 2250 / 2250
Balance 248 / 248 -122 / -122
Review of Systems
-
All other systems: Reviewed and negative
[2023-12-12] MEDS: FLAGYL 500 MG 100 IV ×3 (09:05→23:39)
[2023-12-12] MEDS: HEPARIN 5000 UNITS SC ×2 (09:10→19:21)
[2023-12-12] MEDS: PROTONIX IV 40 MG IV ×2 (09:11→19:22)
[2023-12-12] MEDS: NSS (PRESERVATIVE FREE) 10 ML IV ×2 (09:12→19:21)
[2023-12-12] MEDS: LIDOCAINE 4% PATCH 1 PATCH TOPICAL (09:15)
--- NOTE | 2023-12-12 11:07 | W.PN.CRS1 ---
Today's Communication / Plan
-
Continue NGT/TPN
Assessment/Plan
-
68 yo male with a h/o diverticulitis with abscess and C. difficile, discharged on 11/08 and presented again to the hospital on 11/19 d/t unresolved symptoms. CT on admit: persistent acute diverticulitis associated with abscess, slight increase of
abscess.� Abscess increasing in size on CT 11/25. Taken to the OR for management for sigmoidectomy. Slow return of bowel function prompting CT on 12/01 with partial SBO noted likely d/t adhesions, no residual abscess/fluid collection. CT on 12/07
stable, with ileus noted.
POD #16�sigmoidectomy, POD#2 negative ex lap
AFVSS, intermittent tachycardia (Toprol converted to IV lopressorwhile NPO)
WBC mildly elevated yesterday, now trending down
NGT outputs remain elevated, although suspect ice chips/sips of water contributing.
--Medical management as per primary team
--Continue NPO and TPN and await recovery of bowel function. Appreciate nutrition recs
--Continue GI ppx as per primary team
--OOB/ambulate. PT following
--Pain control, patient and family wishing to avoid narcotics. Follow on Ofirmev. Toradol discontinued earlier this presentation d/t max length of recommended usage reached.
--Psych following, Remeron initiated
--ID following
--Continue heparin sq for DVT prophylaxis.
Subjective Data
Procedure
11/26/2023- 1) sigmoidectomy 2) flexible sigmoidoscopy
Subjective Data
Date of Service: December 12, 2023
Patient seen and examined at bedside with Dr. Bell. Son and are both present for exam. Notes he is feeling a little bit better. Has been passing some flatus. Denies significant abdominal pain. Denies n/v.
Objective Data
-
Vital Signs
Temp Pulse Resp BP Pulse Ox
97.8 F 87 17 144/84 100
12/12/23 07:49 12/12/23 07:49 12/12/23 07:49 12/12/23 07:49 12/12/23 07:49
Intake & Output
12/11/23 12/12/23 12/13/23
06:59 06:59 06:59
Intake Total 2618 / 2618 2128 / 2128
Output Total 2370 / 2370 2250 / 2250
Balance 248 / 248 -122 / -122
Intake:
Oral fluids 240 / 240
IV piggybacks 500 / 500 400 / 400
TPN/PPN 1728 / 1728 1728 / 1728
Amount instilled into GI Tube ( 150 / 150
Total)
[place]ett Sump 150 / 150
Output:
Gastrointestinal tube output ( 1060 / 1060 1600 / 1600
Total)
Kensett Sump 1060 / 1060 1600 / 1600
Urine, Leon 200 / 200
Urine, Voided 1110 / 1110 650 / 650
Lab Results
12/12/23 07:48
12/11/23 16:36
Physical Exam
-
General: No Acute Distress and AOx3
Abdomen: Soft, Distended (mild), Tender (mild LLQ/RLQ) and Other (NGT with clear, yellow outputs)
Skin: Warm and Dry
Wound: Dressing in Place
Incision: Clear, Dry, Intact
[2023-12-12 12:01] LABS: Glucose - Point of Care 117 mg/dl (70-99)
--- NOTE | 2023-12-12 12:15 | W.PN.UPDATE ---
Update Note
Progress Note Update
patient seen chart reviewed. spoke with nursing. both sons at bedside. the patient had some difficulty w sleep last night. he said he was in a lot of pain whenever he would move and tylenol was not very helpful. opiates are being held bc issues w
gut mobility. asked dr alonso to review this issue. i did suggest o him that he could take an ativan at hs for sleep as well as the remeron as anxiety can sometimes aggravate pain. i am a bit reluctant to increase the remeron right now bc of
anticholinergicity (it is the only antidep we could use as it comes in an odt preparation). the patient was tearful as he anticipated visits from his mother whom he does not wish to hurt or worry about him. he is expecting a full house today of
visitors which is a +/- situation as he can get overwhelmed. i have suggested to him that he can decide who visits and for how long.....will continue to visit with him and offer support. he is trying to be hopeful that he will make enough progress
for ng tube to be removed and to start eating.
[2023-12-12] MEDS: OFIRMEV IV (18:11)
[2023-12-12 18:23] LABS: Glucose - Point of Care 140 mg/dl (70-99)
[2023-12-12] MEDS: Parenteral Nutrition, Central 1730 IV (20:51)
[2023-12-12] MEDS: REMERON ODT 7.5 MG PO (21:11)
[2023-12-12 23:58] LABS: Glucose - Point of Care 127 mg/dl (70-99)
[2023-12-13] VITALS (7 sets, daily range): BP systolic 110–143; BP diastolic 75–94; PULSE 114; BMI 20.2
--- NOTE | 2023-12-13 00:08 | PTCARENOTE ---
pt had small soft brown movement.
[2023-12-13] MEDS: OFIRMEV 100 IV ×4 (00:28→23:13)
[2023-12-13] MEDS: ATIVAN 0.25 MG IV ×2 (00:32→21:16)
[2023-12-13 05:30] LABS: Glucose - Point of Care 116 mg/dl (70-99)
[2023-12-13] MEDS: LOPRESSOR 5 MG IV ×4 (05:32→23:14)
[2023-12-13 06:02] LABS: Hematocrit 36.9 % (39.0-52.0); Hemoglobin 12.1 g/dL (13.0-18.0); Mean Corp Hgb Conc. 32.8 g/dL (33.0-37.0); Mean Corpuscular Hgb 29.7 pg (27.0-31.0); Mean Corpuscular Volume 90.4 fL (80.0-94.0); Mean Platelet Volume 11.1 fL (7.4-10.4); Platelet Count 219 10^3/uL (130-400); Red Blood Cell Count 4.08 10^6/uL (4.70-6.10); Red Cell Dist. Width 15.9 % (11.5-14.5); White Blood Cell Count 7.9 10^3/uL (4.8-10.8)
[2023-12-13 06:14] LABS: Blood Urea Nitrogen 22 mg/dl (9-20); Calcium 8.9 mg/dl (8.4-10.2); Carbon Dioxide 29 mmol/L (22-30); Chloride 105 mmol/L (98-107); Estimated Creatinine Clearance 83 ml/min; Glucose 116 mg/dl (70-99); Magnesium 2.2 mg/dl (1.6-2.3); Phosphorus 4.3 mg/dl (2.5-4.5); Potassium 3.7 mmol/L (3.5-5.1); Sodium 136 mmol/L (135-145); eGFR > 60.00
[2023-12-13] MEDS: LIDOCAINE 4% PATCH 1 PATCH TOPICAL (08:07)
[2023-12-13] MEDS: PROTONIX IV 40 MG IV ×2 (08:09→20:44)
[2023-12-13] MEDS: NSS (PRESERVATIVE FREE) 10 ML IV ×2 (08:10→20:44)
[2023-12-13] MEDS: HEPARIN 5000 UNITS SC ×2 (08:11→20:44)
[2023-12-13] MEDS: FLAGYL 500 MG 100 IV ×3 (08:12→23:13)
--- NOTE | 2023-12-13 08:39 | W.PN.HOSP.TC ---
Today's Communication/Plan
-
Continue n.p.o., TPN, pain control.
Assessment / Plan
Assessment / Plan
Physical exam:
General: Acutely ill.
HEENT: Normocephalic, Atraumatic and Moist Mucous Membranes
Respiratory: Clear to Auscultation; Negative Wheezes, Rales or Rhonchi
Cardiac: Regular Rhythm and S1/S2
GI: Soft, Tender and non distended, hypoactive bowel sounds heard, postop findings
Musculoskeletal: No Clubbing, No Cyanosis and No Edema
Neuro: Awake, Alert and Oriented
Psych: Anxious and decreased mood.
A/P:
# Persistent sigmoid diverticulitis with enlarging associated abscess and Postop SBO and expected but prolonged Ileus:
-S/P sigmoidectomy on and status post revision back to the OR on 12/08
-Reviewed both operative reports
-Son who is a business functional analyst brought up use of Reglan as a prokinetic--> we could use if surgery clears him for but after discussing side effects of potential dyskinesias rest of family is against use.
-Continue n.p.o., TPN, pain control with non-narcotics.
-NG tube to be clamped today and reevaluate
-Continue antibiotics per ID on IV metronidazole and plan to switch to oral vancomycin if able to take oral through 12/13 (s/p Ertepenem and fluconazole).
-Continue postop care.
-Off IVF.
-Increase activity as tolerated-->PT on board.
-I discussed the need for any extra pain medications or antianxiety as psych pointed out yesterday but patient currently denies the need for and wants to keep same regimen for now. Will reeval as needed.
-Updated family at bedside today on 12/12.
-Discussed with RN at bedside
-Discussed with PT at bedside
#Leukocytosis
-Likely reactive. WBC down to normal today 7.9
-Obtained blood cultures, chest x-ray PA and lateral, and urinalysis and all tests are negative so far.
-Monitor trend WBC and temperature curve.
#Hypertension/Sinus Tachycardia
-Continue IV Lopressor with holding parameters.
-Continue cardiac monitoring
#Depression:
-Psychiatry consulted and appreciated input
-Patient on Remeron
# C. difficile infection currently on treatment:
-Currently C. difficile is not so active and with negative test of the toxin most likely colonization and symptoms related to diverticulitis.
-On IV metronidazole and plan to switch to oral vancomycin if able to take oral through 12/13 (s/p Ertepenem and fluconazole)
#Hyponatremia:
-Resolved
Anemia:
-Stable
-Hemoglobin 12.1 today
-monitor. transfuse prn <7 or acute bleeding
History of Crohn's disease
-Not on treatment
Coronary artery disease
-Resume antiplatelet, beta-keshav, and statins when able to take oral
-Cardiology preop evaluation appreciated
Essential hypertension
-BP stable
-On IV Lopressor. Resume oral beta-blockers when able to take oral.
Hypercholesterolemia
-Resume statins when able to take oral
GERD
-Continue IV PPI
Code status
Full code
DVT prophylaxis
heparin
Total time spent on today's encounter was 52 minutes which included time spent in counseling the patient/family regarding diagnosis and treatment plan as listed above, goals of care, and symptom management. Case was discussed with nursing staff,
specialists, and care coordinators/case management. All labs and imaging personally reviewed by me. Remainder the time spent in detailed review of previous records, lab data, imaging, and other medical provider documentation.
Anticipated Discharge: > 48 hours
Subjective/Interval History
-
Date of Service: December 13, 2023
Patient feels better overall today. He is passing gases and he actually had a bowel movement last evening. I discussed the need for any extra pain medications or antianxiety but he currently denies the need for and wants to keep same regimen for
now.
Objective Data
-
Labs:
Laboratory Results
12/13/23
05:35
WBC 7.9
Hgb 12.1 L
Hct 36.9 L
Plt Count 219
Sodium 136
Potassium 3.7
Chloride 105
Carbon Dioxide 29
BUN 22 H
Creatinine 0.7
Glucose 116 H
Calcium 8.9
Vital Signs:
Vital Signs
Temp Pulse Resp BP Pulse Ox
97.9 F 88 20 110/75 98
12/13/23 08:09 12/13/23 08:09 12/13/23 08:09 12/13/23 08:09 12/13/23 08:09
I&O
12/12/23 12/13/23 12/14/23
06:59 06:59 06:59
Intake Total 8 / 2128 2033 / 2033
Output Total 2250 / 2250 975 / 975
Balance -122 / -122 1059 / 1059
Review of Systems
-
All other systems: Reviewed and negative
--- NOTE | 2023-12-13 11:28 | W.PN.UPDATE ---
Update Note
Progress Note Update
Patient seems to be doing better, is in gooid mood, denies significant dysphoria, anhedonia, hopelessness or suicidal thoughts. Appetite stable, sleep is better with the Remeron. Has positive plans for his future.
Will continue F/U.
[2023-12-13 11:32] LABS: Glucose - Point of Care 123 mg/dl (70-99)
--- NOTE | 2023-12-13 11:34 | W.PN.CRS1 ---
Today's Communication / Plan
-
Clamp trial of NGT
Renewed TPN
Assessment/Plan
-
68 yo male with a h/o diverticulitis with abscess and C. difficile, discharged on 11/08 and presented again to the hospital on 11/19 d/t unresolved symptoms. CT on admit: persistent acute diverticulitis associated with abscess, slight increase of
abscess.� Abscess increasing in size on CT 11/25. Taken to the OR for management for sigmoidectomy. Slow return of bowel function prompting CT on 12/01 with partial SBO noted likely d/t adhesions, no residual abscess/fluid collection. CT on 12/07
stable, with ileus noted.
POD #16�sigmoidectomy, POD#2 negative ex lap
AFVSS, intermittent tachycardia (Toprol converted to IV lopressor while NPO)
WBC normal today
Low NGT outputs, passing flatus
--Medical management as per primary team
--Clamp trial of NGT, will remove if tolerates
--Continue NPO and TPN and await recovery of bowel function. Appreciate nutrition recs
--Continue GI ppx as per primary team
--OOB/ambulate. PT following
--Pain control, patient and family wishing to avoid narcotics. Follow on Ofirmev. Toradol discontinued earlier this presentation d/t max length of recommended usage reached.
--Psych following, Remeron initiated
--ID following
--Continue heparin sq for DVT prophylaxis.
Subjective Data
Procedure
11/26/2023- 1) sigmoidectomy 2) flexible sigmoidoscopy
Subjective Data
Date of Service: December 13, 2023
Patient seen and examined at bedside with Dr. Bell. present at bedside. Patient reports he is passing flatus regularly. Denies n/v.
Objective Data
-
Vital Signs
Temp Pulse Resp BP Pulse Ox
97.6 F 104 20 119/80 98
12/13/23 11:08 12/13/23 11:08 12/13/23 11:08 12/13/23 11:08 12/13/23 08:09
Intake & Output
12/12/23 12/13/23 12/14/23
06:59 06:59 06:59
Intake Total 8 / 2128 2033 / 2033
Output Total 2250 / 2250 975 / 975
Balance -122 / -122 1059 / 1059
Intake:
Oral fluids 100 / 100
IV fluids (Total) 100 / 100
IV piggybacks 400 / 400 850 / 850
TPN/PPN 1728 / 1728 864 / 864
Amount instilled into GI Tube ( 120 / 120
Total)
[place] Sump 120 / 120
Output:
Gastrointestinal tube output ( 1600 / 1600 350 / 350
Total)
[place] Sump 1600 / 1600 350 / 350
Urine, Voided 650 / 650 625 / 625
Other:
Number of approximated MODERATE 2
amounts of urine
Lab Results
12/13/23 05:35
12/13/23 05:35
Physical Exam
-
General: No Acute Distress and AOx3
Abdomen: Soft, Distended (mild), Tender (incisional) and Other (NGT with clear gastric outputs)
Skin: Warm and Dry
Wound: Dressing in Place
Incision: Clear, Dry, Intact
--- NOTE | 2023-12-13 13:15 | PTCARENOTE ---
NGT clamped at 1243. pt up for walk with PT and daughter. 2 laps around nursing station. did well. weak. appeared to be nauseous at one point but belched.
[2023-12-13 17:30] LABS: Glucose - Point of Care 103 mg/dl (70-99)
--- NOTE | 2023-12-13 18:44 | PTCARENOTE ---
6hr jin for NGT clamped pt reports on burping no nausea. retrieved 60mls residuals before negative pressure. NGT removed. face washed
[2023-12-13] MEDS: REMERON ODT 7.5 MG PO (21:14)
[2023-12-13] MEDS: NSS (PRESERVATIVE FREE) 0.125 ML IV (21:16)
[2023-12-13 21:31] LABS: Glucose - Point of Care 126 mg/dl (70-99)
[2023-12-13] MEDS: Parenteral Nutrition, Central 1730 IV (21:42)
[2023-12-14] VITALS (7 sets, daily range): BP systolic 118–136; BP diastolic 75–90; PULSE 90; O2SAT 98; BMI 20.8
[2023-12-14] MEDS: LOPRESSOR 5 MG IV ×2 (05:26→11:35)
[2023-12-14 05:49] LABS: Hematocrit 37.8 % (39.0-52.0); Hemoglobin 12.5 g/dL (13.0-18.0); Mean Corp Hgb Conc. 33.1 g/dL (33.0-37.0); Mean Corpuscular Hgb 29.8 pg (27.0-31.0); Mean Platelet Volume 11.5 fL (7.4-10.4); Platelet Count 221 10^3/uL (130-400); Red Cell Dist. Width 15.7 % (11.5-14.5); White Blood Cell Count 8.5 10^3/uL (4.8-10.8)
[2023-12-14 06:11] LABS: ALT (SGPT) 14 U/L (0-50); AST (SGOT) 20 U/L (17-59); Albumin 3.1 g/dl (3.5-5.0); Alkaline Phosphatase 70 U/L (38-126); Blood Urea Nitrogen 20 mg/dl (9-20); Carbon Dioxide 26 mmol/L (22-30); Chloride 103 mmol/L (98-107); Estimated Creatinine Clearance 97 ml/min; Glucose 87 mg/dl (70-99); Phosphorus 4.3 mg/dl (2.5-4.5); Potassium 3.8 mmol/L (3.5-5.1); Sodium 136 mmol/L (135-145); Total Bilirubin 1.7 mg/dl (0.2-1.3); Total Protein 5.6 g/dl (6.3-8.2); Triglycerides 150 mg/dl (10-149); eGFR > 60.00
[2023-12-14] MEDS: OFIRMEV 100 IV ×4 (06:35→23:40)
[2023-12-14] MEDS: LIDOCAINE 4% PATCH 1 PATCH TOPICAL (08:44)
[2023-12-14] MEDS: NSS (PRESERVATIVE FREE) 10 ML IV ×2 (08:44→19:50)
[2023-12-14] MEDS: HEPARIN 5000 UNITS SC ×3 (08:44→23:41)
[2023-12-14] MEDS: PROTONIX IV 40 MG IV ×2 (08:44→19:50)
[2023-12-14] MEDS: FLAGYL 500 MG 100 IV ×3 (08:45→23:41)
--- NOTE | 2023-12-14 10:58 | CM ---
CM reviewed chart- ADC>48 hours
NGT removed and full liquids ordered
Therapy continues to follow and VN recommended
CM will continue to follow pt for dc planning
Discharge Disposition- home, follow for VN needs
--- NOTE | 2023-12-14 12:39 | W.PN.CRS1 ---
Today's Communication / Plan
-
TPN
Full liquids
Assessment/Plan
-
68 yo male with a h/o diverticulitis with abscess and C. difficile, discharged on 11/08 and presented again to the hospital on 11/19 d/t unresolved symptoms. CT on admit: persistent acute diverticulitis associated with abscess, slight increase of
abscess.� Abscess increasing in size on CT 11/25. Taken to the OR for management for sigmoidectomy. Slow return of bowel function prompting CT on 12/01 with partial SBO noted likely d/t adhesions, no residual abscess/fluid collection.� CT on 12/07
stable, with ileus noted.
POD #18�sigmoidectomy, POD#5 negative ex lap
AFVSS, intermittent tachycardia (Toprol converted to IV lopressor while NPO)
WBC normal today
Low NGT outputs, passing flatus
1. Vitals and labs normal.
2. NG tube was removed yesterday.
3. Pain control: On affirmative and lidocaine patch.
4. Out of bed as tolerated with physical therapy.
5. Psych following.
6. Antibiotics per ID. Currently on Flagyl.
7. Will advance diet to full liquid with Ensure. Continue TPN for 1 more day.
8. Add Tums for acid reflux.
9. Okay to shower.
10. On heparin subq for DVT prophylaxis, teds and SCDs.
Subjective Data
Procedure
11/26/2023- 1) sigmoidectomy 2) flexible sigmoidoscopy
Subjective Data
Date of Service: December 14, 2023
Patient states he feels mildly distended but is less tender. He is thirsty. He has flatus and had a bowel movement last night. He has no nausea or vomiting.
Objective Data
-
Vital Signs
Temp Pulse Resp BP Pulse Ox
97.7 F 90 16 136/90 96
12/14/23 11:04 12/14/23 11:35 12/14/23 11:04 12/14/23 11:35 12/14/23 11:04
Intake & Output
12/13/23 12/14/23 12/15/23
06:59 06:59 06:59
Intake Total 2034 / 4 1264 / 1264
Output Total 975 / 975 1410 / 1410
Balance 1059 / 1059 -146 / -146
Intake:
Oral fluids 100 / 100 0 / 0
IV fluids (Total) 100 / 100 864 / 864
IV piggybacks 850 / 850 400 / 400
TPN/PPN 864 / 864
Amount instilled into GI Tube ( 120 / 120
Total)
[place] Sump 120 / 120
Output:
Gastrointestinal tube output ( 350 / 350 60 / 60
Total)
[place] Sump 350 / 350 60 / 60
Urine, Voided 625 / 625 1350 / 1350
Other:
Number of approximated MODERATE 2
amounts of urine
Lab Results
12/14/23 05:35
12/14/23 05:35
Physical Exam
-
General: No Acute Distress and AOx3
Abdomen: Soft, Distended (mild) and Non Tender
Wound: Dressing Changed (Removed)
Incision: Clear, Dry, Intact
[2023-12-14 13:54] LABS: Glucose - Point of Care 139 mg/dl (70-99)
[2023-12-14] MEDS: TUMS 2 TABLET PO ×2 (14:00→18:39)
--- NOTE | 2023-12-14 14:41 | W.PN.ID1 ---
Date of Service
Date of Service: December 14, 2023
Today's Communication
- today is final day of metronidazole
- when consistently taking PO would like to add a course of probiotics
- follow clinically
Assessment / Plan
Diverticulitis with secondary perforation S/p open sigmoidectomy with colorectal anastomosis
C difficile
Reported Crohn's disease
- today is final day of metronidazole
- when consistently taking PO would like to add a course of probiotics
- follow clinically
Chief Complaint
-: Other (diverticulitis, abscess)
Subjective / Review of Systems
afebrile
bp stable
no leukocytosis or L shift
remains on TPN and full liquid diet for now
Vital Signs / Physical Exam
Vital Signs
Vital Signs
Temp Pulse Resp BP Pulse Ox
97.7 F 90 16 136/90 96
12/14/23 11:04 12/14/23 11:35 12/14/23 11:04 12/14/23 11:35 12/14/23 11:04
Physical Exam
Constitutional: No Acute Distress
Cardiovascular: Regular Rate and S1/S2; Negative Murmur or Rub
Pulmonary: Clear and Symmetric; Negative Wheezes or Rales
Gastrointestinal: Soft, Non Tender, Non Distended and Normal Bowel Sounds
Skin: Warm and Dry; Negative Rash or Jaundice
Objective Data
Lab Data
Lab Results
12/14/23 05:35
12/14/23 05:35
ESR 21 mm/hour (0-20) H 11/25/23 14:52
PT 13.8 Sec (11.4-14.6) 11/26/23 11:28
INR 1.05 11/26/23 11:28
APTT 29.9 Sec (23.4-35.0) 11/26/23 11:28
Estimated Creat Clear 97 ml/min 12/14/23 05:35
Lactic Acid 0.8 mmol/L (0.7-2.0) 12/06/23 05:50
Total Bilirubin 1.7 mg/dl (0.2-1.3) H 12/14/23 05:35
AST 20 U/L (17-59) 12/14/23 05:35
ALT 14 U/L (0-50) 12/14/23 05:35
Alkaline Phosphatase 70 U/L (38-126) 12/14/23 05:35
C-Reactive Protein 12.40 mg/L (0.0-10.00) H 11/25/23 14:51
Most recent labs reviewed.
Micro Results:
12/11/23 08:59 Blood Culture - Preliminary
Blood/Venous No Growth in 72 hours- Final report to follow
12/11/23 08:29 Blood Culture - Preliminary
Blood/Venous No Growth in 72 hours- Final report to follow
11/19/23 20:00 Blood Culture - Final
Blood/Venous No Growth - Final Report
11/19/23 19:25 Blood Culture - Final
Blood/Venous No Growth - Final Report
11/22/23 22:37 C. difficile GDH Antigen & Toxins - Final
Feces/Stool Negative for toxigenic C.difficile
--- NOTE | 2023-12-14 15:07 | W.PN.HOSP.TC ---
Today's Communication/Plan
-
Resume aspirin and metoprolol.
Check EKG.
Continue with the diet per surgery
Assessment / Plan
Assessment / Plan
A/P:
# Persistent sigmoid diverticulitis with enlarging associated abscess and Postop SBO and expected but prolonged Ileus:
-S/P sigmoidectomy on and status post revision back to the OR on 12/08
-NG tube is out
-Continue antibiotics per ID on IV metronidazole and plan to switch to oral vancomycin if able to take oral through 12/13 (s/p Ertepenem and fluconazole).
-Continue postop care.
-Off IVF.
-Increase activity as tolerated-->PT on board.
-advance diet and TPN per surgery
#Leukocytosis
-Likely reactive. WBC down to normal
#Hypertension/Sinus Tachycardia
- on IV Lopressor with holding parameters.Resume oral Metoprolol
-Continue cardiac monitoring
- Check EKG
#Depression:
-Psychiatry consulted and appreciated input
-Patient on Remeron
# C. difficile infection currently on treatment:
-Currently C. difficile is not so active and with negative test of the toxin most likely colonization and symptoms related to diverticulitis.
-On IV metronidazole and plan to switch to oral vancomycin if able to take oral through 12/13 (s/p Ertepenem and fluconazole)
#Hyponatremia:
-Resolved
Anemia:
-Stable
History of Crohn's disease
-Not on treatment
Coronary artery disease
-Resume antiplatelet, beta-keshav,
-Cardiology preop evaluation appreciated
Essential hypertension
-BP stable
-On IV Lopressor. Resume oral beta-blockers when able to take oral.
Hypercholesterolemia
-Resume statins when able to take oral
GERD
-Continue IV PPI
Code status
Full code
DVT prophylaxis
heparin
Anticipated Discharge: > 48 hours
Subjective/Interval History
-
Date of Service: December 14, 2023
Tolerating diet. Having BM.
No abdominal pain.
Denies any shortness of breath.
Patient is having elevated heart rate with activity. Denies any chest pain.
Objective Data
-
Labs:
Laboratory Results
12/14/23
05:35
WBC 8.5
Hgb 12.5 L
Hct 37.8 L
Plt Count 221
Sodium 136
Potassium 3.8
Chloride 103
Carbon Dioxide 26
BUN 20
Creatinine 0.6 L
Glucose 87
Calcium 9.0
Total Bilirubin 1.7 H
AST 20
ALT 14
Alkaline Phosphatase 70
Vital Signs:
Vital Signs
Temp Pulse Resp BP Pulse Ox
97.7 F 90 16 136/90 96
12/14/23 11:04 12/14/23 11:35 12/14/23 11:04 12/14/23 11:35 12/14/23 11:04
I&O
12/13/23 12/14/23 12/15/23
06:59 06:59 06:59
Intake Total 2033 1264 / 1264
Output Total 975 / 975 1410 / 1410
Balance 1059 / 1059 -146 / -146
Review of Systems
-
Constitutional: Denies Fever
EENT: Denies Sore Throat
Respiratory: Denies Cough
Neuro: Reports Dizzy (AT TIMES)
Physical Exam
-
General: No Apparent Distress
HEENT: Moist Mucous Membranes
Respiratory: Clear to Auscultation
Cardiac: Regular Rhythm, S1/S2 and Tachycardic
GI: Soft
Neuro: AO x 3
Psych: Calm; Negative Confused
Data Reviewed
-
Labs: Labs Reviewed by me
[2023-12-14] MEDS: ASPIR LOW (ENTERIC COATED) 81 MG PO (21:28)
[2023-12-14] MEDS: REMERON ODT 7.5 MG PO (21:28)
[2023-12-14] MEDS: Parenteral Nutrition, Central 1730 IV (21:33)
[2023-12-14] MEDS: NSS (PRESERVATIVE FREE) 0.125 ML IV (21:36)
[2023-12-14] MEDS: ATIVAN 0.25 MG IV (21:36)
[2023-12-14 23:47] LABS: Glucose - Point of Care 118 mg/dl (70-99)
[2023-12-15 04:45] VITALS: BP 132/81
[2023-12-15 05:04] VITALS: BMI 20.8
[2023-12-15 05:08] LABS: Glucose - Point of Care 111 mg/dl (70-99)
[2023-12-15 05:33] LABS: Hematocrit 34.2 % (39.0-52.0); Hemoglobin 11.2 g/dL (13.0-18.0); Mean Corp Hgb Conc. 32.7 g/dL (33.0-37.0); Mean Corpuscular Hgb 29.8 pg (27.0-31.0); Mean Platelet Volume 11.2 fL (7.4-10.4); Platelet Count 202 10^3/uL (130-400); Red Blood Cell Count 3.76 10^6/uL (4.70-6.10); Red Cell Dist. Width 15.9 % (11.5-14.5); White Blood Cell Count 5.3 10^3/uL (4.8-10.8)
[2023-12-15 06:05] LABS: Blood Urea Nitrogen 19 mg/dl (9-20); Calcium 8.8 mg/dl (8.4-10.2); Carbon Dioxide 28 mmol/L (22-30); Chloride 103 mmol/L (98-107); Estimated Creatinine Clearance 100 ml/min; Glucose 115 mg/dl (70-99); Potassium 3.9 mmol/L (3.5-5.1); Sodium 136 mmol/L (135-145); eGFR > 60.00
[2023-12-15 07:41] VITALS: BP 117/80
[2023-12-15] MEDS: FLAGYL 500 MG 100 IV (08:36)
[2023-12-15] MEDS: LIDOCAINE 4% PATCH TOPICAL (08:36)
[2023-12-15] MEDS: PROTONIX IV 40 MG IV ×2 (08:37→20:08)
[2023-12-15] MEDS: NSS (PRESERVATIVE FREE) 10 ML IV ×2 (08:37→20:08)
[2023-12-15] MEDS: HEPARIN 5000 UNITS SC ×3 (08:37→23:02)
[2023-12-15] MEDS: TOPROL XL 50 MG PO (08:38)
--- NOTE | 2023-12-15 10:55 | W.PN.ID1 ---
Date of Service
Date of Service: December 15, 2023
Today's Communication
- completed course of oral vanc/metronidazole
- start patient on probiotics - no urgency, secondary prophylaxis
- follow up with me in a few weeks
Assessment / Plan
Diverticulitis with secondary perforation S/p open sigmoidectomy with colorectal anastomosis
C difficile - resolved
Reported Crohn's disease
- completed course of oral vanc/metronidazole
- start patient on probiotics - no urgency, secondary prophylaxis
- follow up with me in a few weeks
Chief Complaint
-: Other (diverticulitis, abscess)
Subjective / Review of Systems
afebrile
bp stable
without leukocytosis, plt normal
cr stable
12/09 blood cultures no growth
ngt out, diet advanced, trialing some oral meds
no complaints
Vital Signs / Physical Exam
Vital Signs
Vital Signs
Temp Pulse Resp BP Pulse Ox
98 F 109 17 117/80 99
12/15/23 07:41 12/15/23 07:41 12/15/23 07:41 12/15/23 07:41 12/15/23 08:32
Physical Exam
Constitutional: No Acute Distress and Chronically Ill
Cardiovascular: Regular Rate and S1/S2; Negative Murmur or Rub
Pulmonary: Clear and Symmetric; Negative Wheezes or Rales
Gastrointestinal: Soft, Non Tender, Non Distended and Normal Bowel Sounds
Skin: Warm and Dry; Negative Rash or Jaundice
Neurological: Awake
Objective Data
Lab Data
Lab Results
12/15/23 05:12
12/15/23 05:12
ESR 21 mm/hour (0-20) H 11/25/23 14:52
PT 13.8 Sec (11.4-14.6) 11/26/23 11:28
INR 1.05 11/26/23 11:28
APTT 29.9 Sec (23.4-35.0) 11/26/23 11:28
Estimated Creat Clear 100 ml/min 12/15/23 05:12
Lactic Acid 0.8 mmol/L (0.7-2.0) 12/06/23 05:50
Total Bilirubin 1.7 mg/dl (0.2-1.3) H 12/14/23 05:35
AST 20 U/L (17-59) 12/14/23 05:35
ALT 14 U/L (0-50) 12/14/23 05:35
Alkaline Phosphatase 70 U/L (38-126) 12/14/23 05:35
C-Reactive Protein 12.40 mg/L (0.0-10.00) H 11/25/23 14:51
Most recent labs reviewed.
Micro Results:
12/11/23 08:59 Blood Culture - Preliminary
Blood/Venous No Growth in 4 days- Final report to follow
12/11/23 08:29 Blood Culture - Preliminary
Blood/Venous No Growth in 4 days- Final report to follow
11/19/23 20:00 Blood Culture - Final
Blood/Venous No Growth - Final Report
11/19/23 19:25 Blood Culture - Final
Blood/Venous No Growth - Final Report
11/22/23 22:37 C. difficile GDH Antigen & Toxins - Final
Feces/Stool Negative for toxigenic C.difficile
--- NOTE | 2023-12-15 11:01 | W.PN.CRS1 ---
Addendum entered and electronically signed by Joaquín Bell MD 12/15/23 17:11:
I saw and examined the patient.
The PA's note was reviewed and I agree with the note.
Comment:
Seen in am with PA.
On fulls but not much appetite and 'not eating a lot'. Having flatus and BMs.
Vitals and labs fine. HR does rise with ambulation.
Abdomen mildly distended but soft and mild incisional tenderness.
Encouraged po. Continue fulls and TPN for now. Will add Reglan to see if this helps.
Continue other measures.
Original Note:
Today's Communication / Plan
-
fulls/TPN
Reglan
Assessment/Plan
-
68 yo male with a h/o diverticulitis with abscess and C. difficile, discharged on 11/08 and presented again to the hospital on 11/19 d/t unresolved symptoms. CT on admit: persistent acute diverticulitis associated with abscess, slight increase of
abscess.� Abscess increasing in size on CT 11/25. Taken to the OR for management for sigmoidectomy. Slow return of bowel function prompting CT on 3 with partial SBO noted likely d/t adhesions, no residual abscess/fluid collection.� CT on 3
stable, with ileus noted.
POD #19 sigmoidectomy, POD#6 negative ex lap
1.� Vitals and labs normal.
2.� Tolerating NG tube removal.
3.� Pain control: On Ofirmev and lidocaine patch.
4.� Out of bed as tolerated with physical therapy.
5.� Psych following.
6. Antibiotics are now off.
7.� Continue full liquid with Ensure. Poor po intake. Continue TPN.
8.� Add Reglan 10mg q 6 to help with bowel function.
9.� On heparin subq for DVT prophylaxis, teds and SCDs.
Subjective Data
Procedure
11/26/2023- 1) sigmoidectomy 2) flexible sigmoidoscopy
Subjective Data
Date of Service: December 15, 2023
Patient states he is less distended. He has no pain. He has no nausea or vomiting. He has some bowel movements and flats. He is not that hungry and is not eating much.
Objective Data
-
Vital Signs
Temp Pulse Resp BP Pulse Ox
98 F 109 17 117/80 99
12/15/23 07:41 12/15/23 07:41 12/15/23 07:41 12/15/23 07:41 12/15/23 08:32
Intake & Output
12/14/23 12/15/23 12/16/23
06:59 06:59 06:59
Intake Total 1264 / 1264 2084 / 2084
Output Total 1410 / 1410 600 / 600
Balance -146 / -146 1484 / 1484
Intake:
Oral fluids 0 / 0 540 / 540
IV fluids (Total) 864 / 864 80 / 80
IV piggybacks 400 / 400 600 / 600
TPN/PPN 864 / 864
Output:
Gastrointestinal tube output ( 60 / 60
Total)
[place] Sump 60 / 60
Urine, Voided 1350 / 1350 600 / 600
Other:
Number of approximated MODERATE 3
amounts of urine
Lab Results
12/15/23 05:12
12/15/23 05:12
Physical Exam
-
General: No Acute Distress and AOx3
Abdomen: Soft, Non Distended and Tender (very mild)
Incision: Clear, Dry, Intact
[2023-12-15 11:12] VITALS: BP 111/74
--- NOTE | 2023-12-15 12:01 | W.PN.HOSP.TC ---
Today's Communication/Plan
-
Continue diet per surgery
Finished antibiotic course
Check a D-dimer and consider CT chest
Consult cardiology
Assessment / Plan
Assessment / Plan
A/P:
# Persistent sigmoid diverticulitis with enlarging associated abscess and Postop SBO and expected but prolonged Ileus:
-S/P sigmoidectomy on and status post revision back to the OR on 12/08
-NG tube is out.
-Finished abx course 12/13; ID following.
-Continue postop care.
-Off IVF.
-Increase activity as tolerated-->PT on board.
-advance diet and TPN per surgery
#Leukocytosis
-Likely reactive. WBC down to normal
#Hypertension/Sinus Tachycardia
- Resumed oral Metoprolol
-Continue cardiac monitoring
- EKG with sinus tachy
-Check D-dimers evaluated by will obtain a CT chest to rule out PE. No lower extremity clinical signs of DVT.
-Check Ortho static blood pressure reading to rule out orthostatic hypotension as patient has dizziness on standing up.
#Depression:
-Psychiatry consulted and appreciated input
-Patient on Remeron
# C. difficile infection currently on treatment:
-Currently C. difficile is not so active and with negative test of the toxin most likely colonization and symptoms related to diverticulitis.
-On IV metronidazole and plan to switch to oral vancomycin if able to take oral through 12/13 (s/p Ertepenem and fluconazole)
#Hyponatremia:
-Resolved
Anemia:
-Stable
History of Crohn's disease
-Not on treatment
Coronary artery disease
-Resume antiplatelet, beta-keshav,
-Cardiology preop evaluation appreciated
Essential hypertension
-BP stable
-On IV Lopressor. Resume oral beta-blockers when able to take oral.
Hypercholesterolemia
-Resume statins when able to take oral
GERD
-Continue IV PPI
Code status
Full code
DVT prophylaxis
heparin
Anticipated Discharge: > 48 hours
Subjective/Interval History
-
Date of Service: December 15, 2023
Tolerating liquid diet.
Not short of breath.
No palpitations but when he stands up he feels his heart is racing.
No fever or chills.
Objective Data
-
Labs:
Laboratory Results
12/15/23
05:12
WBC 5.3
Hgb 11.2 L
Hct 34.2 L
Plt Count 202
Sodium 136
Potassium 3.9
Chloride 103
Carbon Dioxide 28
BUN 19
Creatinine 0.6 L
Glucose 115 H
Calcium 8.8
Vital Signs:
Vital Signs
Temp Pulse Resp BP Pulse Ox
97.7 F 105 17 111/74 99
12/15/23 11:12 12/15/23 11:12 12/15/23 11:12 12/15/23 11:12 12/15/23 11:12
I&O
12/14/23 12/15/23 12/16/23
06:59 06:59 06:59
Intake Total 1264 / 1264 2084 / 2084
Output Total 1410 / 1410 600 / 600
Balance -146 / -146 1484 / 1484
Review of Systems
-
Constitutional: Denies Fever
EENT: Denies Sore Throat
Respiratory: Denies Cough
Physical Exam
-
General: No Apparent Distress
HEENT: Moist Mucous Membranes
Respiratory: Clear to Auscultation
Cardiac: S1/S2 and Tachycardic
GI: Soft and Normal Bowel Sounds
Musculoskeletal: No Edema
Neuro: AO x 3
Psych: Calm; Negative Confused
Data Reviewed
-
Labs: Labs Reviewed by me
[2023-12-15 12:04] LABS: Glucose - Point of Care 101 mg/dl (70-99)
[2023-12-15] MEDS: REGLAN 10 MG IV ×2 (12:26→17:43)
[2023-12-15] MEDS: VISBIOME 2 CAP PO (12:26)
[2023-12-15 13:07] LABS: D-Dimer 2.95 ug/mlFEU (0.00-0.50)
--- NOTE | 2023-12-15 13:20 | CM ---
Patient seen at bedside. Patient currently on full liquids and PT recommending home with home health. CM will continue to follow for discharge planning needs.
Plan; home with VN; pending patient choice
--- NOTE | 2023-12-15 13:51 | W.PN.CD ---
Addendum entered and electronically signed by Mikey Cohen MD 12/16/23 12:38:
Yesterday I discussed my impressions with the pt and then his via the patient's phone ( not in room at the time I was..)
Addendum entered and electronically signed by Mikey Cohen MD 12/15/23 14:38:
I saw and examined the patient.
The ECONOMIC RESEARCH ANALYST's note was reviewed and I agree with the note.
Comment: His EKG has slightly more prominent lateral q waves but I doubt a lateral infarct has occurred. The syndrome of orthostasis and sinus tach after prolonged illness is common and the treatment is increased mobility and more PT. We will
check orthostatic vitals. We are ok with the resumption of his low dose beta keshav.
Original Note:
Today's Communication / Plan
-
Continue metoprolol succinate
Check orthostatic VS
Impression / Plan
-
BACKGROUND: 68-year-old male with past medical history of CAD, hypertension, hyperlipidemia, and Crohn's disease who is here for abdominal pain and fever. He was found to have diverticulitis and associated abscess.
Tachycardia
-Denies palpitations
-Beta keshav resumed
-Elevated rates with activity, consider deconditioning
Lightheadedness
-Denies pre-syncope
-Check orthostatic VS
Persistent sigmoid diverticulitis with enlarging associated abscess and post-op SBO and expected but prolonged ileus
-S/P sigmoidectomy 11/26/23
-Negative ex lap 12/09/23
HTN
HLD, resume statin when oral intake resumed
SUBJECTIVE:
Denies chest pain, palps, & SOB.
Physical Exam
Vital Signs/Labs
Vital Signs
Temp Pulse Resp BP Pulse Ox
97.7 F 105 17 111/74 99
12/15/23 11:12 12/15/23 11:12 12/15/23 11:12 12/15/23 11:12 12/15/23 11:12
12/14/23 12/15/23 12/16/23
06:59 06:59 06:59
Actual Weight 58.513 kg 58.468 kg
12/15/23 05:12
12/15/23 05:12
PT 13.8 Sec (11.4-14.6) 11/26/23 11:28
INR 1.05 11/26/23 11:28
APTT 29.9 Sec (23.4-35.0) 11/26/23 11:28
Magnesium 2.0 mg/dl (1.6-2.3) 12/14/23 05:35
Triglycerides 150 mg/dl (10-149) H 12/14/23 05:35
Physical Exam
Constitutional: No acute distress and Comfortable
EENT: Anicteric and Moist mucous membranes
Cardiovascular: Rhythm & rate is regular, Pedal edema is absent, S1S2 is normal and Murmur/rub/gallop absent
Respiratory: Respiratory effort normal and Lungs clear to auscul.
GI: Soft, Distention absent, Flat, Non tender and Normal bowel sounds
Neuro/Psych: AO x 3
Other: Skin (warm and dry)
Data Reviewed
-
Date of Service: December 15, 2023
EKG: Report Reviewed by me
Labs: Labs Reviewed by me
Old Records: Reviewed
[2023-12-15 15:31] VITALS: BP 121/85; BP 141/86; BP 144/82; PULSE 104; PULSE 110; PULSE 117
--- NOTE | 2023-12-15 16:34 | W.PN.UPDATE ---
Update Note
Progress Note Update
Pt seen, placed on Remeron 7.5 mg 12/09 for insomnia and dysphoria related to extended hospital stay with complications. Pt states he is feeling better, definitely sleeping better. Affect full and appropriate, mood stable/good. Pt talked about his
son who is a vet. Pt reports feeling a little drowsy in the morning, but feels awake when arrives around 8 am.
Imp: unspecified depression vs adjustment d/o, improved on Remeron which is helping with sleep
Rec: continue on Remeron 7.5 mg HS
Psychiatry will sign off; please reconsult for any new/immediate concerns
[2023-12-15 18:39] LABS: Glucose - Point of Care 109 mg/dl (70-99)
[2023-12-15 19:00] VITALS: BP 133/92
[2023-12-15] MEDS: ASPIR LOW (ENTERIC COATED) 81 MG PO (21:20)
[2023-12-15] MEDS: Parenteral Nutrition, Central 1730 IV (21:21)
[2023-12-15] MEDS: REGLAN IV (22:52)
[2023-12-15 23:00] VITALS: BP 131/87
[2023-12-15] MEDS: REMERON ODT 7.5 MG PO (23:00)
[2023-12-15 23:08] LABS: Glucose - Point of Care 113 mg/dl (70-99)
[2023-12-16 02:50] VITALS: BP 119/80
[2023-12-16] MEDS: REGLAN 10 MG IV ×3 (05:30→18:36)
[2023-12-16 05:36] LABS: Glucose - Point of Care 144 mg/dl (70-99)
[2023-12-16 05:37] VITALS: BMI 20.6
[2023-12-16 05:46] LABS: Hematocrit 33.7 % (39.0-52.0); Mean Corp Hgb Conc. 32.6 g/dL (33.0-37.0); Mean Corpuscular Hgb 29.7 pg (27.0-31.0); Mean Corpuscular Volume 91.1 fL (80.0-94.0); Mean Platelet Volume 11.2 fL (7.4-10.4); Platelet Count 206 10^3/uL (130-400); Red Cell Dist. Width 15.9 % (11.5-14.5); White Blood Cell Count 5.8 10^3/uL (4.8-10.8)
[2023-12-16 07:35] VITALS: BP 103/83
--- NOTE | 2023-12-16 08:23 | W.PN.CD ---
Today's Communication / Plan
-
- Discussed with patient, Mrs. Boone, and daughter (via FaceTime) and explained:
- ST/unsteadiness reflect prolonged illness and not underlying cardiac pathology. Time and restarting metoprolol should slowly improve the symptoms.
- Also, there is no indication for outpatient monitoring since we have established that his symptoms correlate with ST.
- outpatient stress test (previously considered) can be deferred to after OV next month
- I will sign off -> please call with questions
- Follow up: Dr. Frye Jan 18 3:00PM
Impression / Plan
-
BACKGROUND: 68-year-old male with past medical history of CAD, hypertension, hyperlipidemia, and Crohn's disease who is here for abdominal pain and fever. He was found to have diverticulitis and associated abscess.
Tachycardia
-Denies palpitations
-Beta keshav resumed
-Elevated rates with activity due to prolonged hospital stay and resultant deconditioning.
Lightheadedness - same
Lateral q wave
- unlikely to be VT
- In the unlikely event it was VT, the treatment is medical since he is asymptomatic. He is already on medical therapy.
Persistent sigmoid diverticulitis with enlarging associated abscess and post-op SBO and expected but prolonged ileus
-S/P sigmoidectomy 11/26/23
-Negative ex lap 12/09/23
HTN
HLD, resume statin when oral intake resumed
Dispo
- Discussed with patient, Mrs. Boone, and daughter and explained:
- ST/unsteadiness reflect prolonged illness and not underlying cardiac pathology. Time and restarting metoprolol should slowly improve the symptoms.
- There is no indication for outpatient monitoring since we have established that his symptoms correlate with ST.
- Outpatient stress test (previously considered) can be deferred to after OV next month
- I will sign off -> please call with questions
- Follow up: Dr. Frye Jan 18 3:00PM
SUBJECTIVE:
Denies chest pain, palps, & SOB.
Physical Exam
Vital Signs/Labs
Vital Signs
Temp Pulse Resp BP Pulse Ox
36.4 C 94 16 103/83 98
12/16/23 07:35 12/16/23 07:35 12/16/23 07:35 12/16/23 07:35 12/16/23 07:35
12/15/23 12/16/23 12/17/23
06:59 06:59 06:59
Actual Weight 128 lb 14.4 oz 127 lb 9.6 oz
12/16/23 05:34
12/15/23 05:12
PT 13.8 Sec (11.4-14.6) 11/26/23 11:28
INR 1.05 11/26/23 11:28
APTT 29.9 Sec (23.4-35.0) 11/26/23 11:28
Magnesium 2.0 mg/dl (1.6-2.3) 12/14/23 05:35
Triglycerides 150 mg/dl (10-149) H 12/14/23 05:35
Physical Exam
Constitutional: No acute distress
EENT: Anicteric and Moist mucous membranes
Cardiovascular: Rhythm & rate is regular, Systolic murmur absent and Diastolic murmur absent
Respiratory: Respiratory effort normal
GI: Soft, Distention absent, Non tender and Normal bowel sounds
Neuro/Psych: Alert
Data Reviewed
-
Date of Service: December 16, 2023
EKG: Other (Tele SR/ST)
[2023-12-16] MEDS: NSS (PRESERVATIVE FREE) 10 ML IV ×2 (10:00→21:39)
[2023-12-16] MEDS: HEPARIN 5000 UNITS SC ×3 (10:00→23:33)
[2023-12-16] MEDS: VISBIOME 2 CAP PO (10:01)
[2023-12-16] MEDS: LIDOCAINE 4% PATCH TOPICAL (10:01)
[2023-12-16] MEDS: PROTONIX IV 40 MG IV ×2 (10:01→21:39)
[2023-12-16] MEDS: TOPROL XL 50 MG PO (10:02)
[2023-12-16 11:10] VITALS: BP 113/68; BP 132/86; BP 136/79; PULSE 112; PULSE 89; PULSE 98
--- NOTE | 2023-12-16 11:26 | W.PN.CRS1 ---
Today's Communication / Plan
-
Low residue diet
TPN 1 more diet
Assessment/Plan
-
68 yo male with a h/o diverticulitis with abscess and C. difficile, discharged on 11/08 and presented again to the hospital on 11/19 d/t unresolved symptoms. CT on admit: persistent acute diverticulitis associated with abscess, slight increase of
abscess.� Abscess increasing in size on CT 11/25. Taken to the OR for management for sigmoidectomy. Slow return of bowel function prompting CT on 12/01 with partial SBO noted likely d/t adhesions, no residual abscess/fluid collection.� CT on 12/07
stable, with ileus noted.
POD #20 sigmoidectomy, POD#7 negative ex lap
1.� Vitals and labs normal.
2.� On a full liquid diet and tolerating. Advance to low residue.
3.� Pain control: On Ofirmev and lidocaine patch.
4.� Out of bed as tolerated with physical therapy.
5.� Psych following.
6.� Antibiotics are now off.
7.� Will continue TPN for 1 more day. If he proves he can eat a low residue diet with substantial intake, will stop TPN.
8.� Continue Reglan 10mg q 6 to help with bowel function.
9.� On heparin subq for DVT prophylaxis, teds and SCDs.
10. Appreciate cardiology consult.
11. Patient expressed wanting to see a GI physician as an outpatient, I left a referral in the discharge instructions.
Subjective Data
Procedure
11/26/2023- 1) sigmoidectomy 2) flexible sigmoidoscopy
Subjective Data
Date of Service: December 16, 2023
Patient states he has no nausea or vomiting. He is hungry. He is having loose stools. He feels less distended today and has less pain.
Objective Data
-
Vital Signs
Temp Pulse Resp BP Pulse Ox
97.6 F 94 16 103/83 98
12/16/23 07:35 12/16/23 07:35 12/16/23 07:35 12/16/23 07:35 12/16/23 07:35
Intake & Output
12/15/23 12/16/23 12/17/23
06:59 06:59 06:59
Intake Total 2948 / 2948 2908 / 2908
Output Total 600 / 600
Balance 2348 / 2348 2908 / 2908
Intake:
Oral fluids 540 / 540 1080 / 1080
IV fluids (Total) 80 / 80
IV piggybacks 600 / 600 100 / 100
TPN/PPN 1728 / 1728 1728 / 1728
Output:
Urine, Voided 600 / 600
Other:
Number of approximated MODERATE 3 2
amounts of urine
Number of approximated LARGE 2
amounts of urine
Lab Results
12/16/23 05:34
12/15/23 05:12
Physical Exam
-
General: No Acute Distress and AOx3
Abdomen: Soft, Distended (Very mild) and Non Tender
Skin: Warm and Dry
Incision: Clear, Dry, Intact
[2023-12-16 11:44] LABS: Glucose - Point of Care 99 mg/dl (70-99)
--- NOTE | 2023-12-16 12:26 | PTOTSP ---
Observed pt ambulating independently in hallway with steady gait. PT will sign off.
[2023-12-16] MEDS: OFIRMEV 100 IV ×2 (12:39→21:44)
--- NOTE | 2023-12-16 14:50 | W.PN.HOSP.TC ---
Today's Communication/Plan
-
Follow tolerance of solid diet
DC planning
Assessment / Plan
Assessment / Plan
A/P:
# Persistent sigmoid diverticulitis with enlarging associated abscess and Postop SBO and expected but prolonged Ileus:
-S/P sigmoidectomy on and status post revision back to the OR on 12/08
-NG tube is out.
-Finished abx course 12/13; ID following.
-Continue postop care.
-Off IVF.
-Increase activity as tolerated-->PT on board.
-advance diet and TPN per surgery
#Leukocytosis
-Likely reactive. WBC down to normal
#Hypertension/Sinus Tachycardia
- Resumed oral Metoprolol
-Continue cardiac monitoring
- EKG with sinus tachy
- CT chest neg for PE. No lower extremity clinical signs of DVT.
- No Ortho static blood pressure drop noted
- suspect post op state. Follow on BB. Cards following
#Depression:
-Psychiatry consulted and appreciated input
-Patient on Remeron
# C. difficile infection currently on treatment:
-Currently C. difficile is not so active and with negative test of the toxin most likely colonization and symptoms related to diverticulitis.
-On IV metronidazole and plan to switch to oral vancomycin if able to take oral through 12/13 (s/p Ertepenem and fluconazole)
#Hyponatremia:
-Resolved
Anemia:
-Stable
History of Crohn's disease
-Not on treatment
Coronary artery disease
-Resume antiplatelet, beta-keshav,
-Cardiology preop evaluation appreciated
Essential hypertension
-BP stable
-On IV Lopressor. Resume oral beta-blockers when able to take oral.
Hypercholesterolemia
-Resume statins when able to take oral
GERD
-Continue IV PPI
Code status
Full code
DVT prophylaxis
heparin
Anticipated Discharge: 24 - 48 hours
Subjective/Interval History
-
Date of Service: December 16, 2023
Now on solid diet
Tolerating it so far okay
Objective Data
-
Labs:
Laboratory Results
12/16/23
05:34
WBC 5.8
Hgb 11.0 L
Hct 33.7 L
Plt Count 206
Vital Signs:
Vital Signs
Temp Pulse Resp BP Pulse Ox
97.9 F 89 18 113/68 100
12/16/23 11:10 12/16/23 11:10 12/16/23 11:10 12/16/23 11:10 12/16/23 11:10
I&O
12/15/23 12/16/23 12/17/23
06:59 06:59 06:59
Intake Total 2948 / 2948 2908 / 2908
Output Total 600 / 600
Balance 2348 / 2348 2908 / 2908
Review of Systems
-
Respiratory: Denies Trouble Breathing
Cardiac: Denies Chest Pain
Neuro: Denies Dizzy (today)
Physical Exam
-
General: No Apparent Distress
HEENT: Moist Mucous Membranes
Respiratory: Clear to Auscultation
Cardiac: Regular Rhythm and S1/S2
GI: Soft
Neuro: AO x 3
Data Reviewed
-
CT Scan: Report Reviewed by me (CT A/P)
Labs: Labs Reviewed by me
--- NOTE | 2023-12-16 14:56 | CM ---
met with patient at bedside.sp exp lap,carrie drain removed,advance diet to solid and tpn.patient ambulating in the halls I.therapy has esa off.
Plan is discharge home with no needs.
[2023-12-16 15:20] VITALS: BP 126/66
--- NOTE | 2023-12-16 15:26 | W.PN.ID1 ---
Date of Service
Date of Service: December 16, 2023
Today's Communication
- probiotics for at least two weeks
- follow up with me PRN, reviewed red flags
ID service will no longer actively follow this patient please recall for further questions
Assessment / Plan
Diverticulitis with secondary perforation S/p open sigmoidectomy with colorectal anastomosis
C difficile - resolved
Reported Crohn's disease
- completed course of oral vanc/metronidazole
- probiotics for at least two weeks
- follow up with me PRN, reviewed red flags
ID service will no longer actively follow this patient please recall for further questions
Chief Complaint
-: Other (diverticulitis, abscess)
Subjective / Review of Systems
afebrile
bp stable
without leukocytosis
no complaints
diet advancing
Vital Signs / Physical Exam
Vital Signs
Vital Signs
Temp Pulse Resp BP Pulse Ox
97.9 F 89 18 113/68 100
12/16/23 11:10 12/16/23 11:10 12/16/23 11:10 12/16/23 11:10 12/16/23 11:10
Physical Exam
Constitutional: No Acute Distress
Cardiovascular: Regular Rate and S1/S2; Negative Murmur or Rub
Pulmonary: Clear and Symmetric; Negative Wheezes or Rales
Gastrointestinal: Soft, Non Tender, Non Distended and Normal Bowel Sounds
Skin: Warm and Dry; Negative Rash or Jaundice
Objective Data
Lab Data
Lab Results
12/16/23 05:34
12/15/23 05:12
ESR 21 mm/hour (0-20) H 11/25/23 14:52
PT 13.8 Sec (11.4-14.6) 11/26/23 11:28
INR 1.05 11/26/23 11:28
APTT 29.9 Sec (23.4-35.0) 11/26/23 11:28
Estimated Creat Clear 100 ml/min 12/15/23 05:12
Lactic Acid 0.8 mmol/L (0.7-2.0) 12/06/23 05:50
Total Bilirubin 1.7 mg/dl (0.2-1.3) H 12/14/23 05:35
AST 20 U/L (17-59) 12/14/23 05:35
ALT 14 U/L (0-50) 12/14/23 05:35
Alkaline Phosphatase 70 U/L (38-126) 12/14/23 05:35
C-Reactive Protein 12.40 mg/L (0.0-10.00) H 11/25/23 14:51
Most recent labs reviewed.
Micro Results:
12/11/23 08:59 Blood Culture - Final
Blood/Venous No Growth - Final Report
12/11/23 08:29 Blood Culture - Final
Blood/Venous No Growth - Final Report
11/19/23 20:00 Blood Culture - Final
Blood/Venous No Growth - Final Report
11/19/23 19:25 Blood Culture - Final
Blood/Venous No Growth - Final Report
11/22/23 22:37 C. difficile GDH Antigen & Toxins - Final
Feces/Stool Negative for toxigenic C.difficile
[2023-12-16 17:51] LABS: Glucose - Point of Care 100 mg/dl (70-99)
[2023-12-16 19:30] VITALS: BP 114/75
[2023-12-16] MEDS: ASPIR LOW (ENTERIC COATED) 81 MG PO (21:37)
[2023-12-16] MEDS: REMERON ODT 7.5 MG PO (21:37)
[2023-12-16] MEDS: Parenteral Nutrition, Central 1730 IV (21:58)
[2023-12-16] MEDS: ATIVAN 0.25 MG IV (22:09)
[2023-12-16 23:34] LABS: Glucose - Point of Care 128 mg/dl (70-99)
[2023-12-16 23:37] VITALS: BP 130/85
[2023-12-16] MEDS: REGLAN IV (23:43)
[2023-12-17 03:35] VITALS: BP 112/73
[2023-12-17 05:25] VITALS: BMI 19.9
[2023-12-17] MEDS: REGLAN IV (05:26)
[2023-12-17 05:32] LABS: Hematocrit 33.9 % (39.0-52.0); Hemoglobin 11.1 g/dL (13.0-18.0); Mean Corp Hgb Conc. 32.7 g/dL (33.0-37.0); Mean Corpuscular Hgb 29.8 pg (27.0-31.0); Mean Corpuscular Volume 91.1 fL (80.0-94.0); Mean Platelet Volume 11.2 fL (7.4-10.4); Platelet Count 219 10^3/uL (130-400); Red Blood Cell Count 3.72 10^6/uL (4.70-6.10)
[2023-12-17 06:04] LABS: Glucose - Point of Care 110 mg/dl (70-99)
--- NOTE | 2023-12-17 06:06 | PTCARENOTE ---
Patient appears to be in good spirits. Tele showing 80-110s. IV Ativan provided per pt request for sleep aid and IV Ofirmev for abd cramping/discomfort. Pt able to sleep in between care. Tolerating TPN. PICC line dressing intact, lumens patent. Abd
incision EFREN, no drainage. Call norris within reach. Pt calls appropriately.
[2023-12-17 07:14] VITALS: BP 134/80
[2023-12-17] MEDS: VISBIOME 2 CAP PO (08:10)
[2023-12-17] MEDS: TOPROL XL 50 MG PO (08:10)
[2023-12-17] MEDS: HEPARIN 5000 UNITS SC (08:11)
[2023-12-17] MEDS: PROTONIX IV 40 MG IV (08:14)
[2023-12-17] MEDS: NSS (PRESERVATIVE FREE) 10 ML IV (08:14)
[2023-12-17] MEDS: LIDOCAINE 4% PATCH TOPICAL (08:21)
[2023-12-17] MEDS: REGLAN 10 MG IV (08:33)
--- NOTE | 2023-12-17 10:08 | W.PN.CRS1 ---
Addendum entered and electronically signed by Bia Montez PA-C 12/17/23 10:16:
Patient does not need reglan open discharge
Original Note:
Today's Communication / Plan
-
continue low residue
stop TPN
okay for d/c from our standpoint
Assessment/Plan
-
68 yo male with a h/o diverticulitis with abscess and C. difficile, discharged on 11/08 and presented again to the hospital on 11/19 d/t unresolved symptoms. CT on admit: persistent acute diverticulitis associated with abscess, slight increase of
abscess.� Abscess increasing in size on CT 11/25. Taken to the OR for management for sigmoidectomy. Slow return of bowel function prompting CT on 12/01 with partial SBO noted likely d/t adhesions, no residual abscess/fluid collection.� CT on 12/07
stable, with ileus noted.
POD #21 sigmoidectomy, POD#8 negative ex lap
1.� Vitals and labs normal.
2.� Tolerating a low residue diet. No further TPN.
3.� Pain control: On Ofirmev and lidocaine patch.
4.� Out of bed as tolerated with physical therapy.
5.� Psych following.
6.� Antibiotics are now off.
7.� Continue Reglan 10mg q 6 to help with bowel function.
8.� On heparin subq for DVT prophylaxis, teds and SCDs.
9. Patient is doing well from our perspective. Okay for discharge later today from our standpoint. Will need to follow up with Dr. Bell in 2 weeks for a post op appointment. Discussed with patient.
Subjective Data
Procedure
11/26/2023- 1) sigmoidectomy 2) flexible sigmoidoscopy
Subjective Data
Date of Service: December 17, 2023
Patient states he feels well today. He has flatus and bowel movements. His pain is minimal. He is tolerating a diet.
Objective Data
-
Vital Signs
Temp Pulse Resp BP Pulse Ox
97.8 F 87 17 134/80 100
12/17/23 07:14 12/17/23 08:10 12/17/23 07:14 12/17/23 08:10 12/17/23 07:14
Intake & Output
12/16/23 12/17/23 12/18/23
06:59 06:59 06:59
Intake Total 2908 / 2908 1804 / 1804
Balance 2908 / 2908 1804 / 1804
Intake:
Oral fluids 1080 / 1080 840 / 840
IV piggybacks 100 / 100 100 / 100
TPN/PPN 1728 / 1728 864 / 864
Other:
Number of approximated SMALL 3
amounts of urine
Number of approximated MODERATE 2 2
amounts of urine
Number of approximated LARGE 2
amounts of urine
Lab Results
12/17/23 05:16
12/15/23 05:12
Physical Exam
-
General: No Acute Distress and AOx3
Abdomen: Soft, Non Distended and Tender (minimal RLQ)
Skin: Warm and Dry
Incision: Clear, Dry, Intact
[2023-12-17 11:13] VITALS: BP 104/70
[2023-12-17 11:56] LABS: Glucose - Point of Care 127 mg/dl (70-99)
--- NOTE | 2023-12-17 12:01 | W.PN.HOSP.TC ---
Today's Communication/Plan
-
DC
Assessment / Plan
Assessment / Plan
A/P:
# Persistent sigmoid diverticulitis with enlarging associated abscess and Postop SBO and expected but prolonged Ileus:
-S/P sigmoidectomy on and status post revision back to the OR on 12/08
-Tolerating diet. Off of TPN.
-Finished abx course 12/13; ID following.
-Cleared by surgery for discharge.
#Leukocytosis
-Likely reactive. WBC down to normal
#Hypertension/Sinus Tachycardia
- Resumed oral Metoprolol
- Improved tachy
- EKG with sinus tachy
- CT chest neg for PE. No lower extremity clinical signs of DVT.
- No Ortho static blood pressure drop noted
- suspect post op state. cw BB. Cards input noted
#Depression:
-Psychiatry consulted and appreciated input
-Patient on Remeron - it has helped him here - advised to continue on discharge and follow with PCP for changes
# C. difficile infection currently on treatment:
-Currently C. difficile is not so active and with negative test of the toxin most likely colonization and symptoms related to diverticulitis.
-On IV metronidazole and plan to switch to oral vancomycin if able to take oral through 12/13 (s/p Ertepenem and fluconazole)
#Hyponatremia:
-Resolved
Anemia:
-Stable
History of Crohn's disease
-Not on treatment
Coronary artery disease
-Resumed antiplatelet, beta-keshav,
Essential hypertension
-BP stable
-On IV Lopressor. Resume oral beta-blockers when able to take oral.
Hypercholesterolemia
-Resume statins when able to take oral
GERD
-Continue IV PPI
Code status
Full code
DVT prophylaxis
heparin
Stable from medical standpoint as well for discharge.
Discussed with surgery team-stable for discharge as well
Discussed with and went over the medications and as well as DC plan
Discussed with case management for VN and PT as outpatient.
Total time of dc 35 min
Anticipated Discharge: Today
Subjective/Interval History
-
Date of Service: December 17, 2023
Tolerating solid diet. Off of TPN. Cleared from surgery for discharge.
No fever or chills.
No cough, shortness of breath or chest pain.
Denies any dysuria.
No dizziness.
Objective Data
-
Labs:
Laboratory Results
12/17/23
05:16
WBC 5.0
Hgb 11.1 L
Hct 33.9 L
Plt Count 219
Vital Signs:
Vital Signs
Temp Pulse Resp BP Pulse Ox
97.5 F 98 17 104/70 99
12/17/23 11:13 12/17/23 11:13 12/17/23 11:13 12/17/23 11:13 12/17/23 11:13
I&O
12/16/23 12/17/23 12/18/23
06:59 06:59 06:59
Intake Total 2908 / 2908 1804 / 1804
Balance 2908 / 2908 1804 / 1804
Review of Systems
-
EENT: Denies Sore Throat
Physical Exam
-
General: No Apparent Distress
HEENT: Moist Mucous Membranes
Respiratory: Clear to Auscultation
Cardiac: Regular Rhythm, S1/S2 and Tachycardic (much improved tachy)
GI: Soft and Nontender
Neuro: AO x 3
Psych: Calm; Negative Confused or Agitated
Data Reviewed
-
Labs: Labs Reviewed by me
--- NOTE | 2023-12-17 12:16 | W.DS.TRANS ---
DC Summary - Rating Examiner
-
Discharge Instructions:
Discharge Diagnosis/Procedures Persistent sigmoid diverticulitis with enlarging
associated abscess
-S/P sigmoidectomy on and status post
revision back to the OR on 12/08
Diet Low Residue
Additional Diets Continue low residue until you see Dr. Bell as
an outpatient
Activity No strenuous activity
Additional Activity No lifting over 10lbs
Driving Restrictions Not until seen by your Dr
Bathing Restrictions OK to Shower
Other Services VN,PT
Wound Care Okay to leave wound open to air. Your manas
will be removed at your post op appointment with
Dr. Bell. You may shower and let water run
over incision.
Instructions:
Stand-Alone Forms:
Changes to Home Medications: Yes
Discharge Medications:
DC Medications w/original date entered in [facility]
aspirin 81 mg tablet,delayed release 81 mg PO HS Blood Clot Prevention/Tx 11/03/23
coQ10 (ubiquinol) 200 mg capsule 200 mg PO HS Supplement 11/03/23
metoprolol succinate 50 mg tablet,extended release 24 hr 50 mg PO DAILY Blood Pressure 11/03/23
omega 0-ykw-uwc-fish oil 1,000 mg (120 mg-180 mg) capsule (Fish Oil) 1 cap PO DAILY Supplement ##0 11/03/23
rosuvastatin 20 mg tablet 20 mg PO HS High Cholesterol 11/03/23
oxycodone 5 mg tablet 5 mg PO Q4HPRN PRN severe pain #20 tabs 11/08/23
Lactobac no.2-Bifidobac no.1-S. thermo 112.5 billion cell capsule (Visbiome) 2 cap PO DAILY #28 caps 12/17/23
acetaminophen 325 mg tablet 650 mg PO Q4HWA #1 tab 12/17/23
mirtazapine 15 mg disintegrating tablet 7.5 mg PO HS #30 tabs 12/17/23
omeprazole 40 mg capsule,delayed release 40 mg PO DAILY Gastrointestinal Issue #0 caps 12/17/23
Home Medication Changes
New medication-mirtazapine and probiotic
Change in medication-decrease dose of omeprazole and consider discontinuing it in the next 2 weeks if no clear indication for long-term use.
Pending Results: No
--- NOTE | 2023-12-17 12:45 | VNURNOTE ---
Home Health Liaison met with patient at 1230 to discuss [facility] nurse/therapy, visits, schedule and homebound status. Patient is agreeable and understands that visits at home will be 2-3 x per week to assess and teach medical management.
[facility] brochure provided with contact information. Patient is aware that [facility] will contact him for start of care in 1-2 days after discharge from .
[facility] referral completed in [facility].
--- NOTE | 2023-12-17 12:51 | PTCARENOTE ---
TT PA regarding PICC, it is to be removed prior to d/c, notified IV team for removal.
--- NOTE | 2023-12-17 17:04 | W.DCSUMMARY ---
Discharge Summary
Discharge Data
Date of Admission: 11/19/23
Date of Discharge: 12/17/23
-
Pending Results: No
Hospital Course
Primary diagnosis:
Persistent sigmoid diverticulitis with enlarging associated abscess and Postop small bowel obstruction and prolonged Ileus
S/P sigmoidectomy with anastomosis
Clostridium difficile infection
Sinus tachycardia.
Secondary diagnosis:
Essential Hypertension
History of Crohn's disease
Coronary artery disease
Hospital course:
Patient with a history of close disease�recent admission for diverticulitis with abscess and C. difficile presented back with low-grade fever, crampy abdominal pain and worsening diarrhea. Repeat CT showed persistent acute diverticulitis with
associated abscess ending slightly increased abscess size. He was seen by colorectal surgery and ID. He failed further antibiotic regimen and went to the OR and had a sigmoidectomy with colorectal anastomosis. Postoperatively he had a prolonged
ileus. He at one point had to go back to the OR for exploratory laparotomy which did not show any acute findings. He was put on TPN and finally he started to tolerate solid diet since yesterday and today he was discharged home.
He also finished his antibiotics for his diverticulitis and also C. difficile treatments prior to discharge.
During the stay here he had issues with sinus tachycardia secondary to postop state. There was no evidence of PE. Seen by his cardiology team during the stay here
Consultants on board:
Colorectal surgery-Dr. Bell
Infectious disease-Dr. Milan
Cardiology-Dr. Amaya
Discharge Plan
-
Patient Disposition: Home with Home Care
Discharge Diagnosis/Procedures: Persistent sigmoid diverticulitis with enlarging associated abscess
-S/P sigmoidectomy on and status post revision back to the OR on 12/08
Condition: Good
Diet: Low Residue
Additional Diets: Continue low residue until you see Dr. Bell as an outpatient
Activity: No strenuous activity
Additional Activity: No lifting over 10lbs
Driving Restrictions: Not until seen by your Dr
Bathing Restrictions: OK to Shower
Other Services: VN and PT
Wound Care: Okay to leave wound open to air. Your manas will be removed at your post op appointment with Dr. Bell. You may shower and let water run over incision.
Referrals:
Joaquín Bell MD [Active] - in two weeks
Bucky Nichols DO [Family Provider] - in less than 1 week
Libra Moore MD [Active] - in two to four weeks
Prescriptions:
New
acetaminophen 325 mg Tablet
650 mg PO Q4HWA Qty: 1 0RF
mirtazapine 15 mg Tablet,Disintegrating
7.5 mg PO HS Qty: 30 0RF
Visbiome 112.5 billion cell capsule
2 cap PO DAILY Qty: 28 0RF
Rx Instructions:
for 2 weeks
Continued
metoprolol succinate 50 mg Tablet Extended Release 24 Hr
50 mg PO DAILY
aspirin 81 mg Tablet,Delayed Release (Dr/Ec)
81 mg PO HS
rosuvastatin 20 mg Tablet
20 mg PO HS
coQ10 (ubiquinol) 200 mg Capsule
200 mg PO HS
omega 7-wrz-ebx-fish oil [Fish Oil] 1,000 mg (120 mg-180 mg) Capsule
1 cap PO DAILY Qty: 0
oxycodone 5 mg Tablet
5 mg PO Q4HPRN PRN (Reason: severe pain) Qty: 20 0RF
Changed
omeprazole 40 mg Capsule,Delayed Release(Dr/Ec)
40 mg PO DAILY Qty: 0 0RF
Rx Instructions:
Follow with PCP and consider discontinuing if no terminal make up operator indication
Discontinued
acetaminophen [Tylenol Extra Strength] 500 mg Tablet
1,000 mg PO TIDPRN PRN (Reason: severe pain/fever)
dicyclomine 20 mg Tablet
20 mg PO TID PRN (Reason: stomach discomfort)
Fruit and Vegetable Daily 5-6-150 mg Capsule
6 cap PO DAILY
vancomycin 125 mg capsule
125 mg PO QID Qty: 64 0RF
Patient Comments:
patient last picker on 11/08/23
Discharge Orders:
Discharge Patient (As Directed); Ordered 12/17/23
Ordered By: Terrence Chavez
Discharge Date and Time
Discharge Date/Time: 12/17/23 14:26
--- NOTE | 2023-12-18 07:44 | CM ---
met with patient who is stable for dc home.he is requesting a vn from [facility].text sent to radha at [facility].patient signed medicare letter,family to transport home.
== END 2023-12-17 14:26 | disposition home health service (06) | DRG 329 ==
LOC: 2 SOUTH 18:07
PROVIDERS: Hospitalist; Internal Medicine; Physician Assistant; Registered Nurse; Student in an Organized Health Care Education/Training Program; Surgery; ADMITTING PHYSICIAN Hospitalist; ATTENDING PHYSICIAN Internal Medicine; CONSULT PHYSICIAN Internal Medicine Infectious Disease; CONSULT PHYSICIAN Surgery; EMERGENCY PHYSICIAN Emergency Medicine; FAMILY PHYSICIAN Family Medicine; OTHER PHYSICIAN Internal Medicine Cardiovascular Disease; OTHER PHYSICIAN Psychiatry & Neurology Psychiatry
PROC: 0DJD8ZZ Inspection of Lower Intestinal Tract, Via Natural or Artificial Opening Endoscopic (ICD-10-PCS; 2023-11-26)
PROC: 0DTN0ZZ Resection of Sigmoid Colon, Open Approach (ICD-10-PCS; 2023-11-26)
DX: K57.20 Diverticulitis of large intestine with perforation and abscess without bleeding (principal); E43 Unspecified severe protein-calorie malnutrition; A04.72 Enterocolitis due to Clostridium difficile, not specified as recurrent; E87.1 Hypo-osmolality and hyponatremia; Z68.1 Body mass index [BMI] 19.9 or less, adult; K50.90 Crohn's disease, unspecified, without complications; K91.31 Postprocedural partial intestinal obstruction; I25.10 Atherosclerotic heart disease of native coronary artery without angina pectoris; I10 Essential (primary) hypertension; E78.00 Pure hypercholesterolemia, unspecified; K21.9 Gastro-esophageal reflux disease without esophagitis; R00.0 Tachycardia, unspecified
CPT/HCPCS: 88307; 71045; 71046; 71275; 74018; 74177; 80048; 80053; 80076; 81003; 81015; 82962; 83605; 83735; 84100; 84134; 84478; 85014; 85018; 85025; 85027; 85379; 85610; 85652; 85730; 86140; 86850; 86900; 86901; 87040; 87324; 87449; 93005; 96361; 96374; 97116; 97163; 97164; 97530; 99285; J1335; Q9967

== ENCOUNTER → 2024-05-06 08:24 | Outpatient (REF) | payer OTHER, SELFPAY | LOC: DHCBC/DCA 08:24 | PROVIDERS: ATTENDING PHYSICIAN Nurse Practitioner; FAMILY PHYSICIAN Family Medicine | DX: R06.02 Shortness of breath (principal); I25.10 Atherosclerotic heart disease of native coronary artery without angina pectoris; E78.00 Pure hypercholesterolemia, unspecified | CPT/HCPCS: 78452; 93017; A9500; J2785 ==

== ENCOUNTER 2024-05-20 07:32 | Day surgery (SDC) | payer OTHER, SELFPAY ==
[2024-05-20] VITALS (16 sets, daily range): BP systolic 112–149; BP diastolic 66–81; BMI 24.5
[2024-05-20] MEDS: NSS 206 ML IV (08:18)
[2024-05-20 09:53] LABS: ACT-LR - POC 255 Seconds (116-155)
--- NOTE | 2024-05-20 10:34 | ITS.CL.ANGIO ---
Addendum entered and electronically signed by Ariel Albarado MD 05/22/24 09:48:
Correction to PROCEDURES PERFORMED:
PROCEDURE:
1. Left heart catheterization
2. Coronary angiography
3. IVUS of RCA
4. PCI with stent to RCA
Original Note:
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
Angioplasty
Procedure Report:
CARDIAC CATHETERIZATION REPORT
Date of Procedure: 05/20/2024
Referring: Dr. Frye
Indication: dyspnea concerning for anginal equivalent with positive cardiac stress test
PROCEDURE:
1. Right heart catheterization
2. Left heart catheterization
3. Coronary angiography
4. IVUS of RCA
5. PCI with stent to RCA
ACCESS:
6 [place] right radial artery
CATHETERS:
6 [place] JR 4 diagnostic
6 [place] JL 3.5 diagnostic
6 [place] JR 4 guide catheter
HEMODYNAMIC DATA (mmHg)
LV 127/12 (EDP 19)
AO 138/74 (102)
CORONARY ANGIOGRAPHY
Dominance: right
LM: no disease
LAD: large vessel that gives rise to a moderate caliber diagonal branch. The diagonal has a 80-90% in the mid-vessel that is unchanged from angiogram in 2006. There is otherwise mild disease.
LCx: moderate caliber vessel giving rise to a small OM1 and moderate caliber OM2
RCA: large vessel giving rise to a large RPDA extending to the apex and two RPL branches. There is a 80-90% focal stenosis in the mid-RCA and otherwise mild disease.
PCI to RCA with SARA
The decision was made to proceed with percutaneous coronary intervention of the RCA. The diagnostic catheter was removed over a wire and a 6 [place] JR4 guiding catheter was advanced to the aortic root and seated in the RCA. Additional heparin was
given to maintain ACT>250. A Runthrough wire was placed in the distal RPDA. The lesion was pre-dilated with a 2.5x12 mm balloon with full expansion. IVUS was performed demonstrating mild calcification and a reference vessel with <50% plaque both
proximal and distal to the lesion with reference diameter 3.7 mm. A 3.5x15 mm Dominic [place] SARA was selected and delivered at 16 bryanna (3.7 mm) for 30s with full angiographic expansion. Angiograph demonstrated full expansion in two views. IVUS
demonstrated full stent expansion and apposition with <50% plaque burden at the proximal and distal edges and no dissection. Given mild plaque burden at the stent edges and excellent expansion/sizing, post-dilation was not performed. This concluded
the procedure. The wire and guide were removed and a TR band placed. The patient was given 600 mg Plavix and taken to the cath recovery unit.
Closure Device: TR band
CONCLUSIONS:
1. Obstructive coronary artery disease in a right dominant system, with new 80-90% stenosis in the mid-RCA new from prior angiogram.
2. Left heart catheterization with mildly elevated LV filling pressure and no aortic stenosis.
3. IVUS-guided PCI to the mid-RCA with placement of a 3.5x15 mm SARA taken to 3.7 mm at 16 bryanna. Excellent result without complication.
4. If continues to experience symptoms concerning for angina, could consider PCI to D1 in future.
RECOMMENDATIONS:
1. Expectant management after cardiac catheterization via right radial approach
2. DAPT with ASA/Plavix for at least 6 months
3. increase statin to high intensity (20 mg Crestor)
4. Cardiac rehab
5. Follow up with Dr. Frye
Copy to: Dr. Khoi Frye MD
Signed: Ariel Albarado MD, PhD
--- NOTE | 2024-05-20 14:24 | W.PN.UPDATE ---
Update Note
Progress Note Update
69 yo WM s/p PCI RCA x1 (same day). He feels good, no cp, sob, buddy diet, R rad site c/d/i mild forearm discomfort, soft no HT, EKG SR no ST changes. He will continue DAPT ILIANA/Plavix. He will increase rosuvastatin to 20mg daily. Cardiac rehab c/s.
He will f/u [facility] in 2 weeks. He is for d/c home after 3pm.
CONCLUSIONS:
1. Obstructive coronary artery disease in a right dominant system, with new 80-90% stenosis in the mid-RCA new from prior angiogram.
2. Left heart catheterization with mildly elevated LV filling pressure and no aortic stenosis.
3. IVUS-guided PCI to the mid-RCA with placement of a 3.5x15 mm SARA taken to 3.7 mm at 16 bryanna. Excellent result without complication.
4. If continues to experience symptoms concerning for angina, could consider PCI to D1 in future.
== END 2024-05-20 14:56 | disposition home or self-care (01) ==
LOC: CATH 07:32
PROVIDERS: ATTENDING PHYSICIAN Student in an Organized Health Care Education/Training Program; FAMILY PHYSICIAN Family Medicine; OTHER PHYSICIAN Internal Medicine Cardiovascular Disease
DX: I25.10 Atherosclerotic heart disease of native coronary artery without angina pectoris (principal); R06.00 Dyspnea, unspecified; I10 Essential (primary) hypertension; E78.00 Pure hypercholesterolemia, unspecified
CPT/HCPCS: 92978; 85347; 93005; 93458; C1725; C1753; C1874; C1894; C9600

== ENCOUNTER 2024-05-28 07:37 | Emergency (ER) | payer OTHER, SELFPAY ==
[2024-05-28] VITALS (10 sets, daily range): BP systolic 127–151; BP diastolic 72–91; BMI 25.0
[2024-05-28 08:43] LABS: % Basophils 0.2 % (0-2); % Eosinophils 0.6 % (0-6); % Immature Granulocytes 0.2 % (0-0.5); % Lymphocytes 19.4 % (20.5-51.1); % Monocytes 8.6 % (1.7-9.3); Absolute Monocytes 0.4 10^3/uL (0.1-0.6); Absolute Neutrophils 3.5 10^3/uL (1.4-6.5); Hematocrit 37.2 % (39.0-52.0); Hemoglobin 12.4 g/dL (13.0-18.0); Mean Corp Hgb Conc. 33.3 g/dL (33.0-37.0); Mean Corpuscular Hgb 27.5 pg (27.0-31.0); Mean Corpuscular Volume 82.5 fL (80.0-94.0); Mean Platelet Volume 10.3 fL (7.4-10.4); Nucleated Red Blood Cells % 0 % (-); Platelet Count 236 10^3/uL (130-400); Red Blood Cell Count 4.51 10^6/uL (4.70-6.10); Red Cell Dist. Width 15.2 % (11.5-14.5); White Blood Cell Count 4.9 10^3/uL (4.8-10.8)
[2024-05-28 09:09] LABS: ALT (SGPT) 13 U/L (0-50); AST (SGOT) 22 U/L (17-59); Albumin 4.4 g/dl (3.5-5.0); Alkaline Phosphatase 67 U/L (38-126); Blood Urea Nitrogen 14 mg/dl (9-20); Calcium 9.5 mg/dl (8.4-10.2); Carbon Dioxide 29 mmol/L (22-30); Chloride 104 mmol/L (98-107); Glucose 116 mg/dl (70-99); Potassium 4.5 mmol/L (3.5-5.1); Sodium 143 mmol/L (135-145); Total Bilirubin 1.9 mg/dl (0.2-1.3); Total Protein 6.8 g/dl (6.3-8.2); eGFR > 60.00
[2024-05-28 09:21] LABS: Troponin I < 0.012 ng/ml
--- NOTE | 2024-05-28 09:22 | ED.GENMED ---
History of Present Illness
General
Chief Complaint: Breathing Problem
Time Seen by Provider: 05/28/24 09:10
History of Present Illness
History of Present Illness:
Disease status post SARA to the RCA done 1 week ago presents to the emergency department for evaluation of left shoulder tightness developing this morning associated with diaphoresis. Symptoms are distinctly different than his prior angina which was
typically exertional shortness of breath. He does note after hospital discharge from his recent stent he has felt deconditioned with exertional dyspnea and poor exercise tolerance. States that symptoms this morning of symptoms resolved after
numerous bouts of belching. He currently feels well with no complaints. Has been compliant with his antiplatelet therapy post stenting. Denies any fevers or chills. Denies any positional nature to the pain
Past History
Past History
ED Past Medical History: HTN, Hypercholesterolemia, Other (Crohn's) and Other (Diverticulitis)
ED Past Surgical History: Appendectomy, Orthopedic (Neck surgery with fusion) and Other (hernia)
Social History
Tobacco: Non-smoker
Drug: Marijuana
Personal:
Living: with family
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
Review of Systems
Review of Systems
Allergies reviewed?: Yes
All Other Systems: ROS reviewed and negative except as documented in HPI and ROS
Phy Exam
Physical Exam
Physical Exam:
GEN: Well appearing, NAD, WDWN
HEENT: Oral mucosa moist, no scleral icterus
Cardiac: Regular rate and rhythm, no murmurs, no obvious pericardial friction rub
Lung: No respiratory distress, no tachypnea, lungs clear to auscultation bilaterally
MSK: No gross deformity or injuries
Skin: Good color, no pallor or jaundice, no rashes
Neuro: AO x3, moves all extremities freely
Psych: Calm, cooperative
Scores
Heart Failure Risk
Heart Failure Risk Score: Not Applicable
Course
Orders/Labs/Results
Orders:
Orders
05/28/24 07:39
ECG [Electrocardiogram (*1)] Urgent
Reason for Study: Shortness of Breath
05/28/24 07:40
EKG- Treatment ONCE
05/28/24 08:25
Cardiac Monitoring- Treatment ONCE
05/28/24 08:26
Complete Blood Count/With Diff Urgent
Comprehensive Metabolic Panel Urgent
Troponin I Urgent
05/28/24 09:22
CR Chest - 2 Views Urgent
Comment:
Reason For Exam: SOB/chest tightness s/p coronary stent
05/28/24 10:10
EKG- Treatment ONCE
05/28/24 11:24
Troponin I Routine
05/28/24 11:30
EKG [Electrocardiogram (*1)] Routine
Reason for Study: Chest Pain
05/28/24 12:39
Aspirin Chewable [Low Strength Aspirin] 81 mg PO NOW STA
05/28/24 14:23
Troponin I Routine
Abnormal Lab Results
05/28/24
08:26
RBC 4.51 L 10^6/uL
(4.70-6.10)
Hgb 12.4 L g/dL
(13.0-18.0)
Hct 37.2 L %
(39.0-52.0)
RDW 15.2 H %
(11.5-14.5)
Absolute Lymphs (auto) 1.0 L 10^3/uL
(1.2-3.4)
Lymphocytes % 19.4 L %
(20.5-51.1)
Glucose 116 H mg/dl
(70-99)
Total Bilirubin 1.9 H mg/dl
(0.2-1.3)
05/28/24 08:26
05/28/24 08:26
Vital Signs
Initial and Last Documented VS:
Initial Vital Signs
Temp Pulse Resp BP Pulse Ox
98.0 F 74 16 142/91 100
05/28/24 07:41 05/28/24 07:41 05/28/24 07:41 05/28/24 07:41 05/28/24 07:41
Last Documented Vital Signs
Temp Pulse Resp BP Pulse Ox
98.0 F 55 15 128/76 98
05/28/24 07:41 05/28/24 15:00 05/28/24 15:00 05/28/24 15:00 05/28/24 09:21
MDM/Problems Addressed
MDM/Problems Addressed:
Patient was seen by cardiology, certainly his pain is atypical and not classic for his prior angina. Troponin series remained negative throughout emergency department stay, he did have a brief bout of recurrent symptoms that resolved spontaneously.
Suspect this may be esophageal discomfort due to GERD from his recent antiplatelet use, overall low risk for ACS. Doubt stent failure, picture does not fit with pericarditis, no need for urgent echo. Discharged in stable condition
Comment
Comment:
EKG independently interpreted by me shows normal sinus rhythm at a rate of [address] changes concerning for ischemia, significant patient motion artifact limits interpretation particularly inferior leads
*Critical Care Note
Total Time (30-74mins, 75-104mins- exclusive of procedures): Not Applicable
Update Note
Update Note:
Discussed via [facility] w/ Dr Frye, requests repeat troponin, will consult
ED Attending Note
-
Portions of this chart may have been created with voice recognition software.� Occasional wrong word or��sound alike� substitutions may have occurred due to the inherent limitations of voice recognition software.
Discharge Plan
Departure
Patient Disposition: Home (Routine Discharge)
Date of Disposition: 05/28/24
Time of Disposition: 15:09
Patient with high blood pressure during this ER visit?: No
Discharge Problem:
Atypical chest pain
Instructions: Chest Pain (DC)
Prescriptions:
No Action
metoprolol succinate 50 mg Tablet Extended Release 24 Hr
12.5 mg PO DAILY
aspirin 81 mg Tablet,Delayed Release (Dr/Ec)
81 mg PO HS
coQ10 (ubiquinol) 200 mg Capsule
200 mg PO HS
omega 0-wvr-svr-fish oil [Fish Oil] 1,000 mg (120 mg-180 mg) Capsule
1 cap PO DAILY Qty: 0
acetaminophen 325 mg Tablet
650 mg PO Q4HWA Qty: 1 0RF
Visbiome 112.5 billion cell capsule
2 cap PO DAILY Qty: 28 0RF
Rx Instructions:
for 2 weeks
omeprazole 40 mg Capsule,Delayed Release(Dr/Ec)
40 mg PO DAILY Qty: 0 0RF
Rx Instructions:
Follow with PCP and consider discontinuing if no longterm indication
clopidogrel 75 mg tablet
75 mg PO DAILY Qty: 90 10RF
nitroglycerin 0.4 mg tablet, sublingual
0.4 mg sublingual [id number] PRN (Reason: chest pain) Qty: 25 5RF
rosuvastatin 20 mg Tablet
20 mg PO HS Qty: 0 0RF
Referrals:
Bucky Nichols DO [Family Provider] -
Khoi Frye MD [Active] -
Interventions
Interventions:
*Risk Screen - Suicide Last Done: 05/28/24 09:21
*General Assessment Last Done: 05/28/24 09:21
*Neglect/Abuse Screening Last Done: 05/28/24 09:21
ED- Fall Risk Assessment Last Done: 05/28/24 09:21
*ED COVID-19 Vaccine History Last Done: 05/28/24 09:21
*Nursing Disposition Last Done: 05/28/24 15:18
ED- Cardiac Assessment Last Done: 05/28/24 09:21
ED- Pulmonary Assessment Last Done: 05/28/24 09:21
Discharge Date and Time
Discharge Date/Time: 05/28/24 15:19
Print Language: EAST [place]
--- NOTE | 2024-05-28 11:16 | CON.CAR ---
Addendum entered and electronically signed by Khoi Frye MD 05/28/24 12:30:
Patient did have a second troponin but it was a little bit closer to the first troponin. Would arrange another troponin at 230.
Addendum entered and electronically signed by Khoi Frye MD 05/28/24 12:29:
I saw and examined the patient.
The R AND D LAB TECHNICIAN's note was reviewed and I agree with the note.
69-year-old male with a history of coronary artery disease known from previous outpatient visits who underwent RCA stenting 05/20/2024. Patient had had a history of a lot of GI issues related to his C. difficile with significant weight loss and he
was deconditioned. He was trying to build up his endurance that he thought was improving but then he felt like he was more short of breath than he should be he did not have chest discomfort. The symptoms prompted a stress test and then he
ultimately underwent RCA stenting he has done well since then he has continued to have some GI symptoms and sounds as if he gets full after eating and sometimes does not feel well after eating however. More recently he has had increased belching.
He presented to the ER today because he has had some intermittent left shoulder pain episodes are random he sometimes thought they improved after belching he has had some increased gas/abdominal distention. No exertional component this morning he
had a couple brief episodes of chest discomfort. Initially thought the first episode was about 15 seconds sounds as if the episodes last less than 30 seconds but then can recur. Currently chest pain-free first troponin unremarkable ECG without
ischemic changes. Exact etiology of symptoms unclear pattern of symptoms and negative troponins make coronary ischemia less likely. Patient does have significant GI symptoms and increased belching which may suggest that his symptoms are GI in
nature.
-Continued observation in the ER and then check second troponin.
-If patient's symptoms remain stable and second troponin is unremarkable then would have patient ambulate. If he continues to feel well then patient would be discharged with additional outpatient follow-up as scheduled.
-If any concern regarding worsening symptoms or abnormal troponin then patient should be admitted for additional evaluation
-He had 1 episode of elevated heart rate while exercising unclear if this was just sinus tachycardia. Did not record with Apple Watch. We discussed this. He will try to record episodes on his Apple Watch in addition we will arrange an outpatient
cardiac catheterization technician
Original Note:
Consultation
Consultation Request
Date/Time Consultation Requested: 05/28/24 10:15a
Date/Time Consultation Performed: 05/28/24 11a
Requesting Provider: Albino Dejesus PA-C
Performing Provider: LISA Harding for Dr. Frye
Reason for Consultation: left shoulder pain
Medical History
-
Chief Complaint: left shoulder pain
History of Present Illness:
Mr. Boone is a 69 yo male with HTN, HLD, CAD s/p SARA to mid RCA 05/20/24, diverticulitis, Crohn's disease, SBO/sigmoidectomy 11/2023, who presents to the ER with c/o left shoulder pain that began yesterday after eating lunch. Left shoulder pain
lasted for several mins. There was associated increased belching, which resolved the pain but would then recur about 6 times. He states the pain returned this am, did not eat anything, intermittent lasting for several mins then resolving on its
own. 2 days ago he was walking outside and suddenly felt his heart racing, his Apple Watch read heart rate 130 bpm, mild lightheadedness. Rates improved with rest after 1 hour, he denied any chest pain, SOB or left shoulder pain. He is s/p mid
RCA PCI 05/20/24 and is compliant with ASA and Plavix. Currently he denies any symptoms.
Past Medical History
Past Medical History: Other (as above)
Past Surgical History: Other (as above)
Social History
Tobacco: Non-Smoker
Alcohol: None
Personal:
Living: With Family
Family History
Family History: Reviewed & Not Pertinent
Allergies / Home Medications
Allergy/AdvReac Type Severity Reaction Status Date / Time
No Known Allergies Allergy Verified 05/28/24 07:45
�Medication �Instructions �Recorded �Confirmed �Type
aspirin 81 mg tablet,delayed 81 mg PO HS Blood Clot 11/03/23 05/20/24 History
release Prevention/Tx
coQ10 (ubiquinol) 200 mg capsule 200 mg PO HS Supplement 11/03/23 05/20/24 History
metoprolol succinate 50 mg 12.5 mg PO DAILY Blood Pressure 11/03/23 05/20/24 History
tablet,extended release 24 hr
omega 5-mlc-dpx-fish oil 1,000 mg 1 cap PO DAILY Supplement ##0 11/03/23 05/20/24 History
(120 mg-180 mg) capsule (Fish Oil)
Lactobac no.2-Bifidobac no.1-S. 2 cap PO DAILY #28 caps 12/17/23 Rx
thermo 112.5 billion cell capsule
(Visbiome)
acetaminophen 325 mg tablet 650 mg (2 x 325 mg) PO Q4HWA #1 tab 12/17/23 05/20/24 Rx
omeprazole 40 mg capsule,delayed 40 mg PO DAILY Gastrointestinal 12/17/23 05/20/24 Rx
release Issue #0 caps
clopidogrel 75 mg tablet 75 mg PO DAILY #90 tabs 05/20/24 Rx
nitroglycerin 0.4 mg sublingual 0.4 mg sublingual [id number] PRN 05/20/24 Rx
tablet chest pain #25 tabs
rosuvastatin 20 mg tablet 20 mg PO HS High Cholesterol #0 05/20/24 05/20/24 Rx
tabs
Review of Systems
-
History Source: Patient
All other systems: Negative unless noted
Physical Exam
Vital Signs
Temp Pulse Resp BP Pulse Ox
98.0 F 67 13 127/76 98
05/28/24 07:41 05/28/24 10:03 05/28/24 10:03 05/28/24 10:02 05/28/24 09:21
Lab Results
05/28/24 08:26
05/28/24 08:26
Troponin I < 0.012 ng/ml 08/31/24 08:26
Physical Exam
General: Well Developed, Well Nourished and No Apparent Distress
HEENT: Normocephalic, Anicteric and Moist Mucous Membranes
Respiratory: Clear and Non Labored Respirations
Cardiac: S1/S2 and Regular Rhythm
Breast: Deferred by me
GI: Soft, Non Tender, Non Distended and Normal Bowel Sounds
Rectal: Deferred by Provider
Genito-urinary: Clear Urine
Musculoskeletal: No Clubbing, No Cyanosis and No Edema
Skin: Warm, Dry and Other (right radial site healed)
Neuro: AO x 3
Hematologic/Lymphatic: No Lymphadenopathy
Psych: Calm
Impression / Plan
-
Left shoulder pain - acute.
- resolved with belching, recurrent.
- initial troponin < 0.012, EKG w/o ischemia.
- will check an outpatient [place] monitor (our office will arrange) for elevated heart rate noted 2 days ago while walking.
- likely GI related.
- check second troponin and if negative then OK to d/c home with cardiac f/u as arranged with LISA Oliva on 06/10/24 at 10:40am.
CAD - stable.
- s/p mid RCA SARA 05/20/24.
- ASA, Plavix, Crestor, Toprol.
- f/u as above.
HTN - stable on Toprol, continue.
HLD - on Crestor 20mg daily.
- LDL 85 on 05/11/24.
- when he had GI issues 11/2023, his statin was held.
- goal LDL < 55, will reassess lipid profile in 3 months.
GI issues - November 2023.
- GERD as well, on Protonix, continue.
Data Reviewed
-
EKG: Tracing Personally Visualized and interpreted (NSR 80)
Medical Tests (Nuc Med, Echo etc): Report Reviewed by me (cath 05/20/24)
Labs: Labs Reviewed by me
Old Records: Reviewed
[2024-05-28 12:00] LABS: Troponin I < 0.012 ng/ml
[2024-05-28] MEDS: LOW STRENGTH ASPIRIN 81 MG PO (12:46)
[2024-05-28 15:03] LABS: Troponin I < 0.012 ng/ml
== END 2024-05-28 15:19 | disposition home or self-care (01) ==
LOC: EMR 07:37
PROVIDERS: Physician Assistant; EMERGENCY PHYSICIAN Emergency Medicine; FAMILY PHYSICIAN Family Medicine; OTHER PHYSICIAN Internal Medicine Cardiovascular Disease
DX: R07.89 Other chest pain (principal); M25.512 Pain in left shoulder; R06.02 Shortness of breath; R42 Dizziness and giddiness; R14.0 Abdominal distension (gaseous); R61 Generalized hyperhidrosis; I25.10 Atherosclerotic heart disease of native coronary artery without angina pectoris; I10 Essential (primary) hypertension; E78.00 Pure hypercholesterolemia, unspecified; K57.92 Diverticulitis of intestine, part unspecified, without perforation or abscess without bleeding; K50.90 Crohn's disease, unspecified, without complications; I20.9 Angina pectoris, unspecified; K21.9 Gastro-esophageal reflux disease without esophagitis; Z95.5 Presence of coronary angioplasty implant and graft; Z79.02 Long term (current) use of antithrombotics/antiplatelets; Z79.82 Long term (current) use of aspirin; Z79.899 Other long term (current) drug therapy; Z98.890 Other specified postprocedural states
CPT/HCPCS: 99284; 71046; 80053; 84484; 85025; 93005

== ENCOUNTER 2024-07-06 15:38 | Emergency (ER) | payer OTHER, SELFPAY ==
[2024-07-06 15:44] VITALS: BP 158/94
--- NOTE | 2024-07-06 16:13 | ED.GENMED ---
History of Present Illness
<Jim Horowitz DO - Last Filed: 07/06/24 16:13>
General
Chief Complaint: Musculo-Skeletal Complaint
Time Seen by Provider: 07/06/24 16:13
History of Present Illness
History of Present Illness:
TIME OF INITIAL ENCOUNTER: 4:15 PM
HPI:
EXAM:
NUMBER AND COMPLEXITY OF PROBLEMS ADDRESSED AT THE ENCOUNTER
� Chronic conditions affecting care: CAD with coronary stent, high blood pressure, hyperlipidemia, diverticular disease
� Acute Exacerbation and/or Progression of Chronic Illness:
� Differential Diagnosis includes:
AMOUNT AND/OR COMPLEXITY OF DATA TO BE REVIEWED AND ANALYZED
� I performed an independent evaluation of and my interpretation is:
EKG:
CT:
X-rays:
Laboratory Studies:
Other:
� Review of other/old records:
� Clinical information was obtained by an independent historian:
� Prescriptions/Medications Considered but not given:
� Further testing considered but not performed:
RISK OF COMPLICATIONS AND/OR MORBIDITY OR MORTALITY OF PATIENT MANAGEMENT
� Social determinants of health affecting care:
� Discussion with other providers:
� Escalation of care including admission/observation vs risk of discharge considered:
ANY OTHER UPDATES:
<Albino Dejesus PA-C - Last Filed: 07/06/24 17:36>
History of Present Illness
History of Present Illness:
69-year-old male presents the emergency department for evaluation of right ring finger injury sustained after a fall yesterday. Diffuse swelling and bruising to the digit. Denies wrist or elbow pain. Denies a head strike
Past History
<Jim Horowitz DO - Last Filed: 07/06/24 16:13>
Past History
ED Past Medical History: HTN, Hypercholesterolemia, Other (Crohn's) and Other (Diverticulitis)
ED Past Surgical History: Appendectomy, Orthopedic (Neck surgery with fusion) and Other (hernia)
Social History
Tobacco: Non-smoker
Drug: Marijuana
Personal:
Living: with family
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
Review of Systems
<Albino Dejesus PA-C - Last Filed: 07/06/24 17:36>
Review of Systems
Allergies reviewed?: Yes
All Other Systems: ROS reviewed and negative except as documented in HPI and ROS
Phy Exam
<Albino Dejesus PA-C - Last Filed: 07/06/24 17:36>
Physical Exam
Physical Exam:
GEN: Well appearing, NAD, WDWN
HEENT: Oral mucosa moist, no scleral icterus
Cardiac: Regular rate
Lung: No respiratory distress, no tachypnea
MSK: Diffuse swelling and ecchymosis to the right ring finger, range of motion limited secondary to pain however extension is fully intact
Skin: Good color, no pallor or jaundice, no rashes
Neuro: AO x3, moves all extremities freely
Psych: Calm, cooperative
Course
<Jim Horowitz, DO - Last Filed: 07/06/24 16:13>
Orders/Labs/Results
Orders:
Orders
07/06/24 15:46
Hand, Right 3 View [CR Hand - Right Min 3 Views] Urgent
Comment:
Reason For Exam: jammed right 4th digit.
Vital Signs
Initial and Last Documented VS:
Initial Vital Signs
Temp Pulse Resp BP Pulse Ox
98.2 F 75 16 158/94 100
07/06/24 15:44 07/06/24 15:44 07/06/24 15:44 07/06/24 15:44 07/06/24 15:44
Last Documented Vital Signs
Temp Pulse Resp BP Pulse Ox
98.2 F 75 16 158/94 100
07/06/24 15:44 07/06/24 15:44 07/06/24 15:44 07/06/24 15:44 07/06/24 15:44
<Albino Dejesus PA-C - Last Filed: 07/06/24 17:36>
Orders/Labs/Results
Orders:
Orders
07/06/24 15:46
Hand, Right 3 View [CR Hand - Right Min 3 Views] Urgent
Comment:
Reason For Exam: jammed right 4th digit.
Vital Signs
Initial and Last Documented VS:
Initial Vital Signs
Temp Pulse Resp BP Pulse Ox
98.2 F 75 16 158/94 100
07/06/24 15:44 07/06/24 15:44 07/06/24 15:44 07/06/24 15:44 07/06/24 15:44
Last Documented Vital Signs
Temp Pulse Resp BP Pulse Ox
98.2 F 75 16 158/94 100
07/06/24 15:44 07/06/24 15:44 07/06/24 15:44 07/06/24 15:44 07/06/24 15:44
<Albino Dejesus PA-C - Last Filed: 07/06/24 17:36>
MDM/Problems Addressed
MDM/Problems Addressed:
X-rays of the right ring finger are unremarkable, no evidence for fracture, discussed supportive care
<Albino Dejesus PA-C - Last Filed: 07/06/24 17:36>
*Critical Care Note
Total Time (30-74mins, 75-104mins- exclusive of procedures): Not Applicable
ED Attending Note
<Jim Horowitz DO - Last Filed: 07/06/24 16:13>
-
Portions of this chart may have been created with voice recognition software.� Occasional wrong word or��sound alike� substitutions may have occurred due to the inherent limitations of voice recognition software.
Discharge Plan
Departure
Patient Disposition: Home (Routine Discharge)
Date of Disposition: 07/06/24
Time of Disposition: 16:16
Patient with high blood pressure during this ER visit?: No
Discharge Problem:
Sprain of right ring finger
Instructions: Finger Sprain ED
Prescriptions:
No Action
metoprolol succinate 50 mg Tablet Extended Release 24 Hr
12.5 mg PO DAILY
aspirin 81 mg Tablet,Delayed Release (Dr/Ec)
81 mg PO HS
coQ10 (ubiquinol) 200 mg Capsule
200 mg PO HS
omega 2-fjg-ubz-fish oil [Fish Oil] 1,000 mg (120 mg-180 mg) Capsule
1 cap PO DAILY Qty: 0
acetaminophen 325 mg Tablet
650 mg PO Q4HWA Qty: 1 0RF
Visbiome 112.5 billion cell capsule
2 cap PO DAILY Qty: 28 0RF
Rx Instructions:
for 2 weeks
omeprazole 40 mg Capsule,Delayed Release(Dr/Ec)
40 mg PO DAILY Qty: 0 0RF
Rx Instructions:
Follow with PCP and consider discontinuing if no fpc indication
clopidogrel 75 mg tablet
75 mg PO DAILY Qty: 90 10RF
nitroglycerin 0.4 mg tablet, sublingual
0.4 mg sublingual [id number] PRN (Reason: chest pain) Qty: 25 5RF
rosuvastatin 20 mg Tablet
20 mg PO HS Qty: 0 0RF
Interventions
Interventions:
*Risk Screen - Suicide Last Done: 07/06/24 15:42
*General Assessment Last Done: 07/06/24 16:28
*Neglect/Abuse Screening Last Done: 07/06/24 15:44
*Nursing Disposition Last Done: 07/06/24 16:29
ED-Musculoskeletal Assessment Last Done: 07/06/24 16:28
Discharge Date and Time
Discharge Date/Time: 07/06/24 16:29
Print Language: [id number]
== END 2024-07-06 16:29 | disposition home or self-care (01) ==
LOC: EMR 15:38
PROVIDERS: EMERGENCY PHYSICIAN Emergency Medicine; FAMILY PHYSICIAN Family Medicine
DX: S63.614A Unspecified sprain of right ring finger, initial encounter (principal); S60.041A Contusion of right ring finger without damage to nail, initial encounter; W19.XXXA Unspecified fall, initial encounter; I10 Essential (primary) hypertension; K50.90 Crohn's disease, unspecified, without complications; K57.92 Diverticulitis of intestine, part unspecified, without perforation or abscess without bleeding; E78.00 Pure hypercholesterolemia, unspecified; I25.10 Atherosclerotic heart disease of native coronary artery without angina pectoris; Z95.5 Presence of coronary angioplasty implant and graft; Z79.82 Long term (current) use of aspirin; M43.22 Fusion of spine, cervical region
CPT/HCPCS: 99283; 73130

== ENCOUNTER 2024-07-28 09:45 | Outpatient (RCR) | payer OTHER, SELFPAY | END 2024-07-28 23:59 | disposition home or self-care (01) | LOC: CRHB 09:45 | PROVIDERS: ATTENDING PHYSICIAN Internal Medicine Cardiovascular Disease; FAMILY PHYSICIAN Family Medicine | DX: I25.10 Atherosclerotic heart disease of native coronary artery without angina pectoris (principal); Z95.5 Presence of coronary angioplasty implant and graft | CPT/HCPCS: 93797; 93798; G0422; G0423 ==

== ENCOUNTER 2024-08-26 09:37 | Outpatient (RCR) | payer OTHER, SELFPAY | END 2024-08-26 23:59 | disposition home or self-care (01) | LOC: CRHB 09:37 | PROVIDERS: ATTENDING PHYSICIAN Internal Medicine Cardiovascular Disease; FAMILY PHYSICIAN Family Medicine | DX: Z95.5 Presence of coronary angioplasty implant and graft (principal); I25.10 Atherosclerotic heart disease of native coronary artery without angina pectoris | CPT/HCPCS: 93797; 93798; G0422; G0423 ==

== ENCOUNTER 2024-09-20 10:22 | Outpatient (RCR) | payer OTHER, SELFPAY | END 2024-09-20 23:59 | disposition home or self-care (01) | LOC: CRHB 10:22 | PROVIDERS: ATTENDING PHYSICIAN Internal Medicine Cardiovascular Disease; FAMILY PHYSICIAN Family Medicine | DX: I25.10 Atherosclerotic heart disease of native coronary artery without angina pectoris (principal); Z95.5 Presence of coronary angioplasty implant and graft | CPT/HCPCS: G0422; G0423 ==

== ENCOUNTER → 2024-10-10 11:26 | Outpatient (REF) | payer OTHER, SELFPAY | LOC: PAVMRI 11:26 | PROVIDERS: ATTENDING PHYSICIAN Orthopaedic Surgery; FAMILY PHYSICIAN Family Medicine | DX: G95.9 Disease of spinal cord, unspecified (principal); M54.12 Radiculopathy, cervical region | CPT/HCPCS: 72141 ==

== ENCOUNTER 2024-10-11 08:30 | Outpatient (RCR) | payer OTHER, SELFPAY | END 2024-10-11 23:59 | disposition home or self-care (01) | LOC: CRHB 08:30 | PROVIDERS: ATTENDING PHYSICIAN Internal Medicine Cardiovascular Disease; FAMILY PHYSICIAN Family Medicine | DX: I25.10 Atherosclerotic heart disease of native coronary artery without angina pectoris (principal); Z95.5 Presence of coronary angioplasty implant and graft | CPT/HCPCS: G0422; G0423 ==

== ENCOUNTER 2024-11-24 08:30 | Outpatient (RCR) | payer OTHER, SELFPAY | END 2024-11-24 23:59 | disposition home or self-care (01) | LOC: CRHB 08:30 | PROVIDERS: ATTENDING PHYSICIAN Internal Medicine Cardiovascular Disease; FAMILY PHYSICIAN Family Medicine | DX: I25.10 Atherosclerotic heart disease of native coronary artery without angina pectoris (principal); Z95.5 Presence of coronary angioplasty implant and graft | CPT/HCPCS: G0422; G0423 ==

== ENCOUNTER → 2024-12-30 10:34 | Outpatient (REF) | payer OTHER, SELFPAY ==
[2024-12-30 11:37] LABS: % Basophils 0.2 % (0-2); % Eosinophils 0.8 % (0-6); % Immature Granulocytes 0.6 % (0-0.5); % Lymphocytes 27.3 % (20.5-51.1); % Monocytes 9.3 % (1.7-9.3); % Neutrophils 61.8 % (42.2-75.2); Absolute Lymphocytes 1.4 10^3/uL (1.2-3.4); Absolute Monocytes 0.5 10^3/uL (0.1-0.6); Absolute Neutrophils 3.3 10^3/uL (1.4-6.5); Hematocrit 38.8 % (39.0-52.0); Hemoglobin 12.5 g/dL (13.0-18.0); Mean Corp Hgb Conc. 32.2 g/dL (33.0-37.0); Mean Corpuscular Hgb 28.2 pg (27.0-31.0); Mean Corpuscular Volume 87.6 fL (80.0-94.0); Mean Platelet Volume 11.2 fL (7.4-10.4); Nucleated Red Blood Cells % 0 % (-); Platelet Count 196 10^3/uL (130-400); Red Blood Cell Count 4.43 10^6/uL (4.70-6.10); Red Cell Dist. Width 14.8 % (11.5-14.5); White Blood Cell Count 5.3 10^3/uL (4.8-10.8)
[2024-12-30 12:13] LABS: Blood Urea Nitrogen 14 mg/dl (9-20); Calcium 9.4 mg/dl (8.4-10.2); Carbon Dioxide 28 mmol/L (22-30); Chloride 105 mmol/L (98-107); Glucose 92 mg/dl (70-99); Potassium 4.5 mmol/L (3.5-5.1); Sodium 142 mmol/L (135-145); eGFR > 60.00
== END ==
LOC: REG 10:34
PROVIDERS: ATTENDING PHYSICIAN Orthopaedic Surgery; FAMILY PHYSICIAN Family Medicine
DX: Z01.818 Encounter for other preprocedural examination (principal)
CPT/HCPCS: 36415; 80048; 85025

== ENCOUNTER → 2025-04-24 09:20 | Outpatient (REF) | payer OTHER, SELFPAY | LOC: HWRAD 09:20 | PROVIDERS: ATTENDING PHYSICIAN Family Medicine | DX: R10.84 Generalized abdominal pain (principal) | CPT/HCPCS: 76700 ==